=== PATIENT | female | born 1940 | race Caucasian/White ===

== ENCOUNTER → 2024-01-10 17:14 | Outpatient (REF) | payer MEDICARE, SELFPAY ==
[2024-01-10 18:01] LABS: Hematocrit 39.9 % (37.0-47.0); Hemoglobin 12.6 g/dL (12.0-16.0); Mean Corp Hgb Conc. 31.6 g/dL (33.0-37.0); Mean Corpuscular Hgb 26.3 pg (27.0-31.0); Mean Corpuscular Volume 83.1 fL (81.0-99.0); Red Cell Dist. Width 17.1 % (11.5-14.5); White Blood Cell Count 13.6 10^3/uL (4.8-10.8)
[2024-01-10 18:08] LABS: Absolute Neutrophils -Man Diff 9.5 10^3/uL (1.4-6.5); Band Neutrophils 0 % (0-3); Lymphocytes 14 % (20-51); Mean Platelet Volume 8.4 fL (7.4-10.4); Monocytes 16 % (2-9); Platelet Count 85 10^3/uL (130-400); Platelets Checked Yes; Segmented Neutrophils 70 % (42-75)
[2024-01-10 18:09] LABS: Normal RBC Morphology Yes; Total Cells Counted 100
[2024-01-10 18:10] LABS: ALT (SGPT) 16 U/L (0-35); AST (SGOT) 14 U/L (14-36); Albumin 4.2 g/dl (3.5-5.0); Alkaline Phosphatase 122 U/L (38-126); Blood Urea Nitrogen 20 mg/dl (7-17); Calcium 9.2 mg/dl (8.4-10.2); Carbon Dioxide 31 mmol/L (22-30); Chloride 102 mmol/L (98-107); Glucose 187 mg/dl (70-99); Potassium 4.2 mmol/L (3.5-5.1); Sodium 142 mmol/L (135-145); Total Bilirubin 0.5 mg/dl (0.2-1.3); eGFR > 60.00
[2024-01-10 18:42] LABS: TSH 0.86 uIU/ml (0.47-4.68)
[2024-01-11 07:38] LABS: Glycohemoglobin (HgbA1c) 8.3 % (4.0-5.6)
[2024-01-12 22:07] LABS: Fructosamine 388 umol/L (205-285)
== END ==
LOC: REG 17:14
PROVIDERS: ATTENDING PHYSICIAN Internal Medicine Endocrinology, Diabetes & Metabolism; FAMILY PHYSICIAN Family Medicine
DX: Z79.4 Long term (current) use of insulin (principal); E11.65 Type 2 diabetes mellitus with hyperglycemia; E89.0 Postprocedural hypothyroidism; E78.5 Hyperlipidemia, unspecified
CPT/HCPCS: 36415; 80053; 82985; 83036; 84443; 85025

== ENCOUNTER → 2024-02-10 09:47 | Outpatient (REF) | payer MEDICARE, SELFPAY | LOC: RCS 09:47 | PROVIDERS: ATTENDING PHYSICIAN Nuclear Medicine Nuclear Cardiology; FAMILY PHYSICIAN Family Medicine | DX: I10 Essential (primary) hypertension (principal); I45.10 Unspecified right bundle-branch block; I48.20 Chronic atrial fibrillation, unspecified | CPT/HCPCS: 93306 ==

== ENCOUNTER 2024-07-30 14:45 | Inpatient (IN) | payer MEDICARE, SELFPAY ==
[2024-07-30] VITALS (16 sets, daily range): BP systolic 117–172; BP diastolic 52–139; BMI 43.6; BMI 32.3
[2024-07-30] MEDS: ZOFRAN 4 MG IV (11:00)
[2024-07-30] MEDS: NSS 1000 IV (11:05)
[2024-07-30] MEDS: DILAUDID 0.5 MG IV (11:08)
[2024-07-30 11:10] LABS: Venous Blood Gas B.E. 0.6 mmol/L (-4 to +4); Venous Blood Gas O2 Sat % 65.6 %; Venous Blood Gas pCO2 50 mmHg (35-48); Venous Blood Gas pH 7.34 (7.32-7.43); Venous Blood Gas pO2 43 mmHg (30-50)
[2024-07-30 11:22] LABS: ALT (SGPT) 12 U/L (0-35); AST (SGOT) 14 U/L (14-36); Alkaline Phosphatase 117 U/L (38-126); Blood Urea Nitrogen 19 mg/dl (7-17); Calcium 9.3 mg/dl (8.4-10.2); Carbon Dioxide 25 mmol/L (22-30); Chloride 106 mmol/L (98-107); Estimated Creatinine Clearance 38 ml/min; Glucose 248 mg/dl (70-99); Lipase 43 U/L (23-300); Potassium 4.3 mmol/L (3.5-5.1); Sodium 142 mmol/L (135-145); Total Bilirubin 0.7 mg/dl (0.2-1.3); Total Protein 6.9 g/dl (6.3-8.2); eGFR 48.94
[2024-07-30 11:37] LABS: Hematocrit 36.9 % (37.0-47.0); Hemoglobin 11.8 g/dL (12.0-16.0); Mean Corpuscular Hgb 26.5 pg (27.0-31.0); Mean Corpuscular Volume 82.7 fL (81.0-99.0); Mean Platelet Volume 8.6 fL (7.4-10.4); Platelet Count 115 10^3/uL (130-400); Red Blood Cell Count 4.46 10^6/uL (4.20-5.40); Red Cell Dist. Width 19.6 % (11.5-14.5); White Blood Cell Count 52.5 10^3/uL (4.8-10.8)
[2024-07-30 11:50] LABS: Absolute Neutrophils -Man Diff 37.2 10^3/uL (1.4-6.5); Band Neutrophils 6 % (0-3); Lymphocytes 4 % (20-51); Metamyelocytes 4 % (-); Monocytes 18 % (2-9); Myelocytes 3 % (-); Segmented Neutrophils 65 % (42-75)
[2024-07-30 11:51] LABS: Normal RBC Morphology Yes; Platelets Checked Yes; Total Cells Counted 100
[2024-07-30 12:25] LABS: Lactic Acid 1.2 mmol/L (0.7-2.0)
[2024-07-30 13:05] LABS: Urine Albumin 4+ (Neg - Trace); Urine Bilirubin Negative (Negative); Urine Character Cloudy (Clear); Urine Color Yellow; Urine Glucose 4+ (Negative); Urine Ketone 1+ (Negative); Urine Leukocyte 2+ (Negative); Urine Nitrite Positive (Negative); Urine Occult Blood 4+ (Negative); Urine Urobilinogen Negative (Neg - 1+)
[2024-07-30 13:17] LABS: Urine Red Blood Cell >100 /HPF (0-2); Urine Squamous Cell 0-2 /LPF (Few)
[2024-07-30 13:18] LABS: Urine Bacteria Many (Negative); Urine White Cell 40-50 /HPF (0-5); Urine Yeast Few (Negative)
[2024-07-30 13:19] LABS: Urine Uric Acid Crystals Seen
--- NOTE | 2024-07-30 13:31 | ED.GENMED ---
History of Present Illness
General
Chief Complaint: Abdominal Symptoms
Time Seen by Provider: 07/30/24 10:43
History of Present Illness
History of Present Illness:
84-year-old female with history of A-fib and diabetes presents to the emergency department for evaluation of left lower quadrant sarahy pain beginning this morning. She is notably tachypneic and short of breath on arrival and states this has been
going on 'for a little while'. She is a poor historian. Reportedly has had intractable vomiting more than a dozen times today.
Past History
Past History
ED Past Medical History: Arrthythmia (afib), COPD, HTN, IDDM, Renal failure, Psychiatric and Other (Thyroid disease, osteoarthritis, spinal stenosis status post cervical fusion, diabetes, PMR, pneumonia, polyps, stomach ulcers, frequent urination,
arthritis, lumbar spondylosis, glaucoma, appeared vision)
ED Past Surgical History: Orthopedic (Spinal fusion, right total hip replacement) and Other (Colonoscopy)
Patient has exhibited threatening behavior?: No
Social History
Tobacco: Former smoker
Alcohol: None
Drug: None
Personal:
Living: with family
Employment: Retired
Family History
Family History: Other (noncontributory)
Review of Systems
Review of Systems
Allergies reviewed?: Yes
All Other Systems: ROS reviewed and negative except as documented in HPI and ROS
Phy Exam
Physical Exam
Physical Exam:
GEN: Well appearing, NAD, WDWN
HEENT: Oral mucosa dry, no scleral icterus
Cardiac: Regular rate and rhythm, no murmur
Lung: Tachypneic, grossly diminished breath sounds particularly in the bases
Abdomen: Soft, severe left lower quadrant tenderness, no rigidity
MSK: No gross deformity or injuries
Skin: Good color, no pallor or jaundice, no rashes
Neuro: AO x3, moves all extremities freely
Psych: Calm, cooperative
Course
Orders/Labs/Results
Orders:
Orders
07/30/24 10:49
CT Abd/Pel (IV only)-DH only Urgent
Comment:
Reason For Exam: LLQ pain
0.9% Sodium Chloride 1000 ml [Nss] 1,000 ml IV BOLUS
Ondansetron Injectable [Zofran] 4 mg IV NOW STA
07/30/24 10:58
HYDROmorphone [Dilaudid] 0.5 mg IV NOW STA
07/30/24 11:01
Complete Blood Count/With Diff Urgent
Comprehensive Metabolic Panel Urgent
Lipase Urgent
Manual Differential Urgent
Venous Blood Gas Urgent
%Oxygen/Room Air: 90
07/30/24 11:30
Electrocardiogram (*1) Urgent
Reason for Study: Shortness of Breath
EKG- Treatment ONCE
CR Chest Portable - 1 View Urgent
Comment:
Reason For Exam: SOB
Reason Study Needs to be Portable: Other
07/30/24 11:56
Lactic Acid Urgent
Blood Culture Q30M
TRACIE Source: Blood/Venous
Specimen Description:
Blood Culture Q30M
TRACIE Source: Blood/Venous
Specimen Description:
07/30/24 12:53
Azithromycin 500 mg/250 ml [Zithromax Infusion] 500 mg in 250 ml IV NOW
CefTRIAXone [Rocephin] 1,000 mg IV NOW STA
07/30/24 12:54
Urinalysis Reflex To Culture Urgent
Date Specimen was Collected: 07/30/24
Time Specimen was Collected: 12:53
Urine Microscopic Reflex Cult Urgent
Urine Culture Urgent
TRACIE Source: U
Specimen Description:
Date Specimen was Collected: 07/30/24
Time Specimen was Collected: 12:53
Abnormal Lab Results
07/30/24 07/30/24
11:01 12:54
WBC 52.5 H* 10^3/uL
(4.8-10.8)
Hgb 11.8 L g/dL
(12.0-16.0)
Hct 36.9 L %
(37.0-47.0)
MCH 26.5 L pg
(27.0-31.0)
MCHC 32.0 L g/dL
(33.0-37.0)
RDW 19.6 H %
(11.5-14.5)
Plt Count 115 L 10^3/uL
(130-400)
Abs Neuts (Manual) 37.2 H 10^3/uL
(1.4-6.5)
Band Neutrophils 6 H %
(0-3)
Lymphocytes (Manual) 4 L %
(20-51)
Monocytes (Manual) 18 H %
(2-9)
VBG pCO2 50 H mmHg
(35-48)
BUN 19 H mg/dl
(7-17)
Creatinine 1.1 H mg/dL
(0.6-1.0)
Glucose 248 H mg/dl
(70-99)
Urine Ketones 1+ A
(Negative)
Ur Occult Blood Reflex 4+ A
(Negative)
Urine Nitrite (Reflex) Positive A
(Negative)
Leukocyte Esterase Rfl 2+ A
(Negative)
Urine RBC >100 A /HPF
(0-2)
Urine WBC (Reflex) 40-50 A /HPF
(0-5)
Urine Bacteria (Reflex) Many A
(Negative)
Urine Yeast Few A
(Negative)
Urine Glucose 4+ A
(Negative)
Urine Albumin (Reflex) 4+ A
(Neg - Trace)
07/30/24 11:01
07/30/24 11:01
Vital Signs
Initial and Last Documented VS:
Initial Vital Signs
Temp Pulse Resp BP Pulse Ox
97.7 F 88 20 168/62 89
07/30/24 10:46 07/30/24 10:46 07/30/24 10:46 07/30/24 10:46 07/30/24 10:46
Last Documented Vital Signs
Temp Pulse Resp BP Pulse Ox
97.7 F 80 16 139/55 93
07/30/24 10:46 07/30/24 13:15 07/30/24 13:15 07/30/24 13:00 07/30/24 13:15
MDM/Problems Addressed
MDM/Problems Addressed:
Labs reveal marked leukocytosis however normal lactic acid, most likely source is urinary tract infection. Initial chest x-ray concerning for pneumonia however follow-up CT more suspicious for bilateral effusions which explains her positional
hypoxemia. No evidence for obstructing urinary stone. Will be started on broad-spectrum IV antibiotics and admitted to the hospital. She has no right upper quadrant tenderness to explain the CT finding of possible cholecystitis thus I do not see
indication for ultrasound at this point
*Critical Care Note
Total Time (30-74mins, 75-104mins- exclusive of procedures): Not Applicable
ED Attending Note
-
Portions of this chart may have been created with voice recognition software.� Occasional wrong word or��sound alike� substitutions may have occurred due to the inherent limitations of voice recognition software.
Discharge Plan
Departure
Patient Disposition: Admit
Date of Disposition: 07/30/24
Time of Disposition: 13:33
Admit to: Med/Surg
Presentation/result/management discussed w/ accepting MD/DO: Hospitalist
Discharge Problem:
Urinary tract infection
Prescriptions:
No Action
metoprolol succinate 50 MG tablet extended release 24 hr
50 mg PO BID
Rx Instructions:
with 25mg =75mg
sertraline 50 MG tablet
50 mg PO DAILY
metoprolol succinate 25 MG tablet extended release 24 hr
25 mg PO DAILY
Rx Instructions:
with 50mg =75mg
ferrous sulfate [Iron (ferrous sulfate)] 325 mg (65 mg iron) Tablet
325 mg PO DAILY
valsartan 160 mg Tablet
160 mg PO DAILY
furosemide 20 MG tablet
40 mg PO DAILY
atorvastatin 40 mg tablet
80 mg PO HS
cholecalciferol (vitamin D3) 50 mcg (2,000 unit) Tablet
50 mcg PO DAILY
potassium chloride 10 mEq tablet extended release
10 meq PO DAILY
Farxiga 10 mg tablet
10 mg PO DAILY
sodium chloride [Elkin 128] 5 % Drops
1 drp LEFT EYE HS
acetaminophen [Acetaminophen Extra Strength] 500 mg Tablet
1,000 mg PO DAILYPRN PRN (Reason: mild pain)
Systane (PF) 0.4-0.3 % Dropperette
1 drp LEFT EYE TID
Multivitamin Gummies 200 mcg Tablet,Chewable
400 tab PO DAILY
levothyroxine 150 mcg Tablet
150 mcg PO MoTuWeThFrSa@0630 30 Days Qty: 26 0RF
aspirin [Children's Aspirin] 81 mg Tablet,Chewable
81 mg PO DAILY 30 Days Qty: 30 0RF
pantoprazole 40 MG tablet,delayed release (DR/EC)
40 mg PO BID 30 Days Qty: 60 0RF
insulin lispro protamin-lispro [Humalog Mix 75-25 KwikPen] 100 unit/mL (75-25) Insulin Pen
10 unit SC DAILY Qty: 0 0RF
insulin lispro protamin-lispro [Humalog Mix 75-25 KwikPen] 100 unit/mL (75-25) Insulin Pen
4 unit SC QPM Qty: 0 0RF
Referrals:
Pratibha Wasserman MD [Family Provider] -
Interventions
Interventions:
*Risk Screen - Suicide Last Done: 07/30/24 10:46
*General Assessment Last Done: 07/30/24 10:46
*Neglect/Abuse Screening Last Done: 07/30/24 10:46
*ED COVID-19 Vaccine History Last Done: 07/30/24 11:17
TL-Necvca-Kymjrefjrs Assessment Last Done: 07/30/24 11:00
Discharge Date and Time
Print Language: URUGUAYAN
[2024-07-30] MEDS: ZITHROMAX INFUSION 250 IV (13:42)
[2024-07-30] MEDS: ROCEPHIN 1000 MG IV (13:43)
--- NOTE | 2024-07-30 14:27 | HPS.HSE ---
Family Physician
-
Family Physician: Pratibha Wasserman
Chief Complaint
-
soB , tachypnea
History of Present Illness
I could not get any information from the patient is poor historian
Information gathered by chart review and speaking with the ER staff.
HPI
84F Poor historian Former smoker, HX DM, HTN, , chr HFpEF, Hypothyroidism, Spinal Stenosis s/p fusion, Rt THR , HX Afib Xarelot HX GIB complicated with blood loss anemia and hemorrhagic shock ( Mar 2023)
- evaluation of left lower quadrant sarahy pain beginning this morning.
- notably tachypneic and short of breath on arrival and states this has been going on 'for a little while'.
- poor historian.
- Reportedly has had intractable vomiting more than a dozen times today.
Medical History
Past Medical History
Past Medical History: Reports Other
Additional Past Medical History:
Past medical history and archive reviewed:
Recurrent GI bleed status post multiple polyp removal on March 06
Hearing impairment
Basal cell carcinoma of the face
Mood disorder
Congestive heart failure with preserved ejection fraction
Pulmonary hypertension
Glaucoma
Osteoarthritis
Fat infiltration of the liver
Type 2 diabetes mellitus on insulin
Dyslipidemia
Hypertension
Hypothyroidism
Chronic right bundle branch block
Polymyalgia rheumatica
A-fib
Pericarditis.
Surgical history:
Recent EGD and colonoscopy
Polypectomy
Skin cancer removal from the face and back
Mohs surgery
Lumbar spine injection
Social history: Lives at home with family, no smoking alcohol use and she is independent.
Family history: Positive for hypertension, diabetes and coronary artery disease.
Past Surgical History: Reports Other
Social History
Unable to obtain full social history at this time due to: Other
Family History
Family History: Other
Allergies / Home Medications
Allergies reflects when Allergies were last updated in [employer].
Home Medications with original date entered in [employer]
Allergy/Medication List:
Allergies
Allergy/AdvReac Type Severity Reaction Status Date / Time
No Known Allergies Allergy Verified 03/03/23 19:24
Home Medications
levothyroxine 175 mcg tablet 175 mcg PO MOTUWETHFRSA Thyroid 10/23/15
metoprolol succinate 50 mg tablet,extended release 24 hr 50 mg PO BID Blood pressure 10/12/17
sertraline 50 mg tablet 50 mg PO DAILY Depression 10/12/17
metoprolol succinate 25 mg tablet,extended release 24 hr 25 mg PO DAILY Blood pressure 12/13/19
atorvastatin 40 mg tablet 80 mg PO HS High cholesterol 09/01/22
cholecalciferol (vitamin D3) 50 mcg (2,000 unit) tablet 50 mcg PO DAILY Supplement 09/01/22
ferrous sulfate 325 mg (65 mg iron) tablet (Iron (ferrous sulfate)) 325 mg PO DAILY Supplement 09/01/22
furosemide 20 mg tablet 40 mg PO DAILY Fluid retention/Swelling 09/01/22
insulin lispro protamine-lispro 100 unit/mL (75-25) subcutaneous pen (Humalog Mix 75-25 KwikPen) 12 unit SC DAILY Diabetes 09/01/22
insulin lispro protamine-lispro 100 unit/mL (75-25) subcutaneous pen (Humalog Mix 75-25 KwikPen) 25 unit SC DAILY Diabetes 09/01/22
pantoprazole 40 mg tablet,delayed release 40 mg PO DAILY Gastrointestinal issue 09/01/22
valsartan 160 mg tablet 160 mg PO DAILY Blood pressure 09/01/22
dapagliflozin propanediol 10 mg tablet (Farxiga) 10 mg PO DAILY Diabetes 03/04/23
potassium chloride 10 mEq tablet,extended release 10 meq PO DAILY Supplement 03/04/23
rivaroxaban 20 mg tablet (Xarelto) 20 mg PO QPM Blood clot prevention/tx #30 tabs 03/08/23
acetaminophen 500 mg tablet (Acetaminophen Extra Strength) 1,000 mg PO DAILYPRN PRN mild pain 03/19/23
multivitamin with minerals-folic acid 200 mcg chewable tablet (Multivitamin Gummies) 400 tab PO DAILY 03/19/23
peg 400-propylene glycol (PF) 0.4 %-0.3 % eye drops in a dropperette (Systane (PF)) 1 drp LEFT EYE TID 03/19/23
sodium chloride 5 % eye drops (Elkin 128) 1 drp LEFT EYE HS 03/19/23
Review of Systems
-
Constitutional: Reports No Symptoms
EENT: Reports No Symptoms
Respiratory: Reports No Symptoms
Cardiac: Reports No Symptoms
Abdomen/GI: Reports No Symptoms
: Reports No Symptoms
Musculoskeletal: Reports No Symptoms
Skin: Reports No Symptoms
Neurological: Reports No Symptoms
Endocrine: Reports No Symptoms
Hematologic/Lymphatic: Reports No Symptoms
Psych: Reports No Symptoms
Physical Exam
Vital Signs
Vital Signs
Temp Pulse Resp BP Pulse Ox
97.7 F 87 20 139/55 93
07/30/24 10:46 07/30/24 13:45 07/30/24 13:45 07/30/24 13:00 07/30/24 13:45
Physical Exam
General: Other (overweight)
Laboratory Results
-
07/30/24 11:01
07/30/24 11:01
Laboratory Results
Lactic Acid 1.2 mmol/L (0.7-2.0) 07/30/24 11:56
Total Bilirubin 0.7 mg/dl (0.2-1.3) 07/30/24 11:01
AST 14 U/L (14-36) 07/30/24 11:01
ALT 12 U/L (0-35) 07/30/24 11:01
Alkaline Phosphatase 117 U/L (38-126) 07/30/24 11:01
Lipase 43 U/L (23-300) 07/30/24 11:01
Data Reviewed
-
Diagnostic Radiology: Report Reviewed by me
CT Scan: Report Reviewed by me
Medical Tests (Nuc Med, Echo, EKG etc): Report Reviewed by me
Lab Data: Labs Reviewed by me
Old Records: Reviewed
Impression/Plan
-
Data
Selected Entries
07/30/24
10:46 07/30/24
11:30
Temp 97.7 F
Pulse 88
Resp Rate 20
Blood pressure 168/62
SaO2 89 95
Labs
01/10/24 01/10/24 07/30/24
17:29 17:30 11:01
WBC 13.6 H 52.5 H*
Hgb 12.6 11.8 L
Plt Count 85 L 115 L
Band Neutrophils 6 H
VBG pH 7.34
VBG pCO2 50 H
VBG pO2 43
BUN 19 H
Creatinine 0.9 1.1 H
eGFR > 60.00 48.94
Lactic Acid
Urine Clarity
Urine Nitrite (Reflex)
Leukocyte Esterase Rfl
Urine RBC
Urine WBC (Reflex)
Urine Bacteria (Reflex)
07/30/24 07/30/24
11:56 12:54
WBC
Hgb
Plt Count
Band Neutrophils
VBG pH
VBG pCO2
VBG pO2
BUN
Creatinine
eGFR
Lactic Acid 1.2
Urine Clarity Cloudy
Urine Nitrite (Reflex) Positive A
Leukocyte Esterase Rfl 2+ A
Urine RBC >100 A
Urine WBC (Reflex) 40-50 A
Urine Bacteria (Reflex) Many A
CXR
- suggesting mild bilateral lower lobe pneumonia.
- Small left pleural effusion
- Mild cardiomegaly
CT Abd/Pel (IV only)-DH only
- Decreased excretion from the left kidney and minimal left hydronephrosis.
- New. No obstructing radiopaque stone or mass not identified.
-Small left and tiny right pleural effusions. New.
- Minimal bibasilar consolidation probably atelectasis. New.
- New gallbladder distention with enlarged gallstones in the gallbladder neck. Acute cholecystitis cannot be excluded. Abdominal ultrasound recommended.
- Bilateral too small to characterize hypodense renal lesions likely benign cysts. Small left renal cyst. Increased in size and number.
- Solid right adrenal nodule probably benign considering the long-term stability.
- Mild T11 and L3 compression fractures. Stable
02/10/24 TTE
- LVEF 50-55% by Scott's
- Diastolic function indeterminate due to atrial fibrillation.
- Mild mitral regurgitation.
- Moderately dilated left atrium. Indexed LA volume is moderately abnormal (42-48 mL/m2).
- Mild tricuspid regurgitation.
- Estimated pulmonary artery pressure of 48 mmHg assuming right atrial pressure of 3 mmHg.
- Mildly dilated right atrium.
Since echocardiogram December 2022, there is no significant change.
Feb 2023: EGD and colonoscopy
multiple polyps been removed
Last hospitalist admission:Date of Admission: 03/19/23 - Date of Discharge: 03/29/23
DC DXS
Gastrointestinal Bleed likely exacerbated by Xarelto use,
Right Upper Extremity Superficial Thrombophlebitis
Depression
Iatrogenic Hyperthyroidism
History Hypothyroidism
Diabetes
Flu
Acute Hypoxic Respiratory Failure
Acute Kidney Injury
ASSESSMENT & PLAN
Pending Rx reconciliation
B/L LLL PNA/ Aspiration PNA ?with SIRS( RR > 20, WCC 52s ) thus associated sepsis
Asso. acute hypercapnic hypoxic RI on NC O2
- check PCT
- BCx sent
- Zosyn in place of IV CFTX/Azitrhomycin
- Trend T, RR, WCC
- O2 to keep POx > 94%
Chronic HFpEF
- stable
- c/w SCARFER PO Frusemide, Valsartan, Metoprolol XL , Farxiga
DMT2 on Insulin
- c/w SCARFER Insulin regime
- add ISS low
- ADA 2000 anthony
Hypothyroid
c/w SCARFER Synthroid
HX GIB complicated with blood loss anemia and hemorrhagic shock ( Mar 2023)
HX AF
Previously on Rivaroxaban ? stopped due to GIB
- Pending Rx reconciliation
Chr condition
Morbid obesity
Chronic Thrombocytopenia
Chronic hypoalbuminemia and hypoproteinemia
Hiatal Hernia
Colonic Polyps
Diverticulosis
Internal Hemorrhoids
Chronic anemia
Spinal stenosis s/p fusion
R total hip replacement
Thyroid surgery
Former Smoker
Morbid obesity
DVT Px: SQH
Full code
IMU
[2024-07-30 16:41] LABS: Glucose - Point of Care 201 mg/dl (70-99)
[2024-07-30 17:36] LABS: Procalcitonin 0.06 ng/ml (0.0-0.25)
[2024-07-30 18:01] LABS: Glucose - Point of Care 188 mg/dl (70-99)
[2024-07-30] MEDS: NOVOLOG FLEXPEN-LOW RESISTANCE 1 UNITS SC (18:36)
[2024-07-30] MEDS: NOVOLOG MIX 70/30 FLEXPEN SC (19:05)
--- NOTE | 2024-07-30 19:09 | PTCARENOTE ---
Addendum entered by Miriam Maharaj RN 07/30/24 19:17:
Patient d/t void post straight-cath in ED. Also due for IVAB not delivered to unit yet. Jyoti RN updated.
Original Note:
Received patient on admission from ED via stretcher; afib on monitor. Patient stated nausea was much better when she first arrived but then stated she could not eat because her stomach did not feel good. Accu check 188; administered 1unit insulin as
per SS coverage ordered. Patient also ordered 14 units 70/30; however daughter stated patient now takes 10 units 75/25. Med list updated. TT sent to Dr Mckinney of different home dose and that patient does not want to eat; he changed order to 10 units
and instructed to give. Patient and daughter then refused 70/30; daughter stated she was concerned that patient's blood sugar would drop. Report given to jyoti solorzano.
[2024-07-30] MEDS: ZOSYN 50 IV (19:50)
[2024-07-30] MEDS: HEPARIN 5000 UNITS SC (19:50)
[2024-07-30] MEDS: TOPROL XL 50 MG PO (19:53)
[2024-07-30] MEDS: REFRESH EYE DROPS (PF) 1 DROPS BOTH EYES (21:17)
[2024-07-30] MEDS: DILAUDID 0.25 MG IV (21:17)
[2024-07-30] MEDS: LIPITOR 80 MG PO (21:17)
[2024-07-30] MEDS: DESENEX/MITRAZOL/ZEASORB 1 APPLIC TOPICAL (21:18)
[2024-07-30 21:32] LABS: Glucose - Point of Care 201 mg/dl (70-99)
[2024-07-31] VITALS (13 sets, daily range): BP systolic 101–145; BP diastolic 44–77; PULSE 81–83; O2SAT 96–97; BMI 32.4
[2024-07-31] MEDS: ZOSYN 50 IV ×4 (00:14→17:16)
[2024-07-31 04:39] LABS: Blood Urea Nitrogen 22 mg/dl (7-17); Carbon Dioxide 23 mmol/L (22-30); Chloride 108 mmol/L (98-107); Estimated Creatinine Clearance 23 ml/min; Glucose 154 mg/dl (70-99); Potassium 4.5 mmol/L (3.5-5.1); Sodium 143 mmol/L (135-145); eGFR 33.73
[2024-07-31 04:48] LABS: Hematocrit 33.4 % (37.0-47.0); Hemoglobin 10.3 g/dL (12.0-16.0); Mean Corp Hgb Conc. 30.8 g/dL (33.0-37.0); Mean Corpuscular Hgb 25.8 pg (27.0-31.0); Mean Corpuscular Volume 83.5 fL (81.0-99.0); Mean Platelet Volume 8.8 fL (7.4-10.4); Platelet Count 107 10^3/uL (130-400); Red Cell Dist. Width 19.5 % (11.5-14.5); White Blood Cell Count 57.2 10^3/uL (4.8-10.8)
--- NOTE | 2024-07-31 04:59 | W.PN.UPDATE ---
Update Note
Progress Note Update
Received critical value for am labs: WBC 52.5 -> 57.2. Pt continued on Zosyn as ordered, pending bld and urine cx.
[2024-07-31] MEDS: SYNTHROID 150 MCG PO (05:42)
--- NOTE | 2024-07-31 06:01 | PTCARENOTE ---
Patient with moderate bladder pain overnight. Due to void at shift change. Bladder scanned for 111. call out operator provider made aware and ordered 1x dose dilaudid with relief. Patient with no problems urinating overnight.
--- NOTE | 2024-07-31 06:05 | PTCARENOTE ---
Critical wbc 57.2 up from 52.5. square dance caller provider made aware.
[2024-07-31 08:00] LABS: Glucose - Point of Care 158 mg/dl (70-99)
[2024-07-31] MEDS: DIOVAN 160 MG PO (08:16)
[2024-07-31] MEDS: TOPROL XL 25 MG PO (08:16)
[2024-07-31] MEDS: VITAMIN D3 (cholecalciferol) 25 MCG PO (08:16)
[2024-07-31] MEDS: ZOLOFT 50 MG PO (08:16)
[2024-07-31] MEDS: NOVOLOG FLEXPEN-LOW RESISTANCE 1 UNITS SC (08:17)
[2024-07-31] MEDS: FEOSOL 325 MG PO (08:17)
[2024-07-31] MEDS: REFRESH EYE DROPS (PF) 1 DROPS BOTH EYES ×2 (08:17→17:16)
[2024-07-31] MEDS: LASIX 40 MG PO (08:17)
[2024-07-31] MEDS: PROTONIX 40 MG PO (08:17)
[2024-07-31] MEDS: ASPIR LOW (ENTERIC COATED) 81 MG PO (08:17)
[2024-07-31] MEDS: TOPROL XL 50 MG PO ×2 (08:17→19:54)
[2024-07-31] MEDS: HEPARIN 5000 UNITS SC ×2 (08:18→19:55)
[2024-07-31] MEDS: KCL 10 MEQ PO (08:19)
[2024-07-31] MEDS: DESENEX/MITRAZOL/ZEASORB 1 APPLIC TOPICAL ×2 (08:20→19:55)
[2024-07-31] MEDS: NOVOLOG MIX 70/30 FLEXPEN 10 UNITS SC ×2 (09:23→18:20)
--- NOTE | 2024-07-31 10:25 | W.PN.HOSP.TC ---
Today's Communication/Plan
-
IV Zosyn
c/w to hold Lasix, Farxiga
Blood work in AM
Assessment / Plan
Assessment / Plan
Physical Exam
General: Not in acute distress
HEENT: Normocephalic
Cardiology: S1 and S2. Irregular Rate/Rhythm
Pulmonary: no rales, limited
Musculoskeletal: no edema
GI: Soft and Non Tender. Positive bowel sounds.
Neuro: Non Focal. Alert and awake
Psych: calm
A/P
#B/L LLL PNA/ Aspiration PNA ?with SIRS( RR > 20, WCC 52s ) thus associated sepsis
Acute hypercapnic and hypoxic respiratory failure
No cough
No fevers
Feels better today
f/w cultures
f/w pulmonary & ID recommendations
# MISBAH
Hold Lasix
Chronic HFpEF
- stable
- c/w [employer] PO Frusemide, Valsartan, Metoprolol XL , Farxiga
DMT2 on Insulin
HGB A1C 7.6 ( better than last admission)
# Hypothyroid
c/w [employer] Synthroid
HX GIB complicated with blood loss anemia and hemorrhagic shock ( Mar 2023)
HX AF
Previously on Rivaroxaban ? stopped due to GIB
- Pending Rx reconciliation
Chr condition
Morbid obesity
Chronic Thrombocytopenia
Chronic hypoalbuminemia and hypoproteinemia
Hiatal Hernia
Colonic Polyps
Diverticulosis
Internal Hemorrhoids
Chronic anemia
Spinal stenosis s/p fusion
R total hip replacement
Thyroid surgery
Former Smoker
Morbid obesity
Total time spent to see the patient, examine the patient, review data and lab result, discuss treatment plan with patient, daughter, nursing staff around 55 minutes
Anticipated Discharge: > 48 hours
Subjective/Interval History
-
Date of Service: July 31, 2024
No chest pain
No sob
No fevers
Objective Data
-
Labs:
Laboratory Results
07/31/24
03:46
WBC 57.2 H*
Hgb 10.3 L
Hct 33.4 L
Plt Count 107 L
Sodium 143
Potassium 4.5
Chloride 108 H
Carbon Dioxide 23
BUN 22 H
Creatinine 1.5 H
Glucose 154 H
Calcium 9.0
Vital Signs:
Vital Signs
Temp Pulse Resp BP Pulse Ox
98.3 F 78 20 115/61 95
07/31/24 08:02 07/31/24 10:00 07/31/24 10:00 07/31/24 10:00 07/31/24 10:01
I&O
07/30/24 07/31/24 08/01/24
06:59 06:59 06:59
Intake Total 580 / 580
Balance 580 / 580
--- NOTE | 2024-07-31 10:41 | CON.ID ---
Consultation
-
Date/Time Consultation Requested: 07/31/2024 0644
Date/Time Consultation Performed: 07/31/2024 0942
Requesting Provider: Dr. Bray
Performing Provider: Dr. Vu
Reason for Consultation: Leukocytosis; suspected pneumonia; UTI
Chief Complaint / Past History
History of Present Illness
Kera Pappas is an 84-year-old female being evaluated at the request of Dr. Bray in regards to leukocytosis. History is obtained from chart review, along with patient interview.
The patient has a significant past medical history of diabetes mellitus, COPD and A-fib. She lives with her daughter reports she was in her usual state of health until 2 days ago when later in the evening she developed left sided abdominal
discomfort. She reports that it was 10/10 when it happened. Ultimately she went to bed, but woke up later that night and found that she could not fall back to sleep secondary to the discomfort. Yesterday because of the ongoing pain she was
brought to the emergency room for further evaluation. In the ER she complained of vomiting, but reports that nausea and vomiting have now abated. She does complain of a lack of appetite. She denies any cough, but notes some slight shortness of
breath. She denies any fevers or chills, but admits to feeling 'cold'. Although the left lower quadrant pain has improved it is still present, and she also notes some right sided discomfort. She denies any dysuria, but nursing reports that the
urine appears purulent.
Past History
Additional Past Medical History:
A-fib
DM
COPD
HTN
Reported renal insufficiency
Thyroid disease
Osteoarthritis
Spinal stenosis
PMR
Additional Past Surgical History:
Cervical fusion
Right hip replacement
Colonoscopy
Allergy History:
No Known Allergies Allergy (Verified 07/30/24 10:45)
Medications Reviewed: Yes
Current Antibiotics:
Zosyn 2.25 g IV every 6 hours
Ceftriaxone (discontinued)
Azithromycin (discontinued)
Social History
Tobacco: Former Smoker
Alcohol: None
Drug: None
Personal:
Living: With Family
Employment: Retired
Family History
Family History: Not Pertinent
Review of Systems
Vital Signs
Temp Pulse Resp BP Pulse Ox
98.3 F 78 20 115/61 95
07/31/24 08:02 07/31/24 10:00 07/31/24 10:00 07/31/24 10:00 07/31/24 10:01
Physical Exam
Physical Exam
Constitutional: No Acute Distress, Comfortable and Non-toxic
Head: Normocephalic
Eyes: Pupils Equal, Pupils Round, No Conjunctival Hemorrhage and Sclera Anicteric
Oral: No Thrush and No Ulcers
Cardiovascular: S1/S2; Negative S3/S4
Pulmonary: Clear; Negative Wheezes, Rales or Rhonchi
Gastrointestinal: Soft, Tender (mild; LLQ), Non Distended, Normal Bowel Sounds, No Rebound and No Guarding
Genito-Urinary: CVA Tenderness (mild; Left)
Extremities: Edema; Negative Cyanosis or Erythema
Skin: Warm and Dry; Negative Rash or Jaundice
Neurological: Awake and Alert
Psychological: Calm
.
Lab / Diagnostic Study Results
07/31/24 03:46
07/31/24 03:46
Total Counted 100 07/30/24 11:01
Abs Neuts (Manual) 37.2 10^3/uL (1.4-6.5) H 07/30/24 11:01
Segmented Neutrophils 65 % (42-75) 07/30/24 11:01
Band Neutrophils 6 % (0-3) H 07/30/24 11:01
Lymphocytes (Manual) 4 % (20-51) L 07/30/24 11:01
Lactic Acid 1.2 mmol/L (0.7-2.0) 07/30/24 11:56
Procalcitonin 0.06 ng/ml (0.0-0.25) 07/30/24 16:43
Ur Squamous Epith Cells 0-2 /LPF (Few) 07/30/24 12:54
Microbiology Results
Micro:
07/30/24 12:54 Urine Culture - Preliminary
Urine
07/30/24 11:56 Blood Culture - Pending
Blood/Venous
07/30/24 11:56 Blood Culture - Pending
Blood/Venous
Imaging:
07/30/24 CT abdomen/pelvis: Minimal bibasilar consolidation. Liver, spleen and pancreas are unremarkable. Gallbladder is distended with at least 4 moderate-sized stones in the region of the gallbladder neck. No wall thickening or pericholecystic
fluid. Mild bilateral perinephric stranding, left greater than right. Minimal left hydronephrosis noted. No obstructing radiopaque stone or mass identified. Please see full dictation for additional detail. Film personally viewed.
07/30/2024 CXR (portable): No visible pneumothorax. Small left pleural effusion noted. Airspace disease in both lower lung storey noted.
Assessment / Plan
Leukocytosis
- ? Leukemoid reaction
Suspected complicated urinary tract infection
Anemia
MISBAH
A-fib
DM
COPD
HTN
Reported renal insufficiency
Thyroid disease
Osteoarthritis
Spinal stenosis
PMR
Recommendations:
Continue with empiric Zosyn for the present.
Blood cultures and urine culture are currently pending; will await results.
Follow white count and temperature curve.
Further recommendations as additional data is returned.
Monitor abdominal discomfort; if persists, may need repeat CT with p.o. contrast
[2024-07-31 11:03] LABS: Glycohemoglobin (HgbA1c) 7.6 % (4.0-5.6)
[2024-07-31 12:34] LABS: Glucose - Point of Care 146 mg/dl (70-99)
[2024-07-31] MEDS: NOVOLOG FLEXPEN-LOW RESISTANCE SC ×2 (12:42→17:16)
--- NOTE | 2024-07-31 13:19 | CON.PUL ---
Consultation
Consultation Request
Date/Time Consultation Requested: 07/31/2024
Date/Time Consultation Performed: 07/31/2024
Requesting Provider: Dr. Bray
Performing Provider: Dr. Jan Landers
Reason for Consultation: Pneumonia bilateral pneumonia
Medical History
-
History of Present Illness:
84-year-old woman with past medical history of diabetes, hypertension, former smoker, heart failure with preserved ejection fraction, hypothyroidism, spinal stenosis status post fusion, history of atrial fibrillation on Xarelto with history of GI
bleeding and anemia. Poor historian, chart reviewed.
Apparently initially admitted with abdominal pain and intractable vomiting.
Chest x-ray demonstrated bilateral bibasilar infiltrate suggestive of aspiration.
Patient found to be hypoxic, tachypneic.
We were consulted on 07/31/2024 for evaluation of hypoxemia and pneumonia.
Past Medical History
Past Medical History: Other (See assessment and plan)
Social History
Tobacco: Other (Unable to obtain)
Family History
Family History: Unable to Obtain
Allergies / Home Medications
Allergies
Allergy/AdvReac Type Severity Reaction Status Date / Time
No Known Allergies Allergy Verified 07/30/24 10:45
Home Medications
�Medication �Instructions �Recorded �Confirmed �Last Taken �Type
metoprolol succinate 50 mg 50 mg PO BID Blood pressure 10/12/17 07/30/24 07/29/24 History
tablet,extended release 24 hr
sertraline 50 mg tablet 50 mg PO DAILY Depression 10/12/17 07/30/24 07/29/24 History
metoprolol succinate 25 mg 25 mg PO DAILY Blood pressure 12/13/19 07/30/24 07/29/24 History
tablet,extended release 24 hr
atorvastatin 40 mg tablet 80 mg PO HS High cholesterol 09/01/22 07/30/24 07/29/24 History
ferrous sulfate 325 mg (65 mg 325 mg PO DAILY Supplement 09/01/22 07/30/24 07/29/24 History
iron) tablet (Iron (ferrous
sulfate))
furosemide 20 mg tablet 40 mg PO DAILY Fluid 09/01/22 07/30/24 07/29/24 History
retention/Swelling
valsartan 160 mg tablet 160 mg PO DAILY Blood pressure 09/01/22 07/30/24 07/29/24 History
dapagliflozin propanediol 10 mg 10 mg PO DAILY Diabetes 03/04/23 07/30/24 07/29/24 History
tablet (Farxiga)
potassium chloride 10 mEq 10 meq PO DAILY Supplement 03/04/23 07/30/24 07/29/24 History
tablet,extended release
multivitamin with minerals-folic 400 tab PO DAILY Supplement 03/19/23 07/30/24 07/29/24 History
acid 200 mcg chewable tablet
(Multivitamin Gummies)
peg 400-propylene glycol (PF) 0.4 1 drp BOTH EYES TID Eye Condition 03/19/23 07/30/24 07/29/24 History
%-0.3 % eye drops in a dropperette
(Systane (PF))
levothyroxine 150 mcg tablet 150 mcg PO [id number]@0630 30 03/29/23 07/30/24 07/29/24 Rx
days #26 tabs
acetaminophen 650 mg 1,300 mg PO [id number] PRN mild pain 07/30/24 07/30/24 Unknown History
tablet,extended release
aspirin 81 mg tablet,delayed 81 mg PO DAILY Blood Clot 07/30/24 07/30/24 07/29/24 History
release Prevention/Tx
cholecalciferol (vitamin D3) 25 25 mcg PO DAILY Supplement 07/30/24 07/30/24 07/29/24 History
mcg (1,000 unit) chewable tablet
(Vitamin D3)
insulin lispro protamine-lispro 10 unit SC BID Diabetes 07/30/24 07/30/24 07/29/24 History
100 unit/mL (75-25) subcutaneous
pen (Humalog Mix 75-25 KwikPen)
pantoprazole 40 mg tablet,delayed 40 mg PO DAILY Gastrointestinal 07/30/24 07/30/24 07/29/24 History
release issue
Review of Systems
-
Unable to Obtain full review of systems at this time due to: Acuity
Vitals / Labs / Diagnostic Testing
Vital Signs
Temp Pulse Resp BP Pulse Ox
98.6 F 78 20 115/61 95
07/31/24 11:26 07/31/24 10:00 07/31/24 10:00 07/31/24 10:00 07/31/24 10:01
Lab Data
07/31/24 03:46
07/31/24 03:46
Microbiology
07/30/24 11:56 Blood/Venous Blood Culture - Preliminary
No Growth in 24 hours- Final report to follow
07/30/24 11:56 Blood/Venous Blood Culture - Preliminary
No Growth in 24 hours- Final report to follow
07/30/24 12:54 Urine Urine Culture - Preliminary
Diagnostic Testing:
Physical Exam
-
HEENT: Normocephalic
Cardiovascular: S1/S2
Respiratory: Clear and Non-Labored Respirations
GI: Soft and Non Distended
Neurology: Awake and Alert
General: Comfortable
Assessment
-
Mrs Kera Pappas is an 82/W readm 03-19 with recurrent dark stools, and acute dyspnea and cough since 03-16 (reportedly family members at home with flu). noted h/o unexplained GIB (negative UGED/colonoscopy), outpatient rivaroxaban for AFib,
admitted with intractable nausea vomiting and subsequent hypoxemia. Found to have bilateral bibasilar infiltrates. We were consulted for evaluation on 07/31/2024.
Impression:
Acute hypoxemic respiratory Insufficiency likely due to pneumonitis/less likely pneumonia- Currently on 2 L nasal cannula
Chest x-ray: Mild bibasilar infiltrates suggestive of atelectasis minimal pleural effusion bilaterally.
CT abdomen pelvis lung cuts: Subsegmental atelectasis. No definitive infiltrate found. Tiny bilateral pleural effusion.
Suspected complicated UTI
Leukocytosis/leukemoid reaction
Abdominal pain nausea vomiting prior to admission.
Acute kidney injury- Likely volume depletion.
Conditions SERVICES REP:
Adm 1117 to 23:
EGD 03/05 Shraon:-hiatal hernia.� No other lesion
Colonoscopy 03/[address] Herrera: Five 2 to 8 mm polyps in the transverse colon, removed with a cold snare and removed with a cold biopsy forceps.� Resected and retrieved.� Clip was placed. Two 4 to 6 mm polyps in the descending colon, removed
with a cold snare.� Resected and retrieved.� Clip was placed. Erythematous mucosa in the recto-sigmoid colon and in the sigmoid colon, biopsied. Diverticulosis in the sigmoid colon and in the descending colon. Internal hemorrhoids.
GIB: in 2019 and 2017 she had an extensive work-up including EGD, colon and video capsule.� The last video capsule was in 2017 and was incomplete because it got stuck in a duodenal diverticulum.
Chronic anemia
Atrial fibrillation, on rivaroxaban
HTN
T2DM
Hypothyroidism
Spinal stenosis s/p fusion
R total hip replacement
Thyroid surgery
Former Smoker
Morbid obesity
Plan:
-
From the pulmonary perspective do not suspect ongoing infection-perhaps mild degree of pneumonitis post vomiting.
She clinically feels better this morning. Denies cough or phlegm production.
Lung exam relatively clear 07/31/2024.
I do not appreciate significant infiltrates on CT abdomen pelvis lung cuts.
-
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
Infectious disease consulted, currently on Zosyn to cover for UTI.
-
Aspiration precautions
Head of the bed elevation
Incentive spirometry if able
Continue Oxy supplementation currently on 2 L.
Not bronchospastic on exam
-
Will repeat chest x-ray depending on clinical progression or worsening hypoxemia. Cannot rule out that pneumonia develops later on if patient did have some degree of aspiration pneumonitis.
She is covered with Zosyn.
-
Physical therapy when able.
-
DVT prophylaxis with SCDs.
Patient has history of GI bleed in the past. Previously on? Xarelto. If not to restart anticoagulation restart pharmacological DVT prophylaxis.
-
Will follow

Diagnostic tests:
Chest x-ray 07/30/2024: Reviewed showed bibasilar infiltrates atelectasis versus pneumonia.
CXR 03-24-23: underpenetrated but no acute changes c/w 03-19-23
CXR 03-19-23 c/w 01-02-23: baseline of poor quality. Current film with increased reticulonodular marking at both bases
CT abdomen pelvis 07/30/2024: Reviewed
Minimal left hydronephrosis. No stone identified.
Small left and tiny right pleural effusion.
Minimal bibasilar consolidation probably atelectasis.
--- NOTE | 2024-07-31 15:12 | PTCARENOTE ---
Assumed care of patient at beginning of this shift from previous RN with O2 2l n/c in use and POx 95%. Attempted to wean twice to RA but POx dropped to 87-88%; RT provided IS to patient. OOB to chair and commode x 1 assist with MELENDREZ. Lungs diminished
t/o with crackles noted bibasilar. Patient continues with decreased appetite, but able to tolerate with no c/o nausea. Voided small amount of brown urine; PVR 3ml. Dr Bray made aware via TT. Large distended, slightly firm area in upper abdomen
noted; Dr Bray and Dr Vu made aware; patient denies tenderness to that area. See worklist for full assessment and vital signs.
[2024-07-31 17:12] LABS: Glucose - Point of Care 141 mg/dl (70-99)
[2024-07-31] MEDS: LIPITOR 80 MG PO (19:54)
[2024-07-31] MEDS: REFRESH EYE DROPS (PF) BOTH EYES (20:11)
[2024-07-31 23:31] LABS: Glucose - Point of Care 186 mg/dl (70-99)
[2024-08-01] VITALS (12 sets, daily range): BP systolic 110–140; BP diastolic 53–99; BMI 33.0
[2024-08-01] MEDS: ZOSYN 50 IV ×5 (00:04→23:51)
[2024-08-01 05:13] LABS: Glucose - Point of Care 123 mg/dl (70-99)
[2024-08-01] MEDS: SYNTHROID 150 MCG PO (05:31)
[2024-08-01 05:58] LABS: Hematocrit 30.6 % (37.0-47.0); Hemoglobin 9.8 g/dL (12.0-16.0); Mean Corpuscular Hgb 26.1 pg (27.0-31.0); Mean Corpuscular Volume 81.4 fL (81.0-99.0); Mean Platelet Volume 8.6 fL (7.4-10.4); Platelet Count 83 10^3/uL (130-400); Red Blood Cell Count 3.76 10^6/uL (4.20-5.40)
[2024-08-01 06:30] LABS: Blood Urea Nitrogen 32 mg/dl (7-17); Calcium 8.5 mg/dl (8.4-10.2); Carbon Dioxide 21 mmol/L (22-30); Chloride 109 mmol/L (98-107); Estimated Creatinine Clearance 18 ml/min; Glucose 112 mg/dl (70-99); Potassium 4.8 mmol/L (3.5-5.1); Sodium 140 mmol/L (135-145); eGFR 23.88
--- NOTE | 2024-08-01 06:31 | PTCARENOTE ---
No acute events overnight. No urine output- bladder scanned for 45 ml. No complaints of abdominal discomfort.
--- NOTE | 2024-08-01 07:15 | W.PN.PUL3 ---
Today's Communication / Plan
-
Wean oxygen
Increase activity
Continue mechanical and pharmacological DVT prophylaxis
Antibiotics per ID, doubt pulmonary process
Assessment
-
Mrs Kera Pappas is an 82/W readm 03-19 with recurrent dark stools, and acute dyspnea and cough since 03-16 (reportedly family members at home with flu). noted h/o unexplained GIB (negative UGED/colonoscopy), outpatient rivaroxaban for AFib,
admitted with intractable nausea vomiting and subsequent hypoxemia. Found to have bilateral bibasilar infiltrates. We were consulted for evaluation on 07/31/2024.
Impression:
Acute hypoxemic respiratory Insufficiency likely due to pneumonitis/less likely pneumonia- Currently on 2 L nasal cannula
Chest x-ray: Mild bibasilar infiltrates suggestive of atelectasis minimal pleural effusion bilaterally.
CT abdomen pelvis lung cuts: Subsegmental atelectasis. No definitive infiltrate found. Tiny bilateral pleural effusion.
Suspected complicated UTI
Leukocytosis/leukemoid reaction
Abdominal pain nausea vomiting prior to admission.
Acute kidney injury- Likely volume depletion.
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
Adm DH 03-03 to :
EGD 03/05 Sharon:-hiatal hernia.� No other lesion
Colonoscopy 03/[address] Herrera: Five 2 to 8 mm polyps in the transverse colon, removed with a cold snare and removed with a cold biopsy forceps.� Resected and retrieved.� Clip was placed. Two 4 to 6 mm polyps in the descending colon, removed
with a cold snare.� Resected and retrieved.� Clip was placed. Erythematous mucosa in the recto-sigmoid colon and in the sigmoid colon, biopsied. Diverticulosis in the sigmoid colon and in the descending colon. Internal hemorrhoids.
GIB: in 2019 and 2017 she had an extensive work-up including EGD, colon and video capsule.� The last video capsule was in 2017 and was incomplete because it got stuck in a duodenal diverticulum.
Chronic anemia
Atrial fibrillation, on rivaroxaban
HTN
T2DM
Hypothyroidism
Spinal stenosis s/p fusion
R total hip replacement
Thyroid surgery
Former Smoker
Morbid obesity
Plan/recommendations
At this time, patient appears to be improved
Chest exam is clear, observed ambulating to the bathroom without difficulty. Per nursing, saturation adequate with ambulation
Chest x-ray with mild basilar abnormality
Abdominal CT, lung images with mild pleural thickening, mild patchy mosaic pattern per my review
Moving forward
Continue with weaning oxygen, encourage increased activity
Leukocytosis noted, anemia noted
Infectious disease following, remains on Zosyn
Aspiration precautions
Head of the bed elevation
Incentive spirometry if able
Increase activity
Follow hemoglobin
patient with history of GI bleed in the past,
Questionable Xarelto therapy in the past
DVT prophylaxis: Mechanical and pharmacological, currently on subcutaneous heparin every 12 hours, consider increase to every 8 hours

Diagnostic tests:
Chest x-ray 07/30/2024: Reviewed showed bibasilar infiltrates atelectasis versus pneumonia.
CXR 03-24-23: underpenetrated but no acute changes c/w 03-19-23
CXR 03-19-23 c/w 01-02-23: baseline of poor quality. Current film with increased reticulonodular marking at both bases
CT abdomen pelvis 07/30/2024: Reviewed
Minimal left hydronephrosis. No stone identified.
Small left and tiny right pleural effusion.
Minimal bibasilar consolidation probably atelectasis.
Subjective Data
-
Date of Service:
Date of Service: August 01, 2024
Subjective:
Patient is without complaints today. Denies shortness of breath, chest pain, nausea, abdominal pain. Mild dry cough. Ambulated to the bathroom without difficulty. Saturation remains adequate on nasal cannula
Objective Data
Data Reviewed
Vital Signs / I&O / Oxygen:
Vital Signs
Temp Pulse Resp BP Pulse Ox
98.2 F 86 19 132/60 95
08/01/24 07:10 08/01/24 06:00 08/01/24 06:00 08/01/24 06:00 08/01/24 06:00
Intake and Output
07/31/24 08/01/24 08/02/24
06:59 06:59 06:59
Intake Total 580 / 580 390 / 390
Output Total 0 / 0
Balance 580 / 580 390 / 390
SaO2 95
Nasal Cannula flow liters per 2
minute
Physical Exam
General: Comfortable (Large neck)
HEENT: Normocephalic and Anicteric
Cardiovascular: S1-S2, Regular Rhythm, Murmur (n) and Rub (n)
Respiratory: Wheeze (n), Crackles (n), Rhonchi (n) and Non-Labored Respirations
GI: Soft, Non Distended (Obese) and Non Tender
Neurology: Awake, Alert and No Motor Deficits (Observed ambulating without difficulty, used walker)
Skin: Good Color, Cyanosis (n), Jaundice (n) and Rash (n)
Labs/Micro/Reports
Lab Data
08/01/24 04:35
08/01/24 04:35
Microbiology
07/30/24 11:56 Blood/Venous Blood Culture - Preliminary
No Growth in 24 hours- Final report to follow
07/30/24 11:56 Blood/Venous Blood Culture - Preliminary
No Growth in 24 hours- Final report to follow
07/30/24 12:54 Urine Urine Culture - Preliminary
[2024-08-01 08:05] LABS: Glucose - Point of Care 121 mg/dl (70-99)
[2024-08-01] MEDS: NOVOLOG FLEXPEN-LOW RESISTANCE SC (08:55)
[2024-08-01] MEDS: ASPIR LOW (ENTERIC COATED) 81 MG PO (08:56)
[2024-08-01] MEDS: DESENEX/MITRAZOL/ZEASORB 1 APPLIC TOPICAL ×2 (08:57→19:53)
[2024-08-01] MEDS: DIOVAN 160 MG PO (08:57)
[2024-08-01] MEDS: HEPARIN 5000 UNITS SC ×2 (08:58→19:51)
[2024-08-01] MEDS: NOVOLOG MIX 70/30 FLEXPEN 10 UNITS SC ×2 (09:00→18:34)
[2024-08-01] MEDS: REFRESH EYE DROPS (PF) 1 DROPS BOTH EYES ×2 (09:01→19:51)
[2024-08-01] MEDS: PROTONIX 40 MG PO (09:01)
[2024-08-01] MEDS: TOPROL XL 50 MG PO ×2 (09:02→19:51)
[2024-08-01] MEDS: ZOLOFT 50 MG PO (09:02)
[2024-08-01] MEDS: TOPROL XL 25 MG PO (09:03)
--- NOTE | 2024-08-01 09:47 | W.PN.HOSP.TC ---
Today's Communication/Plan
-
Work up for renal injury, possible AIN
start IVF
Bladder scan, straight cath for urine studies if needed
Nephrology consult
ok to c/w IV Abx
Abnormal blood counts, will d/w hematology
Assessment / Plan
Assessment / Plan
Physical Exam
General: Not in acute distress
HEENT: Normocephalic
Cardiology: S1 and S2. Irregular Rate/Rhythm
Pulmonary: no rales, limited
Musculoskeletal: no edema
GI: Soft and Non Tender. Positive bowel sounds.
Neuro: Non Focal. Alert and awake
Psych: calm
A/P
# UTI with left hydronephrosis
Urosepsis POA
WBC is coming down
No fevers
will do IVF
c/w IV Abx
Bladder scan protocol
# MISBAH, possible AIN ?
Possible underlying CKD
Creatinine trending up
Held Lasix since 07/31
Will start IVF with NS at 75 cc/hour.
Seems to have low urine output, will c/w bladder scan
Send for urine sodium and eosinophil
She was clinically dehydrated and also received contrast study upon admission
Ok to hold Losartan
Holding Farxiga
Renally adjust medications
Consult nephrology
#B/L LLL PNA/ Aspiration PNA ?with SIRS( RR > 20, WCC 52s ) thus associated sepsis
Acute hypercapnic and hypoxic respiratory failure
No cough
No fevers
Blood culture NGTD
urine culture is pending
f/w ID recommendations
#Chronic Thrombocytopenia
Also Anemia with leukemoid reaction/ leukocytosis, low lymphocyte/ high monocyte. Blood or BM disease? infection.
Will consult hematology
Chronic HFpEF
- stable
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
DMT2 on Insulin
HGB A1C 7.6 ( better than last admission)
# Hypothyroid
c/w ASSOCIATE VICE PRESIDENT Synthroid
HX GIB complicated with blood loss anemia and hemorrhagic shock ( Mar 2023)
HX permanent AF and RBBB
Previously on systemic AC but had recurrent GI bleeding and decided to c/w aspirin only.
-
Chr condition
Morbid obesity
Chronic Thrombocytopenia
Chronic hypoalbuminemia and hypoproteinemia
Hiatal Hernia
Colonic Polyps
Diverticulosis
Internal Hemorrhoids
Chronic anemia
Spinal stenosis s/p fusion
R total hip replacement
Thyroid surgery
Former Smoker
Morbid obesity
Total time spent to see the patient, examine the patient, review data and lab result, discuss treatment plan with patient, daughter, nursing staff around 55 minutes
Anticipated Discharge: > 48 hours
Subjective/Interval History
-
Date of Service: August 01, 2024
no chest pain
No sob
No abd pain or nausea
Objective Data
-
Labs:
Laboratory Results
08/01/24
04:35
WBC 43.0 H*
Hgb 9.8 L
Hct 30.6 L
Plt Count 83 L D
Sodium 140
Potassium 4.8
Chloride 109 H
Carbon Dioxide 21 L
BUN 32 H
Creatinine 2.0 H
Glucose 112 H
Calcium 8.5
Vital Signs:
Vital Signs
Temp Pulse Resp BP Pulse Ox
98.2 F 89 19 118/53 95
08/01/24 07:10 08/01/24 09:03 08/01/24 06:00 08/01/24 09:03 08/01/24 06:00
I&O
07/31/24 08/01/24 08/02/24
06:59 06:59 06:59
Intake Total 580 / 580 390 / 390
Output Total 0 / 0
Balance 580 / 580 390 / 390
[2024-08-01] MEDS: NSS 1000 IV ×2 (10:01→19:52)
[2024-08-01] MEDS: ZOFRAN 4 MG IV (10:39)
--- NOTE | 2024-08-01 11:06 | W.PN.ID1 ---
Date of Service
Date of Service: August 01, 2024
Today's Communication
Continue antibiotics.
Assessment / Plan
Leukocytosis
- ? Leukemoid reaction
- Improved today.
Suspected complicated urinary tract infection
Suspected left pyelonephritis
Anemia
MISBAH
A-fib
DM
COPD
HTN
Reported renal insufficiency
Thyroid disease
Osteoarthritis
Spinal stenosis
PMR
Recommendations:
Continue with empiric Zosyn for the present.
- Dose adjusted for renal insufficiency (current CrCl = 18)
Blood cultures and urine culture are currently pending; will await results.
Follow white count and temperature curve.
Further recommendations as additional data is returned.
Monitor abdominal discomfort; if persists, may need repeat CT with p.o. contrast
����������������������������������������������������������
Chief Complaint
-: Leukocytosis and UTI
Subjective / Review of Systems
Patient seen and examined. Reports feeling somewhat improved today, although currently admits to some nausea. Denies abdominal discomfort. No dysuria.
Vital Signs / Physical Exam
Vital Signs
Vital Signs
Temp Pulse Resp BP Pulse Ox
97.9 F 89 19 118/53 92
08/01/24 10:59 08/01/24 09:03 08/01/24 06:00 08/01/24 09:03 08/01/24 10:39
Physical Exam
Constitutional: Comfortable and Non-toxic
Eyes: Sclera Anicteric
Cardiovascular: S1/S2; Negative S3/S4
Pulmonary: Non Labored; Negative Wheezes or Rales
Gastrointestinal: Soft, Non Tender, Distended, Normal Bowel Sounds, No Rebound and No Guarding
Genito-Urinary: CVA Tenderness (mild; left)
Extremities: Negative Edema, Cyanosis or Erythema
Neurological: Awake and Alert
Psychological: Calm
Objective Data
Lab Data
Lab Results
08/01/24 04:35
08/01/24 04:35
Estimated Creat Clear 18 ml/min 08/01/24 04:35
Lactic Acid 1.2 mmol/L (0.7-2.0) 07/30/24 11:56
Total Bilirubin 0.7 mg/dl (0.2-1.3) 07/30/24 11:01
AST 14 U/L (14-36) 07/30/24 11:01
ALT 12 U/L (0-35) 07/30/24 11:01
Alkaline Phosphatase 117 U/L (38-126) 07/30/24 11:01
Most recent labs reviewed.
Micro Results:
07/30/24 11:56 Blood Culture - Preliminary
Blood/Venous No Growth in 24 hours- Final report to follow
07/30/24 11:56 Blood Culture - Preliminary
Blood/Venous No Growth in 24 hours- Final report to follow
07/30/24 12:54 Urine Culture - Preliminary
Urine
Imaging:
07/30/24 CT abdomen/pelvis: Minimal bibasilar consolidation. Liver, spleen and pancreas are unremarkable. Gallbladder is distended with at least 4 moderate-sized stones in the region of the gallbladder neck. No wall thickening or pericholecystic
fluid. Mild bilateral perinephric stranding, left greater than right. Minimal left hydronephrosis noted. No obstructing radiopaque stone or mass identified. Please see full dictation for additional detail. Film personally viewed.
07/30/2024 CXR (portable): No visible pneumothorax. Small left pleural effusion noted. Airspace disease in both lower lung storey noted.
--- NOTE | 2024-08-01 11:27 | CON.ONC ---
Consultation
-
Date Consultation Requested: 08/01/24
Date Consultation Performed: 08/01/24
Requesting Provider: Dr. Bray
Performing Provider: Dr. Doran
Reason for Consultation: leukocytosis
Impression
Impression
Leukocytosis, neutrophilia, normocytic anemia, and thrombocytopenia
MISBAH
gram negative UTI/pylonephritis
left hydronephrosis
gallbladder distention with enlarged gallstones in the gallbladder neck
small L pleural effusion
PNA
acute hypoxic respiratory failure
mild cardiomegaly
atrial fibrillation
Plan
Plan
Leukocytosis and thrombocytopenia may be reactive to infection/acute illness. If WBC/neutrophilia do not improve with treatement of underlying infection then would consider an outpatient evaluation.
on abx -Follow cultures
on abx for UTI
check coags, fibrinogen
check SPEP, FLC
check B12, folate, iron studies
ID, nephrology, pulmonary following
Patient History
History of Present Illness
84yo F presented with LLQ pain and decreased urination. initial evaluation was notable for WBC 52.5, ANC 37, Hgb 11.8, platelet count 115,000, BuN 22, creatinine 1.5. Her UA showed pyuria and culture shows gram negative bacilli. CT ab/pelvis w IVC
showed decreased excretion from the left kidney and minimal left hydronephrosis, new gallbladder distention with enlarged gallstones in the gallbladder neck, small hypodense renal lesions likely benign cysts, stable solid right adrenal nodule, and
stable mild T11 and L3 compression fractures. Her Cxr shows b/l lower lobe pneumonia. She has been admitted and started on IV abx.
Clinically, she denies fever, chills, cough, chest pain, palpitations, SOB at rest, n/v/d/c. Her LLQ pain has improved since admission. She feels generally weak and fatigued.
Past-Medical/Surgical History
PMH atrial fibrillation, HTN, DM2, HFpEF, hypothyroid, spinal stenosis, basal cell carcinoma on face, pulmonary HTN, osteoarthritis, HLD, PMR, Mohhs, depression, hyperplastic polyps on colonoscopy 2022
PSH spinal fusion, R THR
Social former smoker, denies ETOH or recreational drugs. Lives with daughter. 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
Family denies malignancy
Patient Medication
�Medication �Instructions �Recorded �Confirmed �Last Taken �Type
metoprolol succinate 50 mg 50 mg PO BID Blood pressure 10/12/17 07/30/24 07/29/24 History
tablet,extended release 24 hr
sertraline 50 mg tablet 50 mg PO DAILY Depression 10/12/17 07/30/24 07/29/24 History
metoprolol succinate 25 mg 25 mg PO DAILY Blood pressure 12/13/19 07/30/24 07/29/24 History
tablet,extended release 24 hr
atorvastatin 40 mg tablet 80 mg PO HS High cholesterol 09/01/22 07/30/24 07/29/24 History
ferrous sulfate 325 mg (65 mg 325 mg PO DAILY Supplement 09/01/22 07/30/24 07/29/24 History
iron) tablet (Iron (ferrous
sulfate))
furosemide 20 mg tablet 40 mg PO DAILY Fluid 09/01/22 07/30/24 07/29/24 History
retention/Swelling
valsartan 160 mg tablet 160 mg PO DAILY Blood pressure 09/01/22 07/30/24 07/29/24 History
dapagliflozin propanediol 10 mg 10 mg PO DAILY Diabetes 03/04/23 07/30/24 07/29/24 History
tablet (Farxiga)
potassium chloride 10 mEq 10 meq PO DAILY Supplement 03/04/23 07/30/24 07/29/24 History
tablet,extended release
multivitamin with minerals-folic 400 tab PO DAILY Supplement 03/19/23 07/30/24 07/29/24 History
acid 200 mcg chewable tablet
(Multivitamin Gummies)
peg 400-propylene glycol (PF) 0.4 1 drp BOTH EYES TID Eye Condition 1207/30/24 07/29/24 History
%-0.3 % eye drops in a dropperette
(Systane (PF))
levothyroxine 150 mcg tablet 150 mcg PO Brooke@0630 30 03/29/23 07/30/24 07/29/24 Rx
days #26 tabs
acetaminophen 650 mg 1,300 mg PO [id number] PRN mild pain 07/30/24 07/30/24 Unknown History
tablet,extended release
aspirin 81 mg tablet,delayed 81 mg PO DAILY Blood Clot 07/30/24 07/30/24 07/29/24 History
release Prevention/Tx
cholecalciferol (vitamin D3) 25 25 mcg PO DAILY Supplement 07/30/24 07/30/24 07/29/24 History
mcg (1,000 unit) chewable tablet
(Vitamin D3)
insulin lispro protamine-lispro 10 unit SC BID Diabetes 07/30/24 07/30/24 07/29/24 History
100 unit/mL (75-25) subcutaneous
pen (Humalog Mix 75-25 KwikPen)
pantoprazole 40 mg tablet,delayed 40 mg PO DAILY Gastrointestinal 07/30/24 07/30/24 07/29/24 History
release issue
Active Medications
Generic Name Dose Route Start Last Admin
Trade Name Freq PRN Reason Stop Dose Admin
Acetaminophen 650 mg 07/30/24 16:03
Acetaminophen 325 Mg Tablet PO 08/27/24 16:02
Q4HPRN PRN
if temp > 101 F
Artificial Tears 1 drops 07/30/24 22:00 08/01/24 09:01
Artificial Tears Pf (Refresh) 10 Drop Droperette BOTH EYES 08/27/24 21:59 1 drops
TID DEVIN Administration
Aspirin 81 mg 07/31/24 08:00 08/01/24 08:56
Aspirin 81 Mg (Enteric Coated) Tablet PO 08/28/24 07:59 81 mg
DAILY DEVIN Administration
Atorvastatin Calcium 80 mg 07/30/24 22:00 07/31/24 19:54
Atorvastatin (Lipitor) 80 Mg Tablet PO 08/27/24 21:59 80 mg
HS DEVIN Administration
Dextrose 12.5 grams 07/30/24 16:03
Dextrose 50% (0.5 Grams/Ml) 50 Ml Syringe IV 08/27/24 16:02
[id number] PRN
hypoglycemia
Protocol
Glucagon 1 mg 07/30/24 16:03
Glucagon 1 Mg Vial IM 08/27/24 16:02
PRN PRN
hypoglycemia
Protocol
Heparin Sodium 5,000 units 07/30/24 20:00 08/01/24 08:58
Heparin 5,000 Units/Ml 1 Ml Vial SC 08/27/24 19:59 5,000 units
Q12 DEVIN Administration
Piperacillin Sod/Tazobactam Sod 2.25 grams in 50 mls @ 100 mls/hr 07/30/24 18:00 08/01/24 11:06
Zosyn IV 50 mls
Q6H DEVIN Administration
Sodium Chloride 1,000 mls @ 75 mls/hr 08/01/24 10:00 08/01/24 10:01
Nss IV 1,000 mls
.[id number] DEVIN Administration
Insulin Aspart 0 units 07/30/24 16:30 08/01/24 08:55
Insulin Aspart Low Resistance 300 Units/3 Ml Pen.Injctr SC 08/27/24 16:29 Not Given
AC DEVIN
Protocol
Insulin Aspart Prota 70%/Aspart 30% 10 units 07/30/24 18:30 08/01/24 09:00
Novolog Mix 70/30 (100 Units/Ml) 3 Ml Flexpen SC 08/27/24 18:29 10 units
BID AT 0800,1700 DEVIN Administration
Levothyroxine Sodium 150 mcg 07/31/24 06:30 08/01/24 05:31
Levothyroxine 150 Mcg Tablet PO 08/28/24 06:29 150 mcg
MoTuWeThFrSa@0630 DEVIN Administration
Metoprolol Succinate 50 mg 07/30/24 20:00 08/01/24 09:02
Metoprolol 50 Mg Extended Release Tablet PO 08/27/24 19:59 50 mg
BID DEVIN Administration
Metoprolol Succinate 25 mg 07/31/24 08:00 08/01/24 09:03
Metoprolol 25 Mg Extended Release Tablet PO 08/28/24 07:59 25 mg
DAILY DEVIN Administration
Miconazole Nitrate 0 applic 07/30/24 21:00 08/01/24 08:57
Miconazole Powder Bottle TOPICAL 08/27/24 20:59 1 applic
BID DEVIN Administration
Ondansetron HCl 4 mg 07/31/24 12:46 08/01/24 10:39
Ondansetron 4 Mg/2 Ml Vial IV 08/28/24 12:45 4 mg
Q6HPRN PRN Administration
NAUSEA/VOMITING
Pantoprazole Sodium 40 mg 07/31/24 08:00 08/01/24 09:01
Pantoprazole 40 Mg Delayed Release Tablet PO 08/28/24 07:59 40 mg
DAILY DEVIN Administration
Sertraline HCl 50 mg 07/31/24 08:00 08/01/24 09:02
Sertraline 50 Mg Tablet PO 08/28/24 07:59 50 mg
DAILY DEVIN Administration
Sodium Chloride 0 flush 07/30/24 17:00
Sodium Chloride 0.9% (Flush) Syringe IV 08/27/24 16:59
PER PROTOCOL DEVIN
Valsartan 160 mg 07/31/24 08:00 08/01/24 08:57
Valsartan 160 Mg Tablet PO 08/28/24 07:59 160 mg
DAILY DEVIN Administration
Review of Systems
-
ROS is notable for HPI, otherwise negative
Physical Exam
-
General: No Apparent Distress
HEENT: Moist Mucous Membranes; Negative Jaundice
Cardiology: Normal Sinus Rhythm
Pulmonary: Clear
GI: Soft; Negative Distended
Extremities: Pulses Present and Edema
Skin: Warm
Psych: Calm
Labs
Lab Results
WBC 43.0 10^3/uL (4.8-10.8) H* 08/01/24 04:35
RBC 3.76 10^6/uL (4.20-5.40) L 08/01/24 04:35
Hgb 9.8 g/dL (12.0-16.0) L 08/01/24 04:35
Hct 30.6 % (37.0-47.0) L 08/01/24 04:35
MCV 81.4 fL (81.0-99.0) 08/01/24 04:35
MCH 26.1 pg (27.0-31.0) L 08/01/24 04:35
MCHC 32.0 g/dL (33.0-37.0) L 08/01/24 04:35
RDW 19.0 % (11.5-14.5) H 08/01/24 04:35
Plt Count 83 10^3/uL (130-400) L D 08/01/24 04:35
MPV 8.6 fL (7.4-10.4) 08/01/24 04:35
Creatinine 2.0 mg/dL (0.6-1.0) H 08/01/24 04:35
Vital Signs
Vital Signs
Temp Pulse Resp BP Pulse Ox
97.9 F 89 19 118/53 92
08/01/24 10:59 08/01/24 09:03 08/01/24 06:00 08/01/24 09:03 08/01/24 10:39
[2024-08-01] MEDS: TYLENOL 650 MG PO (11:32)
--- NOTE | 2024-08-01 11:57 | PTCARENOTE ---
Addendum entered by Gopi Kevin RN 08/01/24 12:57:
Limon catheter placed per orders, 20cc brown UO initial output. Patient tolerated well. IV fluid rate increased per MD orders. Continuing to closely monitor.
Original Note:
Patient AAOx3. VSS. Afib on monitor. Weaned to 1L NC, sats 92%. Had nausea with relief from zofran. Patient not making much urine, see documentation. Following bladder scans. IV fluids started. Discussed with MD at bedside. Will closely monitor.
--- NOTE | 2024-08-01 12:24 | CM ---
Patient with Dx likely pneumonitis/less likely pneumonia, Leukocytosis, Suspected complicated UTI, Suspected left pyelonephritis. O2 2L. Receiving IV Abx. PT recommends home PT vs SNF rehab, OT recommends skilled rehab. Seen by lobster fisherman.
Met with patient and spoke with daughter Alicia by phone;
the patient resides with her daughter and grand-dtr in a 2 story condo with first floor setup and ramp at entrance.
She was independent in ADLs and ambulation using her RW.
The patient is able to check her own blood sugars with her glucometer and give her own insulin.
Patient is able to make some meals while daughter is at work, however she has no appeatite, has not been eating well for the past month and daughter expressed concern she is losing weight.
Patient has been able to go out with family.
While daughter is at work, other family comes by to check on her and son lives close by.
DME - RW, SPC, glucometer. No home O2, CPAP or nebulizer.
Current with [facility] for PT
Prior [facility]
PCP - Pratibha Wasserman
Pharmacy - [facility]
Patient and daughter do not want SNF for rehab. They both would like [facility] for PT to resume at discharge.
Plan watch for any home O2 needs.
Plan home with resumption of [facility] with family support.
--- NOTE | 2024-08-01 12:34 | W.CON.NEPH ---
Consultation
-
Date/Time Consultation Requested: 08/01/2024 at 10 AM
Date/Time Consultation Performed: 08/01/2024 at 12 PM
Requesting Provider: Dr. Bray
Performing Provider: Dr. Rodrigues
Reason for Consultation: Acute kidney injury
Medical History
-
Chief Complaint: Acute kidney injury
History of Present Illness:
84F Poor historian Former smoker, HX DM, HTN, , chr HFpEF, Hypothyroidism, Spinal Stenosis s/p fusion, Rt THR , HX Afib Xarelot HX GIB complicated with blood loss anemia and hemorrhagic shock ( Mar 2023) presents with left lower quadrant pain
decreased urination. She had a CAT scan showed mild right perinephric stranding left mild hydro. Urinalysis indicative of urinary tract infection. Patient states no history of urine infection. No acute or chronic NSAID use. CAT scan was
performed with IV contrast.
Renal consult with acute kidney injury on chronic kidney disease with her creatinine of 2 on consultation with baseline creatinine 1.2-1.3 labile per records with estimated EGFR of 40 at baseline.
Past Medical History
, HX DM, HTN, , chr HFpEF, Hypothyroidism, Spinal Stenosis s/p fusion, Rt THR , HX Afib Xarelot HX GIB complicated with blood loss anemia and hemorrhagic shock ( Mar 2023)
Social History
Tobacco: Former Smoker
Alcohol: None
Family History
Family History: Not Pertinent
Allergies / Home Medications
Allergy/AdvReac Type Severity Reaction Status Date / Time
No Known Allergies Allergy Verified 07/30/24 10:45
�Medication �Instructions �Recorded �Confirmed �Type
metoprolol succinate 50 mg 50 mg PO BID Blood pressure 10/12/17 07/30/24 History
tablet,extended release 24 hr
sertraline 50 mg tablet 50 mg PO DAILY Depression 10/12/17 07/30/24 History
metoprolol succinate 25 mg 25 mg PO DAILY Blood pressure 12/13/19 07/30/24 History
tablet,extended release 24 hr
atorvastatin 40 mg tablet 80 mg PO HS High cholesterol 09/01/22 07/30/24 History
ferrous sulfate 325 mg (65 mg 325 mg PO DAILY Supplement 09/01/22 07/30/24 History
iron) tablet (Iron (ferrous
sulfate))
furosemide 20 mg tablet 40 mg PO DAILY Fluid 09/01/22 07/30/24 History
retention/Swelling
valsartan 160 mg tablet 160 mg PO DAILY Blood pressure 09/01/22 07/30/24 History
dapagliflozin propanediol 10 mg 10 mg PO DAILY Diabetes 03/04/23 07/30/24 History
tablet (Farxiga)
potassium chloride 10 mEq 10 meq PO DAILY Supplement 03/04/23 07/30/24 History
tablet,extended release
multivitamin with minerals-folic 400 tab PO DAILY Supplement 03/19/23 07/30/24 History
acid 200 mcg chewable tablet
(Multivitamin Gummies)
peg 400-propylene glycol (PF) 0.4 1 drp BOTH EYES TID Eye Condition 03/19/23 07/30/24 History
%-0.3 % eye drops in a dropperette
(Systane (PF))
levothyroxine 150 mcg tablet 150 mcg PO MoTuWeThFrSa@0630 30 03/29/23 07/30/24 Rx
days #26 tabs
acetaminophen 650 mg 1,300 mg PO [id number] PRN mild pain 07/30/24 07/30/24 History
tablet,extended release
aspirin 81 mg tablet,delayed 81 mg PO DAILY Blood Clot 07/30/24 07/30/24 History
release Prevention/Tx
cholecalciferol (vitamin D3) 25 25 mcg PO DAILY Supplement 07/30/24 07/30/24 History
mcg (1,000 unit) chewable tablet
(Vitamin D3)
insulin lispro protamine-lispro 10 unit SC BID Diabetes 07/30/24 07/30/24 History
100 unit/mL (75-25) subcutaneous
pen (Humalog Mix 75-25 KwikPen)
pantoprazole 40 mg tablet,delayed 40 mg PO DAILY Gastrointestinal 07/30/24 07/30/24 History
release issue
Review of Systems
-
Mild shortness of breath no chest pain no abdominal pain no urine output
All other systems: Negative unless noted
Physical Exam
Vital Signs
Vital Signs
Temp Pulse Resp BP Pulse Ox
97.9 F 82 29 129/58 95
08/01/24 10:59 08/01/24 10:01 08/01/24 10:01 08/01/24 10:01 08/01/24 11:50
Lab Results
WBC 43.0 10^3/uL (4.8-10.8) H* 08/01/24 04:35
RBC 3.76 10^6/uL (4.20-5.40) L 08/01/24 04:35
Hgb 9.8 g/dL (12.0-16.0) L 08/01/24 04:35
Hct 30.6 % (37.0-47.0) L 08/01/24 04:35
Plt Count 83 10^3/uL (130-400) L D 08/01/24 04:35
Sodium 140 mmol/L (135-145) 08/01/24 04:35
Potassium 4.8 mmol/L (3.5-5.1) 08/01/24 04:35
Chloride 109 mmol/L (98-107) H 08/01/24 04:35
Carbon Dioxide 21 mmol/L (22-30) L 08/01/24 04:35
BUN 32 mg/dl (7-17) H 08/01/24 04:35
Creatinine 2.0 mg/dL (0.6-1.0) H 08/01/24 04:35
eGFR 23.88 08/01/24 04:35
Glucose 112 mg/dl (70-99) H 08/01/24 04:35
Calcium 8.5 mg/dl (8.4-10.2) 08/01/24 04:35
Albumin 4.0 g/dl (3.5-5.0) 07/30/24 11:01
Physical Exam
General no acute distress
HEENT no cephalic atraumatic extraocular muscle intact no scleral icterus no JVD neck supple
lungs clear to auscultation bilateral
heart regular S1-S2 positive
abdomen soft nontender positive bowel sounds
extremities no edema pulses present bilateral
Neurologically nonfocal alert and oriented x 3
Skin no lesions no abrasions no petechiae
Psych normal affect no bizarre behavior
Data Reviewed
-
CT Scan: Image Personally Visualized and interpreted
Labs: Labs Reviewed by me, Discussed with Nurse and Discussed with Patient
Assessment/Plan
-
84F Poor historian Former smoker, HX DM, HTN, , chr HFpEF, Hypothyroidism, Spinal Stenosis s/p fusion, Rt THR , HX Afib Xarelot HX GIB complicated with blood loss anemia and hemorrhagic shock ( Mar 2023) presents with left lower quadrant pain
decreased urination. She had a CAT scan showed mild right perinephric stranding left mild hydro. Urinalysis indicative of urinary tract infection. Patient states no history of urine infection. No acute or chronic NSAID use. CAT scan was
performed with IV contrast.
Renal consult with acute kidney injury on chronic kidney disease with her creatinine of 2 on consultation with baseline creatinine 1.2-1.3 labile per records with estimated EGFR of 40 at baseline.
Impression.
Acute on chronic kidney disease admitting creatinine 1.1. Creatinine of 2 on on consult.
Urinary tract infection/pyelonephritis with mild left hydro and perinephric stranding on the right.
History of atrial fibrillation stable.
History of GI bleed.
January 2024 CHF with preserved EF.
Plan.
Acute on chronic kidney disease multifactorial (UTI, JOSE LUIS).= No evidence of any significant hypotensive episodes
Place Limon catheter for critical I's and O's. And evidence of mild hydro left
Bladder scan 30 cc.
Increase IV fluids to 125 cc/h with close monitoring of her pulmonary status patient does not appear to be in CHF
Antibiotic
Await urine culture
Discussed with primary medical nurse
Total Time Spent with Patient (in minutes): 32
[2024-08-01 12:46] LABS: Iron 71 ug/dl (37-170)
[2024-08-01 12:57] LABS: Percent Saturation 29 % (20-50); Total Iron Binding Capacity 239 ug/dl (265-497)
[2024-08-01] MEDS: NOVOLOG FLEXPEN-LOW RESISTANCE 1 UNITS SC ×2 (13:00→18:33)
[2024-08-01 13:09] LABS: Glucose - Point of Care 190 mg/dl (70-99)
[2024-08-01 13:43] LABS: Urine Sodium 30 mmol/L (30-90)
[2024-08-01 14:09] LABS: Body Fluid for Eosinophils No Eosinophils seen
[2024-08-01] MEDS: REFRESH EYE DROPS (PF) BOTH EYES (17:04)
[2024-08-01 18:22] LABS: Glucose - Point of Care 188 mg/dl (70-99)
[2024-08-01] MEDS: LIPITOR 80 MG PO (19:52)
[2024-08-01 22:37] LABS: Glucose - Point of Care 216 mg/dl (70-99)
--- NOTE | 2024-08-01 23:53 | PTCARENOTE ---
Patient desatting to 97 percent while asleep on 1 liters. 02 turned back up to 2 liters.
[2024-08-02] VITALS (15 sets, daily range): BP systolic 108–153; BP diastolic 47–102; PULSE 75; O2SAT 94; BMI 33.9
[2024-08-02] MEDS: NSS 1000 IV ×2 (03:58→12:30)
[2024-08-02 04:20] LABS: Hematocrit 31.5 % (37.0-47.0); Hemoglobin 9.9 g/dL (12.0-16.0); Mean Corp Hgb Conc. 31.4 g/dL (33.0-37.0); Mean Corpuscular Hgb 26.1 pg (27.0-31.0); Mean Corpuscular Volume 83.1 fL (81.0-99.0); Platelet Count 87 10^3/uL (130-400); Red Blood Cell Count 3.79 10^6/uL (4.20-5.40); Red Cell Dist. Width 19.2 % (11.5-14.5); White Blood Cell Count 55.1 10^3/uL (4.8-10.8)
[2024-08-02 04:39] LABS: INR 1.33
[2024-08-02 04:40] LABS: APTT 34.7 Sec (23.4-35.0); Fibrinogen 366 MG/DL (199-459)
[2024-08-02 04:46] LABS: Blood Urea Nitrogen 38 mg/dl (7-17); Calcium 8.6 mg/dl (8.4-10.2); Carbon Dioxide 22 mmol/L (22-30); Chloride 110 mmol/L (98-107); Estimated Creatinine Clearance 11 ml/min; Glucose 162 mg/dl (70-99); Potassium 4.5 mmol/L (3.5-5.1); Sodium 142 mmol/L (135-145); eGFR 14.11
--- NOTE | 2024-08-02 05:21 | W.PN.UPDATE ---
Update Note
Progress Note Update
RN reports multiple loose stools tonight (about 5). Being on abx will check norovirus and cdiff
[2024-08-02] MEDS: SYNTHROID 150 MCG PO (05:41)
[2024-08-02] MEDS: ZOSYN 50 IV ×3 (05:41→17:03)
[2024-08-02 05:49] LABS: Folate > 20.0 ng/ml (2.76-20); Vitamin B12 > 1000 pg/ml (239-931)
--- NOTE | 2024-08-02 06:41 | PTCARENOTE ---
Patient with over 5 loose BMs overnight and abdominal pain. Cdiff and norovirus stool sample sent and pending. Placed on enhanced precautions pending results.
[2024-08-02 07:54] LABS: Band Neutrophils 1 % (0-3); Lymphocytes 8 % (20-51); Metamyelocytes 4 % (-); Monocytes 19 % (2-9); Normal RBC Morphology Yes; Platelets Checked Yes; Segmented Neutrophils 68 % (42-75); Total Cells Counted 100
[2024-08-02 08:15] LABS: Glucose - Point of Care 156 mg/dl (70-99)
--- NOTE | 2024-08-02 08:20 | W.PN.PUL3 ---
Addendum entered and electronically signed by Cheryl Young MD 08/02/24 13:32:
Reviewed chest x-ray. There is worsening of bibasilar interstitial changes but chest exam remains clear and patient remains without symptoms
we will follow conservatively at this time
We'll continue to follow
Original Note:
Today's Communication / Plan
-
PA lateral chest x-ray today
Continue management per nephrology, studies ordered
Despite rising creatinine and IV fluids, oxygen requirement improved
Continue to wean oxygen as able
Incentive spirometry, out of bed to chair as able
Assessment
-
Mrs Kera Pappas is an 82/W readm 03-19 with recurrent dark stools, and acute dyspnea and cough since 03-16 (reportedly family members at home with flu). noted h/o unexplained GIB (negative UGED/colonoscopy), outpatient rivaroxaban for AFib,
admitted with intractable nausea vomiting and subsequent hypoxemia. Found to have bilateral bibasilar infiltrates. We were consulted for evaluation on 07/31/2024.
Impression:
Acute hypoxemic respiratory Insufficiency likely due to pneumonitis/less likely pneumonia- Currently on 2 L nasal cannula
Chest x-ray: Mild bibasilar infiltrates suggestive of atelectasis minimal pleural effusion bilaterally.
CT abdomen pelvis lung cuts: Subsegmental atelectasis. No definitive infiltrate found. Tiny bilateral pleural effusion.
Suspected complicated UTI
Leukocytosis/leukemoid reaction
Abdominal pain nausea vomiting prior to admission.
Acute kidney injury- Likely volume depletion.
Conditions CREDIT ADMINISTRATOR:
Adm DH 03-03 to 23:
EGD 03/05 Sharon:-hiatal hernia.� No other lesion
Colonoscopy 03/[address] Herrera: Five 2 to 8 mm polyps in the transverse colon, removed with a cold snare and removed with a cold biopsy forceps.� Resected and retrieved.� Clip was placed. Two 4 to 6 mm polyps in the descending colon, removed
with a cold snare.� Resected and retrieved.� Clip was placed. Erythematous mucosa in the recto-sigmoid colon and in the sigmoid colon, biopsied. Diverticulosis in the sigmoid colon and in the descending colon. Internal hemorrhoids.
GIB: in 2019 and 2017 she had an extensive work-up including EGD, colon and video capsule.� The last video capsule was in 2017 and was incomplete because it got stuck in a duodenal diverticulum.
Chronic anemia
Atrial fibrillation, on rivaroxaban
HTN
T2DM
Hypothyroidism
Spinal stenosis s/p fusion
R total hip replacement
Thyroid surgery
Former Smoker
Morbid obesity
Plan/recommendations
At this time, patient appears to be improved
Presently she is 95% on 1 L
Chest exam is clear
Chest x-ray with mild basilar abnormality, per my review
Abdominal CT, lung images with mild pleural thickening, mild patchy mosaic pattern per my review
Unclear accuracy of weights
Creatinine noted, increased to 3.1 from 2.0
Moving forward
Continue with weaning oxygen, encourage increased activity
Leukocytosis noted, anemia noted
Infectious disease following, remains on Zosyn
Oncology also consulted
Difficult to assess volume status
Recent echocardiogram January 2024 shows normal biventricular function, PA pressure 48
Will check chest x-ray today, PA and lateral
Nephrology following. IV fluids given over last 24 hours
Despite this, creatinine increased to 3.1, no change in oxygen requirement
Difficult to assess volume status
Further studies per nephrology
Aspiration precautions
Head of the bed elevation
Incentive spirometry if able
Leukocytosis noted. Remains on Zosyn therapy, suspected complicated UTI, left pyelonephritis
Oncology also evaluated
Increase activity
Follow hemoglobin
patient with history of GI bleed in the past,
Questionable Xarelto therapy in the past
DVT prophylaxis: Mechanical and pharmacological, currently on subcutaneous heparin every 12 hours, consider increase to every 8 hours
Patient is full code. Suggest discussion regarding CODE STATUS. This will be deferred to primary service

Diagnostic tests:
Chest x-ray 07/30/2024: Reviewed showed bibasilar infiltrates atelectasis versus pneumonia.
CXR 03-24-23: underpenetrated but no acute changes c/w 03-19-23
CXR 03-19-23 c/w 01-02-23: baseline of poor quality. Current film with increased reticulonodular marking at both bases
CT abdomen pelvis 07/30/2024: Reviewed
Minimal left hydronephrosis. No stone identified.
Small left and tiny right pleural effusion.
Minimal bibasilar consolidation probably atelectasis.
Subjective Data
-
Date of Service:
Date of Service: August 02, 2024
Subjective:
Patient is feeling well. She denies significant shortness of breath, cough, chest pain, nausea. Records suggest loose stool overnight, patient confirms
Objective Data
Data Reviewed
Vital Signs / I&O / Oxygen:
Vital Signs
Temp Pulse Resp BP Pulse Ox
98.7 F 81 20 116/56 93
08/02/24 05:27 08/02/24 06:00 08/02/24 06:00 08/02/24 06:00 08/02/24 06:00
Intake and Output
08/01/24 08/02/24 08/03/24
06:59 06:59 06:59
Intake Total 390 / 390 2660 / 2660
Output Total 0 / 30 100 / 100
Balance 390 / 360 2560 / 2560
SaO2 93
Nasal Cannula flow liters per 1
minute
Physical Exam
General: Comfortable (Large neck)
HEENT: Normocephalic and Anicteric
Cardiovascular: S1-S2, Regular Rhythm, Murmur (n) and Rub (n)
Respiratory: Wheeze (n), Crackles (n), Rhonchi (n) and Non-Labored Respirations
GI: Soft, Non Distended (Obese) and Non Tender
Neurology: Awake, Alert and No Motor Deficits (Observed ambulating without difficulty, used walker)
Skin: Good Color, Cyanosis (n), Jaundice (n) and Rash (n)
Labs/Micro/Reports
Lab Data
08/02/24 03:49
08/02/24 03:49
Laboratory Results
08/02/24
03:48
PT 17.0 H
INR 1.33
APTT 34.7
Microbiology
07/30/24 12:54 Urine Urine Culture - Preliminary
Gram negative bacilli
07/30/24 11:56 Blood/Venous Blood Culture - Preliminary
No Growth in 48 hours- Final report to follow
07/30/24 11:56 Blood/Venous Blood Culture - Preliminary
No Growth in 48 hours- Final report to follow
[2024-08-02] MEDS: NOVOLOG MIX 70/30 FLEXPEN 20 UNITS SC (09:08)
[2024-08-02] MEDS: NOVOLOG FLEXPEN-LOW RESISTANCE 1 UNITS SC (09:08)
[2024-08-02] MEDS: HEPARIN 5000 UNITS SC ×2 (09:09→21:51)
[2024-08-02] MEDS: REFRESH EYE DROPS (PF) 1 DROPS BOTH EYES ×2 (09:10→21:51)
[2024-08-02] MEDS: ASPIR LOW (ENTERIC COATED) 81 MG PO (09:10)
[2024-08-02] MEDS: TOPROL XL 25 MG PO (09:10)
[2024-08-02] MEDS: PROTONIX 40 MG PO (09:11)
[2024-08-02] MEDS: TOPROL XL 50 MG PO ×2 (09:11→21:47)
[2024-08-02] MEDS: DESENEX/MITRAZOL/ZEASORB 1 APPLIC TOPICAL ×2 (09:19→21:52)
[2024-08-02] MEDS: ZOLOFT 50 MG PO (09:19)
--- NOTE | 2024-08-02 11:16 | W.PN.ONC2 ---
Today's Communication / Plan
-
No specific management to suggest.
Continue current management of cytopenias.
We will follow counts peripherally and see pt again prior to D/C (or at your request in the meantime.)
Impression
Impression
Leukocytosis, neutrophilia, normocytic anemia, and thrombocytopenia
MISBAH
gram negative UTI/pylonephritis
left hydronephrosis
gallbladder distention with enlarged gallstones in the gallbladder neck
small L pleural effusion
PNA
acute hypoxic respiratory failure
mild cardiomegaly
atrial fibrillation
Plan
Plan
Leukocytosis and thrombocytopenia may be reactive to infection/acute illness. If WBC/neutrophilia do not improve with treatement of underlying infection then would consider an outpatient evaluation.
In outpt setting, she had mild leukocytosis with elevations in neutrophil and monocyte count. Anemia and thrombocytopenia appear to be chronic intermittent. She may well have CMML but her hemoglobin has been mostly >10 and platelets above 70
historically. I do not feel that a CMML diagnosis would change inpatient management. If Hgb consistently <10 as outpt, then marrow could be considered to eval for NIKKO.
Unimpressive proportion of immature cells, doubt acute leukemia, await flow.
No deficiencies of B12, folate, or iron.
No evidence of DIC.
Await SPEP, FLC's.
We will follow counts peripherally over the holiday weekend and see her again prior to hospital d/c. Please call us if questions arise before then.
Subjective/Objective
Chief Complaint
Pneumonia
Subjective
Pt somewhat confused and poor historian.
Sitting in chair.
Vital Signs:
Vital Signs
Temp Pulse Resp BP Pulse Ox
98.6 F 82 20 131/60 93
08/02/24 07:34 08/02/24 09:10 08/02/24 06:00 08/02/24 09:10 08/02/24 06:00
Lab Results:
Laboratory Data
WBC 55.1 10^3/uL (4.8-10.8) H* 08/02/24 03:49
Hgb 9.9 g/dL (12.0-16.0) L 08/02/24 03:49
Plt Count 87 10^3/uL (130-400) L 08/02/24 03:49
PT 17.0 Sec (11.4-14.6) H 08/02/24 03:48
INR 1.33 08/02/24 03:48
APTT 34.7 Sec (23.4-35.0) 08/02/24 03:48
eGFR 14.11 08/02/24 03:49
Physical Exam
Awake and interactive
Appears chronically ill and midly acutely ill
[2024-08-02] MEDS: NOVOLOG FLEXPEN-LOW RESISTANCE SC ×2 (12:24→18:11)
[2024-08-02 12:32] LABS: Glucose - Point of Care 149 mg/dl (70-99)
--- NOTE | 2024-08-02 12:32 | W.PN.HOSP.TC ---
Today's Communication/Plan
-
c/w antibiotic, probably changing to oral antibiotic
c/w Limon
Mild IVF
BMP in AM
Assessment / Plan
Assessment / Plan
Physical Exam
General: Not in acute distress
HEENT: Normocephalic
Cardiology: S1 and S2. Irregular Rate/Rhythm
Pulmonary: no rales, limited
Musculoskeletal: no edema
GI: Soft and Non Tender. Positive bowel sounds.
Neuro: Non Focal. Alert and awake
Psych: calm
A/P
# Leukocytosis, neutrophilia, monocytosis, normocytic anemia, and thrombocytopenia
No deficiencies of B12, folate, or iron.
No evidence of hemolysis or coagulopathy
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 Patient will need to follow as oP.
# Enterobacter gergoviae and Klebsiella pneumonia UTI with left pylonephritis/ hydronephrosis
Mild Urosepsis POA
WBC is not reflective to infection
No fevers
Mild IVF
c/w Limon, d/w central processing technician
c/w IV Abx
Bladder scan did not show retention
# MISBAH, possible AIN ?
CKD IIIb
Creatinine trending up, likely combination of UTI/ Dehydration/ Contrast study
Held Lasix & Diovan
IVF
Limon Catheter
Urine sodium around 30and negative urine eosinophil
Holding Farxiga due to UTI
Renally adjust medications
Appreciate nephrology input
#Mild acute pneumonitis
Acute hypercapnic and hypoxic respiratory failure
No cough
No fevers
Blood culture NGTD
Appreciate pulmonary & ID recommendations
#Chronic Thrombocytopenia
Also Anemia with leukemoid reaction/ leukocytosis, low lymphocyte/ high monocyte. Blood or BM disease? infection.
Will consult hematology
Chronic HFpEF
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
DMT2 on Insulin
HGB A1C 7.6 ( better than last admission)
# Hypothyroid
c/w COMMERCIAL ANNOUNCER Synthroid
HX GIB complicated with blood loss anemia and hemorrhagic shock ( Mar 2023)
HX permanent AF and RBBB
Previously on systemic AC but had recurrent GI bleeding and decided to c/w aspirin only.
-
Chr condition
Morbid obesity
Chronic Thrombocytopenia
Chronic hypoalbuminemia and hypoproteinemia
Hiatal Hernia
Colonic Polyps
Diverticulosis
Internal Hemorrhoids
Chronic anemia
Spinal stenosis s/p fusion
R total hip replacement
Thyroid surgery
Former Smoker
Morbid obesity
Total time spent to see the patient, examine the patient, review data and lab result, discuss treatment plan with patient, daughter, nursing staff around 55 minutes
Anticipated Discharge: > 48 hours
Subjective/Interval History
-
Date of Service: August 02, 2024
No chest pain
No sob
No abdominal pain
Objective Data
-
Labs:
Laboratory Results
08/02/24 08/02/24
03:48 03:49
WBC 55.1 H*
Hgb 9.9 L
Hct 31.5 L
Plt Count 87 L
PT 17.0 H
INR 1.33
APTT 34.7
Sodium 142
Potassium 4.5
Chloride 110 H
Carbon Dioxide 22
BUN 38 H
Creatinine 3.1 H
Glucose 162 H
Calcium 8.6
Vital Signs:
Vital Signs
Temp Pulse Resp BP Pulse Ox
98.6 F 79 22 153/68 95
08/02/24 07:34 08/02/24 11:36 08/02/24 11:36 08/02/24 11:36 08/02/24 11:18
I&O
04/08/02/24 08/03/24
06:59 06:59 06:59
Intake Total 390 / 390 2660 / 2660
Output Total 0 / 30 100 / 100
Balance 390 / 360 2560 / 2560
--- NOTE | 2024-08-02 13:19 | W.PN.ID1 ---
Date of Service
Date of Service: August 02, 2024
Today's Communication
Continue Zosyn.
Assessment / Plan
Leukocytosis
- ? Leukemoid reaction
Suspected complicated urinary tract infection
Suspected left pyelonephritis
Anemia
MISBAH
A-fib
DM
COPD
HTN
Reported renal insufficiency
Thyroid disease
Osteoarthritis
Spinal stenosis
PMR
Recommendations:
Continue Zosyn for the present.
- Dose adjusted for renal insufficiency (current CrCl = 18)
Blood cultures without growth. Urine culture with Enterobacter and Klebsiella.
Follow white count and temperature curve, although current leukocytosis seems out of proportion to clinical presentation.
����������������������������������������������������������
Chief Complaint
-: Leukocytosis and UTI
Subjective / Review of Systems
Review of Systems: No Fever and No Chills
Vital Signs / Physical Exam
Vital Signs
Vital Signs
Temp Pulse Resp BP Pulse Ox
98.2 F 79 22 153/68 95
08/02/24 11:35 08/02/24 11:36 08/02/24 11:36 08/02/24 11:36 08/02/24 11:18
Physical Exam
Constitutional: Comfortable and Non-toxic
Eyes: Sclera Anicteric
Cardiovascular: S1/S2; Negative S3/S4
Pulmonary: Non Labored; Negative Wheezes or Rales
Gastrointestinal: Soft, Non Tender, Distended, Normal Bowel Sounds, No Rebound and No Guarding
Extremities: Negative Edema, Cyanosis or Erythema
Neurological: Awake and Alert
Psychological: Calm
Objective Data
Lab Data
Lab Results
08/02/24 03:49
08/02/24 03:49
PT 17.0 Sec (11.4-14.6) H 08/02/24 03:48
INR 1.33 08/02/24 03:48
APTT 34.7 Sec (23.4-35.0) 08/02/24 03:48
Estimated Creat Clear 11 ml/min 08/02/24 03:49
Lactic Acid 1.2 mmol/L (0.7-2.0) 07/30/24 11:56
Total Bilirubin 0.7 mg/dl (0.2-1.3) 07/30/24 11:01
AST 14 U/L (14-36) 07/30/24 11:01
ALT 12 U/L (0-35) 07/30/24 11:01
Alkaline Phosphatase 117 U/L (38-126) 07/30/24 11:01
Most recent labs reviewed.
Micro Results:
07/30/24 11:56 Blood Culture - Preliminary
Blood/Venous No Growth in 72 hours- Final report to follow
07/30/24 11:56 Blood Culture - Preliminary
Blood/Venous No Growth in 72 hours- Final report to follow
08/02/24 05:25 C. difficile GDH Antigen & Toxins - Final
Feces/Stool Negative for toxigenic C.difficile
- Final
Negative for Norovirus GI and GII.
07/30/24 12:54 Urine Culture - Final
Urine Enterobacter gergoviae
Klebsiella pneumoniae
Imaging:
07/30/24 CT abdomen/pelvis: Minimal bibasilar consolidation. Liver, spleen and pancreas are unremarkable. Gallbladder is distended with at least 4 moderate-sized stones in the region of the gallbladder neck. No wall thickening or pericholecystic
fluid. Mild bilateral perinephric stranding, left greater than right. Minimal left hydronephrosis noted. No obstructing radiopaque stone or mass identified. Please see full dictation for additional detail. Film personally viewed.
07/30/2024 CXR (portable): No visible pneumothorax. Small left pleural effusion noted. Airspace disease in both lower lung storey noted.
--- NOTE | 2024-08-02 14:19 | PN.CDI ---
Addendum entered and electronically signed by Juaquin Bray MD 08/02/24 14:30:
After study respiratory failure has been ruled out
Original Note:
CDI
- -
CDI:
Physician Documentation Request
Admit Date: 07/30/24 14:45
Dear Doctor Asa
Patient admitted for management of sepsis.
Progress note includes a diagnosis of Acute hypercapnic and hypoxic respiratory failure
Per documentation, pt has not exceeded 2 L of NC O2.
Recognized standard criteria for respiratory failure includes:
(Source: [employer] [facility] Feb 2013)
ABGs (1 or more)
�PO2 <60mmHg or RA SpO2 <91%
�PcO2 >45 and pH <7.35
�pO2 decrease or pcO2 increase by 10 mmHg from baseline if known Symptoms:
�Tachypnea, SOB, dyspnea
�Pallor or cyanosis
�Anxiety or restlessness
�Use of accessory muscles
�Retractions (grunting in newborns)
�Unable to speak in complete sentences
Supplemental O2 requirement of 40% (5LPM) or more Intubation is not required
Based on the above information and the recognized standard for respiratory failure could you please verify this diagnoses is still accurate and reflective of the patient�s condition to ensure quality of the medical record.
Please clarify in the Progress Notes:
�Respiratory failure is/was present and is a clinical diagnosis based on (please include this additional support in the medical record)
�After study respiratory failure has been ruled out
�Other
Use of terms such as suspected, likely, concern for, or probable (associated with a specific diagnosis that is being evaluated, monitored, or treated as if it exists) are acceptable and can be coded in the inpatient setting, when documented at the
time of discharge.
Thank you,
Orin Rodriguez RN, BSN
CDI Specialist
tiger text
Please use your independent medical judgment in providing your response.
--- NOTE | 2024-08-02 16:21 | W.PN.NEPH.PH ---
Today's Communication / Plan
-
see plan
Assessment/Plan
-
84F Poor historian Former smoker, HX DM, HTN, , chr HFpEF, Hypothyroidism, Spinal Stenosis s/p fusion, Rt THR , HX Afib Xarelot HX GIB complicated with blood loss anemia and hemorrhagic shock ( Mar 2023) presents with left lower quadrant pain
decreased urination. She had a CAT scan showed mild right perinephric stranding left mild hydro. Urinalysis indicative of urinary tract infection. Patient states no history of urine infection. No acute or chronic NSAID use. CAT scan was
performed with IV contrast.
Renal consult with acute kidney injury on chronic kidney disease with her creatinine of 2 on consultation with baseline creatinine 1.2-1.3 labile per records with estimated EGFR of 40 at baseline.
Impression.
Acute on chronic kidney disease admitting creatinine 1.1. Creatinine of 2 on on consult.nephro OSH
Urinary tract infection/pyelonephritis with mild left hydro and perinephric stranding on the right.
History of atrial fibrillation stable.
History of GI bleed.
January 2024 CHF with preserved EF.
DM
Plan.
MISBAH- UA -UTI sample, contrast exposure on admit 07/30
CT noted left mild hydro, her pain course suggest she may have passed stone [employer] OFFICER
almost anuric with springer now , cr up at 3.1, may need repeat imaging to follow hydro
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
vol status seem stable, cont IVF
keep springer for now
leucocytosis and anemia with low plt=d/w heme possible CMML -needs further testing to confirm
paraprotein w/u pending
Antibiotic per ID
dose meds renally , avoid nephrotoxins, hold Farxiga with UTI
no emergent need of HD, high risk if renal function cont to worsen
Discussed with primary
d/w pt and family in detail
-
-
Date of Service: August 02, 2024
CC / HPI / ROS
-
Chief Complaint:
MISBAH with CKD
History of Present Illness:
crup at 3., UOP only 70cc
BP stable, no fever
WBC high over 50k
plt and hb low but stable
Review of Systems:
diarrhea
no cp or sob
no abd pain
Labs
-
Labs:
WBC 55.1 10^3/uL (4.8-10.8) H* 08/02/24 03:49
RBC 3.79 10^6/uL (4.20-5.40) L 08/02/24 03:49
Hgb 9.9 g/dL (12.0-16.0) L 08/02/24 03:49
Hct 31.5 % (37.0-47.0) L 08/02/24 03:49
Plt Count 87 10^3/uL (130-400) L 08/02/24 03:49
Sodium 142 mmol/L (135-145) 08/02/24 03:49
Potassium 4.5 mmol/L (3.5-5.1) 08/02/24 03:49
Chloride 110 mmol/L (98-107) H 08/02/24 03:49
Carbon Dioxide 22 mmol/L (22-30) 08/02/24 03:49
BUN 38 mg/dl (7-17) H 08/02/24 03:49
Creatinine 3.1 mg/dL (0.6-1.0) H 08/02/24 03:49
eGFR 14.11 08/02/24 03:49
Glucose 162 mg/dl (70-99) H 08/02/24 03:49
Calcium 8.6 mg/dl (8.4-10.2) 08/02/24 03:49
Albumin 4.0 g/dl (3.5-5.0) 07/30/24 11:01
Physical Exam
-
Vital Signs:
Vital Signs
Temp Pulse Resp BP Pulse Ox
98.2 F 85 20 131/102 83
08/02/24 11:35 08/02/24 16:00 08/02/24 16:00 08/02/24 16:00 08/02/24 16:00
Cardiovascular:: Regular rate and rhythm
Respiratory:: Bilateral: CTA
Lung Excursion:: Normal
Abdomen:: Nontender and Soft
Extremity Edema:: None: Bilateral:
Springer Catheter: Yes
[2024-08-02] MEDS: REFRESH EYE DROPS (PF) BOTH EYES (17:03)
[2024-08-02 17:23] LABS: Glucose - Point of Care 85 mg/dl (70-99)
[2024-08-02] MEDS: NOVOLOG MIX 70/30 FLEXPEN SC (19:14)
[2024-08-02] MEDS: NOVOLOG MIX 70/30 FLEXPEN 13 UNITS SC (19:33)
[2024-08-02 19:44] LABS: Glucose - Point of Care 105 mg/dl (70-99)
[2024-08-02] MEDS: LIPITOR 80 MG PO (21:51)
[2024-08-02 22:34] LABS: Glucose - Point of Care 86 mg/dl (70-99)
[2024-08-03] VITALS (14 sets, daily range): BP systolic 103–147; BP diastolic 38–107; BMI 34.0
[2024-08-03] MEDS: NSS 1000 IV (00:07)
[2024-08-03] MEDS: ZOSYN 50 IV ×5 (00:07→23:56)
--- NOTE | 2024-08-03 01:10 | PTCARENOTE ---
Pt received from previous RN. Pt aaox3. afib on monitor. HR 75. springer draining dark urine. springer care provided. pt had loose bm on bsc with assistance of 2 and walker. satting 95% on 2L. assessment as documented. call light in reach.
[2024-08-03] MEDS: SYNTHROID 150 MCG PO (05:32)
[2024-08-03 05:49] LABS: Blood Urea Nitrogen 37 mg/dl (7-17); Calcium 8.7 mg/dl (8.4-10.2); Carbon Dioxide 20 mmol/L (22-30); Chloride 113 mmol/L (98-107); Estimated Creatinine Clearance 8 ml/min; Glucose 62 mg/dl (70-99); Potassium 4.3 mmol/L (3.5-5.1); Sodium 142 mmol/L (135-145); eGFR 9.53
--- NOTE | 2024-08-03 06:37 | PTCARENOTE ---
Critical Am Cr 4.3. INTELLIGENCE SENIOR SERGEANT [employer] messaged via [employer] text and message sent to supervisor production managing nephrology.
[2024-08-03 06:56] LABS: Glucose - Point of Care 70 mg/dl (70-99)
[2024-08-03 07:15] LABS: Glucose - Point of Care 71 mg/dl (70-99)
--- NOTE | 2024-08-03 07:18 | PTCARENOTE ---
am glucose 62 with am labs. pt given 4oz of orange juice per hypoglycemic protocol. recheck 70. pt given 4 more 0z juice. recheck 71. hypoglycemic protocol being followed for rechecks.
[2024-08-03 08:08] LABS: Glucose - Point of Care 102 mg/dl (70-99)
[2024-08-03] MEDS: NOVOLOG FLEXPEN-LOW RESISTANCE SC ×3 (08:16→17:15)
[2024-08-03] MEDS: NSS IV (08:16)
--- NOTE | 2024-08-03 08:18 | W.PN.ID1 ---
Date of Service
Date of Service: August 03, 2024
Today's Communication
Continue antibiotics.
Assessment / Plan
Leukocytosis
- ?Leukemoid reaction ?other etiology
Suspected complicated urinary tract infection
Suspected left pyelonephritis
Anemia
MISBAH
- worsening
A-fib
DM
COPD
HTN
Reported renal insufficiency
Thyroid disease
Osteoarthritis
Spinal stenosis
PMR
Recommendations:
Continue Zosyn for the present.
- Dose adjusted for renal insufficiency (current CrCl = 8)
Blood cultures without growth. Urine culture with Enterobacter and Klebsiella. Both isolate susceptible to Zosyn.
Continue to follow white count and temperature curve, although current leukocytosis seems out of proportion to clinical presentation.
����������������������������������������������������������
Chief Complaint
-: Leukocytosis and UTI
Subjective / Review of Systems
Patient seen and examined. Reports feeling generally weak. Denies fevers or chills. Denies back pain or flank pain.
Vital Signs / Physical Exam
Vital Signs
Vital Signs
Temp Pulse Resp BP Pulse Ox
97.4 F 81 19 121/57 96
08/03/24 02:33 08/03/24 06:00 08/03/24 06:00 08/03/24 06:00 08/03/24 06:00
Physical Exam
Constitutional: No Acute Distress, Comfortable and Non-toxic
Eyes: Sclera Anicteric
Cardiovascular: S1/S2; Negative S3/S4
Pulmonary: Non Labored
Gastrointestinal: Soft, Non Tender, Non Distended and Normal Bowel Sounds
Genito-Urinary: Limon; Negative CVA Tenderness
Extremities: Edema; Negative Cyanosis or Erythema
Neurological: Awake and Alert
Psychological: Calm
Objective Data
Lab Data
Lab Results
08/02/24 03:49
04/19/25 04:49
PT 17.0 Sec (11.4-14.6) H 08/02/24 03:48
INR 1.33 08/02/24 03:48
APTT 34.7 Sec (23.4-35.0) 08/02/24 03:48
Estimated Creat Clear 8 ml/min 08/03/24 04:49
Lactic Acid 1.2 mmol/L (0.7-2.0) 07/30/24 11:56
Total Bilirubin 0.7 mg/dl (0.2-1.3) 07/30/24 11:01
AST 14 U/L (14-36) 07/30/24 11:01
ALT 12 U/L (0-35) 07/30/24 11:01
Alkaline Phosphatase 117 U/L (38-126) 07/30/24 11:01
Most recent labs reviewed.
Micro Results:
07/30/24 11:56 Blood Culture - Preliminary
Blood/Venous No Growth in 72 hours- Final report to follow
07/30/24 11:56 Blood Culture - Preliminary
Blood/Venous No Growth in 72 hours- Final report to follow
08/02/24 05:25 C. difficile GDH Antigen & Toxins - Final
Feces/Stool Negative for toxigenic C.difficile
- Final
Negative for Norovirus GI and GII.
07/30/24 12:54 Urine Culture - Final
Urine Enterobacter gergoviae
Klebsiella pneumoniae
Imaging:
07/30/24 CT abdomen/pelvis: Minimal bibasilar consolidation. Liver, spleen and pancreas are unremarkable. Gallbladder is distended with at least 4 moderate-sized stones in the region of the gallbladder neck. No wall thickening or pericholecystic
fluid. Mild bilateral perinephric stranding, left greater than right. Minimal left hydronephrosis noted. No obstructing radiopaque stone or mass identified. Please see full dictation for additional detail. Film personally viewed.
07/30/2024 CXR (portable): No visible pneumothorax. Small left pleural effusion noted. Airspace disease in both lower lung storey noted.
[2024-08-03] MEDS: ASPIR LOW (ENTERIC COATED) 81 MG PO (08:19)
[2024-08-03] MEDS: TOPROL XL 50 MG PO ×2 (08:20→19:47)
[2024-08-03] MEDS: TOPROL XL 25 MG PO (08:20)
[2024-08-03] MEDS: ZOLOFT 50 MG PO (08:20)
[2024-08-03] MEDS: REFRESH EYE DROPS (PF) 1 DROPS BOTH EYES ×2 (08:21→22:15)
[2024-08-03] MEDS: DESENEX/MITRAZOL/ZEASORB 1 APPLIC TOPICAL ×2 (08:21→19:51)
[2024-08-03] MEDS: HEPARIN 5000 UNITS SC ×2 (08:21→19:50)
[2024-08-03] MEDS: PROTONIX 40 MG PO (08:21)
[2024-08-03] MEDS: NOVOLOG MIX 70/30 FLEXPEN SC (08:22)
--- NOTE | 2024-08-03 10:19 | W.PN.HOSP.TC ---
Today's Communication/Plan
-
ok with Lasix
BMP in AM
Assessment / Plan
Assessment / Plan
Physical Exam
General: Not in acute distress
HEENT: Normocephalic
Cardiology: S1 and S2. Irregular Rate/Rhythm
Pulmonary: no rales, limited
Musculoskeletal: no edema
GI: Soft and Non Tender. Positive bowel sounds.
Neuro: Non Focal. Alert and awake
Psych: calm
A/P
# Leukocytosis, neutrophilia, monocytosis, normocytic anemia, and thrombocytopenia
No deficiencies of B12, folate, or iron.
No evidence of hemolysis or coagulopathy
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 Patient will need to follow as oP.
# Enterobacter gergoviae and Klebsiella pneumonia UTI with left pylonephritis/ hydronephrosis
Mild Urosepsis POA
WBC is not reflective to infection
No fevers
s/p IVF
c/w Limon, d/w successfactors consultant
c/w IV Abx
Renal US no hydronephrosis.
Bladder scan did not show retention
# MISBAH, possible contrast induced nephropathy
Suspect underlying proteinuria/ CKD IIIb
Creatinine trending up, likely combination of UTI/ Dehydration/ Contrast study
Held Lasix & Diovan and given IVF
Weight is going up, fluid retention, agree with Lasix challenge
Limon Catheter
Urine sodium around 30and negative urine eosinophil
Holding Farxiga due to UTI
Renally adjust medications
Appreciate nephrology input
#Mild acute pneumonitis
Acute hypercapnic and hypoxic respiratory failure
No cough
No fevers
Blood culture NGTD
Appreciate pulmonary & ID recommendations
#Chronic Thrombocytopenia
Also Anemia with leukemoid reaction/ leukocytosis, low lymphocyte/ high monocyte. Blood or BM disease? infection.
Will consult hematology
Chronic HFpEF
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
DMT2 on Insulin
HGB A1C 7.6 ( better than last admission)
# Hypothyroid
c/w PERIPHERAL EDP EQUIPMENT OPERATOR Synthroid
HX GIB complicated with blood loss anemia and hemorrhagic shock ( Mar 2023)
HX permanent AF and RBBB
Previously on systemic AC but had recurrent GI bleeding and decided to c/w aspirin only.
-
Chr condition
Morbid obesity
Chronic Thrombocytopenia
Chronic hypoalbuminemia and hypoproteinemia
Hiatal Hernia
Colonic Polyps
Diverticulosis
Internal Hemorrhoids
Chronic anemia
Spinal stenosis s/p fusion
R total hip replacement
Thyroid surgery
Former Smoker
Morbid obesity
Total time spent to see the patient, examine the patient, review data and lab result, discuss treatment plan with patient, daughter, nursing staff around 69 minutes
Anticipated Discharge: > 48 hours
Subjective/Interval History
-
Date of Service: August 03, 2024
Objective Data
-
Labs:
Laboratory Results
08/03/24
04:49
Sodium 142
Potassium 4.3
Chloride 113 H
Carbon Dioxide 20 L
BUN 37 H
Creatinine 4.3 H*
Glucose 62 L
Calcium 8.7
Vital Signs:
Vital Signs
Temp Pulse Resp BP Pulse Ox
98.4 F 83 17 147/61 95
08/03/24 08:24 08/03/24 08:20 08/03/24 08:19 08/03/24 08:20 08/03/24 08:27
I&O
08/02/24 08/03/24 08/04/24
06:59 06:59 06:59
Intake Total 2660 / 2660 1200 / 1200 680 / 680
Output Total 100 / 100 125 / 125 0 / 0
Balance 2560 / 2560 1075 / 1075 680 / 680
--- NOTE | 2024-08-03 10:29 | W.PN.NEPH.PH ---
Today's Communication / Plan
-
lasix, d/c IVF
Assessment/Plan
-
84F Poor historian Former smoker, HX DM, HTN, , chr HFpEF, Hypothyroidism, Spinal Stenosis s/p fusion, Rt THR , HX Afib Xarelot HX GIB complicated with blood loss anemia and hemorrhagic shock ( Mar 2023) presents with left lower quadrant pain
decreased urination. She had a CAT scan showed mild right perinephric stranding left mild hydro. Urinalysis indicative of urinary tract infection. Patient states no history of urine infection. No acute or chronic NSAID use. CAT scan was
performed with IV contrast.
Renal consult with acute kidney injury on chronic kidney disease with her creatinine of 2 on consultation with baseline creatinine 1.2-1.3 labile per records with estimated EGFR of 40 at baseline.
Impression.
Acute on chronic kidney disease admitting creatinine 1.1. Creatinine of 2 on on consult.nephro OSH
Urinary tract infection/pyelonephritis with mild left hydro and perinephric stranding on the right.
History of atrial fibrillation stable.
History of GI bleed.
January 2024 CHF with preserved EF.
DM
Plan.
MISBAH- UA -UTI sample, contrast exposure on admit 07/30
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
almost anuric with springer now , cr up at 4.3, repeat imaging renal US shows no hydro today
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
d/c IVF , CXR noted -will trial lasix since wt is up
keep springer for now
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
paraprotein w/u pending
Antibiotic per ID
dose meds renally , avoid nephrotoxins, hold Farxiga with UTI
no emergent need of HD, high risk if renal function cont to worsen in next 24-48hrs
Discussed with pt
high risk encounter
-
-
Date of Service: August 03, 2024
CC / HPI / ROS
-
Chief Complaint:
MISBAH with CKD
History of Present Illness:
crup at 4.3, UOP only 125cc
BP stable, no fever
WBC high over 50k
plt and hb low but stable , no cbc today
Review of Systems:
no cp or sob
no abd pain
Labs
-
Labs:
WBC 55.1 10^3/uL (4.8-10.8) H* 08/02/24 03:49
RBC 3.79 10^6/uL (4.20-5.40) L 08/02/24 03:49
Hgb 9.9 g/dL (12.0-16.0) L 08/02/24 03:49
Hct 31.5 % (37.0-47.0) L 08/02/24 03:49
Plt Count 87 10^3/uL (130-400) L 08/02/24 03:49
Sodium 142 mmol/L (135-145) 08/03/24 04:49
Potassium 4.3 mmol/L (3.5-5.1) 08/03/24 04:49
Chloride 113 mmol/L (98-107) H 08/03/24 04:49
Carbon Dioxide 20 mmol/L (22-30) L 08/03/24 04:49
BUN 37 mg/dl (7-17) H 08/03/24 04:49
Creatinine 4.3 mg/dL (0.6-1.0) H* 08/03/24 04:49
eGFR 9.53 08/03/24 04:49
Glucose 62 mg/dl (70-99) L 08/03/24 04:49
Calcium 8.7 mg/dl (8.4-10.2) 08/03/24 04:49
Albumin 4.0 g/dl (3.5-5.0) 07/30/24 11:01
Physical Exam
-
Vital Signs:
Vital Signs
Temp Pulse Resp BP Pulse Ox
98.4 F 83 17 147/61 95
08/03/24 08:24 08/03/24 08:20 08/03/24 08:19 08/03/24 08:20 08/03/24 08:27
Cardiovascular:: Regular rate and rhythm
Respiratory:: Bilateral: CTA (decreased)
Lung Excursion:: Normal
Abdomen:: Nontender and Soft
Extremity Edema:: None: Bilateral:
Springer Catheter: Yes
[2024-08-03] MEDS: LASIX 40 MG IV (12:11)
[2024-08-03 12:15] LABS: Glucose - Point of Care 85 mg/dl (70-99)
--- NOTE | 2024-08-03 14:21 | VATNOTE ---
Small amount of brusing to PIV site, non tender, no palpable cord, warmth, or swelling. Patient and family adamantly decline new PIV placement. Agrees to notify nurse if symptoms worsen.
--- NOTE | 2024-08-03 14:37 | PTCARENOTE ---
Patient is oob to chair for meals this shift, toileting via commode and springer. 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
She feels lethargic, poor po intake,po urine output, requires walker and stand by assist to get oob to chair/commode. POC glucose remains on lower side- insulin has been d/c'd. IV lasix given x1 per nephro. RN provided plan of care, medication
education, and lab work to patient and patient daughter several times. Pt daughter is visibly upset at state of her mother, very fixated on her mothers poor po intake. RN offered assurance that we have been giving her mom lots of po fluids (water,
juice, jose guadalupe srinivas) all shift, ordering her favorite meals(hamburger), staff providing lots of encouragement to eat. Pt is not interested in eating food. She is oriented, pleasant, now back in bed resting. RN assured pt and pt daughter that we are
monitoring her mother very closely as she is on heart monitor, lab work, frequent glucose checks, ect.
Pt is not producing sputum for sample. See MAR/flowsheets for further care details.
--- NOTE | 2024-08-03 16:10 | W.PN.PUL3 ---
Today's Communication / Plan
-
Continue to trend serum creatinine
Maintain MAP >65�70 to help perfuse kidneys
Despite rising creatinine, oxygen requirements stable
Continue to wean oxygen as able
Incentive spirometry, out of bed to chair as able
Antibiotics for UTI
Gallstones with gallbladder distention seen on CT A/P however she has no abdominal pain
Continue trending WBC as well as platelets + Hb
Pulmonary service will continue to follow along
Assessment
-
Mrs Kera Pappas is an 82/W readm 03-19 with recurrent dark stools, and acute dyspnea and cough since 03-16 (reportedly family members at home with flu). noted h/o unexplained GIB (negative UGED/colonoscopy), outpatient rivaroxaban for AFib,
admitted with intractable nausea vomiting and subsequent hypoxemia. Found to have bilateral bibasilar infiltrates. We were consulted for evaluation on 07/31/2024.
Impression:
Acute hypoxemic respiratory Insufficiency likely due to pneumonitis/less likely pneumonia- Currently on 2 L nasal cannula
Chest x-ray: Mild bibasilar infiltrates suggestive of atelectasis minimal pleural effusion bilaterally.
CT abdomen pelvis lung cuts: Subsegmental atelectasis. No definitive infiltrate found. Tiny bilateral pleural effusion.
Complicated UTI with culture positive for Enterobacter gergoviae+ Klebsiella pneumoniae
Leukocytosis/leukemoid reaction
Abdominal pain nausea vomiting prior to admission.
Acute kidney injury
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
Adm DH 03-03 to :
EGD 03/05 Sharon:-hiatal hernia.� No other lesion
Colonoscopy 03/[address] Herrera: Five 2 to 8 mm polyps in the transverse colon, removed with a cold snare and removed with a cold biopsy forceps.� Resected and retrieved.� Clip was placed. Two 4 to 6 mm polyps in the descending colon, removed
with a cold snare.� Resected and retrieved.� Clip was placed. Erythematous mucosa in the recto-sigmoid colon and in the sigmoid colon, biopsied. Diverticulosis in the sigmoid colon and in the descending colon. Internal hemorrhoids.
GIB: in 2019 and 2017 she had an extensive work-up including EGD, colon and video capsule.� The last video capsule was in 2018 and was incomplete because it got stuck in a duodenal diverticulum.
Chronic anemia
Atrial fibrillation, on rivaroxaban
HTN
T2DM
Hypothyroidism
Spinal stenosis s/p fusion
R total hip replacement
Thyroid surgery
Former Smoker
Morbid obesity
Plan/recommendations
At this time, patient appears to be improved
Presently she is 97% on 2L
Chest x-ray with mild basilar abnormality, per my review
Abdominal CT, lung images with mild pleural thickening, mild patchy mosaic pattern per my review
Unclear accuracy of weights
Creatinine is worsening, now at 4.3
Moving forward
Continue with weaning oxygen, encourage increased activity
Leukocytosis noted, anemia and thrombocytopenia noted
Infectious disease following, remains on Zosyn for UTI
Oncology also consulted
Difficult to assess volume status
Recent echocardiogram January 2024 shows normal biventricular function, PA pressure 48
CXR from 08/02 shows bilateral interstitial opacification likely due to fluid in the setting of acute kidney injury; pneumonia less likely
Nephrology following. IV fluids given
Despite this, creatinine worsening; O2 requirements the same
Difficult to assess volume status
If creatinine continues to worsen then she may be heading towards dialysis, recommend goals of care discussion first though
Aspiration precautions
Head of the bed elevation
Incentive spirometry if able
Leukocytosis noted -may be leukemoid reaction in setting of sepsis. Remains on Zosyn therapy, suspected complicated UTI, left pyelonephritis
Oncology also evaluated
Increase activity
Follow hemoglobin
patient with history of GI bleed in the past,
Questionable Xarelto therapy in the past
DVT prophylaxis: Mechanical and pharmacological, currently on subcutaneous heparin every 12 hours, consider increase to every 8 hours
Patient is full code. Suggest discussion regarding CODE STATUS. This will be deferred to primary service
Pulmonary service will continue to follow along

Diagnostic tests:
Chest x-ray 07/30/2024: Reviewed showed bibasilar infiltrates atelectasis versus pneumonia.
CXR 03-24-23: underpenetrated but no acute changes c/w 03-19-23
CXR 03-19-23 c/w 01-02-23: baseline of poor quality. Current film with increased reticulonodular marking at both bases
CT abdomen pelvis 07/30/2024: Reviewed
Minimal left hydronephrosis. No stone identified.
Small left and tiny right pleural effusion.
Minimal bibasilar consolidation probably atelectasis.
Total time spent today was 37 minutes for this encounter. Time includes reviewing laboratory test/imaging results, reviewing pertinent medical records, obtaining and reviewing medical history, performing an appropriate exam, ordering medications,
tests and procedures. Time also includes documentation of this encounter, coordinating patient care and communicating with other healthcare professionals. Total time does not include separately billed tests performed on this date of service.
Subjective Data
-
Date of Service:
Date of Service: August 03, 2024
Chief Complaint: Pulmonary Follow Up
Subjective:
Patient seen earlier today � late note entry. Patient is tired, with mild cough. Denies abdominal pain. Heart rate 77, BP 135/83 and saturating 97% on 2 L/min. No chest pain, CARLOS, nausea, fevers or chills.
Review of Systems
General: Other (Negative unless mentioned above)
Objective Data
Data Reviewed
Vital Signs / I&O / Oxygen:
Vital Signs
Temp Pulse Resp BP Pulse Ox
98.4 F 83 17 147/61 95
08/03/24 08:24 08/03/24 08:20 08/03/24 08:19 08/03/24 08:20 08/03/24 08:27
Intake and Output
08/02/24 08/03/24 08/04/24
06:59 06:59 06:59
Intake Total 2660 / 2660 1200 / 1200 680 / 680
Output Total 100 / 100 125 / 125 0 / 0
Balance 2560 / 2560 1075 / 1075 680 / 680
SaO2 95
Nasal Cannula flow liters per 2
minute
Physical Exam
General: Respiratory Distress (n), Comfortable (Large neck), Chills (n) and Sweats (n)
HEENT: Normocephalic and Anicteric
Cardiovascular: S1-S2, Regular Rhythm, Murmur (n), Rub (n) and Peripheral Edema (+1 lower extremity pitting edema bilaterally)
Respiratory: Wheeze (n), Crackles (Bilateral), Rhonchi (n) and Non-Labored Respirations
GI: Soft, Non Distended (Obese) and Non Tender
Neurology: Tremors (n) and Other (Drowsy although easily arousable and answering questions appropriately)
Skin: Warm, Dry, Cyanosis (n), Jaundice (n) and Rash (n)
Labs/Micro/Reports
Lab Data
08/02/24 03:49
08/03/24 04:49
Microbiology
07/30/24 11:56 Blood/Venous Blood Culture - Preliminary
No Growth in 72 hours- Final report to follow
07/30/24 11:56 Blood/Venous Blood Culture - Preliminary
No Growth in 72 hours- Final report to follow
08/02/24 05:25 Feces/Stool C. difficile GDH Antigen & Toxins - Final
Negative for toxigenic C.difficile
08/02/24 05:25 Feces/Stool - Final
Negative for Norovirus GI and GII.
07/30/24 12:54 Urine Urine Culture - Final
Enterobacter gergoviae
Klebsiella pneumoniae
[2024-08-03] MEDS: REFRESH EYE DROPS (PF) BOTH EYES (17:08)
[2024-08-03 17:21] LABS: Glucose - Point of Care 126 mg/dl (70-99)
[2024-08-03 21:20] LABS: Glucose - Point of Care 177 mg/dl (70-99)
[2024-08-03] MEDS: LIPITOR 80 MG PO (22:15)
--- NOTE | 2024-08-03 22:31 | PTCARENOTE ---
Care assumed of Pt from previous RN. daughter at bedside. Pt aaox3. Pt declines hs oral care when promoted to brush teeth and began to get emotional when asked a second time. Assessment as documented. call light in reach.
[2024-08-03] MEDS: ZOFRAN 4 MG IV (22:54)
--- NOTE | 2024-08-03 23:00 | PTCARENOTE ---
monitor alarming bradycardia. RN entered Pt room to Pt lethargic in appearance. Vomiting, pale in appearance, Pts names yelled and pt patted on shoulder by this RN and was able to be aroused. rapid response called. RR team to bedside. blood glucose,
130. HR 86, BP 127/106(112), rr 20, satting 93% 2L. ekg done. labs sent.
[2024-08-03 23:06] LABS: Glucose - Point of Care 130 mg/dl (70-99)
--- NOTE | 2024-08-03 23:10 | W.PN.UPDATE ---
Update Note
Progress Note Update
rapid response called.
RN reports HR went down to 36, patient looked pale, lethargic, and was unresponsive at that time, arousable to name, lots of secretions, nurses suctioned clear fluid, stated nausea, Zofran IV given. Patient seen and evaluated. tachypneic at 22, HR
88 now, oxygen 94% 2l, 110/54, BS 122 reports shortness of breath, denies chest pain, abdomen pain, LBM loose stool 08/04, states feel 'yucky'. Lungs with rales at bases, HR irregular, abdomen soft, + hernia, non tender, +BS 4 quadrant.
labs ordered, repleted sodium Bicarb.
EKG noted, Trop negative.
likely vasovagal episode due to nausea.
--- NOTE | 2024-08-03 23:21 | RR ---
A Rapid Response was called on this patient, please see Rapid Response form.
[2024-08-03 23:51] LABS: Hemoglobin 9.1 g/dL (12.0-16.0); Mean Corp Hgb Conc. 31.4 g/dL (33.0-37.0); Mean Corpuscular Hgb 26.1 pg (27.0-31.0); Mean Corpuscular Volume 83.1 fL (81.0-99.0); Mean Platelet Volume 9.2 fL (7.4-10.4); Platelet Count 99 10^3/uL (130-400); Red Blood Cell Count 3.49 10^6/uL (4.20-5.40); Red Cell Dist. Width 19.2 % (11.5-14.5)
[2024-08-04] VITALS (13 sets, daily range): BP systolic 85–143; BP diastolic 43–82; BMI 33.5
[2024-08-04 00:13] LABS: Blood Urea Nitrogen 40 mg/dl (7-17); Calcium 8.6 mg/dl (8.4-10.2); Carbon Dioxide 16 mmol/L (22-30); Chloride 111 mmol/L (98-107); Estimated Creatinine Clearance 7 ml/min; Glucose 127 mg/dl (70-99); Potassium 5.4 mmol/L (3.5-5.1); Sodium 139 mmol/L (135-145); eGFR 8.15
[2024-08-04 00:22] LABS: Troponin I < 0.012 ng/ml
[2024-08-04] MEDS: SODIUM BICARBONATE 50 MEQ IV (00:55)
[2024-08-04 05:17] LABS: Hematocrit 28.4 % (37.0-47.0); Hemoglobin 8.9 g/dL (12.0-16.0); Mean Corp Hgb Conc. 31.3 g/dL (33.0-37.0); Mean Corpuscular Hgb 26.2 pg (27.0-31.0); Mean Corpuscular Volume 83.5 fL (81.0-99.0); Mean Platelet Volume 9.2 fL (7.4-10.4); Platelet Count 96 10^3/uL (130-400); Red Cell Dist. Width 19.2 % (11.5-14.5); White Blood Cell Count 66.3 10^3/uL (4.8-10.8)
[2024-08-04 05:35] LABS: Blood Urea Nitrogen 42 mg/dl (7-17); Calcium 8.7 mg/dl (8.4-10.2); Carbon Dioxide 21 mmol/L (22-30); Chloride 110 mmol/L (98-107); Estimated Creatinine Clearance 7 ml/min; Glucose 117 mg/dl (70-99); Potassium 4.5 mmol/L (3.5-5.1); Sodium 142 mmol/L (135-145); eGFR 7.42
[2024-08-04] MEDS: ZOSYN 50 IV ×3 (06:05→17:02)
[2024-08-04] MEDS: DESENEX/MITRAZOL/ZEASORB 1 APPLIC TOPICAL ×2 (08:02→20:17)
[2024-08-04] MEDS: PROTONIX 40 MG PO (08:03)
[2024-08-04] MEDS: TOPROL XL PO ×2 (08:03→08:05)
[2024-08-04] MEDS: HEPARIN 5000 UNITS SC ×2 (08:04→20:16)
[2024-08-04] MEDS: REFRESH EYE DROPS (PF) 1 DROPS BOTH EYES ×3 (08:04→21:42)
[2024-08-04] MEDS: ASPIR LOW (ENTERIC COATED) 81 MG PO (08:04)
[2024-08-04 08:09] LABS: Glucose - Point of Care 127 mg/dl (70-99)
--- NOTE | 2024-08-04 08:29 | W.PN.ID1 ---
Date of Service
Date of Service: August 04, 2024
Today's Communication
Continue Zosyn for today.
Assessment / Plan
Leukocytosis
- ?Leukemoid reaction ?other etiology
Suspected complicated urinary tract infection
Suspected left pyelonephritis
Anemia
MISBAH
- worsening
A-fib
DM
COPD
HTN
Reported renal insufficiency
Thyroid disease
Osteoarthritis
Spinal stenosis
PMR
Recommendations:
Continue Zosyn (d#6).
- Dose adjusted for renal insufficiency (current CrCl = 8)
Blood cultures without growth. Urine culture with Enterobacter and Klebsiella. Both isolate susceptible to Zosyn.
Continue to follow white count and temperature curve.
Given non-improvement in white count despite appropriate antibiotics, suspect noninfectious etiology of current leukocytosis
����������������������������������������������������������
Chief Complaint
-: Leukocytosis and UTI
Subjective / Review of Systems
Review of Systems: No Fever
Vital Signs / Physical Exam
Vital Signs
Vital Signs
Temp Pulse Resp BP Pulse Ox
98.5 F 70 20 92/68 87
08/04/24 02:11 08/04/24 08:05 08/04/24 06:00 08/04/24 08:05 08/04/24 06:00
Physical Exam
Constitutional: Chronically Ill and Non-toxic
Pulmonary: Non Labored
Gastrointestinal: Soft, Non Tender, Non Distended and Normal Bowel Sounds
Genito-Urinary: Limon; Negative CVA Tenderness
Extremities: Edema; Negative Cyanosis or Erythema
Neurological: Awake and Alert
Psychological: Calm
Objective Data
Lab Data
Lab Results
08/04/24 04:45
08/04/24 04:45
PT 17.0 Sec (11.4-14.6) H 08/02/24 03:48
INR 1.33 08/02/24 03:48
APTT 34.7 Sec (23.4-35.0) 08/02/24 03:48
Estimated Creat Clear 7 ml/min 08/04/24 04:45
Lactic Acid 1.2 mmol/L (0.7-2.0) 07/30/24 11:56
Total Bilirubin 0.7 mg/dl (0.2-1.3) 07/30/24 11:01
AST 14 U/L (14-36) 07/30/24 11:01
ALT 12 U/L (0-35) 07/30/24 11:01
Alkaline Phosphatase 117 U/L (38-126) 07/30/24 11:01
Most recent labs reviewed.
Micro Results:
07/30/24 11:56 Blood Culture - Preliminary
Blood/Venous No Growth in 4 days- Final report to follow
07/30/24 11:56 Blood Culture - Preliminary
Blood/Venous No Growth in 4 days- Final report to follow
08/02/24 05:25 C. difficile GDH Antigen & Toxins - Final
Feces/Stool Negative for toxigenic C.difficile
- Final
Negative for Norovirus GI and GII.
07/30/24 12:54 Urine Culture - Final
Urine Enterobacter gergoviae
Klebsiella pneumoniae
Imaging:
07/30/24 CT abdomen/pelvis: Minimal bibasilar consolidation. Liver, spleen and pancreas are unremarkable. Gallbladder is distended with at least 4 moderate-sized stones in the region of the gallbladder neck. No wall thickening or pericholecystic
fluid. Mild bilateral perinephric stranding, left greater than right. Minimal left hydronephrosis noted. No obstructing radiopaque stone or mass identified. Please see full dictation for additional detail. Film personally viewed.
07/30/2024 CXR (portable): No visible pneumothorax. Small left pleural effusion noted. Airspace disease in both lower lung storey noted.
[2024-08-04 08:33] LABS: Nucleated Red Blood Cells % 0 %
[2024-08-04 08:38] LABS: Band Neutrophils 8 % (0-3)
[2024-08-04 08:39] LABS: Absolute Neutrophils -Man Diff 41.7 10^3/uL (1.4-6.5); Lymphocytes 8 % (20-51); Metamyelocytes 5 % (-); Monocytes 17 % (2-9); Myelocytes 7 % (-); Segmented Neutrophils 55 % (42-75)
[2024-08-04 08:41] LABS: Anisocytosis 1+; Hypochromasia 1+; Normal RBC Morphology No; Platelets Checked Yes; Total Cells Counted 100
[2024-08-04] MEDS: NOVOLOG FLEXPEN-LOW RESISTANCE SC (08:53)
--- NOTE | 2024-08-04 09:53 | W.PN.HOSP.TC ---
Addendum entered and electronically signed by Juaquin Bray MD 08/04/24 14:47:
Addendum
Had family meeting with son and his based on daughter's request. Answered all her questions. Will continue with current management.
Discussed with bread dumper, no need for n.p.o. for dialysis catheter placement.
End
Original Note:
Today's Communication/Plan
-
Worsening renal function
Aspiration precaution for lethargy
Discussed with nephrology, hemodialysis on Monday
Midodrine
Holding BB for today
Change Acu- check to Q 6 since oral intake is not reliable, not eating her meals
Assessment / Plan
Assessment / Plan
Physical Exam
General: Not in acute respiratory distress, chronically ill looking,
HEENT: Normocephalic
Cardiology: S1 and S2.
Pulmonary: limited with basal rales.
Musculoskeletal: no joint tenderness
GI: Soft and Non Tender. Positive bowel sounds.
Neuro: She is awake, answering questions, weak over all with lethargy, she followed commands, speech is normal.
Psych: calm, lethargic
A/P
# MISBAH, possible contrast induced nephropathy
Suspect underlying proteinuria/ CKD IIIb
Creatinine trending up, likely combination of UTI/ Dehydration/ Contrast study
Held Lasix & Diovan, s/p IVF
Weight is going up, fluid retention, given Lasix with no urine output
Limon Catheter maintained, can remove
Urine sodium around 30and negative urine eosinophil
Holding Farxiga due to UTI
Renally adjusted medications
Per bread dumper: no indication for emergent HD today, plan for HD on Saturday 08/05.
Appreciate nephrology input
# Leukocytosis, neutrophilia, monocytosis, normocytic anemia, and thrombocytopenia
No deficiencies of B12, folate, or iron.
No evidence of hemolysis or coagulopathy
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 Patient will need to follow as oP.
# Enterobacter gergoviae and Klebsiella pneumonia UTI with left pyelonephritis/ hydronephrosis
Mild Urosepsis POA
WBC is not reflective of the infection
No fevers
s/p IVF
c/w Limon, d/w bread dumper
c/w IV Abx
Follow up Renal US no hydronephrosis.
Bladder scan did not show retention
# hypotension
Will do low dose midodrine
Combination of Low oral intake and medications, holding BB then reduce total dose.
# Loss of appetite due to renal failure
PRN Zofran
Aspiration precautions
# Vasovagal episode over night with nausea
Sable HR ton telemetry
Negative troponin
# Hyperkalemia, resolved
# TME due to renal failure.
Mentation is better today, answering questions, still fatigue and ill looking
She followed commands appropriately. Speech is normal.
Stopped sertraline
#Mild acute pneumonitis
Hypoxia only, likely now dealing with fluid retention c/w renal failure, c/w acute non cardiogenic pulmonary edema
Acute hypercapnic and hypoxic respiratory failure
No cough
No fevers
Blood culture NGTD
Appreciate pulmonary & ID recommendations
# Chronic HFpEF
- c/w oral Metoprolol XL
DMT2 on Insulin
HGB A1C 7.6 ( better than last admission) will change Accu-Chek to every 6 hours however oral intake is not reliable due to decreased appetite
# Hypothyroid
c/w INTERVENTIONAL PHYSICIAN Synthroid
HX GIB complicated with blood loss anemia and hemorrhagic shock ( Mar 2023)
HX permanent AF and RBBB
Previously on systemic AC but had recurrent GI bleeding and decided to c/w aspirin only.
-
Chr condition
Morbid obesity
Chronic Thrombocytopenia
Chronic hypoalbuminemia and hypoproteinemia
Hiatal Hernia
Colonic Polyps
Diverticulosis
Internal Hemorrhoids
Chronic anemia
Spinal stenosis s/p fusion
R total hip replacement
Thyroid surgery
Former Smoker
Morbid obesity
Total time spent to see the patient, examine the patient, review data and lab result, discuss treatment plan with patient, daughter, nursing staff around 69 minutes
Anticipated Discharge: > 48 hours
Subjective/Interval History
-
Date of Service: August 04, 2024
Feels tired
No chest pain
No abdominal pain
Objective Data
-
Labs:
Laboratory Results
08/03/24 08/04/24
23:35 04:45
WBC 71.0 H* 66.3 H*
Hgb 9.1 L 8.9 L
Hct 29.0 L 28.4 L
Plt Count 99 L 96 L
Sodium 139 142
Potassium 5.4 H D 4.5
Chloride 111 H 110 H
Carbon Dioxide 16 L 21 L
BUN 40 H 42 H
Creatinine 4.9 H* 5.3 H*
Glucose 127 H 117 H
Calcium 8.6 8.7
Vital Signs:
Vital Signs
Temp Pulse Resp BP Pulse Ox
98.5 F 70 20 92/68 87
08/04/24 02:11 08/04/24 08:05 08/04/24 06:00 08/04/24 08:05 08/04/24 06:00
I&O
08/03/24 08/04/24 08/05/24
06:59 06:59 06:59
Intake Total 1200 / 1200 1020 / 1020
Output Total 125 / 125 60 / 60
Balance 1075 / 1075 960 / 960
[2024-08-04 11:53] LABS: Glucose - Point of Care 209 mg/dl (70-99)
[2024-08-04] MEDS: NOVOLOG FLEXPEN-LOW RESISTANCE 2 UNITS SC ×2 (12:00→17:42)
--- NOTE | 2024-08-04 12:01 | W.PN.NEPH.PH ---
Today's Communication / Plan
-
see plan
HD tomorrow if cr still worsening
Assessment/Plan
-
84F Poor historian Former smoker, HX DM, HTN, , chr HFpEF, Hypothyroidism, Spinal Stenosis s/p fusion, Rt THR , HX Afib Xarelot HX GIB complicated with blood loss anemia and hemorrhagic shock ( Mar 2023) presents with left lower quadrant pain
decreased urination. She had a CAT scan showed mild right perinephric stranding left mild hydro. Urinalysis indicative of urinary tract infection. Patient states no history of urine infection. No acute or chronic NSAID use. CAT scan was
performed with IV contrast.
Renal consult with acute kidney injury on chronic kidney disease with her creatinine of 2 on consultation with baseline creatinine 1.2-1.3 labile per records with estimated EGFR of 40 at baseline.
Impression.
Acute on chronic kidney disease admitting creatinine 1.1. Creatinine of 2 on on consult.nephro OSH
Urinary tract infection/pyelonephritis with mild left hydro and perinephric stranding on the right.
History of atrial fibrillation stable.
History of GI bleed.
January 2024 CHF with preserved EF.
DM
Plan.
MISBAH- UA -UTI sample, contrast exposure on admit 07/30
CT noted left mild hydro, her pain course suggest she may have passed stone [employer]ALITY [employer]OL TE[employer]
anuric with springer now , cr up at 5.3, repeat imaging renal US shows no hydro 08/03
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
check serologies to complete w/u
no response to diuretics, wt is down
keep springer for now
poor po intake and nausea not sure it is from MISBAH/uremia
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
paraprotein w/u pending
Antibiotic per ID
BP are low today-no clear etiology, will start midodrine, holding parameters for BB
dose meds renally , avoid nephrotoxins, hold Farxiga with UTI
plan start HD tomorrow, reviewed with pt in detail
dw/ daughter on phone in detail and agrees with plan
Discussed with nursing
high risk encounter
-
-
Date of Service: August 04, 2024
CC / HPI / ROS
-
Chief Complaint:
MISBAH with CKD
History of Present Illness:
crup at 5.3, UOP only 60cc
BP stable, no fever
WBC high over 66k
plt and hb low but stable
has vomited and HR was low over night felt to be vagal
Review of Systems:
no cp , feels very tired and poor appetite
no abd pain
on O2 2lit
BM x1 today
Labs
-
Labs:
WBC 66.3 10^3/uL (4.8-10.8) H* 08/04/24 04:45
RBC 3.40 10^6/uL (4.20-5.40) L 08/04/24 04:45
Hgb 8.9 g/dL (12.0-16.0) L 08/04/24 04:45
Hct 28.4 % (37.0-47.0) L 08/04/24 04:45
Plt Count 96 10^3/uL (130-400) L 08/04/24 04:45
Sodium 142 mmol/L (135-145) 08/04/24 04:45
Potassium 4.5 mmol/L (3.5-5.1) 08/04/24 04:45
Chloride 110 mmol/L (98-107) H 08/04/24 04:45
Carbon Dioxide 21 mmol/L (22-30) L 08/04/24 04:45
BUN 42 mg/dl (7-17) H 08/04/24 04:45
Creatinine 5.3 mg/dL (0.6-1.0) H* 08/04/24 04:45
eGFR 7.42 08/04/24 04:45
Glucose 117 mg/dl (70-99) H 08/04/24 04:45
Calcium 8.7 mg/dl (8.4-10.2) 08/04/24 04:45
Albumin 4.0 g/dl (3.5-5.0) 07/30/24 11:01
Physical Exam
-
Vital Signs:
Vital Signs
Temp Pulse Resp BP Pulse Ox
98.5 F 83 19 85/64 96
08/04/24 07:35 08/04/24 10:00 08/04/24 10:00 08/04/24 10:00 08/04/24 10:00
Cardiovascular:: Irregular rate and rhythm
Lung Excursion:: Normal (decreased BS)
Abdomen:: Nontender and Soft
Extremity Edema:: +2: Bilateral:
Springer Catheter: Yes
[2024-08-04] MEDS: ProAmatine 5 MG PO ×2 (13:18→17:02)
--- NOTE | 2024-08-04 15:56 | PTCARENOTE ---
Ptinsisted on using BSC had a BM that looked to have blood + hemacult very difficult getting back in bed as pt could not move, will TT Dr Bray
--- NOTE | 2024-08-04 15:57 | W.PN.PUL3 ---
Today's Communication / Plan
-
Continue to trend serum creatinine - if Cr continues to worsen then plan for HD tomorrow
Follow up SPEP
Maintain MAP >65�70 to help perfuse kidneys
Despite rising creatinine, oxygen requirements stable
Continue to wean oxygen as able
Incentive spirometry, out of bed to chair as able
Antibiotics for UTI
Gallstones with gallbladder distention seen on CT A/P however she has no abdominal pain
Continue trending WBC as well as platelets + Hb
Pulmonary service will continue to follow along
Assessment
-
Mrs Kera Pappas is an 82/W readm 03-19 with recurrent dark stools, and acute dyspnea and cough since 03-16 (reportedly family members at home with flu). noted h/o unexplained GIB (negative UGED/colonoscopy), outpatient rivaroxaban for AFib,
admitted with intractable nausea vomiting and subsequent hypoxemia. Found to have bilateral bibasilar infiltrates. We were consulted for evaluation on 07/31/2024.
Impression:
Acute hypoxemic respiratory Insufficiency likely due to pneumonitis/less likely pneumonia- Currently on 2 L nasal cannula
Chest x-ray: Mild bibasilar infiltrates suggestive of atelectasis minimal pleural effusion bilaterally.
CT abdomen pelvis lung cuts: Subsegmental atelectasis. No definitive infiltrate found. Tiny bilateral pleural effusion.
Complicated UTI with culture positive for Enterobacter gergoviae+ Klebsiella pneumoniae
Leukocytosis/leukemoid reaction although differential includes MM vs leukemia vs MDS
Abdominal pain nausea vomiting prior to admission.
Acute kidney injury
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
Adm DH 03-03 to :
EGD 03/05 Sharon:-hiatal hernia.� No other lesion
Colonoscopy 03/[address] Herrera: Five 2 to 8 mm polyps in the transverse colon, removed with a cold snare and removed with a cold biopsy forceps.� Resected and retrieved.� Clip was placed. Two 4 to 6 mm polyps in the descending colon, removed
with a cold snare.� Resected and retrieved.� Clip was placed. Erythematous mucosa in the recto-sigmoid colon and in the sigmoid colon, biopsied. Diverticulosis in the sigmoid colon and in the descending colon. Internal hemorrhoids.
GIB: in 2019 and 2017 she had an extensive work-up including EGD, colon and video capsule.� The last video capsule was in 2017 and was incomplete because it got stuck in a duodenal diverticulum.
Chronic anemia
Atrial fibrillation, on rivaroxaban
HTN
T2DM
Hypothyroidism
Spinal stenosis s/p fusion
R total hip replacement
Thyroid surgery
Former Smoker
Morbid obesity
Plan/recommendations
At this time, patient appears to be stable from respiratory standpoint
Presently she is 96% on 2L
Chest x-ray with mild basilar abnormality, per my review
Abdominal CT, lung images with mild pleural thickening, mild patchy mosaic pattern per my review
Unclear accuracy of weights
Creatinine is worsening, now at 5.3
Moving forward
Continue with weaning oxygen, encourage increased activity
Leukocytosis noted, anemia and thrombocytopenia noted
Follow up SPEP
Infectious disease following, remains on Zosyn for UTI
Oncology consulted
Difficult to assess volume status
Recent echocardiogram January 2024 shows normal biventricular function, PA pressure 48
CXR from 08/02 shows bilateral interstitial opacification likely due to fluid in the setting of acute kidney injury; pneumonia less likely
Nephrology following. IV fluids given
Despite this, creatinine worsening; O2 requirements the same
Difficult to assess volume status
If creatinine continues to worsen then she may be heading towards dialysis; given her age and possible MM vs leukemia/MDS, low chances that she will improve, but family wants to try everything before pursuing comfort/hospice
Aspiration precautions
Head of the bed elevation
Incentive spirometry if able
Leukocytosis noted -may be leukemoid reaction in setting of sepsis. Remains on Zosyn therapy, suspected complicated UTI, left pyelonephritis
Oncology also evaluated
Increase activity
Follow hemoglobin
patient with history of GI bleed in the past,
Questionable Xarelto therapy in the past
DVT prophylaxis: Mechanical and pharmacological, currently on subcutaneous heparin every 12 hours, consider increase to every 8 hours
Patient is full code. Suggest discussion regarding CODE STATUS. This will be deferred to primary service
Pulmonary service will continue to follow along

Diagnostic tests:
Chest x-ray 07/30/2024: Reviewed showed bibasilar infiltrates atelectasis versus pneumonia.
CXR 03-24-23: underpenetrated but no acute changes c/w 03-19-23
CXR 03-19-23 c/w 01-02-23: baseline of poor quality. Current film with increased reticulonodular marking at both bases
CT abdomen pelvis 07/30/2024: Reviewed
Minimal left hydronephrosis. No stone identified.
Small left and tiny right pleural effusion.
Minimal bibasilar consolidation probably atelectasis.
Total time spent today was 39 minutes for this encounter. Time includes reviewing laboratory test/imaging results, reviewing pertinent medical records, obtaining and reviewing medical history, performing an appropriate exam, ordering medications,
tests and procedures. Time also includes documentation of this encounter, coordinating patient care and communicating with other healthcare professionals. Total time does not include separately billed tests performed on this date of service.
Subjective Data
-
Date of Service:
Date of Service: August 04, 2024
Chief Complaint: Pulmonary Follow Up
Subjective:
Patient was seen earlier this morning (late note entry). She vomited overnight and found to have a low heart rate. Troponin was checked which was negative at <0.012. This morning she appears well, saying that she just wants to get better. She is
tearful at times. Patient's son and [id number] both at bedside. All questions were answered. Currently saturating 96% on 2 L/min, with heart rate 86 and BP 134/58. Patient denies SOB, CARLOS, abdominal pain, nausea, fevers or chills.
Review of Systems
General: Other (Negative unless mentioned above)
Objective Data
Data Reviewed
Vital Signs / I&O / Oxygen:
Vital Signs
Temp Pulse Resp BP Pulse Ox
98.5 F 83 19 85/64 94
08/04/24 07:35 08/04/24 10:00 08/04/24 10:00 08/04/24 10:00 08/04/24 10:00
Intake and Output
08/03/24 08/04/24 08/05/24
06:59 06:59 06:59
Intake Total 1200 / 1200 1020 / 1020
Output Total 125 / 125 60 / 60
Balance 1075 / 1075 960 / 960
SaO2 94
Nasal Cannula flow liters per 2
minute
Physical Exam
General: Respiratory Distress (n), Comfortable (Large neck), Chills (n) and Sweats (n)
HEENT: Normocephalic and Anicteric
Cardiovascular: S1-S2, Regular Rhythm, Murmur (n), Rub (n) and Peripheral Edema (trace LE edema bilaterally)
Respiratory: Wheeze (n), Crackles (Bilateral), Rhonchi (n), Non-Labored Respirations and Other (Diminished breath sounds bilaterally)
GI: Soft, Non Distended (Obese) and Non Tender
Neurology: Awake, Alert and Tremors (n)
Skin: Warm, Dry, Cyanosis (n), Jaundice (n) and Rash (n)
Labs/Micro/Reports
Lab Data
08/04/24 04:45
08/04/24 04:45
Microbiology
07/30/24 11:56 Blood/Venous Blood Culture - Preliminary
No Growth in 4 days- Final report to follow
07/30/24 11:56 Blood/Venous Blood Culture - Preliminary
No Growth in 4 days- Final report to follow
08/02/24 05:25 Feces/Stool C. difficile GDH Antigen & Toxins - Final
Negative for toxigenic C.difficile
08/02/24 05:25 Feces/Stool - Final
Negative for Norovirus GI and GII.
07/30/24 12:54 Urine Urine Culture - Final
Enterobacter gergoviae
Klebsiella pneumoniae
--- NOTE | 2024-08-04 16:02 | PTCARENOTE ---
Dr Bray notified of stool results
[2024-08-04 17:31] LABS: Glucose - Point of Care 221 mg/dl (70-99)
[2024-08-04 21:29] LABS: Glucose - Point of Care 123 mg/dl (70-99)
[2024-08-04] MEDS: LIPITOR PO (21:43)
[2024-08-05] VITALS (30 sets, daily range): BP systolic 98–150; BP diastolic 40–111; BMI 34.9
[2024-08-05] MEDS: ZOSYN 50 IV ×4 (01:07→21:46)
[2024-08-05] MEDS: SYNTHROID 150 MCG PO (05:24)
[2024-08-05 05:30] LABS: Blood Urea Nitrogen 48 mg/dl (7-17); Calcium 8.9 mg/dl (8.4-10.2); Carbon Dioxide 20 mmol/L (22-30); Chloride 109 mmol/L (98-107); Estimated Creatinine Clearance 6 ml/min; Glucose 95 mg/dl (70-99); Potassium 4.5 mmol/L (3.5-5.1); Sodium 141 mmol/L (135-145)
[2024-08-05 05:34] LABS: Complement C3 84 mg/dl (88-165)
--- NOTE | 2024-08-05 06:17 | PTCARENOTE ---
Pt able appearing to be able to get some sleep during the night, respirations even unlabored spo2 97% on 3L. Pt having moment of tearfulness this morning when worrying about 'what comes next' she wants 'to get better'. Emotional support given. Pt
NPO since midnight incase needed for procedure today. Mouth swabs done.
[2024-08-05 07:23] LABS: Hematocrit 27.1 % (37.0-47.0); Hemoglobin 8.6 g/dL (12.0-16.0); Mean Corp Hgb Conc. 31.7 g/dL (33.0-37.0); Mean Corpuscular Hgb 26.2 pg (27.0-31.0); Mean Corpuscular Volume 82.6 fL (81.0-99.0); Mean Platelet Volume 9.3 fL (7.4-10.4); Platelet Count 103 10^3/uL (130-400); Red Blood Cell Count 3.28 10^6/uL (4.20-5.40); Red Cell Dist. Width 19.3 % (11.5-14.5); White Blood Cell Count 78.9 10^3/uL (4.8-10.8)
[2024-08-05] MEDS: NOVOLOG FLEXPEN-LOW RESISTANCE SC ×3 (07:50→18:10)
[2024-08-05 07:51] LABS: Glucose - Point of Care 128 mg/dl (70-99)
[2024-08-05] MEDS: HEPARIN 5000 UNITS SC ×2 (08:22→20:39)
[2024-08-05] MEDS: ProAmatine PO ×2 (08:23→18:12)
[2024-08-05] MEDS: PROTONIX 40 MG PO (08:23)
[2024-08-05] MEDS: TOPROL XL 25 MG PO (08:23)
[2024-08-05] MEDS: REFRESH EYE DROPS (PF) 1 DROPS BOTH EYES ×2 (08:24→21:46)
[2024-08-05] MEDS: DESENEX/MITRAZOL/ZEASORB 1 APPLIC TOPICAL ×2 (08:25→20:41)
[2024-08-05] MEDS: ASPIR LOW (ENTERIC COATED) 81 MG PO (08:32)
--- NOTE | 2024-08-05 09:05 | W.PN.PUL3 ---
Today's Communication / Plan
-
MISBAH worsening, IR consult for HD cath placement and trial today, discussed case with Renal
Midodrine PRN on board for hypotension
Volume removal as tolerated
Abx on for UTI
Wean O2 as tolerated
Encouraged otherwise OOB/PT/OT
Assessment
-
Mrs Kera Pappas is an 82/W readm 03-19 with recurrent dark stools, and acute dyspnea and cough since 03-16 (reportedly family members at home with flu). Noted h/o unexplained GIB (negative UGED/colonoscopy), outpatient rivaroxaban for AFib,
admitted with intractable nausea vomiting and subsequent hypoxemia. Found to have bilateral bibasilar infiltrates. We were consulted for evaluation on 07/31/2024.
Impression:
Acute hypoxemic respiratory Insufficiency likely due to pneumonitis/less likely pneumonia- Currently on 2 L nasal cannula
Chest x-ray: Mild bibasilar infiltrates suggestive of atelectasis minimal pleural effusion bilaterally.
CT abdomen pelvis lung cuts: Subsegmental atelectasis. No definitive infiltrate found. Tiny bilateral pleural effusion.
Complicated UTI with culture positive for Enterobacter gergoviae+ Klebsiella pneumoniae
Leukocytosis/leukemoid reaction although differential includes MM vs leukemia vs MDS
Abdominal pain nausea vomiting prior to admission.
Acute kidney injury
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
Adm DH 03-03 to :
EGD 03/05 Sharon:-hiatal hernia.� No other lesion
Colonoscopy 03/[address] Herrera: Five 2 to 8 mm polyps in transverse colon removed via cold snare/biopsy forceps; clip placed. Two 4 to 6 mm polyps in descending colon removed with clip placed; erythematous mucosa in the recto-sigmoid colon and
in the sigmoid colon, biopsied. Diverticulosis in the sigmoid colon and in the descending colon. Internal hemorrhoids.
GIB: in 2019 and 2017 she had an extensive work-up including EGD, colon and video capsule.� The last video capsule was in 2017 and was incomplete because it got stuck in a duodenal diverticulum.
Chronic anemia
Atrial fibrillation, on rivaroxaban
HTN
T2DM
Hypothyroidism
Spinal stenosis s/p fusion
R total hip replacement
Thyroid surgery
Former Smoker
Morbid obesity
Plan/recommendations
At this time, patient appears to be stable from respiratory standpoint
Presently she is 97% on 3L
Chest x-ray with mild basilar abnormality, per my review--repeat showing worsening congestion/edema 08/[address], lung images with mild pleural thickening, mild patchy mosaic pattern per my review
Unclear accuracy of weights
Creatinine is worsening, now at 5.3-->6.5
Moving forward
Continue with weaning oxygen, encourage increased activity
Leukocytosis noted, anemia and thrombocytopenia noted
Follow up SPEP
Infectious disease following, remains on Zosyn for UTI
Oncology consulted
Difficult to assess volume status
Recent echocardiogram January 2024 shows normal biventricular function, PA pressure 48
CXR from 08/02 shows bilateral interstitial opacification likely due to fluid in the setting of acute kidney injury; pneumonia less likely
Nephrology following. IV fluids given
Despite this, creatinine worsening; O2 requirements the same
Difficult to assess volume status
If creatinine continues to worsen then she may be heading towards dialysis; given her age and possible MM vs leukemia/MDS, low chances that she will improve
HD considered 08/05--IR consult for HD cath insertion
Family wants to try everything before pursuing comfort/hospice
Aspiration precautions
Head of the bed elevation
Incentive spirometry if able
Leukocytosis noted--may be leukemoid reaction in setting of sepsis.
Remains on Zosyn therapy, suspected complicated UTI, left pyelonephritis
Oncology also evaluated
Increase activity, PT/OT
Follow hemoglobin
Patient with history of GI bleed in the past
Questionable Xarelto therapy in the past
DVT prophylaxis: Mechanical and pharmacological, currently on subcutaneous heparin every 12 hours, consider increase to every 8 hours
Patient is full code. Suggest discussion regarding CODE STATUS. This will be deferred to primary service
Pulmonary service will continue to follow along
Diagnostic Data
CXR 08/02/24- Cardiomegaly with mild interstitial opacification, patchy bibasilar airspace opacities and small bilateral pleural effusions. Constellation of findings is favored to represent mild pneumonitis or edema with bibasilar atelectasis.
Pneumonia is possible although considered less likely.
Chest x-ray 07/30/2024: Reviewed showed bibasilar infiltrates atelectasis versus pneumonia.
CXR 03-24-23: underpenetrated but no acute changes c/w 03-19-23
CXR 03-19-23 c/w 01-02-23: baseline of poor quality. Current film with increased reticulonodular marking at both bases
CT abdomen pelvis 07/30/2024: Reviewed. Minimal left hydronephrosis. No stone identified. Small left and tiny right pleural effusion. Minimal bibasilar consolidation probably atelectasis.
-----
Total time spent today was 51 minutes for this encounter. Time includes reviewing laboratory test/imaging results, reviewing pertinent medical records, obtaining and reviewing medical history, performing an appropriate exam, ordering medications,
tests and procedures. Time also includes documentation of this encounter, coordinating patient care and communicating with other healthcare professionals. Total time does not include separately billed tests performed on this date of service.
Subjective Data
-
Date of Service:
Date of Service: August 05, 2024
Chief Complaint: Pulmonary Follow Up
Subjective:
Currently on HD, tolerating
Lethargic but answering questions
Denies pain/SOB
Objective Data
Data Reviewed
Vital Signs / I&O / Oxygen:
Vital Signs
Temp Pulse Resp BP Pulse Ox
98.2 F 102 19 141/111 97
08/05/24 08:05 08/05/24 08:23 08/05/24 06:07 08/05/24 08:23 08/05/24 06:10
Intake and Output
08/04/24 08/05/24 08/06/24
06:59 06:59 06:59
Intake Total 1020 / 1020 240 / 240
Output Total 60 / 60 50 / 50
Balance 960 / 960 190 / 190
SaO2 97
Nasal Cannula flow liters per 3
minute
Physical Exam
General: Respiratory Distress (n), Comfortable (Large neck), Chills (n) and Sweats (n)
HEENT: Normocephalic and Anicteric
Cardiovascular: S1-S2, Regular Rhythm, Murmur (n), Rub (n) and Peripheral Edema (trace LE edema )
Respiratory: Wheeze (n), Crackles (Bilateral), Rhonchi (n), Non-Labored Respirations and Other (Diminished breath sounds bilaterally)
GI: Soft, Non Distended (Obese) and Non Tender
Neurology: Awake, Alert, No Motor Deficits and Tremors (n)
Skin: Warm, Dry, Cyanosis (n), Jaundice (n) and Rash (n)
Labs/Micro/Reports
Lab Data
08/05/24 06:42
08/05/24 04:37
Microbiology
07/30/24 11:56 Blood/Venous Blood Culture - Final
No Growth - Final Report
07/30/24 11:56 Blood/Venous Blood Culture - Final
No Growth - Final Report
08/02/24 05:25 Feces/Stool C. difficile GDH Antigen & Toxins - Final
Negative for toxigenic C.difficile
08/02/24 05:25 Feces/Stool - Final
Negative for Norovirus GI and GII.
07/30/24 12:54 Urine Urine Culture - Final
Enterobacter gergoviae
Klebsiella pneumoniae
--- NOTE | 2024-08-05 09:36 | W.PN.ID1 ---
Date of Service
Date of Service: August 05, 2024
Today's Communication
Complete course of Zosyn today. Thereafter, follow off of antibiotics.
Assessment / Plan
Leukocytosis
- Ongoing. Suspect noninfectious etiology.
Suspected complicated urinary tract infection
Suspected left pyelonephritis
Anemia
MISBAH
- worsening
A-fib
DM
COPD
HTN
Reported renal insufficiency
Thyroid disease
Osteoarthritis
Spinal stenosis
PMR
Recommendations:
Blood cultures without growth. Urine culture with Enterobacter and Klebsiella. Both isolate susceptible to Zosyn.
Continue Zosyn (d#7) for today then discontinue further antibiotics.
Patient to begin hemodialysis today. Will adjust Zosyn dose.
Continue to follow white count and temperature curve.
Given non-improvement in white count despite appropriate antibiotics, suspect noninfectious etiology of current leukocytosis
����������������������������������������������������������
Chief Complaint
-: Leukocytosis and UTI
Subjective / Review of Systems
Patient seen and examined. Overall feels generally weak. Denies pain. No fevers or chills.
Vital Signs / Physical Exam
Vital Signs
Vital Signs
Temp Pulse Resp BP Pulse Ox
98.2 F 102 19 141/111 97
08/05/24 08:05 08/05/24 08:23 08/05/24 06:07 08/05/24 08:23 08/05/24 06:10
Physical Exam
Constitutional: No Acute Distress, Comfortable, Chronically Ill and Non-toxic
Pulmonary: Non Labored
Gastrointestinal: Soft, Non Tender, Non Distended and Normal Bowel Sounds
Genito-Urinary: Limon; Negative CVA Tenderness
Extremities: Edema; Negative Cyanosis or Erythema
Neurological: Awake and Alert
Psychological: Calm
Objective Data
Lab Data
Lab Results
08/05/24 06:42
08/05/24 04:37
PT 17.0 Sec (11.4-14.6) H 08/02/24 03:48
INR 1.33 08/02/24 03:48
APTT 34.7 Sec (23.4-35.0) 08/02/24 03:48
Estimated Creat Clear 6 ml/min 08/05/24 04:37
Lactic Acid 1.2 mmol/L (0.7-2.0) 07/30/24 11:56
Total Bilirubin 0.7 mg/dl (0.2-1.3) 07/30/24 11:01
AST 14 U/L (14-36) 07/30/24 11:01
ALT 12 U/L (0-35) 07/30/24 11:01
Alkaline Phosphatase 117 U/L (38-126) 07/30/24 11:01
Most recent labs reviewed.
Micro Results:
07/30/24 11:56 Blood Culture - Final
Blood/Venous No Growth - Final Report
07/30/24 11:56 Blood Culture - Final
Blood/Venous No Growth - Final Report
08/02/24 05:25 C. difficile GDH Antigen & Toxins - Final
Feces/Stool Negative for toxigenic C.difficile
- Final
Negative for Norovirus GI and GII.
07/30/24 12:54 Urine Culture - Final
Urine Enterobacter gergoviae
Klebsiella pneumoniae
Imaging:
07/30/24 CT abdomen/pelvis: Minimal bibasilar consolidation. Liver, spleen and pancreas are unremarkable. Gallbladder is distended with at least 4 moderate-sized stones in the region of the gallbladder neck. No wall thickening or pericholecystic
fluid. Mild bilateral perinephric stranding, left greater than right. Minimal left hydronephrosis noted. No obstructing radiopaque stone or mass identified. Please see full dictation for additional detail. Film personally viewed.
07/30/2024 CXR (portable): No visible pneumothorax. Small left pleural effusion noted. Airspace disease in both lower lung storey noted.
--- NOTE | 2024-08-05 10:54 | PTCARENOTE ---
Pt to IR on stretcher with O2. Daughter at bedside. Pt remains AAAOx3, very drowsy states she is very tired
--- NOTE | 2024-08-05 11:48 | PTCARENOTE ---
Pt return from IR moaning and crying that everything hurts.Daughter at bedside
[2024-08-05 11:58] LABS: Glucose - Point of Care 107 mg/dl (70-99)
[2024-08-05 11:58] LABS: Phosphorus 7.3 mg/dl (2.5-4.5)
[2024-08-05] MEDS: TYLENOL 650 MG PO (12:04)
[2024-08-05] MEDS: ProAmatine 5 MG PO (12:06)
[2024-08-05 12:58] LABS: Albumin 2.74 g/dL (3.75-5.01); Alpha 1 Globulin 0.42 g/dL (0.19-0.46); Alpha 2 Globulin 0.82 g/dL (0.48-1.05); Free Kappa Light Chains,Quant 74.25 mg/L (3.30-19.40); Free Lambda Light Chains,Quant 141.53 mg/L (5.71-26.30); IgA 679 mg/dL (68-408); IgG 733 mg/dL (768-1632); IgM 76 mg/dL (35-263); Immunofixation Electrophoresis IFE Done; Kappa/Lambda Fr Light Ratio 0.52 (0.26-1.65); Monoclonal Protein 0.67 g/dL (<=0.00); Total Protein-Electrophoresis 5.8 g/dL (6.3-8.2)
[2024-08-05 13:09] LABS: Uric Acid 15.5 mg/dl (2.5-6.2)
[2024-08-05] MEDS: MANNITOL 25% 12.5 GRAMS IV ×2 (14:50→15:34)
[2024-08-05] MEDS: FLEXBUMIN 25% FOR HEMODIALYSIS 12.5 GRAMS IV ×2 (14:55→15:34)
--- NOTE | 2024-08-05 15:43 | W.PN.HOSP.TC ---
Today's Communication/Plan
-
continue abx
for HD today
Assessment / Plan
Assessment / Plan
# MISBAH, possible contrast induced nephropathy
Suspect underlying proteinuria/ CKD IIIb
Held Lasix & Diovan, s/p IVF
For volume overload patient later was given Lasix trial without any benefit
Limon Catheter maintained
Urine eosinophil neg. pending SPEP results. complement level normal
Renally adjusted medications
Nephrology planning to initiate patient on hemodialysis
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
No deficiencies of B12, folate, or iron.
No evidence of hemolysis or coagulopathy
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 Patient will need to follow as oP.
# Enterobacter gergoviae and Klebsiella pneumonia UTI with left pyelonephritis/ hydronephrosis
Leukemoid reaction
No clear infection source bedside urinary tract infection
Blood cultures remain negative.
Patient maintained on IV Zosyn for now
ID following and help appreciated
# hypotension
Essential hypertension
Blood pressure is improved at this point
Currently on Toprol-XL/valsartan on hold
# Loss of appetite due to renal failure
PRN Zofran
Aspiration precautions
# Vasovagal episode over night with nausea
Sable HR ton telemetry
Negative troponin
# Hyperkalemia, resolved
# TME - improved
Mentation is better today, answering questions, still fatigue and ill looking
She followed commands appropriately. Speech is normal.
Stopped sertraline
#Mild acute pneumonitis
Hypoxia only, likely now dealing with fluid retention c/w renal failure, c/w acute non cardiogenic pulmonary edema
Acute hypercapnic and hypoxic respiratory failure
No cough
No fevers
Blood culture NGTD
Appreciate pulmonary & ID recommendations
Chronic HFpEF - c/w oral Metoprolol XL
T2DM - on HGB A1C 7.6
Hypothyroid
X GIB complicated with blood loss anemia and hemorrhagic shock ( Mar 2023)
HX permanent AF and RBBB
Morbid obesity
Chronic Thrombocytopenia
Chronic hypoalbuminemia and hypoproteinemia
Hiatal Hernia
Colonic Polyps
Diverticulosis
Internal Hemorrhoids
Chronic anemia
Spinal stenosis s/p fusion
R total hip replacement
Thyroid surgery
Former Smoker
Total time spent : 55 mins
Anticipated Discharge: > 48 hours
Subjective/Interval History
-
Date of Service: August 05, 2024
Patient remains lethargic
Somewhat confused although able to discuss things coherently
Vitally stable
Remains afebrile over
Objective Data
-
Labs:
Laboratory Results
08/05/24 08/05/24
04:37 06:42
WBC 78.9 H*
Hgb 8.6 L
Hct 27.1 L
Plt Count 103 L
Sodium 141
Potassium 4.5
Chloride 109 H
Carbon Dioxide 20 L
BUN 48 H
Creatinine 6.5 H*
Glucose 95
Calcium 8.9
Vital Signs:
Vital Signs
Temp Pulse Resp BP Pulse Ox
98.2 F 92 18 129/42 95
08/05/24 10:13 08/05/24 14:15 08/05/24 14:15 08/05/24 14:15 08/05/24 14:15
I&O
08/04/24 08/05/24 08/06/24
06:59 06:59 06:59
Intake Total 1020 / 1020 240 / 240
Output Total 60 / 60 50 / 50
Balance 960 / 960 190 / 190
Review of Systems
-
Unable to obtain full review of systems at this time due to: Acuity
Respiratory: Reports No Symptoms
Cardiac: Reports No Symptoms
Abdomen/GI: Denies Abdominal Pain
Physical Exam
-
HEENT: Negative Oxygen
Respiratory: Clear to Auscultation
Cardiac: Regular Rhythm and S1/S2; Negative Murmur or Rub
GI: Soft, Nontender and Nondistended
Musculoskeletal: No Edema
Neuro: Awake, Alert, Oriented, No Motor Deficits and Nonfocal/Grossly Intact
Psych: Calm
--- NOTE | 2024-08-05 16:06 | W.PN.NEPH.HD ---
Assessment
-
pt seen during HD
vitals stable
UF 1lit today
HD again tomorrow
CVC functions fine
can d/c springer as she remains anuric
Progress Note - Hemodialysis
-
Date of Service: August 05, 2024
Duration: 2 hours
Potassium Bath: 3
Calcium Bath: 2.5
Opti-Dialyzer: 160
Ultrafiltration: Other
Blood Flow: 200
Dialysate Flow: 600
Heparin: no
EPO: no
--- NOTE | 2024-08-05 17:15 | W.PN.UPDATE ---
Update Note
Progress Note Update
met daughter at bedside with concenr of pt MS
pt is able to speak clearly c/o neck pain-possibly at HD cathter site
need dressing change to fix NC tubing
d/w daughter in detail
d/w nursing
[2024-08-05 18:09] LABS: Glucose - Point of Care 120 mg/dl (70-99)
--- NOTE | 2024-08-05 18:12 | PTCARENOTE ---
Pt tolerated HD 1 KIlo off, pt onfused post HD family upset DR Le spoke with family Dr Schulz updated. Pt having a hard time drinking fromcup speech consult requested fron DR Schulz.
[2024-08-05] MEDS: REFRESH EYE DROPS (PF) BOTH EYES (18:21)
--- NOTE | 2024-08-05 19:09 | W.PN.ONC2 ---
Today's Communication / Plan
-
Uric acid and phos elevation, with renal failure, highly concerning for tumor lysis.
Discussed with pt's daughter Alicia by phone this evening.
Rasburicase.
Needs hydrea but concerned about worsening the uric acid acutely. Given rasburicase tonight and start Hydrea tomorrow.
Impression
Impression
Leukocytosis, neutrophilia, normocytic anemia, and thrombocytopenia
MISBAH
gram negative UTI/pylonephritis
left hydronephrosis
gallbladder distention with enlarged gallstones in the gallbladder neck
small L pleural effusion
PNA
acute hypoxic respiratory failure
mild cardiomegaly
atrial fibrillation
Plan
Plan
Leukocytosis, anemia and thrombocytopenia may be reactive to infection/acute illness but are beginning to look more like underlying marrow disorder with appearance of immature forms.
In outpt setting, she had mild leukocytosis with elevations in neutrophil and monocyte count. Anemia and thrombocytopenia appear to be chronic intermittent. 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
No deficiencies of B12, folate, or iron.
No evidence of DIC.
FLow cytometry now.
Pt now starting dialysis for progressive renal insufficiency. Uric acid, phosphate levels were sent this morning to exclude tumor lysis. Unfortunately, she has uric acid of 15.5 and phos of 7.3, suggestive of tumor lysis.
Start rasburicase.
Start Hydrea as some of her symptoms may be due to leukostasis.
Subjective/Objective
Chief Complaint
Heme/Onc follow up of progressive leukocytosis with anemia and thrombocytopenia
Subjective
Poor historian
Vital Signs:
Vital Signs
Temp Pulse Resp BP Pulse Ox
98.6 F 86 21 129/57 95
08/05/24 15:30 08/05/24 18:00 08/05/24 18:00 08/05/24 18:12 08/05/24 18:00
Lab Results:
Laboratory Data
WBC 78.9 10^3/uL (4.8-10.8) H* 08/05/24 06:42
Hgb 8.6 g/dL (12.0-16.0) L 08/05/24 06:42
Plt Count 103 10^3/uL (130-400) L 08/05/24 06:42
PT 17.0 Sec (11.4-14.6) H 08/02/24 03:48
INR 1.33 08/02/24 03:48
APTT 34.7 Sec (23.4-35.0) 08/02/24 03:48
eGFR 5.80 08/05/24 04:37
Orders
Orders
Orders From Last 24 Hours
08/05/24 06:02
Add On- LAB Routine
08/05/24 17:30
Leukemia/Lymphoma Phenotyping [S] Routine
[2024-08-05] MEDS: ELITEK 50 MG IV (20:39)
[2024-08-05] MEDS: LIPITOR PO (21:46)
[2024-08-05 21:49] LABS: Hepatitis B Surface Antigen Negative (Negative)
[2024-08-05 22:06] LABS: Hepatitis B Surface Antibody Negative; Hepatitis C Antibody Negative (Negative)
[2024-08-05 22:39] LABS: Glucose - Point of Care 103 mg/dl (70-99)
[2024-08-06] VITALS (34 sets, daily range): BP systolic 86–176; BP diastolic 49–113; BMI 34.8
--- NOTE | 2024-08-06 03:30 | PTCARENOTE ---
Addendum entered by Leora Chen RN 08/06/24 05:53:
Pt still in discomfort from right HD cath placement. Ofirmev given, positive results per Pt. Pt allowing mouth care to be done, dentures out cleaned, mouth cleaned and mouth moisturizer on small sore areas. MULTIPLE sticks to get Pt labs
unsuccessful, veins blowing and bruising almost instantly Pt upset and 'cant believe this is happening' to her. IV team made aware Midline or PICC maybe needed.
Original Note:
Pt having complaints of discomfort in the right neck were HD cath was placed. Ice pack applied with positive results. HD cath dressing in place dry and intact. Call pro within reach, Bed in lowest position. Assessment care and vitals as charted.
[2024-08-06] MEDS: OFIRMEV 100 IV ×2 (03:52→22:44)
[2024-08-06] MEDS: SYNTHROID 150 MCG PO (06:23)
--- NOTE | 2024-08-06 08:59 | W.PN.ID1 ---
Date of Service
Date of Service: August 06, 2024
Today's Communication
Observe off antibiotics
Assessment / Plan
Leukocytosis
- Ongoing. Suspect noninfectious etiology.
Suspected complicated urinary tract infection
Anemia
MISBAH
- worsening; now on HD.
A-fib
DM
COPD
HTN
Reported renal insufficiency
Thyroid disease
Osteoarthritis
Spinal stenosis
PMR
Recommendations:
Patient's s/p 7 days of Zosyn.
Observe off antibiotics.
Monitor white count temperature curve.
����������������������������������������������������������
Chief Complaint
-: Leukocytosis and UTI
Subjective / Review of Systems
Review of Systems: No Fever
Vital Signs / Physical Exam
Vital Signs
Vital Signs
Temp Pulse Resp BP Pulse Ox
98.4 F 95 19 157/63 94
08/06/24 05:08 08/06/24 06:22 08/06/24 06:22 08/06/24 06:22 08/06/24 06:00
Physical Exam
Constitutional: Chronically Ill and Non-toxic
Pulmonary: Non Labored
Gastrointestinal: Soft, Non Tender, Non Distended and Normal Bowel Sounds
Genito-Urinary: Limon; Negative CVA Tenderness
Extremities: Edema; Negative Cyanosis or Erythema
Neurological: Awake
Psychological: Calm
Objective Data
Lab Data
Lab Results
08/05/24 04:37
PT 17.0 Sec (11.4-14.6) H 08/02/24 03:48
INR 1.33 08/02/24 03:48
APTT 34.7 Sec (23.4-35.0) 08/02/24 03:48
Estimated Creat Clear 6 ml/min 08/05/24 04:37
Lactic Acid 1.2 mmol/L (0.7-2.0) 07/30/24 11:56
Total Bilirubin 0.7 mg/dl (0.2-1.3) 07/30/24 11:01
AST 14 U/L (14-36) 07/30/24 11:01
ALT 12 U/L (0-35) 07/30/24 11:01
Alkaline Phosphatase 117 U/L (38-126) 07/30/24 11:01
Most recent labs reviewed.
Micro Results:
07/30/24 11:56 Blood Culture - Final
Blood/Venous No Growth - Final Report
07/30/24 11:56 Blood Culture - Final
Blood/Venous No Growth - Final Report
08/02/24 05:25 C. difficile GDH Antigen & Toxins - Final
Feces/Stool Negative for toxigenic C.difficile
- Final
Negative for Norovirus GI and GII.
07/30/24 12:54 Urine Culture - Final
Urine Enterobacter gergoviae
Klebsiella pneumoniae
Imaging:
07/30/24 CT abdomen/pelvis: Minimal bibasilar consolidation. Liver, spleen and pancreas are unremarkable. Gallbladder is distended with at least 4 moderate-sized stones in the region of the gallbladder neck. No wall thickening or pericholecystic
fluid. Mild bilateral perinephric stranding, left greater than right. Minimal left hydronephrosis noted. No obstructing radiopaque stone or mass identified. Please see full dictation for additional detail. Film personally viewed.
07/30/2024 CXR (portable): No visible pneumothorax. Small left pleural effusion noted. Airspace disease in both lower lung storey noted.
--- NOTE | 2024-08-06 09:07 | W.PN.PUL3 ---
Today's Communication / Plan
-
Tolerated first session of HD 08/05, removal of 1L volume
Down only 0.3kg
I discussed overall issues with family at bedside
Wean O2 as tolerated
PT/OT
Assessment
-
Mrs Kera Pappas is an 82/W readm 03-19 with recurrent dark stools, and acute dyspnea and cough since 03-16 (reportedly family members at home with flu). Noted h/o unexplained GIB (negative UGED/colonoscopy), outpatient rivaroxaban for AFib,
admitted with intractable nausea vomiting and subsequent hypoxemia. Found to have bilateral bibasilar infiltrates. We were consulted for evaluation on 07/31/2024.
Impression:
Acute hypoxemic respiratory Insufficiency likely due to pneumonitis/less likely pneumonia- Currently on 2 L nasal cannula
Chest x-ray: Mild bibasilar infiltrates suggestive of atelectasis minimal pleural effusion bilaterally.
CT abdomen pelvis lung cuts: Subsegmental atelectasis. No definitive infiltrate found. Tiny bilateral pleural effusion.
Complicated UTI with culture positive for Enterobacter gergoviae+ Klebsiella pneumoniae
Leukocytosis/leukemoid reaction although differential includes MM vs leukemia vs MDS
Abdominal pain nausea vomiting prior to admission.
Acute kidney injury
Conditions MASTER AT ARMS:
Adm DH 03-03 to :
EGD 03/05 Sharon:-hiatal hernia.� No other lesion
Colonoscopy 03/[address] Herrera: Five 2 to 8 mm polyps in transverse colon removed via cold snare/biopsy forceps; clip placed. Two 4 to 6 mm polyps in descending colon removed with clip placed; erythematous mucosa in the recto-sigmoid colon and
in the sigmoid colon, biopsied. Diverticulosis in the sigmoid colon and in the descending colon. Internal hemorrhoids.
GIB: in 2019 and 2017 she had an extensive work-up including EGD, colon and video capsule.� The last video capsule was in 2018 and was incomplete because it got stuck in a duodenal diverticulum.
Chronic anemia
Atrial fibrillation, on rivaroxaban
HTN
T2DM
Hypothyroidism
Spinal stenosis s/p fusion
R total hip replacement
Thyroid surgery
Former Smoker
Morbid obesity
Plan/recommendations
At this time, patient appears to be stable from respiratory standpoint
Presently she is 97% on 3L
Chest x-ray with mild basilar abnormality, per my review--repeat showing worsening congestion/edema 08/[address], lung images with mild pleural thickening, mild patchy mosaic pattern per my review
Unclear accuracy of weights
Creatinine is improving, now at 6.5-->5.5
Moving forward
Continue with weaning oxygen, encourage increased activity
Leukocytosis noted, anemia and thrombocytopenia noted
Follow up SPEP
Infectious disease following, remains on Zosyn for UTI
Oncology consulted
Difficult to assess volume status, weight down only 0.3kg thus far
Recent echocardiogram January 2024 shows normal biventricular function, PA pressure 48
CXR from 08/02 shows bilateral interstitial opacification likely due to fluid in the setting of acute kidney injury; pneumonia less likely
Nephrology following. IV fluids given--despite this, creatinine worsening
Difficult to assess volume status
If creatinine continues to worsen then she may be heading towards dialysis; given her age and possible MM vs leukemia/MDS, low chances that she will improve
HD considered 08/05--IR consult for HD cath insertion
Family wants to try everything before pursuing comfort/hospice
HD trial 08/05 tolerated, will plan again today 08/06
Aspiration precautions
Head of the bed elevation
Incentive spirometry if able
Leukocytosis noted--may be leukemoid reaction in setting of sepsis.
Remains on Zosyn therapy, suspected complicated UTI, left pyelonephritis
Oncology also evaluated
Increase activity, PT/OT
Follow hemoglobin
Patient with history of GI bleed in the past
Questionable Xarelto therapy in the past
DVT prophylaxis: Mechanical and pharmacological, currently on subcutaneous heparin every 12 hours, consider increase to every 8 hours
Patient is full code. Suggest discussion regarding CODE STATUS. This will be deferred to primary service
Pulmonary service will continue to follow along
Diagnostic Data
CXR 08/02/24- Cardiomegaly with mild interstitial opacification, patchy bibasilar airspace opacities and small bilateral pleural effusions. Constellation of findings is favored to represent mild pneumonitis or edema with bibasilar atelectasis.
Pneumonia is possible although considered less likely.
Chest x-ray 07/30/2024: Reviewed showed bibasilar infiltrates atelectasis versus pneumonia.
CXR 03-24-23: underpenetrated but no acute changes c/w 03-19-23
CXR 03-19-23 c/w 01-02-23: baseline of poor quality. Current film with increased reticulonodular marking at both bases
CT abdomen pelvis 07/30/2024: Reviewed. Minimal left hydronephrosis. No stone identified. Small left and tiny right pleural effusion. Minimal bibasilar consolidation probably atelectasis.
-----
Total time spent today was 51 minutes for this encounter. Time includes reviewing laboratory test/imaging results, reviewing pertinent medical records, obtaining and reviewing medical history, performing an appropriate exam, ordering medications,
tests and procedures. Time also includes documentation of this encounter, coordinating patient care and communicating with other healthcare professionals. Total time does not include separately billed tests performed on this date of service.
Subjective Data
-
Date of Service:
Date of Service: August 06, 2024
Chief Complaint: Pulmonary Follow Up
Subjective:
Tolerated HD, no new issues
Family at bedside
Still remains lethargic
Objective Data
Data Reviewed
Vital Signs / I&O / Oxygen:
Vital Signs
Temp Pulse Resp BP Pulse Ox
98.4 F 95 19 157/63 94
08/06/24 05:08 08/06/24 06:22 08/06/24 06:22 08/06/24 06:22 08/06/24 06:00
Intake and Output
08/05/24 08/06/24 08/07/24
06:59 06:59 06:59
Intake Total 240 / 240 360 / 360
Output Total 50 / 50 50 / 50
Balance 190 / 190 310 / 310
SaO2 94
Nasal Cannula flow liters per 3
minute
Physical Exam
General: Respiratory Distress (n), Comfortable (Large neck), Chills (n) and Sweats (n)
HEENT: Normocephalic and Anicteric
Cardiovascular: S1-S2, Regular Rhythm, Murmur (n), Rub (n) and Peripheral Edema (trace LE edema )
Respiratory: Wheeze (n), Crackles (Bilateral), Rhonchi (n), Non-Labored Respirations and Other (Diminished breath sounds bilaterally)
GI: Soft, Non Distended (Obese) and Non Tender
Neurology: Awake, Alert, No Motor Deficits and Tremors (n)
Skin: Warm, Dry, Cyanosis (n), Jaundice (n) and Rash (n)
Labs/Micro/Reports
Lab Data
08/05/24 04:37
Microbiology
07/30/24 11:56 Blood/Venous Blood Culture - Final
No Growth - Final Report
07/30/24 11:56 Blood/Venous Blood Culture - Final
No Growth - Final Report
--- NOTE | 2024-08-06 09:35 | PTOTSP ---
Speech Language Pathology
Pt seen for clinical bedside swallow evaluation. Pt with increased WOB at rest. Reported being extremely tired. Upon inspection of oral cavity, food noted to be pocketed bilaterally in posterior buccal cavities. Suctioned by LINK TRAINER MAINTENANCE WORKER. Pt reported
her daughter brought Julian for breakfast, so suspect this was residual from breakfast.
P.O. trials of puree, regular solids, and thin liquids provided. Prolonged mastication of regular solids noted (approximately 2 minutes for single bite). Required cued liquid wash to attempt to clear oral cavity, but was unable to fully clear,
requiring LINK TRAINER MAINTENANCE WORKER to suction buccal cavities to clear. Audible swallow noted at times, but no overt signs of aspiration. Also seen for med pass with meds 1 at a time with liquid with no overt difficulty.
Recommend:
(1) Downgrade to IDDSI Level 5 (minced/moist) and thin liquids
(2) Aspiration precautions: sit upright, slow rate, feed only when alert, suction oral cavity post P.O. intake (check for pocketing)
(3) Meds as tolerated
(4) LINK TRAINER MAINTENANCE WORKER to continue to follow
[2024-08-06] MEDS: TOPROL XL 25 MG PO (09:42)
[2024-08-06] MEDS: ASPIR LOW (ENTERIC COATED) 81 MG PO (09:42)
[2024-08-06] MEDS: REFRESH EYE DROPS (PF) 1 DROPS BOTH EYES ×3 (09:42→21:01)
[2024-08-06] MEDS: PROTONIX 40 MG PO (09:43)
[2024-08-06] MEDS: HEPARIN 5000 UNITS SC ×2 (09:43→20:55)
[2024-08-06] MEDS: DESENEX/MITRAZOL/ZEASORB 1 APPLIC TOPICAL ×2 (09:43→20:54)
[2024-08-06] MEDS: ProAmatine PO ×2 (09:43→12:33)
[2024-08-06 09:45] LABS: Hemoglobin 7.8 g/dL (12.0-16.0); Mean Corp Hgb Conc. 31.2 g/dL (33.0-37.0); Mean Corpuscular Hgb 25.7 pg (27.0-31.0); Mean Corpuscular Volume 82.5 fL (81.0-99.0); Mean Platelet Volume 8.5 fL (7.4-10.4); Platelet Count 81 10^3/uL (130-400); Red Blood Cell Count 3.03 10^6/uL (4.20-5.40); Red Cell Dist. Width 19.4 % (11.5-14.5)
[2024-08-06 09:56] LABS: Phosphorus 6.7 mg/dl (2.5-4.5); Uric Acid 2.9 mg/dl (2.5-6.2)
[2024-08-06 10:01] LABS: Glucose - Point of Care 115 mg/dl (70-99)
--- NOTE | 2024-08-06 10:03 | W.PN.ONC2 ---
Today's Communication / Plan
-
.
Impression
Impression
Leukocytosis, neutrophilia, normocytic anemia, and thrombocytopenia -No deficiencies of B12, folate, or iron -No evidence of DIC
MISBAH, started HD 08/05
hyperuremia s/p rasburicase 08/05
gram negative UTI/pylonephritis
left hydronephrosis
gallbladder distention with enlarged gallstones in the gallbladder neck
small L pleural effusion
PNA
acute hypoxic respiratory failure
mild cardiomegaly
atrial fibrillation
Plan
Plan
Leukocytosis, anemia and thrombocytopenia may be reactive to infection/acute illness but are beginning to look more like underlying marrow disorder with appearance of immature forms -concern for acute leukemia process
In outpt setting, she had mild leukocytosis with elevations in neutrophil and monocyte count. Anemia and thrombocytopenia appear to be chronic intermittent.
check uric acid level daily. Will hold off on further rasburicase for now with uric acid level 2.9
start Hydrea 1g after HD today
f/u peripheral FLow cytometry
HD per nephrology
Discussed with pt daughter and grandson at bedside, questions answered
Subjective/Objective
Subjective
no new complaints
Vital Signs:
Vital Signs
Temp Pulse Resp BP Pulse Ox
98.4 F 103 26 156/64 99
08/06/24 05:08 08/06/24 09:00 08/06/24 09:00 08/06/24 09:43 08/06/24 09:00
Lab Results:
Laboratory Data
WBC 78.9 10^3/uL (4.8-10.8) H* 08/05/24 06:42
Hgb 7.8 g/dL (12.0-16.0) L 08/06/24 09:30
Plt Count 81 10^3/uL (130-400) L D 08/06/24 09:30
PT 17.0 Sec (11.4-14.6) H 08/02/24 03:48
INR 1.33 08/02/24 03:48
APTT 34.7 Sec (23.4-35.0) 08/02/24 03:48
eGFR 5.80 08/05/24 04:37
Physical Exam
HEENT: Moist Mucous Membranes; No Jaundice
Pulmonary: Other (unlabored)
GI: Soft
Extremities: Pulses Present
[2024-08-06] MEDS: NOVOLOG FLEXPEN-LOW RESISTANCE SC ×3 (10:11→17:24)
[2024-08-06 11:06] LABS: White Blood Cell Count 66.3 10^3/uL (4.8-10.8)
[2024-08-06 11:07] LABS: Absolute Neutrophils -Man Diff 45.7 10^3/uL (1.4-6.5); Band Neutrophils 3 % (0-3); Lymphocytes 9 % (20-51); Metamyelocytes 3 % (-); Monocytes 15 % (2-9); Myelocytes 4 % (-); Segmented Neutrophils 66 % (42-75)
[2024-08-06 11:08] LABS: Normal RBC Morphology Yes; Platelets Checked Yes; Total Cells Counted 100
--- NOTE | 2024-08-06 11:36 | W.PN.HOSP.TC ---
Today's Communication/Plan
-
diet order adjusted
monitor labs
abx per ID
HD per nephro
Assessment / Plan
Assessment / Plan
# MISBAH, possible contrast induced nephropathy
Suspect underlying proteinuria/ CKD IIIb
Held Lasix & Diovan, s/p IVF
For volume overload patient later was given Lasix trial without any benefit
Limon Catheter maintained
Urine eosinophil neg. pending SPEP results. complement level normal
Renally adjusted medications
Patient got round of hemodialysis yesterday, repeat round today
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
No deficiencies of B12, folate, or iron.
No evidence of hemolysis or coagulopathy
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 Patient will need to follow as oP.
# Enterobacter gergoviae and Klebsiella pneumonia UTI with left pyelonephritis/ hydronephrosis
Leukemoid reaction
No clear infection source bedside urinary tract infection
Blood cultures remain negative. C. difficile negative.
Patient maintained on IV Zosyn for now
ID following and help appreciated
# hypotension
Essential hypertension
Blood pressure is improved at this point
Currently on Toprol-XL/valsartan on hold
# Loss of appetite due to renal failure
PRN Zofran
Aspiration precautions
# Vasovagal episode over night with nausea
Sable HR ton telemetry
Negative troponin
# Hyperkalemia, resolved
# TME - improved
Mentation is better today, answering questions, still fatigue and ill looking
She followed commands appropriately. Speech is normal.
Stopped sertraline
Patient evaluated by speech therapy, started on IDDSI 5 diet.
#Mild acute pneumonitis
Acute hypoxic respiratory insufficiency
Combination of pneumonitis/pulmonary congestion due to underlying renal failure possibly
ID/pulmonology help appreciated
Wean off oxygen as possible
Already covered with antibiotics for urinary infection
Chronic HFpEF - c/w oral Metoprolol XL
T2DM - on HGB A1C 7.6
Hypothyroid
X GIB complicated with blood loss anemia and hemorrhagic shock ( Mar 2023)
HX permanent AF and RBBB
Morbid obesity
Chronic Thrombocytopenia
Chronic hypoalbuminemia and hypoproteinemia
Hiatal Hernia
Colonic Polyps
Diverticulosis
Internal Hemorrhoids
Chronic anemia
Spinal stenosis s/p fusion
R total hip replacement
Thyroid surgery
Former Smoker
Full code
Care plan discussed with patient daughter at bedside
Total time spent 55-minute
Anticipated Discharge: > 48 hours
Subjective/Interval History
-
Date of Service: August 06, 2024
Patient remains somewhat confused, able to voice symptoms
Denies of having any ongoing shortness of breath/abdominal pain/nausea/vomiting
Family at bedside
No major acute events reported overnight by RN
Objective Data
-
Labs:
Laboratory Results
08/06/24 08/06/24
09:30 10:51
WBC 66.3 H*
Hgb 7.8 L
Hct 25.0 L
Plt Count 81 L D
Sodium Pending
Potassium Pending
Chloride Pending
Carbon Dioxide Pending
BUN Pending
Creatinine Pending
Glucose Pending
Calcium Pending
Vital Signs:
Vital Signs
Temp Pulse Resp BP Pulse Ox
98.4 F 103 26 156/64 99
08/06/24 05:08 08/06/24 09:00 08/06/24 09:00 08/06/24 09:43 08/06/24 09:00
I&O
08/05/24 08/06/24 08/07/24
06:59 06:59 06:59
Intake Total 240 / 240 360 / 360
Output Total 50 / 50 50 / 50
Balance 190 / 190 310 / 310
Review of Systems
-
Unable to obtain full review of systems at this time due to: Other (Limited ROS negative as above)
Physical Exam
-
HEENT: Negative Oxygen
Respiratory: Clear to Auscultation
Cardiac: Regular Rhythm and S1/S2; Negative Murmur or Rub
GI: Soft, Nontender and Nondistended
Musculoskeletal: Edema, Right Lower Extrem and Edema, Left Lower Extrem
Neuro: Awake, Alert, Oriented, No Motor Deficits and Nonfocal/Grossly Intact
Psych: Calm
--- NOTE | 2024-08-06 12:47 | CM ---
Patient with Dx MISBAH, suspected marrow disorder/CMML, UTI with left pyelonephritis, improving TME, pneumonitis. Nontunneled right IJ HD catheter placed 08/05 - new HD. O2 3L. WBC 66.3. Seen by finisher accordion for inadequate oral intake. [facility] -
Dysphagia diet. PT 08/02 recommends home PT vs SNF rehab, OT 08/02 recommends skilled rehab.
Message with Dr Benjamin; unable to decide at this time if patient will need ongoing HD.
Met with patient, grandson Dane and spoke with daughter Alicia by phone;
patient awake/alert however seemed exhausted.
Daughter seemed tearful/expressed upset about her mother's condition and need for dialysis, daughter stating concern for leukemia.
Daughter had questions/concerns about her mother not eating well, and shared that she is a speech therapist in a school. She asked if speech therapist or finisher accordion could call her ---> message sent to Beth MCALLISTER who will contact her.
Discussed that Alicia had previously indicated that she wanted her mother to return home at d/c rather than go to SNF - daughter says she would want her mother to come home if she becomes stronger.
CM continuing to follow.
Plan watch for outpatient HD needs.
Plan TBD.
[2024-08-06 12:49] LABS: Glucose - Point of Care 101 mg/dl (70-99)
--- NOTE | 2024-08-06 13:33 | W.PN.NEPH.HD ---
Assessment
-
Patient seen on dialysis
Systolic blood pressure 158 current UF
Dialysis via temporary cath
Next dialysis will be planned for 08/08/2024
Progress Note - Hemodialysis
-
Date of Service: August 06, 2024
Duration: 45 minutes and 2 hours
Potassium Bath: 2
Calcium Bath: 2.5
Opti-Dialyzer: 160
Ultrafiltration: Other (2 kg)
Blood Flow: 300
Dialysate Flow: 600
Heparin: None
EPO: 4000
[2024-08-06] MEDS: MANNITOL 25% 12.5 GRAMS IV ×2 (13:37→13:40)
[2024-08-06] MEDS: RETACRIT 4000 UNITS IV (13:38)
[2024-08-06 14:06] LABS: Blood Urea Nitrogen 39 mg/dl (7-17); Calcium 8.6 mg/dl (8.4-10.2); Carbon Dioxide 24 mmol/L (22-30); Chloride 105 mmol/L (98-107); Estimated Creatinine Clearance 7 ml/min; Glucose 95 mg/dl (70-99); Potassium 3.9 mmol/L (3.5-5.1); Sodium 140 mmol/L (135-145); eGFR 7.09
--- NOTE | 2024-08-06 14:18 | PTCARENOTE ---
Pt's assessment as documented. Aox3, very drowsy. Midline placed by IVT. Labs sent. Afib on tele monitor. Sating mid to high 90's on 3L. Pt receiving HD at this time, tolerating well. Family updated on plan of care. Call pro within reach. Safe
environment maintained.
[2024-08-06 16:56] LABS: ANA, IgG Reflex to HEp-2 None Detected (None Detected)
[2024-08-06] MEDS: ProAmatine 5 MG PO (18:11)
[2024-08-06 19:34] LABS: Glucose - Point of Care 142 mg/dl (70-99)
[2024-08-06] MEDS: HYDREA 1000 MG PO (21:00)
[2024-08-06] MEDS: LIPITOR 80 MG PO (21:00)
[2024-08-06 22:13] LABS: Glucose - Point of Care 95 mg/dl (70-99)
[2024-08-07] VITALS (26 sets, daily range): BP systolic 100–169; BP diastolic 37–117; PULSE 89–94; O2SAT 93; BMI 34.3
[2024-08-07 00:34] LABS: Myeloperoxidase Antibody 0 AU/mL (0-19); Serine Protease-3, IgG 0 AU/mL (0-19)
[2024-08-07] MEDS: ZOSTRIX-HP 0.075% CREAM 1 APPLIC TOPICAL ×4 (01:28→20:50)
--- NOTE | 2024-08-07 03:29 | PTCARENOTE ---
Pt able to make needs known. pt ringing call pro appropriately. Pt called to say she was having right leg pain, repositioning and massage attempted with out relief. INTERACTIVE MEDIA SPECIALIST made aware Ofirmev ordered. Pt still having pain, capsaicin ordered, patient
having positive results pain now at a 2. Mouth care done dentures cleaned. Some blood seen in dentures, small area on palate abrasion. Call pro within reach, Assessment care and vitals as charted.
[2024-08-07] MEDS: SYNTHROID 150 MCG PO (05:58)
[2024-08-07 06:52] LABS: Blood Urea Nitrogen 26 mg/dl (7-17); Calcium 8.4 mg/dl (8.4-10.2); Carbon Dioxide 27 mmol/L (22-30); Chloride 103 mmol/L (98-107); Estimated Creatinine Clearance 10 ml/min; Glucose 100 mg/dl (70-99); Phosphorus 4.9 mg/dl (2.5-4.5); Potassium 3.6 mmol/L (3.5-5.1); Sodium 139 mmol/L (135-145); eGFR 11.05
[2024-08-07 06:54] LABS: Hematocrit 24.1 % (37.0-47.0); Hemoglobin 7.5 g/dL (12.0-16.0); Mean Corp Hgb Conc. 31.1 g/dL (33.0-37.0); Mean Corpuscular Hgb 25.7 pg (27.0-31.0); Mean Corpuscular Volume 82.5 fL (81.0-99.0); Platelet Count 87 10^3/uL (130-400); Red Blood Cell Count 2.92 10^6/uL (4.20-5.40); White Blood Cell Count 52.8 10^3/uL (4.8-10.8)
--- NOTE | 2024-08-07 08:52 | W.PN.ONC2 ---
Today's Communication / Plan
-
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 Poor PS. Await flow cytometry. Aggressive Tx would be a challenge for her based on PS and comorbidities.
Cr, Phos, UA all improved s/p rasburicase and initiation HD
Impression
Impression
Leukocytosis, neutrophilia, normocytic anemia, and thrombocytopenia -No deficiencies of B12, folate, or iron -No evidence of DIC
MISBAH, started HD 08/05
hyperuremia s/p rasburicase 08/05
gram negative UTI/pylonephritis
left hydronephrosis
gallbladder distention with enlarged gallstones in the gallbladder neck
small L pleural effusion
PNA
acute hypoxic respiratory failure
mild cardiomegaly
atrial fibrillation
Plan
Plan
Leukocytosis, anemia and thrombocytopenia may be reactive to infection/acute illness but are beginning to look more like underlying marrow disorder with appearance of immature forms -concern for acute leukemia process
In outpt setting, she had mild leukocytosis with elevations in neutrophil and monocyte count. Anemia and thrombocytopenia appear to be chronic intermittent.
check uric acid level daily. Will hold off on further rasburicase for now with uric acid level 2.9
started Hydrea 1g QD
f/u peripheral Flow cytometry
HD per nephrology
Discussed with pt daughter and grandson at bedside, questions answered
Subjective/Objective
Chief Complaint
ACS Heme Onc
Subjective
Weak. No other c/o.
Vital Signs:
Vital Signs
Temp Pulse Resp BP Pulse Ox
98.2 F 97 19 149/62 97
08/07/24 03:02 08/07/24 06:00 08/07/24 06:00 08/07/24 06:00 08/07/24 06:00
Lab Results:
Laboratory Data
WBC 52.8 10^3/uL (4.8-10.8) H* 08/07/24 05:55
Hgb 7.5 g/dL (12.0-16.0) L 08/07/24 05:55
Plt Count 87 10^3/uL (130-400) L 08/07/24 05:55
PT 17.0 Sec (11.4-14.6) H 08/02/24 03:48
INR 1.33 08/02/24 03:48
APTT 34.7 Sec (23.4-35.0) 08/02/24 03:48
eGFR 11.05 08/07/24 05:55
Physical Exam
Frail, bedridden
Cardiology: S1 and S2
Pulmonary: Clear
Extremities: No C/C/E
--- NOTE | 2024-08-07 09:01 | W.PN.PUL3 ---
Today's Communication / Plan
-
O2 remains low, on supplemental 3L at rest, 5L with exertion--not on home O2, will need eventual eval
OOB, PT following, improved appearance today
Weight and creat improving post HD, renal following, to determine next sessions for volume removal/remains oliguric
Repeat CXR in AM
Reviewed plan of care with family at bedside
Assessment
-
Mrs Kera Pappas is an 82/W readm 03-19 with recurrent dark stools, and acute dyspnea and cough since 03-16 (reportedly family members at home with flu). Noted h/o unexplained GIB (negative UGED/colonoscopy), outpatient rivaroxaban for AFib,
admitted with intractable nausea vomiting and subsequent hypoxemia. Found to have bilateral bibasilar infiltrates. We were consulted for evaluation on 07/31/2024.
Impression:
Acute hypoxemic respiratory Insufficiency likely due to pneumonitis/less likely pneumonia- Currently on 2 L nasal cannula
Chest x-ray: Mild bibasilar infiltrates suggestive of atelectasis minimal pleural effusion bilaterally.
CT abdomen pelvis lung cuts: Subsegmental atelectasis. No definitive infiltrate found. Tiny bilateral pleural effusion.
Complicated UTI with culture positive for Enterobacter gergoviae+ Klebsiella pneumoniae
Leukocytosis/leukemoid reaction although differential includes MM vs leukemia vs MDS
Abdominal pain nausea vomiting prior to admission.
Acute kidney injury
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
Adm DH 03-03 to :
EGD 03/05 Sharon:-hiatal hernia.� No other lesion
Colonoscopy 03/[address] Herrera: Five 2 to 8 mm polyps in transverse colon removed via cold snare/biopsy forceps; clip placed. Two 4 to 6 mm polyps in descending colon removed with clip placed; erythematous mucosa in the recto-sigmoid colon and
in the sigmoid colon, biopsied. Diverticulosis in the sigmoid colon and in the descending colon. Internal hemorrhoids.
GIB: in 2019 and 2017 she had an extensive work-up including EGD, colon and video capsule.� The last video capsule was in 2018 and was incomplete because it got stuck in a duodenal diverticulum.
Chronic anemia
Atrial fibrillation, on rivaroxaban
HTN
T2DM
Hypothyroidism
Spinal stenosis s/p fusion
R total hip replacement
Thyroid surgery
Former Smoker
Morbid obesity
Plan/recommendations
At this time, patient appears to be stable from respiratory standpoint
Presently she is 97% on 3L--increased to 5L due to activity, OOB--wean back down as tolerated
Chest x-ray with mild basilar abnormality, per my review--repeat showing worsening congestion/edema 08/[address], lung images with mild pleural thickening, mild patchy mosaic pattern per my review
Continue with weaning oxygen, encourage increased activity
Leukocytosis noted, anemia and thrombocytopenia noted
Follow up SPEP
Infectious disease following, remains on Zosyn for UTI
Oncology consulted
Difficult to assess volume status due to BMI/deconditioning
Recent echocardiogram January 2024 shows normal biventricular function, PA pressure 48
CXR from 08/02 shows bilateral interstitial opacification likely due to fluid in the setting of acute kidney injury; pneumonia less likely
Will repeat CXR in AM 08/07 to reassess CHF
Nephrology following. IV fluids given--despite this, creatinine worsening
Difficult to assess volume status
08/05--IR consult for HD cath insertion
Family wants to try everything before pursuing comfort/hospice
HD trial 08/05 and 08/06 tolerated, weight down 78.3 -> 78 -> 76.9 kg today
Creatinine is improving, 6.5-->5.5 --> 3.8
Aspiration precautions
Head of the bed elevation
Incentive spirometry if able
Leukocytosis noted--may be leukemoid reaction in setting of sepsis.
Remains on Zosyn therapy, suspected complicated UTI, left pyelonephritis
Oncology also evaluated
Increase activity, PT/OT
Follow hemoglobin
Patient with history of GI bleed in the past
Questionable Xarelto therapy in the past
DVT prophylaxis: Mechanical and pharmacological, currently on subcutaneous heparin every 12 hours, consider increase to every 8 hours
Patient is full code. Suggest discussion regarding CODE STATUS. This will be deferred to primary service
Pulmonary service will continue to follow along
Diagnostic Data
CXR 08/02/24- Cardiomegaly with mild interstitial opacification, patchy bibasilar airspace opacities and small bilateral pleural effusions. Constellation of findings is favored to represent mild pneumonitis or edema with bibasilar atelectasis.
Pneumonia is possible although considered less likely.
Chest x-ray 07/30/2024: Reviewed showed bibasilar infiltrates atelectasis versus pneumonia.
CXR 03-24-23: underpenetrated but no acute changes c/w 03-19-23
CXR 03-19-23 c/w 01-02-23: baseline of poor quality. Current film with increased reticulonodular marking at both bases
CT abdomen pelvis 07/30/2024: Reviewed. Minimal left hydronephrosis. No stone identified. Small left and tiny right pleural effusion. Minimal bibasilar consolidation probably atelectasis.
-----
Total time spent today was 51 minutes for this encounter. Time includes reviewing laboratory test/imaging results, reviewing pertinent medical records, obtaining and reviewing medical history, performing an appropriate exam, ordering medications,
tests and procedures. Time also includes documentation of this encounter, coordinating patient care and communicating with other healthcare professionals. Total time does not include separately billed tests performed on this date of service.
Subjective Data
-
Date of Service:
Date of Service: August 07, 2024
Chief Complaint: Pulmonary Follow Up
Subjective:
Remains on supplemental O2, increased to 5L due to recent activity
Now OOB to chair
Weight down, she appears improved
No new complaints
Family at bedside
Objective Data
Data Reviewed
Vital Signs / I&O / Oxygen:
Vital Signs
Temp Pulse Resp BP Pulse Ox
98.2 F 97 19 149/62 97
08/07/24 03:02 08/07/24 06:00 08/07/24 06:00 08/07/24 06:00 08/07/24 06:00
Intake and Output
08/06/24 08/07/24 08/08/24
06:59 06:59 06:59
Intake Total 360 / 360 180 / 180
Output Total 50 / 50
Balance 310 / 310 180 / 180
SaO2 97
Nasal Cannula flow liters per 5
minute
Physical Exam
General: Respiratory Distress (n), Comfortable (Large neck), Chills (n) and Sweats (n)
HEENT: Normocephalic and Anicteric
Cardiovascular: S1-S2, Regular Rhythm, Murmur (n), Rub (n) and Peripheral Edema (trace LE edema )
Respiratory: Wheeze (n), Crackles (Bilateral), Rhonchi (n), Non-Labored Respirations and Other (Diminished breath sounds bilaterally)
GI: Soft, Non Distended (Obese) and Non Tender
Neurology: Awake, Alert, No Motor Deficits and Tremors (n)
Skin: Warm, Dry, Cyanosis (n), Jaundice (n) and Rash (n)
Labs/Micro/Reports
Lab Data
08/07/24 05:55
08/07/24 05:55
Microbiology
07/30/24 11:56 Blood/Venous Blood Culture - Final
No Growth - Final Report
07/30/24 11:56 Blood/Venous Blood Culture - Final
No Growth - Final Report
[2024-08-07 09:09] LABS: Glucose - Point of Care 107 mg/dl (70-99)
[2024-08-07] MEDS: PROTONIX 40 MG PO (09:35)
[2024-08-07] MEDS: ASPIR LOW (ENTERIC COATED) 81 MG PO (09:39)
[2024-08-07] MEDS: REFRESH EYE DROPS (PF) 1 DROPS BOTH EYES ×3 (09:40→20:51)
[2024-08-07] MEDS: ProAmatine PO ×2 (09:40→17:35)
[2024-08-07] MEDS: HEPARIN 5000 UNITS SC ×2 (09:40→20:49)
[2024-08-07] MEDS: NOVOLOG FLEXPEN-LOW RESISTANCE SC ×2 (09:41→17:38)
[2024-08-07] MEDS: TOPROL XL 25 MG PO (09:41)
--- NOTE | 2024-08-07 10:26 | W.PN.ID1 ---
Date of Service
Date of Service: August 07, 2024
Today's Communication
Continue to observe off abx.
Assessment / Plan
Leukocytosis
- Ongoing. Suspect noninfectious etiology.
- HemeOnc following; ?AML
Suspected complicated urinary tract infection
- s/p course of zosyn
Anemia
MISBAH
- worsening; now on HD.
A-fib
DM
COPD
HTN
Reported renal insufficiency
Thyroid disease
Osteoarthritis
Spinal stenosis
PMR
Recommendations:
Observe off antibiotics.
Monitor white count & temperature curve.
����������������������������������������������������������
Chief Complaint
-: Leukocytosis and UTI
Subjective / Review of Systems
Review of Systems: No Fever and No Chills
Vital Signs / Physical Exam
Vital Signs
Vital Signs
Temp Pulse Resp BP Pulse Ox
99.1 F 94 19 155/67 97
08/07/24 07:40 08/07/24 09:41 08/07/24 06:00 08/07/24 09:41 08/07/24 06:00
Physical Exam
Constitutional: Chronically Ill and Non-toxic
Pulmonary: Non Labored
Gastrointestinal: Soft, Non Tender, Non Distended and Normal Bowel Sounds
Genito-Urinary: Limon; Negative CVA Tenderness
Extremities: Edema; Negative Cyanosis or Erythema
Neurological: Awake
Psychological: Calm
Objective Data
Lab Data
Lab Results
08/07/24 05:55
08/07/24 05:55
PT 17.0 Sec (11.4-14.6) H 08/02/24 03:48
INR 1.33 08/02/24 03:48
APTT 34.7 Sec (23.4-35.0) 08/02/24 03:48
Estimated Creat Clear 10 ml/min 08/07/24 05:55
Lactic Acid 1.2 mmol/L (0.7-2.0) 07/30/24 11:56
Total Bilirubin 0.7 mg/dl (0.2-1.3) 07/30/24 11:01
AST 14 U/L (14-36) 07/30/24 11:01
ALT 12 U/L (0-35) 07/30/24 11:01
Alkaline Phosphatase 117 U/L (38-126) 07/30/24 11:01
Most recent labs reviewed.
Micro Results:
07/30/24 11:56 Blood Culture - Final
Blood/Venous No Growth - Final Report
07/30/24 11:56 Blood Culture - Final
Blood/Venous No Growth - Final Report
08/02/24 05:25 C. difficile GDH Antigen & Toxins - Final
Feces/Stool Negative for toxigenic C.difficile
- Final
Negative for Norovirus GI and GII.
07/30/24 12:54 Urine Culture - Final
Urine Enterobacter gergoviae
Klebsiella pneumoniae
Imaging:
07/30/24 CT abdomen/pelvis: Minimal bibasilar consolidation. Liver, spleen and pancreas are unremarkable. Gallbladder is distended with at least 4 moderate-sized stones in the region of the gallbladder neck. No wall thickening or pericholecystic
fluid. Mild bilateral perinephric stranding, left greater than right. Minimal left hydronephrosis noted. No obstructing radiopaque stone or mass identified. Please see full dictation for additional detail. Film personally viewed.
07/30/2024 CXR (portable): No visible pneumothorax. Small left pleural effusion noted. Airspace disease in both lower lung storey noted.
--- NOTE | 2024-08-07 11:00 | W.PN.NEPH.PH ---
Today's Communication / Plan
-
Discontinue midodrine
Dialysis tomorrow
Assessment/Plan
-
84F Poor historian Former smoker, HX DM, HTN, , chr HFpEF, Hypothyroidism, Spinal Stenosis s/p fusion, Rt THR , HX Afib Xarelot HX GIB complicated with blood loss anemia and hemorrhagic shock ( Mar 2023) presents with left lower quadrant pain
decreased urination. She had a CAT scan showed mild right perinephric stranding left mild hydro. Urinalysis indicative of urinary tract infection. Patient states no history of urine infection. No acute or chronic NSAID use. CAT scan was
performed with IV contrast.
Renal consult with acute kidney injury on chronic kidney disease with her creatinine of 2 on consultation with baseline creatinine 1.2-1.3 labile per records with estimated EGFR of 40 at baseline.
Impression.
Acute on chronic kidney disease admitting creatinine 1.1. Creatinine of 2 on on consult.nephro OSH
Urinary tract infection/pyelonephritis with mild left hydro and perinephric stranding on the right.
History of atrial fibrillation stable.
History of GI bleed.
January 2024 CHF with preserved EF.
DM
Plan.
MISBAH- UA -UTI sample, contrast exposure on admit 07/30
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
repeat imaging renal US shows no hydro 08/03
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
check serologies to complete= negative
no response to diuretics, wt is down
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
paraprotein normal kappa lambda ratio
dose meds renally , avoid nephrotoxins, hold Farxiga with UTI
Second dialysis treatment done 08/06
Holding dialysis today next treatment will be tomorrow 08/08
Will discontinue midodrine as her blood pressures much improved now elevated
Discussed with family at bedside. Explained to the patient remains essentially anuric Limon catheter is out.
Will continue to monitor for signs of recovery
Total Time Spent with Patient (in minutes): 31
-
-
Date of Service: August 07, 2024
CC / HPI / ROS
-
Chief Complaint:
MISBAH with CKD
History of Present Illness:
Acute kidney injury no signs of recovery status post acute dialysis initiation 08/05
BP stable, no fever
WBC high over 66k
plt and hb low but stable
Review of Systems:
no cp , feels very tired and poor appetite
no abd pain
Limon out
Labs
-
Labs:
WBC 52.8 10^3/uL (4.8-10.8) H* 08/07/24 05:55
RBC 2.92 10^6/uL (4.20-5.40) L 08/07/24 05:55
Hgb 7.5 g/dL (12.0-16.0) L 08/07/24 05:55
Hct 24.1 % (37.0-47.0) L 08/07/24 05:55
Plt Count 87 10^3/uL (130-400) L 08/07/24 05:55
Sodium 139 mmol/L (135-145) 08/07/24 05:55
Potassium 3.6 mmol/L (3.5-5.1) 08/07/24 05:55
Chloride 103 mmol/L (98-107) 08/07/24 05:55
Carbon Dioxide 27 mmol/L (22-30) 08/07/24 05:55
BUN 26 mg/dl (7-17) H 08/07/24 05:55
Creatinine 3.8 mg/dL (0.6-1.0) H 08/07/24 05:55
eGFR 11.05 08/07/24 05:55
Glucose 100 mg/dl (70-99) H 08/07/24 05:55
Calcium 8.4 mg/dl (8.4-10.2) 08/07/24 05:55
Phosphorus 4.9 mg/dl (2.5-4.5) H 08/07/24 05:55
Albumin 4.0 g/dl (3.5-5.0) 07/30/24 11:01
Physical Exam
-
Vital Signs:
Vital Signs
Temp Pulse Resp BP Pulse Ox
99.1 F 94 19 155/67 97
08/07/24 07:40 08/07/24 09:41 08/07/24 06:00 08/07/24 09:41 08/07/24 06:00
Cardiovascular:: Irregular rate and rhythm
Lung Excursion:: Normal (decreased BS)
Abdomen:: Nontender and Soft
Extremity Edema:: +2: Bilateral:
Limon Catheter: No
[2024-08-07 12:33] LABS: Glucose - Point of Care 154 mg/dl (70-99)
[2024-08-07] MEDS: DESENEX/MITRAZOL/ZEASORB 1 APPLIC TOPICAL ×2 (13:32→20:49)
[2024-08-07] MEDS: NOVOLOG FLEXPEN-LOW RESISTANCE 1 UNITS SC (13:33)
[2024-08-07] MEDS: ProAmatine 5 MG PO (13:33)
--- NOTE | 2024-08-07 16:24 | CM ---
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 Nontunneled right IJ HD catheter placed 08/05 - new HD. O2 4L. WBC 52.8. Midline IV. Dysphagia diet. PT/OT recommend skilled rehab.
As per prior CM notes patient's daughter waiting to see if patient improves before deciding about SNF for rehab.
Plan follow patient's mobility.
Plan watch for outpatient HD needs.
Plan TBD.
--- NOTE | 2024-08-07 16:28 | W.PN.HOSP.TC ---
Today's Communication/Plan
-
see note
Assessment / Plan
Assessment / Plan
# MISBAH, possible contrast induced nephropathy
Suspect underlying proteinuria/ CKD IIIb
For volume overload patient later was given Lasix trial without any benefit
Limon Catheter maintained
Urine eosinophil neg. pending SPEP results. complement level normal
Renally adjusted medications
Patient got 2 rounds of hemodialysis, mon/mon, next is tomorrow
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
Pancytopenia
No deficiencies of B12, folate, or iron.
No evidence of hemolysis or coagulopathy
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 Patient will need to follow as oP.
Patient started on Hydrea by onc, plt/hbg/wbc have decreased.
Hbg 7.5, discussed with nephro and may require 1 unit blood transfusion with dialysis tomorrow
# Enterobacter gergoviae and Klebsiella pneumonia UTI with left pyelonephritis/ hydronephrosis
Leukemoid reaction
No clear infection source bedside urinary tract infection
Blood cultures remain negative. C. difficile negative.
Patient maintained on IV Zosyn for now
ID following and help appreciated
# hypotension
Essential hypertension
Blood pressure is improved at this point
Currently on Toprol-XL/valsartan on hold
# Loss of appetite due to renal failure
PRN Zofran
Aspiration precautions
# Vasovagal episode - once, no recurrence
# Hyperkalemia, resolved
# Vision changes
Complaining of left vision blurriness. 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
CT head neg for any acute issues. Family concerned that patient will be able to get MRI brain with claustrophobia
will need outpt opthal f/u
# TME - improved
Mentation is better today, answering questions, still fatigue and ill looking
She followed commands appropriately. Speech is normal.
Stopped sertraline
Patient evaluated by speech therapy, started on IDDSI 5 diet.
#Mild acute pneumonitis
Acute hypoxic respiratory insufficiency
Combination of pneumonitis/pulmonary congestion due to underlying renal failure possibly
ID/pulmonology help appreciated
Wean off oxygen as possible
Already covered with antibiotics for urinary infection
Chronic HFpEF - c/w oral Metoprolol XL
T2DM - on HGB A1C 7.6
Hypothyroid
X GIB complicated with blood loss anemia and hemorrhagic shock ( Mar 2023)
HX permanent AF and RBBB
Morbid obesity
Chronic Thrombocytopenia
Chronic hypoalbuminemia and hypoproteinemia
Hiatal Hernia
Colonic Polyps
Diverticulosis
Internal Hemorrhoids
Chronic anemia
Spinal stenosis s/p fusion
R total hip replacement
Thyroid surgery
Former Smoker
Full code
Care plan discussed with patient family at bedside
Total time spent 53-minute
Anticipated Discharge: > 48 hours
Subjective/Interval History
-
Date of Service: August 07, 2024
Patient resting comfortably in bed
More coherent today
Afebrile overnight
Objective Data
-
Labs:
Laboratory Results
08/07/24
05:55
WBC 52.8 H*
Hgb 7.5 L
Hct 24.1 L
Plt Count 87 L
Sodium 139
Potassium 3.6
Chloride 103
Carbon Dioxide 27
BUN 26 H
Creatinine 3.8 H
Glucose 100 H
Calcium 8.4
Vital Signs:
Vital Signs
Temp Pulse Resp BP Pulse Ox
99.1 F 92 19 135/54 97
08/07/24 07:40 08/07/24 13:33 08/07/24 06:00 08/07/24 13:33 08/07/24 06:00
I&O
08/06/24 08/07/24 08/08/24
06:59 06:59 06:59
Intake Total 360 / 360 180 / 180
Output Total 50 / 50
Balance 310 / 310 180 / 180
Review of Systems
-
Respiratory: Reports No Symptoms
Cardiac: Reports No Symptoms
Abdomen/GI: Reports No Symptoms
Physical Exam
-
HEENT: Negative Oxygen
Respiratory: Clear to Auscultation
Cardiac: Regular Rhythm and S1/S2; Negative Murmur or Rub
GI: Soft, Nontender and Nondistended
Musculoskeletal: Edema, Right Lower Extrem and Edema, Left Lower Extrem
Neuro: Awake, Alert, Oriented, No Motor Deficits and Nonfocal/Grossly Intact
Psych: Calm
[2024-08-07 17:51] LABS: Glucose - Point of Care 136 mg/dl (70-99)
[2024-08-07 18:00] LABS: Glucose - Point of Care 141 mg/dl (70-99)
--- NOTE | 2024-08-07 18:32 | PTCARENOTE ---
Pt reported significant change in vision. 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 Pt stated this started 2 days
prior - Hospitalist notified. Dr. Schulz came and s/w Pt and family - CT ordered. Will continue to monitor and assess.
[2024-08-07] MEDS: LIPITOR 80 MG PO (20:51)
[2024-08-07] MEDS: HYDREA 1000 MG PO (20:51)
[2024-08-07 22:49] LABS: Glucose - Point of Care 166 mg/dl (70-99)
[2024-08-08] VITALS (29 sets, daily range): BP systolic 92–180; BP diastolic 35–135; BMI 34.3
--- NOTE | 2024-08-08 01:30 | PTCARENOTE ---
Assumed care of pt from jade RN. Pt aaox3. Pt OOB x2 with RW to BS. Pt had a small brown liquid bowel movement. Hygiene completed. DEVIN medications administered (see MAR). Vitals and assessment as documented. Pt resting in bed with call pro in
reach.
[2024-08-08] MEDS: SYNTHROID 150 MCG PO (06:09)
[2024-08-08 06:43] LABS: Blood Urea Nitrogen 38 mg/dl (7-17); Calcium 8.6 mg/dl (8.4-10.2); Carbon Dioxide 27 mmol/L (22-30); Chloride 104 mmol/L (98-107); Estimated Creatinine Clearance 10 ml/min; Glucose 116 mg/dl (70-99); Phosphorus 4.7 mg/dl (2.5-4.5); Potassium 3.4 mmol/L (3.5-5.1); Sodium 139 mmol/L (135-145); Uric Acid 2.4 mg/dl (2.5-6.2)
[2024-08-08 07:50] LABS: Glucose - Point of Care 119 mg/dl (70-99)
[2024-08-08 07:55] LABS: Hemoglobin 7.9 g/dL (12.0-16.0); Mean Corp Hgb Conc. 31.6 g/dL (33.0-37.0); Mean Corpuscular Volume 82.2 fL (81.0-99.0); Mean Platelet Volume 8.8 fL (7.4-10.4); Platelet Count 103 10^3/uL (130-400); Red Blood Cell Count 3.04 10^6/uL (4.20-5.40); White Blood Cell Count 49.9 10^3/uL (4.8-10.8)
[2024-08-08] MEDS: NOVOLOG FLEXPEN-LOW RESISTANCE SC ×2 (08:38→17:34)
[2024-08-08] MEDS: REFRESH EYE DROPS (PF) 1 DROPS BOTH EYES ×3 (08:38→21:00)
[2024-08-08] MEDS: HEPARIN 5000 UNITS SC (08:39)
[2024-08-08] MEDS: TOPROL XL PO ×2 (08:39→09:04)
[2024-08-08] MEDS: PROTONIX 40 MG PO (08:39)
[2024-08-08] MEDS: ProAmatine 5 MG PO ×2 (08:39→17:34)
[2024-08-08] MEDS: ASPIR LOW (ENTERIC COATED) 81 MG PO (08:40)
[2024-08-08] MEDS: ZOSTRIX-HP 0.075% CREAM 1 APPLIC TOPICAL ×4 (08:40→21:00)
[2024-08-08] MEDS: DESENEX/MITRAZOL/ZEASORB 1 APPLIC TOPICAL ×2 (08:40→20:57)
--- NOTE | 2024-08-08 08:52 | W.PN.ONC2 ---
Today's Communication / Plan
-
WBC improving on hydrea. HgB and PLT adequate. Await flow cytometry.
Impression
Impression
Leukocytosis, neutrophilia, normocytic anemia, and thrombocytopenia -No deficiencies of B12, folate, or iron -No evidence of DIC
MISBAH, started HD 08/05
hyperuremia s/p rasburicase 08/05
gram negative UTI/pylonephritis
left hydronephrosis
gallbladder distention with enlarged gallstones in the gallbladder neck
small L pleural effusion
PNA
acute hypoxic respiratory failure
mild cardiomegaly
atrial fibrillation
Plan
Plan
Leukocytosis, anemia and thrombocytopenia may be reactive to infection/acute illness but are beginning to look more like underlying marrow disorder with appearance of immature forms -concern for acute leukemia process
In outpt setting, she had mild leukocytosis with elevations in neutrophil and monocyte count. Anemia and thrombocytopenia appear to be chronic intermittent.
check uric acid level daily. Will hold off on further rasburicase for now with uric acid level 2.9
started Hydrea 1g QD
f/u peripheral Flow cytometry
HD per nephrology
Subjective/Objective
Chief Complaint
ACS Heme Onc
Subjective
For HD later. Currently on bed pitt.
Vital Signs:
Vital Signs
Temp Pulse Resp BP Pulse Ox
97.9 F 102 27 159/85 100
08/08/24 07:51 08/08/24 06:03 08/08/24 06:03 08/08/24 06:03 08/08/24 06:03
Lab Results:
Laboratory Data
WBC 49.9 10^3/uL (4.8-10.8) H* 08/08/24 06:05
Hgb 7.9 g/dL (12.0-16.0) L 08/08/24 06:05
Plt Count 103 10^3/uL (130-400) L 08/08/24 06:05
PT 17.0 Sec (11.4-14.6) H 08/02/24 03:48
INR 1.33 08/02/24 03:48
APTT 34.7 Sec (23.4-35.0) 08/02/24 03:48
eGFR 11.80 08/08/24 06:05
--- NOTE | 2024-08-08 09:02 | W.PN.PUL3 ---
Today's Communication / Plan
-
Doing well, remains on 3L NC satting 96-99%, can wean to off as able
HD planning with more volume removal per team
CXR reviewed, slightly improved on my review
Encouraged further OOB, PT
Can likely transfer to tele, out of IMU
Nothing further to add from our perspective, we will sign off at this time, pls call with questions
Assessment
-
Mrs Kera Pappas is an 82/W readm 03-19 with recurrent dark stools, and acute dyspnea and cough since 03-16 (reportedly family members at home with flu). Noted h/o unexplained GIB (negative UGED/colonoscopy), outpatient rivaroxaban for AFib,
admitted with intractable nausea vomiting and subsequent hypoxemia. Found to have bilateral bibasilar infiltrates. We were consulted for evaluation on 07/31/2024.
Impression:
Acute hypoxemic respiratory Insufficiency likely due to pneumonitis/less likely pneumonia- Currently on 2 L nasal cannula
Chest x-ray: Mild bibasilar infiltrates suggestive of atelectasis minimal pleural effusion bilaterally.
CT abdomen pelvis lung cuts: Subsegmental atelectasis. No definitive infiltrate found. Tiny bilateral pleural effusion.
Complicated UTI with culture positive for Enterobacter gergoviae+ Klebsiella pneumoniae
Leukocytosis/leukemoid reaction although differential includes MM vs leukemia vs MDS
Abdominal pain nausea vomiting prior to admission.
Acute kidney injury
Conditions [employer] MAN:
Adm DH 03-03 to :
EGD 03/05 Sharon:-hiatal hernia.� No other lesion
Colonoscopy 03/[address] Herrera: Five 2 to 8 mm polyps in transverse colon removed via cold snare/biopsy forceps; clip placed. Two 4 to 6 mm polyps in descending colon removed with clip placed; erythematous mucosa in the recto-sigmoid colon and
in the sigmoid colon, biopsied. Diverticulosis in the sigmoid colon and in the descending colon. Internal hemorrhoids.
GIB: in 2019 and 2017 she had an extensive work-up including EGD, colon and video capsule.� The last video capsule was in 2018 and was incomplete because it got stuck in a duodenal diverticulum.
Chronic anemia
Atrial fibrillation, on rivaroxaban
HTN
T2DM
Hypothyroidism
Spinal stenosis s/p fusion
R total hip replacement
Thyroid surgery
Former Smoker
Morbid obesity
Plan/recommendations
At this time, patient appears to be stable from respiratory standpoint
Presently she is 97% on 3L--wean down as tolerated
Chest x-ray with mild basilar abnormality, per my review--repeat showing worsening congestion/edema 08/[address], lung images with mild pleural thickening, mild patchy mosaic pattern per my review
Continue with weaning oxygen, encourage increased activity
Leukocytosis noted, anemia and thrombocytopenia noted
Follow up SPEP
Infectious disease following, remains on Zosyn for UTI
Oncology consulted
Difficult to assess volume status due to BMI/deconditioning
Recent echocardiogram January 2024 shows normal biventricular function, PA pressure 48
CXR from 08/02 shows bilateral interstitial opacification likely due to fluid in the setting of acute kidney injury; pneumonia less likely
Will repeat CXR in AM 08/07 to reassess CHF --improving on my review
Nephrology following. IV fluids given--despite this, creatinine worsening
Difficult to assess volume status
08/05--IR consult for HD cath insertion
Family wants to try everything before pursuing comfort/hospice
HD trial 08/05 and 08/06 tolerated, weight down 78.3 -> 78 -> 76.9 kg today
Creatinine is improving, 6.5-->5.5 --> 3.8
Aspiration precautions
Head of the bed elevation
Incentive spirometry if able
Leukocytosis noted--may be leukemoid reaction in setting of sepsis.
Remains on Zosyn therapy, suspected complicated UTI, left pyelonephritis
Oncology also evaluated
Increase activity, PT/OT
Follow hemoglobin
Patient with history of GI bleed in the past
Questionable Xarelto therapy in the past
DVT prophylaxis: Mechanical and pharmacological, currently on subcutaneous heparin every 12 hours, consider increase to every 8 hours
Patient is full code. Suggest discussion regarding CODE STATUS. This will be deferred to primary service
Pulmonary service will continue to follow along
Diagnostic Data
CXR 08/02/24- Cardiomegaly with mild interstitial opacification, patchy bibasilar airspace opacities and small bilateral pleural effusions. Constellation of findings is favored to represent mild pneumonitis or edema with bibasilar atelectasis.
Pneumonia is possible although considered less likely.
Chest x-ray 07/30/2024: Reviewed showed bibasilar infiltrates atelectasis versus pneumonia.
CXR 03-24-23: underpenetrated but no acute changes c/w 03-19-23
CXR 03-19-23 c/w 01-02-23: baseline of poor quality. Current film with increased reticulonodular marking at both bases
CT abdomen pelvis 07/30/2024: Reviewed. Minimal left hydronephrosis. No stone identified. Small left and tiny right pleural effusion. Minimal bibasilar consolidation probably atelectasis.
-----
Total time spent today was 41 minutes for this encounter. Time includes reviewing laboratory test/imaging results, reviewing pertinent medical records, obtaining and reviewing medical history, performing an appropriate exam, ordering medications,
tests and procedures. Time also includes documentation of this encounter, coordinating patient care and communicating with other healthcare professionals. Total time does not include separately billed tests performed on this date of service.
Subjective Data
-
Date of Service:
Date of Service: August 08, 2024
Chief Complaint: Pulmonary Follow Up
Subjective:
No new complaints today, HD planning
Remains on 3L, satting 96-99%
Objective Data
Data Reviewed
Vital Signs / I&O / Oxygen:
Vital Signs
Temp Pulse Resp BP Pulse Ox
97.9 F 102 27 159/85 100
08/08/24 07:51 08/08/24 06:03 08/08/24 06:03 08/08/24 06:03 08/08/24 06:03
Intake and Output
08/07/24 08/08/24 08/09/24
06:59 06:59 06:59
Intake Total 180 / 180 480 / 480
Balance 180 / 180 480 / 480
SaO2 100
Nasal Cannula flow liters per 3
minute
Physical Exam
General: Respiratory Distress (n), Comfortable (Large neck), Chills (n) and Sweats (n)
HEENT: Normocephalic and Anicteric
Cardiovascular: S1-S2, Regular Rhythm, Murmur (n), Rub (n) and Peripheral Edema (trace LE edema )
Respiratory: Clear, Wheeze (n), Rhonchi (n), Non-Labored Respirations and Other (Diminished breath sounds bilaterally)
GI: Soft, Non Distended (Obese) and Non Tender
Neurology: Awake, Alert, No Motor Deficits and Tremors (n)
Skin: Warm, Dry, Cyanosis (n), Jaundice (n) and Rash (n)
Labs/Micro/Reports
Lab Data
08/08/24 06:05
08/08/24 06:05
--- NOTE | 2024-08-08 09:10 | PTOTSP ---
Speech Language Pathology
Pt seen for dysphagia tx. Improved mentation noted this date. Seen with breakfast tray of IDDSI Level 5 (minced/moist) solids and thin liquids (via cup and straw). Also seen with trials of regular solids. Adequate mastication, bolus formation,
and A-P transit with no significant oral residue noted. No overt signs of aspiration.
Recommend:
(1) Upgrade to regular solids/thin liquids
(2) General aspiration precautions
(3) Meds as tolerated
(4) FIELD CHECKER to follow, likely briefly
[2024-08-08 11:51] LABS: Number Of Markers 33 markers; Source Blood
--- NOTE | 2024-08-08 11:53 | W.PN.NEPH.PH ---
Today's Communication / Plan
-
Dialysis today
Assessment/Plan
-
84F Poor historian Former smoker, HX DM, HTN, , chr HFpEF, Hypothyroidism, Spinal Stenosis s/p fusion, Rt THR , HX Afib Xarelot HX GIB complicated with blood loss anemia and hemorrhagic shock ( Mar 2023) presents with left lower quadrant pain
decreased urination. She had a CAT scan showed mild right perinephric stranding left mild hydro. Urinalysis indicative of urinary tract infection. Patient states no history of urine infection. No acute or chronic NSAID use. CAT scan was
performed with IV contrast.
Renal consult with acute kidney injury on chronic kidney disease with her creatinine of 2 on consultation with baseline creatinine 1.2-1.3 labile per records with estimated EGFR of 40 at baseline.
Impression.
Acute on chronic kidney disease admitting creatinine 1.1. Creatinine of 2 on on consult.nephro OSH
Urinary tract infection/pyelonephritis with mild left hydro and perinephric stranding on the right.
History of atrial fibrillation stable.
History of GI bleed.
January 2024 CHF with preserved EF.
DM
Plan.
MISBAH- UA -UTI sample, contrast exposure on admit 07/30
CT noted left mild hydro, her pain course suggest she may have passed stone [employer]
repeat imaging renal US shows no hydro 08/03
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
check serologies to complete= negative
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
paraprotein normal kappa lambda ratio
Second dialysis treatment done 08/06
Third dialysis treatment today 08/08
The patient states that she had urine output over the last 12 hours
Creatinine stable and a decreased mildly without dialysis yesterday show showing signs of recovery
Discussed with family at bedside.
Will continue to monitor for signs of recovery and potentially hold dialysis through the weekend if possible
Discussed plan with dialysis nurse
-
-
Date of Service: August 08, 2024
CC / HPI / ROS
-
Chief Complaint:
MISBAH with CKD
History of Present Illness:
Acute kidney injury =status post acute dialysis initiation 08/05
BP stable, no fever
WBC high over 66k
plt and hb low but stable
Review of Systems:
no cp ,
no abd pain
Limon out
Starting to make urine though not recorded
Labs
-
Labs:
WBC 49.9 10^3/uL (4.8-10.8) H* 08/08/24 06:05
RBC 3.04 10^6/uL (4.20-5.40) L 08/08/24 06:05
Hgb 7.9 g/dL (12.0-16.0) L 08/08/24 06:05
Hct 25.0 % (37.0-47.0) L 08/08/24 06:05
Plt Count 103 10^3/uL (130-400) L 08/08/24 06:05
Sodium 139 mmol/L (135-145) 08/08/24 06:05
Potassium 3.4 mmol/L (3.5-5.1) L 08/08/24 06:05
Chloride 104 mmol/L (98-107) 08/08/24 06:05
Carbon Dioxide 27 mmol/L (22-30) 08/08/24 06:05
BUN 38 mg/dl (7-17) H 08/08/24 06:05
Creatinine 3.6 mg/dL (0.6-1.0) H 08/08/24 06:05
eGFR 11.80 08/08/24 06:05
Glucose 116 mg/dl (70-99) H 08/08/24 06:05
Calcium 8.6 mg/dl (8.4-10.2) 08/08/24 06:05
Phosphorus 4.7 mg/dl (2.5-4.5) H 08/08/24 06:05
Albumin 4.0 g/dl (3.5-5.0) 07/30/24 11:01
Physical Exam
-
Vital Signs:
Vital Signs
Temp Pulse Resp BP Pulse Ox
97.9 F 94 21 141/95 96
08/08/24 07:51 08/08/24 10:00 08/08/24 10:00 08/08/24 10:00 08/08/24 10:49
Cardiovascular:: Irregular rate and rhythm
Respiratory:: Bilateral: Coarse
Lung Excursion:: Normal (decreased BS)
Abdomen:: Nontender and Soft
Extremity Edema:: +1: Bilateral:
Limon Catheter: No
[2024-08-08 12:14] LABS: Glucose - Point of Care 170 mg/dl (70-99)
[2024-08-08] MEDS: NOVOLOG FLEXPEN-LOW RESISTANCE 1 UNITS SC (12:52)
[2024-08-08] MEDS: ProAmatine PO (12:54)
[2024-08-08] MEDS: MANNITOL 25% 12.5 GRAMS IV (12:55)
[2024-08-08] MEDS: RETACRIT 10000 UNITS IV (12:59)
--- NOTE | 2024-08-08 13:21 | W.PN.ID1 ---
Date of Service
Date of Service: August 08, 2024
Today's Communication
Sign off
Assessment / Plan
Leukocytosis
- Ongoing. 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
- HemeOnc following
Suspected complicated urinary tract infection
- s/p course of zosyn
Anemia
MISBAH
- worsening; now on HD.
A-fib
DM
COPD
HTN
Reported renal insufficiency
Thyroid disease
Osteoarthritis
Spinal stenosis
PMR
Recommendations:
Continue off antibiotics.
Little more to offer from an Infectious Diseases standpoint.
Will see again at your request.
����������������������������������������������������������
Chief Complaint
-: Leukocytosis and UTI
Subjective / Review of Systems
Review of Systems: No Fever
Vital Signs / Physical Exam
Vital Signs
Vital Signs
Temp Pulse Resp BP Pulse Ox
97.9 F 94 21 141/95 96
08/08/24 07:51 08/08/24 10:00 08/08/24 10:00 08/08/24 10:00 08/08/24 10:49
Physical Exam
Constitutional: Chronically Ill and Non-toxic
Pulmonary: Non Labored
Gastrointestinal: Soft, Non Tender, Non Distended and Normal Bowel Sounds
Genito-Urinary: Limon; Negative CVA Tenderness
Extremities: Edema; Negative Cyanosis or Erythema
Skin: Negative Rash
Psychological: Calm
Lines: HD Cath
Objective Data
Lab Data
Lab Results
08/08/24 06:05
08/08/24 06:05
PT 17.0 Sec (11.4-14.6) H 08/02/24 03:48
INR 1.33 08/02/24 03:48
APTT 34.7 Sec (23.4-35.0) 08/02/24 03:48
Estimated Creat Clear 10 ml/min 08/08/24 06:05
Lactic Acid 1.2 mmol/L (0.7-2.0) 07/30/24 11:56
Total Bilirubin 0.7 mg/dl (0.2-1.3) 07/30/24 11:01
AST 14 U/L (14-36) 07/30/24 11:01
ALT 12 U/L (0-35) 07/30/24 11:01
Alkaline Phosphatase 117 U/L (38-126) 07/30/24 11:01
Most recent labs reviewed.
Micro Results:
07/30/24 11:56 Blood Culture - Final
Blood/Venous No Growth - Final Report
07/30/24 11:56 Blood Culture - Final
Blood/Venous No Growth - Final Report
08/02/24 05:25 C. difficile GDH Antigen & Toxins - Final
Feces/Stool Negative for toxigenic C.difficile
- Final
Negative for Norovirus GI and GII.
07/30/24 12:54 Urine Culture - Final
Urine Enterobacter gergoviae
Klebsiella pneumoniae
Imaging:
07/30/24 CT abdomen/pelvis: Minimal bibasilar consolidation. Liver, spleen and pancreas are unremarkable. Gallbladder is distended with at least 4 moderate-sized stones in the region of the gallbladder neck. No wall thickening or pericholecystic
fluid. Mild bilateral perinephric stranding, left greater than right. Minimal left hydronephrosis noted. No obstructing radiopaque stone or mass identified. Please see full dictation for additional detail. Film personally viewed.
07/30/2024 CXR (portable): No visible pneumothorax. Small left pleural effusion noted. Airspace disease in both lower lung storey noted.
--- NOTE | 2024-08-08 14:36 | PTCARENOTE ---
see nursing assessment. pt currently on hemodialysis. this am pt noted to have hard lump on lower abdomen and entire lower abdomen purple eccymotic from heparin shots. hospitalist made aware. pt has been voiding moderate amounts of urine today.
[2024-08-08] MEDS: ZOFRAN 4 MG IV (14:44)
[2024-08-08] MEDS: TYLENOL 650 MG PO ×2 (14:45→20:58)
--- NOTE | 2024-08-08 14:56 | W.PN.HOSP.TC ---
Today's Communication/Plan
-
Monitor kidney function
Assessment / Plan
Assessment / Plan
# MISBAH, possible contrast induced nephropathy
Suspect underlying proteinuria/ CKD IIIb
For volume overload patient later was given Lasix trial without any benefit
Limon Catheter maintained
Urine eosinophil neg. pending SPEP results. complement level normal
Renally adjusted medications
Patient got 2 rounds of hemodialysis, mon/mon, next is today
Sign of kidney recovery
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
Pancytopenia
No deficiencies of B12, folate, or iron.
No evidence of hemolysis or coagulopathy
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 Patient will need to follow as oP.
Patient started on Hydrea by onc, plt/hbg/wbc have decreased.
Hbg 7.5, discussed with nephro and may require 1 unit blood transfusion with dialysis tomorrow
# Enterobacter gergoviae and Klebsiella pneumonia UTI with left pyelonephritis/ hydronephrosis
Leukemoid reaction
No clear infection source bedside urinary tract infection
Blood cultures remain negative. C. difficile negative.
Patient maintained on IV Zosyn for now
ID following and help appreciated
08/08
Currently off antibiotic
Infectious disease signed off
# hypotension
Essential hypertension
Blood pressure is improved at this point
Currently on Toprol-XL/valsartan on hold
# Loss of appetite due to renal failure
PRN Zofran
Aspiration precautions
# Vasovagal episode - once, no recurrence
# Hyperkalemia, resolved
# Vision changes
Complaining of left vision blurriness. 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
CT head neg for any acute issues. Family concerned that patient will be able to get MRI brain with claustrophobia
will need outpt opthal f/u
# TME - improved
Mentation is better today, answering questions, still fatigue and ill looking
She followed commands appropriately. Speech is normal.
Stopped sertraline
Patient evaluated by speech therapy, started on IDDSI 5 diet.
#Mild acute pneumonitis
Acute hypoxic respiratory insufficiency
Combination of pneumonitis/pulmonary congestion due to underlying renal failure possibly
ID/pulmonology help appreciated
Wean off oxygen as possible
Already covered with antibiotics for urinary infection
Chronic HFpEF - c/w oral Metoprolol XL
T2DM - on HGB A1C 7.6
Hypothyroid
X GIB complicated with blood loss anemia and hemorrhagic shock ( Mar 2023)
HX permanent AF and RBBB
Morbid obesity
Chronic Thrombocytopenia
Chronic hypoalbuminemia and hypoproteinemia
Hiatal Hernia
Colonic Polyps
Diverticulosis
Internal Hemorrhoids
Chronic anemia
Spinal stenosis s/p fusion
R total hip replacement
Thyroid surgery
Former Smoker
CODE STATUS: Full code
DVT prophylaxis: Heparin (will hold for ecchymosis)
Diet: Regular diet
I Tried to call the patient's daughter but no answer
Total time spent on today's encounter was 65 minutes which included time spent in counseling the patient/family regarding diagnosis and treatment plan as listed above, goals of care, and symptom management. Case was discussed with nursing staff,
specialists, and care coordinators/case management. All labs and imaging personally reviewed by me. Remainder the time spent in detailed review of previous records, lab data, imaging, and other medical provider documentation.
Anticipated Discharge: > 48 hours
Subjective/Interval History
-
Date of Service: August 08, 2024
Patient seen and examined at bedside, denies any chest pain or shortness of breath, creatinine stable, discussed with nephrology.
Objective Data
-
Labs:
Laboratory Results
08/08/24
06:05
WBC 49.9 H*
Hgb 7.9 L
Hct 25.0 L
Plt Count 103 L
Sodium 139
Potassium 3.4 L
Chloride 104
Carbon Dioxide 27
BUN 38 H
Creatinine 3.6 H
Glucose 116 H
Calcium 8.6
Vital Signs:
Vital Signs
Temp Pulse Resp BP Pulse Ox
97.9 F 94 21 141/95 96
08/08/24 07:51 08/08/24 10:00 08/08/24 10:00 08/08/24 10:00 08/08/24 10:49
I&O
08/07/24 08/08/24 08/09/24
06:59 06:59 06:59
Intake Total 180 / 180 480 / 480
Balance 180 / 180 480 / 480
Physical Exam
-
General: Well Developed, Well Nourished, No Apparent Distress and Comfortable
HEENT: Normocephalic, Atraumatic, Moist Mucous Membranes, No Ptosis, PERRLA and Nose Appears Normal
Respiratory: Rales, Rhonchi and Non Labored Respirations
Cardiac: Regular Rhythm and S1/S2
Breast: Deferred by me
GI: Nondistended, Normal Bowel Sounds and Other (Ecchymosis)
Genito-urinary: No Costovertebral Tender
Musculoskeletal: No Clubbing, No Cyanosis and No Edema
Skin: Warm
Neuro: Awake, Alert and Oriented
Psych: Calm
Data Reviewed
-
Diagnostic Radiology: Image personally visualized and interpreted and Report Reviewed by me
CT Scan: Image personally visualized and interpreted and Report Reviewed by me
Ultrasound: Image personally visualized and interpreted and Report Reviewed by me
MRI: Image personally visualized and interpreted and Report Reviewed by me
Medical Tests (Nuc Med, Echo etc): Image personally visualized and interpreted and Report Reviewed by me
Labs: Labs Reviewed by me
Old Records: Reviewed
--- NOTE | 2024-08-08 16:08 | CON.NEURO ---
Consultation
Order
Date of Consultation: 08/08/24
Requesting Provider: Jaret Alfred MD
Reason for Consult: Blurred vision
Neurology Consultation Note.
HPI: This is an 84-year-old right-handed woman who presented to [facility] on July 30, 2024 with
Hospital course was complicated by gram-negative UTI/pyelonephritis, acute hypoxic respiratory failure/pneumonitis, MISBAH as well as reactive leukocytosis
Neurology consultation was requested for relation and management of change in vision.
Ms. Pappas describes her current visual problem as 'everything is blurry.' She is unable to 'make out details' on the TV in her room, which she could do a month ago.
The patient's daughter reports a significant change in Ms. Sullivan's cognitive status since admission. There has been a notable decline in Ms. Sullivan's ability to eat independently. She was initially on a regular diet but was switched to a pureed diet
and required assistance with feeding. The patient's speech became slurred before dialysis, but improved.
Review of vital signs was notable for transient hypotension down to 85/64 on August 04, 2024,
EKG: A-Fib, QTc Int : 435 msEKG:
PDMP: No recently prescribed medication
Labs: WBCs�49.9, hemoglobin�7.9, platelets�103, Glucose�116, normal sodium, creatinine�3.6, supratherapeutic vit B12
CT head wo contrast-No acute intracranial abnormality noted, left refractive lens exchange
PMH: A-Fib, HTN, DLP, history of lumbar spinal stenosis, ambulatory dysfunction
PSH: Bilateral cataract surgery, Rt THR, lumbar laminectomy/fusion
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 Non-smoker, no history excess alcohol use
FH: Not contributory to current presenting
All:NKDA
ROS: Constitutional: Negative. Negative for chills, fever and unexpected weight change.
HENT: Impaired hearing
Eyes: Positive for visual disturbance
Respiratory: Negative for cough, choking and shortness of breath.
Cardiovascular: Negative for chest pain, palpitations and leg swelling.
Gastrointestinal: Negative for abdominal pain and vomiting.
Endocrine: Negative. Negative for cold intolerance.
Genitourinary: Negative for dysuria, flank pain and urgency.
Musculoskeletal: Negative for back pain, gait problem, neck pain and neck stiffness.
Skin: Negative for rash.
Allergic/Immunologic: Negative. Negative for immunocompromised state.
Neurological: Positive for confusion, imbalance
General: Well developed. In no acute distress.
Cardio: irregular rate and rhythm
Neuro:
Mental Status: Alert, oriented to person, place, month, year. Date was incorrect. Impaired attention and comprehension. Follows simple requests.
Cranial Nerves: Right exodeviation in primary gaze. No light perception on the right. Pupils are equally round, surgical. EOMs full. Visual agnosia? No ptosis. No nystagmus. Face symmetric. Impaired hearing AU. The palate elevated well.
SCMs and traps 5/5. Tongue midline. No dysarthria.
Motor: No pronator drift, drifts both legs to bed plane symmetrically.
Reflexes: Bilateral grasp
Sensory: Stated that sensation vibration was preserved in the ankles
Coordination: No tremors myoclonic movement
Gait: deferred
Assessment and Plan:
I. Multifactorial encephalopathy (vascular, metabolic, infectious, neurodegenerative)
II. Balint syndrome?
III. A-Fib
-Aspiration precautions.
-Avoid cerebral hypoperfusion, HE[employer] E[employer]IPMENT [employer]PER[employer]/PAVER suppressants and anticholinergic medications.
- Please obtain brain MRI without park
-Continue aspirin 81 mg once a day.
- Please check vitamin B12, TFTs
I personally reviewed all radiology and labs along with past medical records pertinent to current medical problems. Total time spent in patient care is 60 minutes.
Thank you for allowing us to participate in the care of this patient. We will continue to follow. Please do not hesitate to contact us with any questions or concerns.
Subjective/Objective
Subjective Data
Date of Service: August 08, 2024
Objective Data
Vital Signs
Temp Pulse Resp BP Pulse Ox
36.7 C 94 21 141/95 96
08/08/24 15:00 08/08/24 10:00 08/08/24 10:00 08/08/24 10:00 08/08/24 10:49
Lab Results
08/08/24 06:05
08/08/24 06:05
PT 17.0 Sec (11.4-14.6) H 08/02/24 03:48
INR 1.33 08/02/24 03:48
APTT 34.7 Sec (23.4-35.0) 08/02/24 03:48
Sodium 139 mmol/L (135-145) 08/08/24 06:05
Potassium 3.4 mmol/L (3.5-5.1) L 08/08/24 06:05
BUN 38 mg/dl (7-17) H 08/08/24 06:05
Glucose 116 mg/dl (70-99) H 08/08/24 06:05
Calcium 8.6 mg/dl (8.4-10.2) 08/08/24 06:05
Phosphorus 4.7 mg/dl (2.5-4.5) H 08/08/24 06:05
Vitamin B12 > 1000 pg/ml (239-931) H 08/02/24 03:49
Patient Allergies
No Known Allergies Allergy (Verified 07/30/24 10:45)
Medications
-
Active Medications
Generic Name Dose Route Start Last Admin
Trade Name Freq PRN Reason Stop Dose Admin
Acetaminophen 650 mg 07/30/24 16:03 08/08/24 14:45
Acetaminophen 325 Mg Tablet PO 08/27/24 16:02 650 mg
Q4HPRN PRN Administration
if temp > 101 F
Artificial Tears 1 drops 07/30/24 22:00 08/08/24 08:38
Artificial Tears Pf (Refresh) 10 Drop Droperette BOTH EYES 08/27/24 21:59 1 drops
TID DEVIN Administration
Aspirin 81 mg 07/31/24 08:00 08/08/24 08:40
Aspirin 81 Mg (Enteric Coated) Tablet PO 08/28/24 07:59 81 mg
DAILY DEVIN Administration
Atorvastatin Calcium 80 mg 07/30/24 22:00 08/07/24 20:51
Atorvastatin (Lipitor) 80 Mg Tablet PO 08/27/24 21:59 80 mg
HS DEVIN Administration
Capsaicin 0 applic 08/07/24 08:00 08/08/24 13:00
Capsaicin 0.075% (Cream) 60 Gram Tube TOPICAL 09/04/24 07:59 1 applic
QID DEVIN Administration
Dextrose 12.5 grams 07/30/24 16:03
Dextrose 50% (0.5 Grams/Ml) 50 Ml Syringe IV 08/27/24 16:02
[id number] PRN
hypoglycemia
Protocol
Glucagon 1 mg 07/30/24 16:03
Glucagon 1 Mg Vial IM 08/27/24 16:02
PRN PRN
hypoglycemia
Protocol
Heparin Sodium 5,000 units 07/30/24 20:00 08/08/24 08:39
Heparin 5,000 Units/Ml 1 Ml Vial SC 08/27/24 19:59 5,000 units
Q12 DEVIN Administration
Hydroxyurea 1,000 mg 08/06/24 22:00 08/07/24 20:51
Hydroxyurea 500 Mg Capsule PO 09/03/24 21:59 1,000 mg
HS DEVIN Administration
Insulin Aspart 0 units 07/30/24 16:30 08/08/24 12:52
Insulin Aspart Low Resistance 300 Units/3 Ml Pen.Injctr SC 08/27/24 16:29 1 units
AC DEVIN Administration
Protocol
Levothyroxine Sodium 150 mcg 07/31/24 06:30 08/08/24 06:09
Levothyroxine 150 Mcg Tablet PO 08/28/24 06:29 150 mcg
MoTuWeThFrSa@0630 DEVIN Administration
Mannitol 12.5 grams 08/08/24 09:14 08/08/24 12:55
Mannitol 25% (12.5 Grams/50 Ml) Vial IV 08/08/24 23:59 12.5 grams
HD-Q1HPRN PRN Administration
SBP < 90 mmHg
Metoprolol Succinate 25 mg 08/05/24 08:00 08/08/24 09:04
Metoprolol 25 Mg Extended Release Tablet PO 09/02/24 07:59 Not Given
DAILY DEVIN
Miconazole Nitrate 0 applic 07/30/24 21:00 08/08/24 08:40
Miconazole Powder Bottle TOPICAL 08/27/24 20:59 1 applic
BID DEVIN Administration
Midodrine 5 mg 08/04/24 13:00 08/08/24 12:54
Midodrine 5 Mg Tablet PO 09/01/24 12:59 Not Given
TID@0800,1300,1800 DEVIN
Ondansetron HCl 4 mg 07/31/24 12:46 08/08/24 14:44
Ondansetron 4 Mg/2 Ml Vial IV 08/28/24 12:45 4 mg
Q6HPRN PRN Administration
NAUSEA/VOMITING
Pantoprazole Sodium 40 mg 07/31/24 08:00 08/08/24 08:39
Pantoprazole 40 Mg Delayed Release Tablet PO 08/28/24 07:59 40 mg
DAILY DEVIN Administration
Sodium Chloride 0 flush 07/30/24 17:00
Sodium Chloride 0.9% (Flush) Syringe IV 08/27/24 16:59
PER PROTOCOL DEVIN
Valsartan 160 mg 07/31/24 08:00 08/01/24 08:57
Valsartan 160 Mg Tablet PO 08/28/24 07:59 160 mg
DAILY DEVIN Administration
Home Medications
�Medication �Instructions �Recorded
metoprolol succinate 50 mg 50 mg PO BID Blood pressure 10/12/17
tablet,extended release 24 hr
sertraline 50 mg tablet 50 mg PO DAILY Depression 10/12/17
metoprolol succinate 25 mg 25 mg PO DAILY Blood pressure 12/13/19
tablet,extended release 24 hr
atorvastatin 40 mg tablet 80 mg PO HS High cholesterol 09/01/22
ferrous sulfate 325 mg (65 mg 325 mg PO DAILY Supplement 09/01/22
iron) tablet (Iron (ferrous
sulfate))
furosemide 20 mg tablet 40 mg PO DAILY Fluid 09/01/22
retention/Swelling
valsartan 160 mg tablet 160 mg PO DAILY Blood pressure 09/01/22
dapagliflozin propanediol 10 mg 10 mg PO DAILY Diabetes 03/04/23
tablet (Farxiga)
potassium chloride 10 mEq 10 meq PO DAILY Supplement 03/04/23
tablet,extended release
multivitamin with minerals-folic 400 tab PO DAILY Supplement 03/19/23
acid 200 mcg chewable tablet
(Multivitamin Gummies)
peg 400-propylene glycol (PF) 0.4 1 drp BOTH EYES TID Eye Condition 03/19/23
%-0.3 % eye drops in a dropperette
(Systane (PF))
levothyroxine 150 mcg tablet 150 mcg PO MoTuWeThFrSa@0630 30 03/29/23
days #26 tabs
acetaminophen 650 mg 1,300 mg PO [id number] PRN mild pain 07/30/24
tablet,extended release
aspirin 81 mg tablet,delayed 81 mg PO DAILY Blood Clot 07/30/24
release Prevention/Tx
cholecalciferol (vitamin D3) 25 25 mcg PO DAILY Supplement 07/30/24
mcg (1,000 unit) chewable tablet
(Vitamin D3)
insulin lispro protamine-lispro 10 unit SC BID Diabetes 07/30/24
100 unit/mL (75-25) subcutaneous
pen (Humalog Mix 75-25 KwikPen)
pantoprazole 40 mg tablet,delayed 40 mg PO DAILY Gastrointestinal 07/30/24
release issue
Vital Signs and Labs
-
Vital Signs and Labs:
Vital Signs
Temp Pulse Resp BP Pulse Ox
36.7 C 94 21 141/95 96
08/08/24 15:00 08/08/24 10:00 08/08/24 10:00 08/08/24 10:00 08/08/24 10:49
Lab Results
08/08/24 06:05
08/08/24 06:05
PT 17.0 Sec (11.4-14.6) H 08/02/24 03:48
INR 1.33 08/02/24 03:48
APTT 34.7 Sec (23.4-35.0) 08/02/24 03:48
Sodium 139 mmol/L (135-145) 08/08/24 06:05
Potassium 3.4 mmol/L (3.5-5.1) L 08/08/24 06:05
BUN 38 mg/dl (7-17) H 08/08/24 06:05
Glucose 116 mg/dl (70-99) H 08/08/24 06:05
Calcium 8.6 mg/dl (8.4-10.2) 08/08/24 06:05
Phosphorus 4.7 mg/dl (2.5-4.5) H 08/08/24 06:05
Vitamin B12 > 1000 pg/ml (239-931) H 08/02/24 03:49
Medications
-
Medications:
Generic Name Dose Route Start Last Admin
Trade Name Freq PRN Reason Stop Dose Admin
Acetaminophen 650 mg 07/30/24 16:03 08/08/24 14:45
Acetaminophen 325 Mg Tablet PO 08/27/24 16:02 650 mg
Q4HPRN PRN Administration
if temp > 101 F
Artificial Tears 1 drops 07/30/24 22:00 08/08/24 08:38
Artificial Tears Pf (Refresh) 10 Drop Droperette BOTH EYES 08/27/24 21:59 1 drops
TID DEVIN Administration
Aspirin 81 mg 07/31/24 08:00 08/08/24 08:40
Aspirin 81 Mg (Enteric Coated) Tablet PO 08/28/24 07:59 81 mg
DAILY DEVIN Administration
Atorvastatin Calcium 80 mg 07/30/24 22:00 08/07/24 20:51
Atorvastatin (Lipitor) 80 Mg Tablet PO 08/27/24 21:59 80 mg
HS DEVIN Administration
Capsaicin 0 applic 08/07/24 08:00 08/08/24 13:00
Capsaicin 0.075% (Cream) 60 Gram Tube TOPICAL 09/04/24 07:59 1 applic
QID DEVIN Administration
Dextrose 12.5 grams 07/30/24 16:03
Dextrose 50% (0.5 Grams/Ml) 50 Ml Syringe IV 08/27/24 16:02
[id number] PRN
hypoglycemia
Protocol
Glucagon 1 mg 07/30/24 16:03
Glucagon 1 Mg Vial IM 08/27/24 16:02
PRN PRN
hypoglycemia
Protocol
Heparin Sodium 5,000 units 07/30/24 20:00 08/08/24 08:39
Heparin 5,000 Units/Ml 1 Ml Vial SC 08/27/24 19:59 5,000 units
Q12 DEVIN Administration
Hydroxyurea 1,000 mg 08/06/24 22:00 08/07/24 20:51
Hydroxyurea 500 Mg Capsule PO 09/03/24 21:59 1,000 mg
HS DEVIN Administration
Insulin Aspart 0 units 07/30/24 16:30 08/08/24 12:52
Insulin Aspart Low Resistance 300 Units/3 Ml Pen.Injctr SC 08/27/24 16:29 1 units
AC DEVIN Administration
Protocol
Levothyroxine Sodium 150 mcg 07/31/24 06:30 08/08/24 06:09
Levothyroxine 150 Mcg Tablet PO 08/28/24 06:29 150 mcg
MoTuWeThFrSa@0630 DEVIN Administration
Mannitol 12.5 grams 08/08/24 09:14 08/08/24 12:55
Mannitol 25% (12.5 Grams/50 Ml) Vial IV 08/08/24 23:59 12.5 grams
HD-Q1HPRN PRN Administration
SBP < 90 mmHg
Metoprolol Succinate 25 mg 08/05/24 08:00 08/08/24 09:04
Metoprolol 25 Mg Extended Release Tablet PO 09/02/24 07:59 Not Given
DAILY DEVIN
Miconazole Nitrate 0 applic 07/30/24 21:00 08/08/24 08:40
Miconazole Powder Bottle TOPICAL 08/27/24 20:59 1 applic
BID DEVIN Administration
Midodrine 5 mg 08/04/24 13:00 08/08/24 12:54
Midodrine 5 Mg Tablet PO 09/01/24 12:59 Not Given
TID@0800,1300,1800 DEVIN
Ondansetron HCl 4 mg 07/31/24 12:46 08/08/24 14:44
Ondansetron 4 Mg/2 Ml Vial IV 08/28/24 12:45 4 mg
Q6HPRN PRN Administration
NAUSEA/VOMITING
Pantoprazole Sodium 40 mg 07/31/24 08:00 08/08/24 08:39
Pantoprazole 40 Mg Delayed Release Tablet PO 08/28/24 07:59 40 mg
DAILY DEVIN Administration
Sodium Chloride 0 flush 07/30/24 17:00
Sodium Chloride 0.9% (Flush) Syringe IV 08/27/24 16:59
PER PROTOCOL DEVIN
Valsartan 160 mg 07/31/24 08:00 08/01/24 08:57
Valsartan 160 Mg Tablet PO 08/28/24 07:59 160 mg
DAILY DEVIN Administration
Home Medications
-
Home Medications
metoprolol succinate 50 mg tablet,extended release 24 hr 50 mg PO BID Blood pressure 10/12/17
sertraline 50 mg tablet 50 mg PO DAILY Depression 10/12/17
metoprolol succinate 25 mg tablet,extended release 24 hr 25 mg PO DAILY Blood pressure 12/13/19
atorvastatin 40 mg tablet 80 mg PO HS High cholesterol 09/01/22
ferrous sulfate 325 mg (65 mg iron) tablet (Iron (ferrous sulfate)) 325 mg PO DAILY Supplement 09/01/22
furosemide 20 mg tablet 40 mg PO DAILY Fluid retention/Swelling 09/01/22
valsartan 160 mg tablet 160 mg PO DAILY Blood pressure 09/01/22
dapagliflozin propanediol 10 mg tablet (Farxiga) 10 mg PO DAILY Diabetes 03/04/23
potassium chloride 10 mEq tablet,extended release 10 meq PO DAILY Supplement 03/04/23
multivitamin with minerals-folic acid 200 mcg chewable tablet (Multivitamin Gummies) 400 tab PO DAILY Supplement 03/19/23
peg 400-propylene glycol (PF) 0.4 %-0.3 % eye drops in a dropperette (Systane (PF)) 1 drp BOTH EYES TID Eye Condition 03/19/23
levothyroxine 150 mcg tablet 150 mcg PO MoTuWeThFrSa@0630 30 days #26 tabs 03/29/23
acetaminophen 650 mg tablet,extended release 1,300 mg PO [id number] PRN mild pain 07/30/24
aspirin 81 mg tablet,delayed release 81 mg PO DAILY Blood Clot Prevention/Tx 07/30/24
cholecalciferol (vitamin D3) 25 mcg (1,000 unit) chewable tablet (Vitamin D3) 25 mcg PO DAILY Supplement 07/30/24
insulin lispro protamine-lispro 100 unit/mL (75-25) subcutaneous pen (Humalog Mix 75-25 KwikPen) 10 unit SC BID Diabetes 07/30/24
pantoprazole 40 mg tablet,delayed release 40 mg PO DAILY Gastrointestinal issue 07/30/24
--- NOTE | 2024-08-08 16:19 | CM ---
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 Nontunneled right IJ HD catheter
placed 08/05 - new HD. O2 3L. WBC 49.9. Midline IV. Seen by ST [facility] - diet upgraded. PT/OT recommend skilled rehab.
Nephrology notes 08/08; Creatinine stable/decreased mildly without HD yesterday showing signs of recovery, will continue to monitor for signs of recovery and potentially hold dialysis through the weekend if possible.
Attempted to meet with patient this morning - receiving dialysis and daughter not at bedside.
Spoke with daughter Alicia this afternoon;
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 Daughter stated she was told if that happened again it is a medical emergency and she needs an
inside polisher---> message to Dr Alfred. Nurse Lissett made aware.
Provided update to daughter re; latest PT/OT notes. Daughter waiting to see patient's overall progress for d/c planning.
Plan watch for outpatient HD needs.
Plan TBD.
[2024-08-08 17:41] LABS: Glucose - Point of Care 132 mg/dl (70-99)
[2024-08-08] MEDS: MELATONIN 5 MG PO (20:58)
[2024-08-08] MEDS: HYDREA 1000 MG PO (20:59)
[2024-08-08] MEDS: LIPITOR 80 MG PO (21:00)
--- NOTE | 2024-08-08 23:00 | PTCARENOTE ---
Assumed care of pt from jade RN. Pt aaox3, anxious and tearful. Pt c/o pain throughout her whole body that she was unable to rate or describe and requested for something to help her sleep. [facility] Hooks notified. Rx received for PO Tylenol and
Melatonin, both administered (see MAR). Vitals and assessment as documented. Pt resting in bed with call pro in reach.
[2024-08-08 23:13] LABS: Glucose - Point of Care 166 mg/dl (70-99)
[2024-08-09] VITALS (15 sets, daily range): BP systolic 73–157; BP diastolic 43–125; PULSE 102–111; O2SAT 97; BMI 33.7
[2024-08-09 05:32] LABS: Hematocrit 24.2 % (37.0-47.0); Hemoglobin 7.6 g/dL (12.0-16.0); Mean Corp Hgb Conc. 31.4 g/dL (33.0-37.0); Mean Corpuscular Hgb 25.9 pg (27.0-31.0); Mean Corpuscular Volume 82.6 fL (81.0-99.0); Mean Platelet Volume 9.2 fL (7.4-10.4); Platelet Count 116 10^3/uL (130-400); Red Blood Cell Count 2.93 10^6/uL (4.20-5.40); White Blood Cell Count 50.4 10^3/uL (4.8-10.8)
[2024-08-09 05:34] LABS: Blood Urea Nitrogen 21 mg/dl (7-17); Calcium 8.4 mg/dl (8.4-10.2); Carbon Dioxide 25 mmol/L (22-30); Chloride 106 mmol/L (98-107); Estimated Creatinine Clearance 20 ml/min; Glucose 130 mg/dl (70-99); Phosphorus 3.6 mg/dl (2.5-4.5); Potassium 3.9 mmol/L (3.5-5.1); Sodium 140 mmol/L (135-145); Uric Acid 3.3 mg/dl (2.5-6.2)
[2024-08-09] MEDS: SYNTHROID 150 MCG PO (06:36)
[2024-08-09 06:54] LABS: Erythrocyte Sed Rate 11 mm/hour (0-20)
[2024-08-09 08:18] LABS: Glucose - Point of Care 138 mg/dl (70-99)
[2024-08-09] MEDS: ASPIR LOW (ENTERIC COATED) 81 MG PO (08:28)
[2024-08-09] MEDS: NOVOLOG FLEXPEN-LOW RESISTANCE SC (08:28)
[2024-08-09] MEDS: TOPROL XL 25 MG PO (08:28)
[2024-08-09] MEDS: PROTONIX 40 MG PO (08:28)
[2024-08-09] MEDS: DESENEX/MITRAZOL/ZEASORB 1 APPLIC TOPICAL ×2 (08:29→20:59)
[2024-08-09] MEDS: REFRESH EYE DROPS (PF) 1 DROPS BOTH EYES ×3 (08:29→20:59)
[2024-08-09] MEDS: ProAmatine PO ×3 (08:29→18:13)
[2024-08-09] MEDS: ZOSTRIX-HP 0.075% CREAM 1 APPLIC TOPICAL (08:30)
--- NOTE | 2024-08-09 10:18 | W.PN.NEPH.PH ---
Today's Communication / Plan
-
Follow-up BMP in a.m. before deciding on dialysis requirement
Need accurate urine output, check postvoid bladder scan
Assessment/Plan
-
84F Poor historian Former smoker, HX DM, HTN, , chr HFpEF, Hypothyroidism, Spinal Stenosis s/p fusion, Rt THR , HX Afib Xarelot HX GIB complicated with blood loss anemia and hemorrhagic shock ( Mar 2023) presents with left lower quadrant pain
decreased urination. She had a CAT scan showed mild right perinephric stranding left mild hydro. Urinalysis indicative of urinary tract infection. Patient states no history of urine infection. No acute or chronic NSAID use. CAT scan was
performed with IV contrast.
Renal consult with acute kidney injury on chronic kidney disease with her creatinine of 2 on consultation with baseline creatinine 1.2-1.3 labile per records with estimated EGFR of 40 at baseline.
Impression.
Acute on chronic kidney disease admitting creatinine 1.1. Creatinine of 2 on on consult.nephro OSH
Urinary tract infection/pyelonephritis with mild left hydro and perinephric stranding on the right.
History of atrial fibrillation stable.
History of GI bleed.
January 2024 CHF with preserved EF.
DM
Plan.
MISBAH- UA -UTI sample, contrast exposure on admit 07/30
CT noted left mild hydro, her pain course suggest she may have passed stone STONE HAND
repeat imaging renal US shows no hydro 08/03
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
check serologies to complete= negative
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
paraprotein normal kappa lambda ratio
Second dialysis treatment done 08/06
Third dialysis treatment today 08/08
The patient states that she had urine output over the last 12 hours
Creatinine stable and a decreased mildly following dialysis yesterday show showing signs of recovery
Discussed with family at bedside.
Will continue to monitor for signs of recovery and potentially hold dialysis through the weekend if possible
Discussed plan with dialysis nurse
-
-
Date of Service: August 09, 2024
CC / HPI / ROS
-
Chief Complaint:
MISBAH with CKD
History of Present Illness:
Acute kidney injury =status post acute dialysis initiation 08/05
BP stable, no fever
WBC high over 50k
plt and hb low but stable
Review of Systems:
no cp ,
no abd pain
Limon out and uop not recorfed
Starting to make urine though not recorded
Labs
-
Labs:
WBC 50.4 10^3/uL (4.8-10.8) H* 08/09/24 04:59
RBC 2.93 10^6/uL (4.20-5.40) L 08/09/24 04:59
Hgb 7.6 g/dL (12.0-16.0) L 08/09/24 04:59
Hct 24.2 % (37.0-47.0) L 08/09/24 04:59
Plt Count 116 10^3/uL (130-400) L 08/09/24 04:59
Sodium 140 mmol/L (135-145) 08/09/24 04:59
Potassium 3.9 mmol/L (3.5-5.1) 08/09/24 04:59
Chloride 106 mmol/L (98-107) 08/09/24 04:59
Carbon Dioxide 25 mmol/L (22-30) 08/09/24 04:59
BUN 21 mg/dl (7-17) H 08/09/24 04:59
Creatinine 1.8 mg/dL (0.6-1.0) H 08/09/24 04:59
eGFR 27.10 08/09/24 04:59
Glucose 130 mg/dl (70-99) H 08/09/24 04:59
Calcium 8.4 mg/dl (8.4-10.2) 08/09/24 04:59
Phosphorus 3.6 mg/dl (2.5-4.5) 08/09/24 04:59
Albumin 4.0 g/dl (3.5-5.0) 07/30/24 11:01
Physical Exam
-
Vital Signs:
Vital Signs
Temp Pulse Resp BP Pulse Ox
97.9 F 85 18 122/66 98
08/09/24 07:05 08/09/24 06:00 08/09/24 06:00 08/09/24 06:00 08/09/24 06:00
Cardiovascular:: Irregular rate and rhythm
Respiratory:: Bilateral: Coarse
Lung Excursion:: Normal (decreased BS)
Abdomen:: Nontender and Soft
Extremity Edema:: +1: Bilateral:
Limon Catheter: No
[2024-08-09 12:52] LABS: Glucose - Point of Care 207 mg/dl (70-99)
[2024-08-09] MEDS: NOVOLOG FLEXPEN-LOW RESISTANCE 2 UNITS SC ×2 (13:15→18:04)
[2024-08-09] MEDS: ProAmatine 5 MG PO (13:15)
[2024-08-09] MEDS: ZOSTRIX-HP 0.075% CREAM TOPICAL ×3 (16:03→21:03)
--- NOTE | 2024-08-09 16:04 | W.PN.HOSP.TC ---
Today's Communication/Plan
-
Monitor Creatinine
Assessment / Plan
Assessment / Plan
Impression:
84-year-old woman with past medical history of diabetes, hypertension, former smoker, heart failure with preserved ejection fraction, hypothyroidism, spinal stenosis status post fusion, history of atrial fibrillation on Xarelto with history of GI
bleeding and anemia. initially admitted with abdominal pain and intractable vomiting.
Assessment/plan:
# MISBAH, possible contrast induced nephropathy
Suspect underlying proteinuria/ CKD IIIb
For volume overload patient later was given Lasix trial without any benefit
Limon Catheter maintained
Urine eosinophil neg. pending SPEP results. complement level normal
Renally adjusted medications
Patient got 2 rounds of hemodialysis, mon/mon, next is today
Sign of kidney recovery
08/09
improved creat
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
Pancytopenia
No deficiencies of B12, folate, or iron.
No evidence of hemolysis or coagulopathy
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 Patient will need to follow as oP.
Patient started on Hydrea by onc, plt/hbg/wbc have decreased.
Hbg 7.5, discussed with nephro and may require 1 unit blood transfusion with dialysis tomorrow.
Vision changes
Complaining of left vision blurriness. 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
CT head neg for any acute issues. Family concerned
08/09
Lab patient was seen by neurology and ophthalmology.
Neurology recommending MRI brain but patient is claustrophobic and refused.
Ophthalmology recommending ESR whihc came back at 11
CRP came back at 32.10
Enterobacter gergoviae and Klebsiella pneumonia UTI with left pyelonephritis/ hydronephrosis
Leukemoid reaction
No clear infection source bedside urinary tract infection
Blood cultures remain negative. C. difficile negative.
Patient maintained on IV Zosyn for now
ID following and help appreciated
08/08
Currently off antibiotic
Infectious disease signed off
hypotension
Essential hypertension
Blood pressure is improved at this point
Currently on Toprol-XL/valsartan on hold
Loss of appetite due to renal failure
PRN Zofran
Aspiration precautions
# Vasovagal episode - once, no recurrence
# Hyperkalemia, resolved
TME - improved
Mentation is better today, answering questions, still fatigue and ill looking
She followed commands appropriately. Speech is normal.
Stopped sertraline
Patient evaluated by speech therapy, started on IDDSI 5 diet.
#Mild acute pneumonitis
Acute hypoxic respiratory insufficiency
Combination of pneumonitis/pulmonary congestion due to underlying renal failure possibly
ID/pulmonology help appreciated
Wean off oxygen as possible
Already covered with antibiotics for urinary infection
History of diabetes mellitus
Insulin sliding scale
Regular diet
Hemoglobin A1c 7.6
CODE STATUS: Full code
DVT prophylaxis: Heparin (will hold for ecchymosis)
Diet: Regular diet
Family communication: Discussed in the phone with the patient's daughter.
Total time spent on today's encounter was 65 minutes which included time spent in counseling the patient/family regarding diagnosis and treatment plan as listed above, goals of care, and symptom management. Case was discussed with nursing staff,
specialists, and care coordinators/case management. All labs and imaging personally reviewed by me. Remainder the time spent in detailed review of previous records, lab data, imaging, and other medical provider documentation.
Anticipated Discharge: > 48 hours
Subjective/Interval History
-
Date of Service: August 09, 2024
Patient seen and examined at bedside, patient was sitting in a chair.
Complaining of left eye blurry vision.
Otherwise denies any chest pain or shortness of breath, no abdominal pain, no nausea, no vomiting, no diarrhea or constipation.
Objective Data
-
Labs:
Laboratory Results
08/09/24
04:59
WBC 50.4 H*
Hgb 7.6 L
Hct 24.2 L
Plt Count 116 L
Sodium 140
Potassium 3.9
Chloride 106
Carbon Dioxide 25
BUN 21 H
Creatinine 1.8 H
Glucose 130 H
Calcium 8.4
Vital Signs:
Vital Signs
Temp Pulse Resp BP Pulse Ox
98.1 F 93 23 138/125 97
08/09/24 11:05 08/09/24 14:43 08/09/24 14:43 08/09/24 14:43 08/09/24 15:51
I&O
08/08/24 08/09/24 08/10/24
06:59 06:59 06:59
Intake Total 480 / 480 720 / 720 720 / 720
Output Total 200 / 200
Balance 480 / 480 720 / 720 520 / 520
Physical Exam
-
General: Well Developed, Well Nourished, No Apparent Distress and Comfortable
HEENT: Normocephalic, Atraumatic, Moist Mucous Membranes, No Ptosis and Nose Appears Normal
Respiratory: Rales, Rhonchi and Non Labored Respirations
Cardiac: Regular Rhythm and S1/S2
Breast: Deferred by me
GI: Nondistended, Normal Bowel Sounds and Other (Ecchymosis)
Genito-urinary: No Costovertebral Tender
Musculoskeletal: No Clubbing, No Cyanosis and No Edema
Skin: Warm
Neuro: Awake, Alert and Oriented
Psych: Calm
Data Reviewed
-
Diagnostic Radiology: Image personally visualized and interpreted and Report Reviewed by me
CT Scan: Image personally visualized and interpreted and Report Reviewed by me
Ultrasound: Image personally visualized and interpreted and Report Reviewed by me
MRI: Image personally visualized and interpreted and Report Reviewed by me
Medical Tests (Nuc Med, Echo etc): Image personally visualized and interpreted and Report Reviewed by me
Labs: Labs Reviewed by me
Old Records: Reviewed
--- NOTE | 2024-08-09 17:04 | W.PN.ONC2 ---
Documented by User: LUIGI Yee 08/09/24 17:07
Today's Communication / Plan
-
.
Impression
Impression
Peripheral flow with concern for acute leukemia
Leukocytosis, neutrophilia, normocytic anemia, and thrombocytopenia -No deficiencies of B12, folate, or iron -No evidence of DIC
MISBAH, started HD 08/05
hyperuremia s/p rasburicase 08/05
gram negative UTI/pylonephritis
left hydronephrosis
gallbladder distention with enlarged gallstones in the gallbladder neck
small L pleural effusion
PNA
acute hypoxic respiratory failure
mild cardiomegaly
atrial fibrillation
Plan
Plan
Dr. Arrington reviewed with patient while daughter on phone that peripheral flow is concerning for acute leukemia process. Dr. Arrington outlined palliative and comfort focused options for management. Pt is not interested in pursuing further evaluation
with a bone marrow biopsy at this time. However, family plans to meet this weekend with pt for goals of care conversation for advanced care planning and next steps since she is now requiring dialysis as well.
continue Hydrea 1g QD
HD per nephrology
Subjective/Objective
Subjective
Vital Signs:
Vital Signs
Temp Pulse Resp BP Pulse Ox
98.1 F 93 23 138/125 97
08/09/24 11:05 08/09/24 14:43 08/09/24 14:43 08/09/24 14:43 08/09/24 15:51
Lab Results:
Laboratory Data
WBC 50.4 10^3/uL (4.8-10.8) H* 08/09/24 04:59
Hgb 7.6 g/dL (12.0-16.0) L 08/09/24 04:59
Plt Count 116 10^3/uL (130-400) L 08/09/24 04:59
PT 17.0 Sec (11.4-14.6) H 08/02/24 03:48
INR 1.33 08/02/24 03:48
APTT 34.7 Sec (23.4-35.0) 08/02/24 03:48
eGFR 27.10 08/09/24 04:59

Documented by User: Clarke Arrington MD 08/09/24 17:40
Plan
Plan
Dr. Arrington reviewed with patient while daughter on phone that peripheral flow is concerning for acute leukemia process. Dr. Arrington outlined palliative and comfort focused options for management. Pt is not interested in pursuing further evaluation
with a bone marrow biopsy at this time. However, family plans to meet this weekend with pt for goals of care conversation for advanced care planning and next steps since she is now requiring dialysis as well.
continue Hydrea 1g QD
HD per nephrology
Oncology/Hematology Addendum:
Patient seen anbd evaluated and agree w/ RELIABILITY SPECIALIST note and plan as outlined
-peripheral blood flow cytometry w/ 3.4% myeloblasts and atypical monocyte population
-discussed potential role for bone marrow biopsy w/ patient and daughter - patient expressd some reluctance
-patient and family will discuss overall plan of care
-will await pt/family decision regarding bone marrow bx/ further w/u
-will continue to follow CBC
Will continue to follow with you.
[2024-08-09 17:56] LABS: Glucose - Point of Care 203 mg/dl (70-99)
[2024-08-09] MEDS: LIPITOR 80 MG PO (20:59)
[2024-08-09] MEDS: HYDREA 1000 MG PO (20:59)
[2024-08-09 21:59] LABS: Glucose - Point of Care 196 mg/dl (70-99)
[2024-08-09] MEDS: MELATONIN 5 MG PO (23:18)
[2024-08-10] VITALS (12 sets, daily range): BP systolic 105–143; BP diastolic 55–80; BMI 33.2
[2024-08-10 04:17] LABS: Hematocrit 25.4 % (37.0-47.0); Hemoglobin 7.9 g/dL (12.0-16.0); Mean Corp Hgb Conc. 31.1 g/dL (33.0-37.0); Mean Corpuscular Hgb 25.7 pg (27.0-31.0); Mean Corpuscular Volume 82.7 fL (81.0-99.0); Mean Platelet Volume 8.7 fL (7.4-10.4); Platelet Count 112 10^3/uL (130-400); Red Blood Cell Count 3.07 10^6/uL (4.20-5.40); Red Cell Dist. Width 18.7 % (11.5-14.5); White Blood Cell Count 51.4 10^3/uL (4.8-10.8)
[2024-08-10 04:27] LABS: Blood Urea Nitrogen 25 mg/dl (7-17); Calcium 8.7 mg/dl (8.4-10.2); Carbon Dioxide 26 mmol/L (22-30); Chloride 105 mmol/L (98-107); Estimated Creatinine Clearance 17 ml/min; Glucose 141 mg/dl (70-99); Magnesium 1.7 mg/dl (1.6-2.3); Phosphorus 3.8 mg/dl (2.5-4.5); Potassium 3.7 mmol/L (3.5-5.1); Sodium 142 mmol/L (135-145); eGFR 22.52
[2024-08-10] MEDS: SYNTHROID 150 MCG PO (05:47)
[2024-08-10 08:08] LABS: Uric Acid 5.7 mg/dl (2.5-6.2)
[2024-08-10 08:14] LABS: Glucose - Point of Care 118 mg/dl (70-99)
[2024-08-10] MEDS: ProAmatine 5 MG PO ×3 (08:27→17:21)
[2024-08-10] MEDS: ASPIR LOW (ENTERIC COATED) 81 MG PO (08:27)
[2024-08-10] MEDS: PROTONIX 40 MG PO (08:27)
[2024-08-10] MEDS: NOVOLOG FLEXPEN-LOW RESISTANCE SC (08:27)
[2024-08-10] MEDS: REFRESH EYE DROPS (PF) 1 DROPS BOTH EYES ×3 (08:28→20:38)
[2024-08-10] MEDS: TOPROL XL 25 MG PO (08:28)
--- NOTE | 2024-08-10 09:34 | W.PN.NEPH.PH ---
Today's Communication / Plan
-
Check postvoid bladder scan
Hold off dialysis today
Follow-up BMP in a.m.
Assessment/Plan
-
84F Poor historian Former smoker, HX DM, HTN, , chr HFpEF, Hypothyroidism, Spinal Stenosis s/p fusion, Rt THR , HX Afib Xarelot HX GIB complicated with blood loss anemia and hemorrhagic shock ( Mar 2023) presents with left lower quadrant pain
decreased urination. She had a CAT scan showed mild right perinephric stranding left mild hydro. Urinalysis indicative of urinary tract infection. Patient states no history of urine infection. No acute or chronic NSAID use. CAT scan was
performed with IV contrast.
Renal consult with acute kidney injury on chronic kidney disease with her creatinine of 2 on consultation with baseline creatinine 1.2-1.3 labile per records with estimated EGFR of 40 at baseline.
Impression.
Acute on chronic kidney disease admitting creatinine 1.1. Creatinine of 2 on on consult.nephro OSH
Urinary tract infection/pyelonephritis with mild left hydro and perinephric stranding on the right.
History of atrial fibrillation stable.
History of GI bleed.
January 2024 CHF with preserved EF.
DM
Plan.
MISBAH- UA -UTI sample, contrast exposure on admit 07/30
CT noted left mild hydro, her pain course suggest she may have passed stone TUBE HEATER
repeat imaging renal US shows no hydro 08/03
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
check serologies to complete= negative
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
paraprotein normal kappa lambda ratio
Second dialysis treatment done 08/06
Third dialysis treatment today 08/08
The patient states that she had urine output over the last 12 hours
Creatinine with modest bump to 2.1 following no dialysis since
Will once again check postvoid bladder scans and have low threshold for Limon catheter placement as I need to establish a reliable urinary conduit
Dialysis will be held today and I will reconsider on a daily basis
There there is no acute indication for dialysis today based on volume status or electrolyte status
Discussed with patient and nursing at bedside.
Will continue to monitor for signs of recovery and potentially hold dialysis through the weekend if possible
-
-
Date of Service: August 10, 2024
CC / HPI / ROS
-
Chief Complaint:
MISBAH with CKD
History of Present Illness:
Acute kidney injury =status post acute dialysis initiation 08/05
BP stable, no fever
WBC high over 50k
plt and hb low but stable
Review of Systems:
no cp , no shortness of breath at rest
Right IJ temporary dialysis catheter in
no abd pain
Limon out
Weight stable
Labs
-
Labs:
WBC 51.4 10^3/uL (4.8-10.8) H* 08/10/24 03:49
RBC 3.07 10^6/uL (4.20-5.40) L 08/10/24 03:49
Hgb 7.9 g/dL (12.0-16.0) L 08/10/24 03:49
Hct 25.4 % (37.0-47.0) L 08/10/24 03:49
Plt Count 112 10^3/uL (130-400) L 08/10/24 03:49
Sodium 142 mmol/L (135-145) 08/10/24 03:49
Potassium 3.7 mmol/L (3.5-5.1) 08/10/24 03:49
Chloride 105 mmol/L (98-107) 08/10/24 03:49
Carbon Dioxide 26 mmol/L (22-30) 08/10/24 03:49
BUN 25 mg/dl (7-17) H 08/10/24 03:49
Creatinine 2.1 mg/dL (0.6-1.0) H 08/10/24 03:49
eGFR 22.52 08/10/24 03:49
Glucose 141 mg/dl (70-99) H 08/10/24 03:49
Calcium 8.7 mg/dl (8.4-10.2) 08/10/24 03:49
Phosphorus 3.8 mg/dl (2.5-4.5) 08/10/24 03:49
Albumin 4.0 g/dl (3.5-5.0) 07/30/24 11:01
Physical Exam
-
Vital Signs:
Vital Signs
Temp Pulse Resp BP Pulse Ox
98.2 F 76 16 134/63 97
08/10/24 07:00 08/10/24 08:00 08/10/24 08:00 08/10/24 08:00 08/10/24 08:00
Cardiovascular:: Irregular rate and rhythm
Respiratory:: Bilateral: Coarse
Lung Excursion:: Normal (decreased BS)
Abdomen:: Nontender and Soft
Extremity Edema:: +1: Bilateral:
Limon Catheter: No
[2024-08-10] MEDS: DESENEX/MITRAZOL/ZEASORB 1 APPLIC TOPICAL ×2 (12:36→20:37)
[2024-08-10] MEDS: ZOSTRIX-HP 0.075% CREAM TOPICAL ×4 (12:36→20:51)
[2024-08-10] MEDS: NOVOLOG FLEXPEN-LOW RESISTANCE 2 UNITS SC (12:47)
[2024-08-10 13:06] LABS: Glucose - Point of Care 217 mg/dl (70-99)
--- NOTE | 2024-08-10 14:05 | W.PN.HOSP.TC ---
Today's Communication/Plan
-
PT/OT consult
Assessment / Plan
Assessment / Plan
Impression:
84-year-old woman with past medical history of diabetes, hypertension, former smoker, heart failure with preserved ejection fraction, hypothyroidism, spinal stenosis status post fusion, history of atrial fibrillation on Xarelto with history of GI
bleeding and anemia. initially admitted with abdominal pain and intractable vomiting.
Worsening kidney function required dialysis.
Kidney function recovers and improved currently off dialysis
Left-sided blurry vision, seen by both neurology and ophthalmology
Assessment/plan:
# MISBAH, possible contrast induced nephropathy
Suspect underlying proteinuria/ CKD IIIb
For volume overload patient later was given Lasix trial without any benefit
Limon Catheter maintained
Urine eosinophil neg. pending SPEP results. complement level normal
Renally adjusted medications
Patient got 2 rounds of hemodialysis, mon/mon, next is today
Sign of kidney recovery
08/09
improved creatinine
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
Pancytopenia
No deficiencies of B12, folate, or iron.
No evidence of hemolysis or coagulopathy
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 Patient will need to follow as oP.
Patient started on Hydrea by onc, plt/hbg/wbc have decreased.
Follow-up with hematology commendation.
Vision changes
Complaining of left vision blurriness. 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
CT head neg for any acute issues. Family concerned
08/09
Lab patient was seen by neurology and ophthalmology.
Neurology recommending MRI brain but patient is claustrophobic and refused.
Ophthalmology recommending ESR whihc came back at 11
CRP came back at 32.10
Enterobacter gergoviae and Klebsiella pneumonia UTI with left pyelonephritis/ hydronephrosis
Leukemoid reaction
No clear infection source bedside urinary tract infection
Blood cultures remain negative. C. difficile negative.
Patient maintained on IV Zosyn for now
ID following and help appreciated
08/08
Currently off antibiotic
Infectious disease signed off
hypotension
Essential hypertension
Blood pressure is improved at this point
Currently on Toprol-XL/valsartan on hold
Loss of appetite due to renal failure
PRN Zofran
Aspiration precautions
# Vasovagal episode - once, no recurrence
# Hyperkalemia, resolved
TME - improved
Mentation is better today, answering questions, still fatigue and ill looking
She followed commands appropriately. Speech is normal.
Stopped sertraline
Patient evaluated by speech therapy, started on IDDSI 5 diet.
#Mild acute pneumonitis
Acute hypoxic respiratory insufficiency
Combination of pneumonitis/pulmonary congestion due to underlying renal failure possibly
ID/pulmonology help appreciated
Wean off oxygen as possible
Already covered with antibiotics for urinary infection
History of diabetes mellitus
Insulin sliding scale
Regular diet
Hemoglobin A1c 7.6
CODE STATUS: Full code
DVT prophylaxis: Heparin (will hold for ecchymosis)
Diet: Regular diet
Family communication: Discussed in the phone with the patient's daughter.
Total time spent on today's encounter was 65 minutes which included time spent in counseling the patient/family regarding diagnosis and treatment plan as listed above, goals of care, and symptom management. Case was discussed with nursing staff,
specialists, and care coordinators/case management. All labs and imaging personally reviewed by me. Remainder the time spent in detailed review of previous records, lab data, imaging, and other medical provider documentation.
Anticipated Discharge: > 48 hours
Subjective/Interval History
-
Date of Service: August 10, 2024
Patient seen and examined at bedside.
Patient was sitting in a chair, left-sided blurry vision improved.
No chest pain or difficulty breathing, creatinine stable.
Objective Data
-
Labs:
Laboratory Results
08/10/24
03:49
WBC 51.4 H*
Hgb 7.9 L
Hct 25.4 L
Plt Count 112 L
Sodium 142
Potassium 3.7
Chloride 105
Carbon Dioxide 26
BUN 25 H
Creatinine 2.1 H
Glucose 141 H
Calcium 8.7
Vital Signs:
Vital Signs
Temp Pulse Resp BP Pulse Ox
98.2 F 84 20 128/80 96
08/10/24 11:38 08/10/24 12:00 08/10/24 12:00 08/10/24 12:00 08/10/24 12:39
I&O
08/09/24 08/10/24 08/11/24
06:59 06:59 06:59
Intake Total 720 / 720 720 / 720
Output Total 275 / 275
Balance 720 / 720 445 / 445
Physical Exam
-
General: Well Developed, Well Nourished, No Apparent Distress and Comfortable
HEENT: Normocephalic, Atraumatic, Moist Mucous Membranes, No Ptosis, Nose Appears Normal and Other (Right eye blindness)
Respiratory: Rales, Rhonchi and Non Labored Respirations
Cardiac: Regular Rhythm and S1/S2
Breast: Deferred by me
GI: Nondistended, Normal Bowel Sounds and Other (Ecchymosis)
Genito-urinary: No Costovertebral Tender
Musculoskeletal: No Clubbing, No Cyanosis and No Edema
Skin: Warm
Neuro: Awake, Alert and Oriented
Psych: Calm
Data Reviewed
-
Diagnostic Radiology: Image personally visualized and interpreted and Report Reviewed by me
CT Scan: Image personally visualized and interpreted and Report Reviewed by me
Ultrasound: Image personally visualized and interpreted and Report Reviewed by me
MRI: Image personally visualized and interpreted and Report Reviewed by me
Medical Tests (Nuc Med, Echo etc): Image personally visualized and interpreted and Report Reviewed by me
Labs: Labs Reviewed by me
Old Records: Reviewed
--- NOTE | 2024-08-10 16:00 | PTCARENOTE ---
Patient out of bed to chair for 2 two hours. Assist x1 and rolling walker. Patient remains on 1L 02 spo2 mid 90's. Patient SOB on exertion. Lungs coarse and diminished bilaterally. Family in room at bedside. Using call pro appropriately.
Afib on monitor. VS stable.
[2024-08-10] MEDS: NOVOLOG FLEXPEN-LOW RESISTANCE 1 UNITS SC (17:22)
[2024-08-10 17:31] LABS: Glucose - Point of Care 170 mg/dl (70-99)
[2024-08-10] MEDS: MELATONIN 5 MG PO (20:38)
[2024-08-10] MEDS: HYDREA 1000 MG PO (20:38)
[2024-08-10] MEDS: LIPITOR 80 MG PO (20:38)
[2024-08-10 22:23] LABS: Glucose - Point of Care 182 mg/dl (70-99)
[2024-08-11] VITALS (14 sets, daily range): BP systolic 111–155; BP diastolic 45–109; BMI 34.1
[2024-08-11 05:20] LABS: Hematocrit 23.9 % (37.0-47.0); Hemoglobin 7.5 g/dL (12.0-16.0); Mean Corp Hgb Conc. 31.4 g/dL (33.0-37.0); Mean Corpuscular Hgb 26.4 pg (27.0-31.0); Mean Corpuscular Volume 84.2 fL (81.0-99.0); Mean Platelet Volume 8.8 fL (7.4-10.4); Platelet Count 118 10^3/uL (130-400); Red Blood Cell Count 2.84 10^6/uL (4.20-5.40); Red Cell Dist. Width 18.8 % (11.5-14.5); White Blood Cell Count 42.8 10^3/uL (4.8-10.8)
[2024-08-11 05:31] LABS: Blood Urea Nitrogen 27 mg/dl (7-17); Calcium 8.7 mg/dl (8.4-10.2); Carbon Dioxide 29 mmol/L (22-30); Chloride 104 mmol/L (98-107); Estimated Creatinine Clearance 17 ml/min; Glucose 146 mg/dl (70-99); Magnesium 1.6 mg/dl (1.6-2.3); Phosphorus 4.3 mg/dl (2.5-4.5); Potassium 3.9 mmol/L (3.5-5.1); Sodium 143 mmol/L (135-145); Uric Acid 8.1 mg/dl (2.5-6.2); eGFR 22.52
--- NOTE | 2024-08-11 05:48 | PTCARENOTE ---
Pt aaox3, forgetful at times, bed alarm in place. Remains on 1LNC, SaO2 93%. HS accucheck 182. Q2T. R midline flushes well but no blood return. CHG bath done, VSS, call pro within reach, care ongoing.
[2024-08-11 07:55] LABS: Glucose - Point of Care 151 mg/dl (70-99)
[2024-08-11] MEDS: NOVOLOG FLEXPEN-LOW RESISTANCE 1 UNITS SC (08:37)
[2024-08-11] MEDS: PROTONIX 40 MG PO (08:38)
[2024-08-11] MEDS: TOPROL XL 25 MG PO (08:38)
[2024-08-11] MEDS: ProAmatine PO ×3 (08:39→17:02)
[2024-08-11] MEDS: ZOSTRIX-HP 0.075% CREAM TOPICAL ×4 (08:39→19:33)
--- NOTE | 2024-08-11 08:39 | W.PN.NEPH.PH ---
Today's Communication / Plan
-
Follow-up BMP
Maintain intermittent bladder scans to assess for urinary retention
No dialysis today
We will evaluate tomorrow to see if she requires dialysis
Thus far her creatinine has remained stable at 2.1 since yesterday morning
Assessment/Plan
-
84F Poor historian Former smoker, HX DM, HTN, , chr HFpEF, Hypothyroidism, Spinal Stenosis s/p fusion, Rt THR , HX Afib Xarelot HX GIB complicated with blood loss anemia and hemorrhagic shock ( Mar 2023) presents with left lower quadrant pain
decreased urination. She had a CAT scan showed mild right perinephric stranding left mild hydro. Urinalysis indicative of urinary tract infection. Patient states no history of urine infection. No acute or chronic NSAID use. CAT scan was
performed with IV contrast.
Renal consult with acute kidney injury on chronic kidney disease with her creatinine of 2 on consultation with baseline creatinine 1.2-1.3 labile per records with estimated EGFR of 40 at baseline.
Impression.
Acute on chronic kidney disease admitting creatinine 1.1. Creatinine of 2 on on consult.nephro OSH
Urinary tract infection/pyelonephritis with mild left hydro and perinephric stranding on the right.
History of atrial fibrillation stable.
History of GI bleed.
January 2024 CHF with preserved EF.
DM
Plan.
MISBAH- UA -UTI sample, contrast exposure on admit 07/30
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
repeat imaging renal US shows no hydro 08/03
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
check serologies to complete= negative
Creatinine unchanged at 2.1 without recent dialysis since 08/08
Daily evaluation for possible dialysis
Continue to monitor urine output carefully given incontinence with bladder scans
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
paraprotein normal kappa lambda ratio
Second dialysis treatment done 08/06
Third dialysis treatment 08/08
Will once again check postvoid bladder scans and have low threshold for Limon catheter placement as I need to establish a reliable urinary conduit
Dialysis will be held today and I will reconsider on a daily basis
There there is no acute indication for dialysis today based on volume status or electrolyte status
-
-
Date of Service: August 11, 2024
CC / HPI / ROS
-
Chief Complaint:
MISBAH with CKD
History of Present Illness:
Acute kidney injury =status post acute dialysis initiation 08/05
BP stable, no fever
Leukocytosis persist
Anemia persist
Review of Systems:
no cp , no shortness of breath at rest
Right IJ temporary dialysis catheter in
no abd pain
Limon out
Weight up
Labs
-
Labs:
WBC 42.8 10^3/uL (4.8-10.8) H* 08/11/24 04:16
RBC 2.84 10^6/uL (4.20-5.40) L 08/11/24 04:16
Hgb 7.5 g/dL (12.0-16.0) L 08/11/24 04:16
Hct 23.9 % (37.0-47.0) L 08/11/24 04:16
Plt Count 118 10^3/uL (130-400) L 08/11/24 04:16
Sodium 143 mmol/L (135-145) 08/11/24 04:16
Potassium 3.9 mmol/L (3.5-5.1) 08/11/24 04:16
Chloride 104 mmol/L (98-107) 08/11/24 04:16
Carbon Dioxide 29 mmol/L (22-30) 08/11/24 04:16
BUN 27 mg/dl (7-17) H 08/11/24 04:16
Creatinine 2.1 mg/dL (0.6-1.0) H 08/11/24 04:16
eGFR 22.52 08/11/24 04:16
Glucose 146 mg/dl (70-99) H 08/11/24 04:16
Calcium 8.7 mg/dl (8.4-10.2) 08/11/24 04:16
Phosphorus 4.3 mg/dl (2.5-4.5) 08/11/24 04:16
Albumin 4.0 g/dl (3.5-5.0) 07/30/24 11:01
Physical Exam
-
Vital Signs:
Vital Signs
Temp Pulse Resp BP Pulse Ox
97.6 F 79 21 128/55 95
08/11/24 06:23 08/11/24 06:06 08/11/24 06:06 08/11/24 06:06 08/11/24 06:06
Cardiovascular:: Irregular rate and rhythm
Respiratory:: Bilateral: Coarse
Lung Excursion:: Normal (decreased BS)
Abdomen:: Nontender and Soft
Extremity Edema:: +1: Bilateral:
Limon Catheter: No
[2024-08-11] MEDS: DESENEX/MITRAZOL/ZEASORB 1 APPLIC TOPICAL ×2 (08:40→19:33)
[2024-08-11] MEDS: ASPIR LOW (ENTERIC COATED) 81 MG PO (08:40)
[2024-08-11] MEDS: REFRESH EYE DROPS (PF) 1 DROPS BOTH EYES ×3 (10:34→19:32)
[2024-08-11 12:47] LABS: Glucose - Point of Care 217 mg/dl (70-99)
[2024-08-11] MEDS: NOVOLOG FLEXPEN-LOW RESISTANCE 2 UNITS SC ×2 (12:47→17:40)
--- NOTE | 2024-08-11 13:16 | W.PN.HOSP.TC ---
Today's Communication/Plan
-
Monitor kidney function
Assessment / Plan
Assessment / Plan
Impression:
84-year-old woman with past medical history of diabetes, hypertension, former smoker, heart failure with preserved ejection fraction, hypothyroidism, spinal stenosis status post fusion, history of atrial fibrillation on Xarelto with history of GI
bleeding and anemia. initially admitted with abdominal pain and intractable vomiting.
Worsening kidney function required dialysis.
Kidney function recovers and improved currently off dialysis
Left-sided blurry vision, seen by both neurology and ophthalmology
Assessment/plan:
# MISBAH, possible contrast induced nephropathy
Suspect underlying proteinuria/ CKD IIIb
For volume overload patient later was given Lasix trial without any benefit
Limon Catheter maintained
Urine eosinophil neg. pending SPEP results. complement level normal
Renally adjusted medications
Patient got 2 rounds of hemodialysis, mon/mon, next is today
Sign of kidney recovery
08/09
improved creatinine
08/11
Sign of kidney recovery
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
Pancytopenia
No deficiencies of B12, folate, or iron.
No evidence of hemolysis or coagulopathy
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 Patient will need to follow as oP.
Patient started on Hydrea by onc, plt/hbg/wbc have decreased.
Follow-up with hematology commendation.
Vision changes
Complaining of left vision blurriness. 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
CT head neg for any acute issues. Family concerned
08/09
Lab patient was seen by neurology and ophthalmology.
Neurology recommending MRI brain but patient is claustrophobic and refused.
Ophthalmology recommending ESR whihc came back at 11
CRP came back at 32.10
Enterobacter gergoviae and Klebsiella pneumonia UTI with left pyelonephritis/ hydronephrosis
Leukemoid reaction
No clear infection source bedside urinary tract infection
Blood cultures remain negative. C. difficile negative.
Patient maintained on IV Zosyn for now
ID following and help appreciated
08/08
Currently off antibiotic
Infectious disease signed off
hypotension
Essential hypertension
Blood pressure is improved at this point
Currently on Toprol-XL/valsartan on hold
Loss of appetite due to renal failure
PRN Zofran
Aspiration precautions
# Vasovagal episode - once, no recurrence
# Hyperkalemia, resolved
TME - improved
Mentation is better today, answering questions, still fatigue and ill looking
She followed commands appropriately. Speech is normal.
Stopped sertraline
Patient evaluated by speech therapy, started on IDDSI 5 diet.
#Mild acute pneumonitis
Acute hypoxic respiratory insufficiency
Combination of pneumonitis/pulmonary congestion due to underlying renal failure possibly
ID/pulmonology help appreciated
Wean off oxygen as possible
Already covered with antibiotics for urinary infection
History of diabetes mellitus
Insulin sliding scale
Regular diet
Hemoglobin A1c 7.6
CODE STATUS: Full code
DVT prophylaxis: Heparin (will hold for ecchymosis)
Diet: Regular diet
Family communication: Discussed in the phone with the patient's daughter.
Total time spent on today's encounter was 65 minutes which included time spent in counseling the patient/family regarding diagnosis and treatment plan as listed above, goals of care, and symptom management. Case was discussed with nursing staff,
specialists, and care coordinators/case management. All labs and imaging personally reviewed by me. Remainder the time spent in detailed review of previous records, lab data, imaging, and other medical provider documentation.
Anticipated Discharge: 24 - 48 hours
Subjective/Interval History
-
Date of Service: August 11, 2024
Patient seen and examined at bedside, still with left blurry vision but otherwise denies any chest pain or shortness of breath, no abdominal pain, no nausea, no vomiting, no diarrhea or constipation.
Objective Data
-
Labs:
Laboratory Results
08/11/24
04:16
WBC 42.8 H*
Hgb 7.5 L
Hct 23.9 L
Plt Count 118 L
Sodium 143
Potassium 3.9
Chloride 104
Carbon Dioxide 29
BUN 27 H
Creatinine 2.1 H
Glucose 146 H
Calcium 8.7
Vital Signs:
Vital Signs
Temp Pulse Resp BP Pulse Ox
98.7 F 86 24 141/67 96
08/11/24 11:13 08/11/24 12:00 08/11/24 12:00 08/11/24 12:04 08/11/24 12:00
I&O
08/10/24 08/11/24 08/12/24
06:59 06:59 06:59
Intake Total 720 / 720 525 / 525
Output Total 275 / 275 347 / 347 275 / 275
Balance 445 / 445 178 / 178 -275 / -275
Physical Exam
-
General: Well Developed, Well Nourished, No Apparent Distress and Comfortable
HEENT: Normocephalic, Atraumatic, Moist Mucous Membranes, No Ptosis, Nose Appears Normal and Other (Right eye blindness)
Respiratory: Rales, Rhonchi and Non Labored Respirations
Cardiac: Regular Rhythm and S1/S2
Breast: Deferred by me
GI: Nondistended, Normal Bowel Sounds and Other (Ecchymosis)
Genito-urinary: No Costovertebral Tender
Musculoskeletal: No Clubbing, No Cyanosis and No Edema
Skin: Warm
Neuro: Awake, Alert and Oriented
Psych: Calm
Data Reviewed
-
Diagnostic Radiology: Image personally visualized and interpreted and Report Reviewed by me
CT Scan: Image personally visualized and interpreted and Report Reviewed by me
Ultrasound: Image personally visualized and interpreted and Report Reviewed by me
MRI: Image personally visualized and interpreted and Report Reviewed by me
Medical Tests (Nuc Med, Echo etc): Image personally visualized and interpreted and Report Reviewed by me
Labs: Labs Reviewed by me
Old Records: Reviewed
--- NOTE | 2024-08-11 14:46 | PTCARENOTE ---
pt with bruising around midline insertion site R arm, no swelling noted, applied heat for comfort, pt resting
[2024-08-11 17:34] LABS: Glucose - Point of Care 220 mg/dl (70-99)
--- NOTE | 2024-08-11 17:53 | PTCARENOTE ---
Patient had periods of anxiety today. Discussed with hospitalist, Zoloft restarted. Patient out of bed to chair, compliant with plan of care. Family at bedside. Patients sleep issues discussed with hospitalist and Melatonin ordered.
[2024-08-11] MEDS: HYDREA 1000 MG PO (19:32)
[2024-08-11] MEDS: MELATONIN 5 MG PO ×2 (19:32)
[2024-08-11] MEDS: LIPITOR 80 MG PO (19:33)
[2024-08-11 22:30] LABS: Glucose - Point of Care 247 mg/dl (70-99)
[2024-08-12] VITALS (16 sets, daily range): BP systolic 101–155; BP diastolic 59–112; PULSE 98–106; O2SAT 94–96; BMI 34.3
--- NOTE | 2024-08-12 05:20 | PTCARENOTE ---
Received pt from jade RN. Pt aaox3, able to make needs known. Pt with heme neg stool overnight x3. Occasionally incont of stool when sleeping. CHG wipes done. Midline still with no blood return. VSS. Care ongoing.
[2024-08-12 05:26] LABS: Blood Urea Nitrogen 23 mg/dl (7-17); Calcium 8.6 mg/dl (8.4-10.2); Carbon Dioxide 29 mmol/L (22-30); Chloride 104 mmol/L (98-107); Estimated Creatinine Clearance 23 ml/min; Glucose 155 mg/dl (70-99); Magnesium 1.5 mg/dl (1.6-2.3); Phosphorus 3.8 mg/dl (2.5-4.5); Sodium 142 mmol/L (135-145); Uric Acid 8.9 mg/dl (2.5-6.2); eGFR 31.21
[2024-08-12 05:27] LABS: Hematocrit 23.2 % (37.0-47.0); Hemoglobin 7.2 g/dL (12.0-16.0); Mean Corpuscular Hgb 25.8 pg (27.0-31.0); Mean Corpuscular Volume 83.2 fL (81.0-99.0); Mean Platelet Volume 9.2 fL (7.4-10.4); Platelet Count 129 10^3/uL (130-400); Red Blood Cell Count 2.79 10^6/uL (4.20-5.40); Red Cell Dist. Width 18.7 % (11.5-14.5)
[2024-08-12] MEDS: SYNTHROID 150 MCG PO (06:28)
[2024-08-12 08:33] LABS: Glucose - Point of Care 156 mg/dl (70-99)
--- NOTE | 2024-08-12 09:36 | W.PN.NEPH.PH ---
Today's Communication / Plan
-
allopurinol
Assessment/Plan
-
84F Poor historian Former smoker, HX DM, HTN, , chr HFpEF, Hypothyroidism, Spinal Stenosis s/p fusion, Rt THR , HX Afib Xarelot HX GIB complicated with blood loss anemia and hemorrhagic shock ( Mar 2023) presents with left lower quadrant pain
decreased urination. She had a CAT scan showed mild right perinephric stranding left mild hydro. Urinalysis indicative of urinary tract infection. Patient states no history of urine infection. No acute or chronic NSAID use. CAT scan was
performed with IV contrast.
Renal consult with acute kidney injury on chronic kidney disease with her creatinine of 2 on consultation with baseline creatinine 1.2-1.3 labile per records with estimated EGFR of 40 at baseline.
Impression.
Acute on chronic kidney disease admitting creatinine 1.1. Creatinine of 2 on on consult.nephro OSH
Urinary tract infection/pyelonephritis with mild left hydro and perinephric stranding on the right.
History of atrial fibrillation stable.
History of GI bleed.
January 2024 CHF with preserved EF.
DM
Plan.
follow BMP
dc CVC
allopurinol 300mg daily
no dialysis needs
d/w pt at length regarding leukocytosis and benefit of BMBx. She is still considering it
-
-
Date of Service: August 12, 2024
CC / HPI / ROS
-
Chief Complaint:
MISBAH with CKD
History of Present Illness:
Acute kidney injury =status post acute dialysis initiation 08/05, last HD 08/06
BP stable, no fever
Leukocytosis persists 47k
Anemia persists
Cr down to 1.6
Review of Systems:
no cp, no shortness of breath at rest
Right IJ temporary dialysis catheter in
Labs
-
Labs:
WBC 47.0 10^3/uL (4.8-10.8) H* 08/12/24 03:49
RBC 2.79 10^6/uL (4.20-5.40) L 08/12/24 03:49
Hgb 7.2 g/dL (12.0-16.0) L 08/12/24 03:49
Hct 23.2 % (37.0-47.0) L 08/12/24 03:49
Plt Count 129 10^3/uL (130-400) L 08/12/24 03:49
Sodium 142 mmol/L (135-145) 08/12/24 03:49
Potassium 4.0 mmol/L (3.5-5.1) 08/12/24 03:49
Chloride 104 mmol/L (98-107) 08/12/24 03:49
Carbon Dioxide 29 mmol/L (22-30) 08/12/24 03:49
BUN 23 mg/dl (7-17) H 08/12/24 03:49
Creatinine 1.6 mg/dL (0.6-1.0) H 08/12/24 03:49
eGFR 31.21 08/12/24 03:49
Glucose 155 mg/dl (70-99) H 08/12/24 03:49
Calcium 8.6 mg/dl (8.4-10.2) 08/12/24 03:49
Phosphorus 3.8 mg/dl (2.5-4.5) 08/12/24 03:49
Albumin 4.0 g/dl (3.5-5.0) 07/30/24 11:01
Physical Exam
-
Vital Signs:
Vital Signs
Temp Pulse Resp BP Pulse Ox
99.2 F 92 27 101/84 93
08/12/24 07:34 08/12/24 04:02 08/12/24 04:02 08/12/24 04:02 08/12/24 04:02
Cardiovascular:: Regular rate and rhythm
Respiratory:: Bilateral: Coarse
Lung Excursion:: Normal
Abdomen:: Nontender and Soft
Bowel Sounds:: Normal
Extremity Edema:: None: Bilateral:
[2024-08-12] MEDS: DESENEX/MITRAZOL/ZEASORB 1 APPLIC TOPICAL ×2 (09:55→19:47)
[2024-08-12] MEDS: ASPIR LOW (ENTERIC COATED) 81 MG PO (09:56)
[2024-08-12] MEDS: ProAmatine PO ×3 (09:56→18:29)
[2024-08-12] MEDS: PROTONIX 40 MG PO (09:56)
[2024-08-12] MEDS: TOPROL XL 25 MG PO (09:56)
[2024-08-12] MEDS: REFRESH EYE DROPS (PF) 1 DROPS BOTH EYES ×2 (09:58→19:47)
[2024-08-12] MEDS: ZOLOFT 50 MG PO (09:59)
[2024-08-12] MEDS: ZOSTRIX-HP 0.075% CREAM 1 APPLIC TOPICAL (09:59)
[2024-08-12] MEDS: NOVOLOG FLEXPEN-LOW RESISTANCE 1 UNITS SC ×3 (10:00→16:34)
[2024-08-12] MEDS: ZYLOPRIM 100 MG PO (10:02)
--- NOTE | 2024-08-12 10:15 | W.PN.HOSP.TC ---
Today's Communication/Plan
-
Downgrade to telemetry
Assessment / Plan
Assessment / Plan
Impression:
84-year-old woman with past medical history of diabetes, hypertension, former smoker, heart failure with preserved ejection fraction, hypothyroidism, spinal stenosis status post fusion, history of atrial fibrillation on Xarelto with history of GI
bleeding and anemia. initially admitted with abdominal pain and intractable vomiting.
Worsening kidney function required dialysis.
Kidney function recovers and improved currently off dialysis
Left-sided blurry vision, seen by both neurology and ophthalmology
Kidney function continue to improve.
Left-sided blurry vision improved.
Remove temporary HD catheter.
Assessment/plan:
# MISBAH, possible contrast induced nephropathy
Suspect underlying proteinuria/ CKD IIIb
For volume overload patient later was given Lasix trial without any benefit
Limon Catheter maintained
Urine eosinophil neg. pending SPEP results. complement level normal
Renally adjusted medications
Patient got 2 rounds of hemodialysis, mon/mon, next is today
Sign of kidney recovery
08/09
improved creatinine
08/11
Sign of kidney recovery
08/12
Remove temporary HD cath
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
Pancytopenia
No deficiencies of B12, folate, or iron.
No evidence of hemolysis or coagulopathy
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 Patient will need to follow as oP.
Patient started on Hydrea by onc, plt/hbg/wbc have decreased.
Follow-up with hematology commendation.
Vision changes
Complaining of left vision blurriness. 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
CT head neg for any acute issues. Family concerned
08/09
Lab patient was seen by neurology and ophthalmology.
Neurology recommending MRI brain but patient is claustrophobic and refused.
Ophthalmology recommending ESR whihc came back at 11
CRP came back at 32.10
08/12
Vision improved
Enterobacter gergoviae and Klebsiella pneumonia UTI with left pyelonephritis/ hydronephrosis
Leukemoid reaction
No clear infection source bedside urinary tract infection
Blood cultures remain negative. C. difficile negative.
Patient maintained on IV Zosyn for now
ID following and help appreciated
08/08
Currently off antibiotic
Infectious disease signed off
hypotension
Essential hypertension
Blood pressure is improved at this point
Currently on Toprol-XL/valsartan on hold
Loss of appetite due to renal failure
PRN Zofran
Aspiration precautions
# Vasovagal episode - once, no recurrence
# Hyperkalemia, resolved
TME - improved
Mentation is better today, answering questions, still fatigue and ill looking
She followed commands appropriately. Speech is normal.
Stopped sertraline
Patient evaluated by speech therapy, started on IDDSI 5 diet.
#Mild acute pneumonitis
Acute hypoxic respiratory insufficiency
Combination of pneumonitis/pulmonary congestion due to underlying renal failure possibly
ID/pulmonology help appreciated
Wean off oxygen as possible
Already covered with antibiotics for urinary infection
History of diabetes mellitus
Insulin sliding scale
Regular diet
Hemoglobin A1c 7.6
CODE STATUS: Full code
DVT prophylaxis: Heparin (will hold for ecchymosis)
Diet: Regular diet
Family communication: Discussed in the phone with the patient's daughter.
Downgrade to telemetry floor
Total time spent on today's encounter was 65 minutes which included time spent in counseling the patient/family regarding diagnosis and treatment plan as listed above, goals of care, and symptom management. Case was discussed with nursing staff,
specialists, and care coordinators/case management. All labs and imaging personally reviewed by me. Remainder the time spent in detailed review of previous records, lab data, imaging, and other medical provider documentation.
Anticipated Discharge: Within 24 hours
Subjective/Interval History
-
Date of Service: August 12, 2024
Patient seen and examined at bedside, kidney function continue to improve, left vision blurriness improved
Patient denies any chest pain or shortness of breath, was coughing during conversation, but otherwise no abdominal pain, no nausea, no vomiting, no diarrhea or constipation.
Objective Data
-
Labs:
Laboratory Results
08/12/24
03:49
WBC 47.0 H*
Hgb 7.2 L
Hct 23.2 L
Plt Count 129 L
Sodium 142
Potassium 4.0
Chloride 104
Carbon Dioxide 29
BUN 23 H
Creatinine 1.6 H
Glucose 155 H
Calcium 8.6
Vital Signs:
Vital Signs
Temp Pulse Resp BP Pulse Ox
99.2 F 122 27 125/113 93
08/12/24 07:34 08/12/24 09:56 08/12/24 04:02 08/12/24 09:56 08/12/24 04:02
I&O
08/11/24 08/12/24 08/13/24
06:59 06:59 06:59
Intake Total 525 / 525 300 / 300
Output Total 347 / 347 275 / 275
Balance 178 / 178
Physical Exam
-
General: Well Developed, Well Nourished, No Apparent Distress and Comfortable
HEENT: Normocephalic, Atraumatic, Moist Mucous Membranes, No Ptosis, Nose Appears Normal and Other (Right eye blindness)
Respiratory: Rales, Rhonchi and Non Labored Respirations
Cardiac: Regular Rhythm and S1/S2
Breast: Deferred by me
GI: Nondistended, Normal Bowel Sounds and Other (Ecchymosis)
Genito-urinary: No Costovertebral Tender
Musculoskeletal: No Clubbing, No Cyanosis and No Edema
Skin: Warm
Neuro: Awake, Alert and Oriented
Psych: Calm
Data Reviewed
-
Diagnostic Radiology: Image personally visualized and interpreted and Report Reviewed by me
CT Scan: Image personally visualized and interpreted and Report Reviewed by me
Ultrasound: Image personally visualized and interpreted and Report Reviewed by me
MRI: Image personally visualized and interpreted and Report Reviewed by me
Medical Tests (Nuc Med, Echo etc): Image personally visualized and interpreted and Report Reviewed by me
Labs: Labs Reviewed by me
Old Records: Reviewed
--- NOTE | 2024-08-12 11:47 | W.PN.ONC2 ---
Addendum entered and electronically signed by Mona Ibrahim MD 08/12/24 17:47:
Held family meeting this afternoon.
Discussed option of best supportive care based on available information, vs. bone marrow biopsy to better define process, prognosis and treatment options.
After long long discussion, pt amenable to bone marrow biopsy as long as she can be kept comfortable for it.
Approval obtained from Dr. Vincent.
Discussed that pt does not need to remain inpt for result if otherwise stable for d/c to rehab.
Uric acid improved following rasburicase this afternoon.
Original Note:
Today's Communication / Plan
-
Best supportive care with goal of allowing pt to leave hospital and maintain clinical stability over the next two months until grandson's wedding
Rasburicase now as uric acid rising again, try to keep pt off dialysis
Allopurinol Rx noted
Increase Hydrea to 1000 mg BID
Family meeting this afternoon.
Impression
Impression
Peripheral flow with concern for acute leukemia
Leukocytosis, neutrophilia, normocytic anemia, and thrombocytopenia -No deficiencies of B12, folate, or iron -No evidence of DIC
MISBAH, started HD 08/05
hyperuremia s/p rasburicase 08/05
gram negative UTI/pylonephritis
left hydronephrosis
gallbladder distention with enlarged gallstones in the gallbladder neck
small L pleural effusion
PNA
acute hypoxic respiratory failure
mild cardiomegaly
atrial fibrillation
Plan
Plan
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
Her goal is to be comfortable at home but also to attend grandson's wedding in September.
Recommend:
- as outpt, weekly CBC c diff, uric acid, phos, BMP
- adjust Hydrea - increase to BID today
- monitor uric acid, may need to give additional doses of rasburicase as outpt to keep her from going back into renal failure - give additional dose of rasburicase today
- started allopurinol today but renally dosed at 100 mg, suspect it will not be enough
- transfuse PRN Hgb <7
She could potentially tolerate low-dose Vidaza as outpt but does not seem receptive to the intensity of care that would be involved.
Will discuss further at family meeting planned for 4 pm today.
Subjective/Objective
Chief Complaint
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
Subjective
Discussed possible options with pt in anticipation of family meeting this afternoon. 'I just want to do what I have to do to go home and get better' but 'I do not want anything else done to me, no more procedures.' 'I have my grandson's wedding to
get ready for.'
Vital Signs:
Vital Signs
Temp Pulse Resp BP Pulse Ox
99.1 F 103 24 132/96 97
08/12/24 11:36 08/12/24 10:39 08/12/24 10:39 08/12/24 10:39 08/12/24 11:05
Lab Results:
Laboratory Data
WBC 47.0 10^3/uL (4.8-10.8) H* 08/12/24 03:49
Hgb 7.2 g/dL (12.0-16.0) L 08/12/24 03:49
Plt Count 129 10^3/uL (130-400) L 08/12/24 03:49
PT 17.0 Sec (11.4-14.6) H 08/02/24 03:48
INR 1.33 08/02/24 03:48
APTT 34.7 Sec (23.4-35.0) 08/02/24 03:48
eGFR 31.21 08/12/24 03:49
Physical Exam
HEENT: Moist Mucous Membranes; No Jaundice
Cardiology: Normal Sinus Rhythm, S1 and S2
Pulmonary: Clear; No Wheezes
GI: Soft and Normal Bowel Sounds
Extremities: Pulses Present and No C/C/E
Neuro: Non Focal
Orders
Orders
Orders From Last 24 Hours
08/12/24 03:49
Phos [Phosphorus] IN AM
Uric Acid IN AM
--- NOTE | 2024-08-12 12:00 | PTCARENOTE ---
Assumed care of patient this morning. She was out in the chair for approx 2 hours. Used BSC a few times, OOBx1 with RW. Pt's daughter called for update and reported there is a family meeting today to discuss further treatment options with oncology.
Confirmed family meeting with . Pt denies any pain. She is MELENDRZE with getting up. SPO2 does drop into 80s, increased O2 from 1L to 2L. Pt recovers quickly with rest. Assessment, care and VS as charted.
[2024-08-12] MEDS: ZOSTRIX-HP 0.075% CREAM TOPICAL ×3 (12:33→19:48)
[2024-08-12] MEDS: ELITEK 50 MG IV (12:53)
[2024-08-12] MEDS: HYDREA 1000 MG PO ×2 (12:53→19:47)
[2024-08-12 12:57] LABS: Glucose - Point of Care 174 mg/dl (70-99)
--- NOTE | 2024-08-12 13:00 | CM ---
Patient with Dx MISBAH, likely acute myeloid leukemia, UTI with pyelonephritis, improving TME, pneumonitis. O2 2L. Receiving IV rasburicase. No further need HD - Nontunneled right IJ HD catheter removed today. Seen by PT/OT today; requires assist
of 2, recommend skilled rehab.
Met with patient, son Derek and spoke with daughter Alicia by phone;
son & Dtr shared that they have a meeting scheduled with the oncologist today at 4pm.
They are both aware that HD has been discontinued.
Daughter somewhat tearful on the phone.
Discussed discharge options of short term SNF for rehab vs home with HH and [employer] while Dtr works; family will decide by tomorrow after meeting with oncology today.
Alicia requested referral to [facility] SNF.
Discussed considerations for STR prior to returning home to hopefully decrease the caregiver burden if she is more mobile & requires less assistance, vs returning directly home to keep her comfortable with HH, caregiver & family support.
Discussed considerations for hiring a caregiver.
Provided SNF list & Caregiver list.
Gerber Reed is here visiting from [facility] and will be here for about a week.
Gerber Solano lives in [facility].
Both contacts given to Adms -added to chart.
Referral to [facility] SNF.
Plan follow up with [facility] for acceptance.
Plan follow up with patient/family tomorrow re; SNF for rehab vs home with HH, caregiver & family support.
[2024-08-12] MEDS: MAGNESIUM SULFATE 102 GRAMS IV (14:57)
[2024-08-12] MEDS: REFRESH EYE DROPS (PF) BOTH EYES (16:26)
[2024-08-12] MEDS: ZOFRAN 4 MG IV (16:26)
[2024-08-12 16:43] LABS: Glucose - Point of Care 165 mg/dl (70-99)
[2024-08-12 18:16] LABS: Uric Acid - Rasburicase 4.2 mg/dl (2.5-6.2)
[2024-08-12] MEDS: LIPITOR 80 MG PO (19:47)
[2024-08-12] MEDS: MELATONIN 5 MG PO (19:47)
[2024-08-12 21:21] LABS: Glucose - Point of Care 243 mg/dl (70-99)
--- NOTE | 2024-08-12 23:21 | PTCARENOTE ---
assumed care of patient. pt is AAOx3- [place], able to make needs known. pt sitting in chair at shift change, placed back to bed x1 assist. pt using BSC x1 assist with RW without issues. no complaints of pain. SOB on exertion and orthopneic. family at
bedside, many questions about bone marrow biposy in the AM. on 2-3L NC 92-95%. care ongoing.
[2024-08-13] VITALS (23 sets, daily range): BP systolic 99–144; BP diastolic 15–94; BMI 34.4
[2024-08-13] MEDS: SYNTHROID 150 MCG PO (05:19)
[2024-08-13 06:14] LABS: Blood Urea Nitrogen 25 mg/dl (7-17); Calcium 8.7 mg/dl (8.4-10.2); Carbon Dioxide 30 mmol/L (22-30); Chloride 105 mmol/L (98-107); Estimated Creatinine Clearance 26 ml/min; Glucose 133 mg/dl (70-99); Potassium 4.2 mmol/L (3.5-5.1); Sodium 141 mmol/L (135-145); eGFR 36.64
[2024-08-13 07:06] LABS: Hematocrit 21.3 % (37.0-47.0); Hemoglobin 6.8 g/dL (12.0-16.0); Mean Corp Hgb Conc. 31.9 g/dL (33.0-37.0); Mean Corpuscular Hgb 26.7 pg (27.0-31.0); Mean Corpuscular Volume 83.5 fL (81.0-99.0); Mean Platelet Volume 9.3 fL (7.4-10.4); Platelet Count 108 10^3/uL (130-400); Red Blood Cell Count 2.55 10^6/uL (4.20-5.40); Red Cell Dist. Width 18.7 % (11.5-14.5); White Blood Cell Count 34.2 10^3/uL (4.8-10.8)
--- NOTE | 2024-08-13 08:09 | W.PN.ONC2 ---
Today's Communication / Plan
-
.
Impression
Impression
Peripheral flow with concern for acute leukemia
Leukocytosis, neutrophilia, normocytic anemia, and thrombocytopenia -No deficiencies of B12, folate, or iron -No evidence of DIC
MISBAH, started HD 08/05, no longer requiring
hyperuremia s/p rasburicase 08/05 and 08/12
gram negative UTI/pylonephritis
left hydronephrosis
gallbladder distention with enlarged gallstones in the gallbladder neck
small L pleural effusion
PNA
acute hypoxic respiratory failure
mild cardiomegaly
atrial fibrillation
Plan
Plan
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
Her goal is to be comfortable at home but also to attend grandson's wedding in September.
Recommend:
- as outpt, weekly CBC c diff, uric acid, phos, BMP
- adjust Hydrea - increased to BID 08/12
- monitor uric acid, may need to give additional doses of rasburicase as outpt to keep her from going back into renal failure
- continue allopurinol, renally dosed at 100 mg daily
- transfuse PRN Hgb <7 -ordered 1U prbc today
- Bone marrow biopsy approved and ordered
She could potentially tolerate low-dose Vidaza as outpt but does not seem receptive to the intensity of care that would be involved
Son Derek at bedside provided updates and questions answered
Subjective/Objective
Subjective
no new complaints
Vital Signs:
Vital Signs
Temp Pulse Resp BP Pulse Ox
98.6 F 75 18 124/62 98
08/13/24 03:50 08/13/24 06:00 08/13/24 06:00 08/13/24 06:00 08/13/24 06:00
Lab Results:
Laboratory Data
WBC 34.2 10^3/uL (4.8-10.8) H 08/13/24 05:23
Hgb 6.8 g/dL (12.0-16.0) L* 08/13/24 05:23
Plt Count 108 10^3/uL (130-400) L 08/13/24 05:23
PT 17.0 Sec (11.4-14.6) H 08/02/24 03:48
INR 1.33 08/02/24 03:48
APTT 34.7 Sec (23.4-35.0) 08/02/24 03:48
eGFR 36.64 08/13/24 05:23
Physical Exam
HEENT: No Jaundice
Cardiology: Normal Sinus Rhythm
Pulmonary: Clear
GI: Soft
Extremities: Pulses Present and Edema (b/l LE +1)
[2024-08-13 08:13] LABS: Glucose - Point of Care 138 mg/dl (70-99)
[2024-08-13] MEDS: NOVOLOG FLEXPEN-LOW RESISTANCE SC (09:09)
[2024-08-13 09:10] LABS: Absolute Neutrophils -Man Diff 23.5 10^3/uL (1.4-6.5); Anisocytosis 1+; Band Neutrophils 3 % (0-3); Hypochromasia 1+; Lymphocytes 3 % (20-51); Monocytes 28 % (2-9); Normal RBC Morphology No; Platelets Checked Yes; Polychromasia 1+; Segmented Neutrophils 66 % (42-75); Stomatocytes FEW; Target Cells FEW; Total Cells Counted 100
[2024-08-13] MEDS: REFRESH EYE DROPS (PF) 1 DROPS BOTH EYES ×2 (09:44→20:21)
[2024-08-13] MEDS: ZOLOFT 50 MG PO (09:45)
[2024-08-13] MEDS: PROTONIX 40 MG PO (09:45)
[2024-08-13] MEDS: ZYLOPRIM 100 MG PO (09:45)
[2024-08-13] MEDS: TOPROL XL 25 MG PO (09:45)
[2024-08-13] MEDS: ProAmatine PO ×3 (09:45→18:17)
[2024-08-13] MEDS: ASPIR LOW (ENTERIC COATED) 81 MG PO (09:45)
[2024-08-13] MEDS: HYDREA 1000 MG PO ×2 (09:45→20:20)
[2024-08-13] MEDS: ZOSTRIX-HP 0.075% CREAM TOPICAL ×4 (09:46→19:26)
[2024-08-13] MEDS: DESENEX/MITRAZOL/ZEASORB TOPICAL (09:46)
--- NOTE | 2024-08-13 11:01 | W.PN.HOSP.TC ---
Today's Communication/Plan
-
Blood transfusion, bone marrow Bx
Assessment / Plan
Assessment / Plan
Impression:
84-year-old woman with past medical history of diabetes, hypertension, former smoker, heart failure with preserved ejection fraction, hypothyroidism, spinal stenosis status post fusion, history of atrial fibrillation on Xarelto with history of GI
bleeding and anemia. initially admitted with abdominal pain and intractable vomiting.
Worsening kidney function required dialysis.
Kidney function recovers and improved currently off dialysis
Left-sided blurry vision, seen by both neurology and ophthalmology
Kidney function continue to improve.
Left-sided blurry vision improved.
Remove temporary HD catheter.
Hemoglobin dropped, received 1 unit of blood transfusion.
Bone marrow biopsy advised by hematology
Assessment/plan:
# MISBAH, possible contrast induced nephropathy
Suspect underlying proteinuria/ CKD IIIb
For volume overload patient later was given Lasix trial without any benefit
Limon Catheter maintained
Urine eosinophil neg. pending SPEP results. complement level normal
Renally adjusted medications
Patient got 2 rounds of hemodialysis, mon/mon, next is today
Sign of kidney recovery
08/09
improved creatinine
08/11
Sign of kidney recovery
08/12
Remove temporary HD cath
08/13
Creatinine continues to improve
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
Pancytopenia
No deficiencies of B12, folate, or iron.
No evidence of hemolysis or coagulopathy
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 Patient will need to follow as oP.
Patient started on Hydrea by onc, plt/hbg/wbc have decreased.
Follow-up with hematology commendation.
08/13
Bone marrow biopsy
Acute anemia (possible secondary to suspected AML)
Hemoglobin dropped to 6.8.
Proceed with blood transfusion
Vision changes
Complaining of left vision blurriness. 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
CT head neg for any acute issues. Family concerned
08/09
Lab patient was seen by neurology and ophthalmology.
Neurology recommending MRI brain but patient is claustrophobic and refused.
Ophthalmology recommending ESR whihc came back at 11
CRP came back at 32.10
08/12
Vision improved
Enterobacter gergoviae and Klebsiella pneumonia UTI with left pyelonephritis/ hydronephrosis
Leukemoid reaction
No clear infection source bedside urinary tract infection
Blood cultures remain negative. C. difficile negative.
Patient maintained on IV Zosyn for now
ID following and help appreciated
08/08
Currently off antibiotic
Infectious disease signed off
hypotension
Essential hypertension
Blood pressure is improved at this point
Currently on Toprol-XL/valsartan on hold
Loss of appetite due to renal failure
PRN Zofran
Aspiration precautions
# Vasovagal episode - once, no recurrence
# Hyperkalemia, resolved
TME - improved
Mentation is better today, answering questions, still fatigue and ill looking
She followed commands appropriately. Speech is normal.
Stopped sertraline
Patient evaluated by speech therapy, started on IDDSI 5 diet.
#Mild acute pneumonitis
Acute hypoxic respiratory insufficiency
Combination of pneumonitis/pulmonary congestion due to underlying renal failure possibly
ID/pulmonology help appreciated
Wean off oxygen as possible
Already covered with antibiotics for urinary infection
History of diabetes mellitus
Insulin sliding scale
Regular diet
Hemoglobin A1c 7.6
CODE STATUS: Full code
DVT prophylaxis: Heparin (will hold for ecchymosis)
Diet: Regular diet
Family communication: Discussed in the phone with the patient's daughter.
Downgrade to telemetry floor
Total time spent on today's encounter was 65 minutes which included time spent in counseling the patient/family regarding diagnosis and treatment plan as listed above, goals of care, and symptom management. Case was discussed with nursing staff,
specialists, and care coordinators/case management. All labs and imaging personally reviewed by me. Remainder the time spent in detailed review of previous records, lab data, imaging, and other medical provider documentation.
Anticipated Discharge: 24 - 48 hours
Subjective/Interval History
-
Date of Service: August 13, 2024
Patient seen and examined at bedside, son at bedside.
Dropped hemoglobin to 6.8 will proceed with blood transfusion.
Discussed with son.
For bone marrow biopsy today.
Objective Data
-
Labs:
Laboratory Results
08/13/24
05:23
WBC 34.2 H
Hgb 6.8 L*
Hct 21.3 L
Plt Count 108 L
Sodium 141
Potassium 4.2
Chloride 105
Carbon Dioxide 30
BUN 25 H
Creatinine 1.4 H
Glucose 133 H
Calcium 8.7
Vital Signs:
Vital Signs
Temp Pulse Resp BP Pulse Ox
98.2 F 86 22 132/91 98
08/13/24 07:34 08/13/24 10:00 08/13/24 08:00 08/13/24 10:00 08/13/24 10:00
I&O
08/12/24 08/13/24 08/14/24
06:59 06:59 06:59
Intake Total 300 / 300 872 / 872
Output Total 275 / 275
Balance 872 / 872
Physical Exam
-
General: Well Developed, Well Nourished, No Apparent Distress and Comfortable
HEENT: Normocephalic, Atraumatic, Moist Mucous Membranes, No Ptosis, Nose Appears Normal and Other (Right eye blindness)
Respiratory: Rales, Rhonchi and Non Labored Respirations
Cardiac: Regular Rhythm and S1/S2
Breast: Deferred by me
GI: Nondistended, Normal Bowel Sounds and Other (Ecchymosis)
Genito-urinary: No Costovertebral Tender
Musculoskeletal: No Clubbing, No Cyanosis and No Edema
Skin: Warm
Neuro: Awake, Alert and Oriented
Psych: Calm
Data Reviewed
-
Diagnostic Radiology: Image personally visualized and interpreted and Report Reviewed by me
CT Scan: Image personally visualized and interpreted and Report Reviewed by me
Ultrasound: Image personally visualized and interpreted and Report Reviewed by me
MRI: Image personally visualized and interpreted and Report Reviewed by me
Medical Tests (Nuc Med, Echo etc): Image personally visualized and interpreted and Report Reviewed by me
Labs: Labs Reviewed by me
Old Records: Reviewed
--- NOTE | 2024-08-13 11:59 | W.PN.NEPH.PH ---
Today's Communication / Plan
-
follow BMP
Assessment/Plan
-
84F Poor historian Former smoker, HX DM, HTN, , chr HFpEF, Hypothyroidism, Spinal Stenosis s/p fusion, Rt THR , HX Afib Xarelot HX GIB complicated with blood loss anemia and hemorrhagic shock ( Mar 2023) presents with left lower quadrant pain
decreased urination. She had a CAT scan showed mild right perinephric stranding left mild hydro. Urinalysis indicative of urinary tract infection. Patient states no history of urine infection. No acute or chronic NSAID use. CAT scan was
performed with IV contrast.
Renal consult with acute kidney injury on chronic kidney disease with her creatinine of 2 on consultation with baseline creatinine 1.2-1.3 labile per records with estimated EGFR of 40 at baseline.
Impression.
Acute on chronic kidney disease admitting creatinine 1.1. Creatinine of 2 on on consult.nephro OSH
Urinary tract infection/pyelonephritis with mild left hydro and perinephric stranding on the right.
History of atrial fibrillation stable.
History of GI bleed.
January 2024 CHF with preserved EF.
DM
Plan.
follow BMP
allopurinol 100mg daily
check uric acid level
BMBx pending
-
-
Date of Service: August 13, 2024
CC / HPI / ROS
-
Chief Complaint:
MISBAH with CKD
History of Present Illness:
Acute kidney injury =status post acute dialysis initiation 08/05, last HD 08/06
BP stable, no fever
Leukocytosis down to 34.2
Anemia persists
Cr down to 1.4
Review of Systems:
no cp, no shortness of breath at rest
Right IJ temporary dialysis catheter in
Labs
-
Labs:
WBC 34.2 10^3/uL (4.8-10.8) H 08/13/24 05:23
RBC 2.55 10^6/uL (4.20-5.40) L 08/13/24 05:23
Hgb 6.8 g/dL (12.0-16.0) L* 08/13/24 05:23
Hct 21.3 % (37.0-47.0) L 08/13/24 05:23
Plt Count 108 10^3/uL (130-400) L 08/13/24 05:23
Sodium 141 mmol/L (135-145) 08/13/24 05:23
Potassium 4.2 mmol/L (3.5-5.1) 08/13/24 05:23
Chloride 105 mmol/L (98-107) 08/13/24 05:23
Carbon Dioxide 30 mmol/L (22-30) 08/13/24 05:23
BUN 25 mg/dl (7-17) H 08/13/24 05:23
Creatinine 1.4 mg/dL (0.6-1.0) H 08/13/24 05:23
eGFR 36.64 08/13/24 05:23
Glucose 133 mg/dl (70-99) H 08/13/24 05:23
Calcium 8.7 mg/dl (8.4-10.2) 08/13/24 05:23
Phosphorus 3.8 mg/dl (2.5-4.5) 08/12/24 03:49
Albumin 4.0 g/dl (3.5-5.0) 07/30/24 11:01
Physical Exam
-
Vital Signs:
Vital Signs
Temp Pulse Resp BP Pulse Ox
98.3 F 78 20 112/53 100
08/13/24 11:34 08/13/24 11:34 08/13/24 11:34 08/13/24 11:34 08/13/24 11:34
Cardiovascular:: Regular rate and rhythm
Respiratory:: Bilateral: CTA
Lung Excursion:: Normal
Abdomen:: Nontender and Soft
Bowel Sounds:: Normal
Extremity Edema:: None: Bilateral:
[2024-08-13 12:23] LABS: Glucose - Point of Care 246 mg/dl (70-99)
[2024-08-13 13:55] LABS: Uric Acid < 0.5 mg/dl (2.5-6.2)
[2024-08-13] MEDS: NOVOLOG FLEXPEN-LOW RESISTANCE 2 UNITS SC ×2 (14:32→18:40)
--- NOTE | 2024-08-13 14:50 | PTCARENOTE ---
Called IR to see when bone marrow biopsy would be. They advised will be tomorrow morning 0830 AM, patient is allowed to have a light breakfast per IR. Patient and son, Ronal valerie.
[2024-08-13] MEDS: REFRESH EYE DROPS (PF) BOTH EYES (15:23)
[2024-08-13 18:46] LABS: Glucose - Point of Care 205 mg/dl (70-99)
[2024-08-13] MEDS: DESENEX/MITRAZOL/ZEASORB 1 APPLIC TOPICAL (20:20)
[2024-08-13] MEDS: LIPITOR 80 MG PO (20:21)
[2024-08-13] MEDS: MELATONIN 5 MG PO (20:21)
--- NOTE | 2024-08-13 20:41 | PTCARENOTE ---
assumed care of patient. pt is tele level of care. assigned room 428- attempted to call report, floor RN will call back. pt is AAOx3, VIEJAS, able to make needs known. a-fib on the monitor. on 2L 98%. some SOB on exertion, orthopneic at times. able to
use BSC x1 assist with RW. pt with no complaints of pain, just tired and wants to go to bed. able to take pills whole with applesauce without issues. for bone marrow biopsy in the AM. family aware of patient moving. care ongoing.
--- NOTE | 2024-08-13 22:00 | TRANSFER ---
Pt transferred from IMU to via pullover into bed. Pt is AAOx3 but forgetful and anxious. VSS, bed in lowest position, bed alarm in place. Call pro within reach.
[2024-08-13 22:31] LABS: Glucose - Point of Care 153 mg/dl (70-99)
[2024-08-14] VITALS (14 sets, daily range): BP systolic 87–177; BP diastolic 49–79; PULSE 57–89; O2SAT 97; BMI 34.6
[2024-08-14] MEDS: SYNTHROID 150 MCG PO (05:56)
[2024-08-14 07:54] LABS: Hematocrit 26.5 % (37.0-47.0); Hemoglobin 8.5 g/dL (12.0-16.0); Mean Corp Hgb Conc. 32.1 g/dL (33.0-37.0); Mean Corpuscular Hgb 27.6 pg (27.0-31.0); Mean Platelet Volume 8.8 fL (7.4-10.4); Platelet Count 92 10^3/uL (130-400); Red Blood Cell Count 3.08 10^6/uL (4.20-5.40); Red Cell Dist. Width 18.4 % (11.5-14.5); White Blood Cell Count 27.6 10^3/uL (4.8-10.8)
[2024-08-14 08:05] LABS: Blood Urea Nitrogen 26 mg/dl (7-17); Calcium 8.7 mg/dl (8.4-10.2); Carbon Dioxide 32 mmol/L (22-30); Chloride 104 mmol/L (98-107); Estimated Creatinine Clearance 23 ml/min; Glucose 127 mg/dl (70-99); Potassium 4.6 mmol/L (3.5-5.1); Sodium 142 mmol/L (135-145); eGFR 31.21
[2024-08-14] MEDS: NSS (PRESERVATIVE FREE) 0.25 ML IV (08:20)
[2024-08-14] MEDS: ATIVAN 0.5 MG IV (08:20)
--- NOTE | 2024-08-14 08:48 | W.PN.ONC2 ---
Today's Communication / Plan
-
Getting BMBx now. Suspect AML. Cont Hydrea. HgB improved s/p 1 u PRBC.
Impression
Impression
Peripheral flow with concern for acute leukemia
Leukocytosis, neutrophilia, normocytic anemia, and thrombocytopenia -No deficiencies of B12, folate, or iron -No evidence of DIC
MISBAH, started HD 08/05, no longer requiring
hyperuremia s/p rasburicase 08/05 and 08/12
gram negative UTI/pylonephritis
left hydronephrosis
gallbladder distention with enlarged gallstones in the gallbladder neck
small L pleural effusion
PNA
acute hypoxic respiratory failure
mild cardiomegaly
atrial fibrillation
Plan
Plan
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 Currently getting off floor
Her goal is to be comfortable at home but also to attend grandson's wedding in September.
Recommend:
- as outpt, weekly CBC c diff, uric acid, phos, BMP
- cont Hydrea - increased to 1000 BID 08/12
- monitor uric acid, may need to give additional doses of rasburicase as outpt to keep her from going back into renal failure
- continue allopurinol, renally dosed at 100 mg daily
- transfuse PRN Hgb <7 -ordered 1U prbc today
- Bone marrow biopsy approved and ordered
She could potentially tolerate low-dose Vidaza as outpt but does not seem receptive to the intensity of care that would be involved
Son at bedside provided updates and questions answered
Subjective/Objective
Chief Complaint
ACS F/U
Subjective
Pastient off diallo getting BMBx. Son at bedside. HgB improved from 6.8 to 8.5
Vital Signs:
Vital Signs
Temp Pulse Resp BP Pulse Ox
98.1 F 87 20 177/71 95
08/14/24 07:50 08/14/24 07:50 08/14/24 07:50 08/14/24 07:50 08/14/24 07:50
Lab Results:
Laboratory Data
WBC 27.6 10^3/uL (4.8-10.8) H 08/14/24 07:26
Hgb 8.5 g/dL (12.0-16.0) L D 08/14/24 07:26
Plt Count 92 10^3/uL (130-400) L 08/14/24 07:26
PT 17.0 Sec (11.4-14.6) H 08/02/24 03:48
INR 1.33 08/02/24 03:48
APTT 34.7 Sec (23.4-35.0) 08/02/24 03:48
eGFR 31.21 08/14/24 07:26
Physical Exam
Off floor
[2024-08-14] MEDS: HYDREA 1000 MG PO (09:58)
[2024-08-14] MEDS: TOPROL XL 25 MG PO (09:59)
[2024-08-14] MEDS: PROTONIX 40 MG PO (09:59)
[2024-08-14] MEDS: ProAmatine PO (09:59)
[2024-08-14] MEDS: ZYLOPRIM 100 MG PO (09:59)
[2024-08-14] MEDS: ASPIR LOW (ENTERIC COATED) 81 MG PO (09:59)
[2024-08-14] MEDS: REFRESH EYE DROPS (PF) 1 DROPS BOTH EYES (10:00)
[2024-08-14] MEDS: ZOLOFT 50 MG PO (10:00)
[2024-08-14] MEDS: ZOSTRIX-HP 0.075% CREAM TOPICAL ×3 (10:01→16:59)
[2024-08-14] MEDS: DESENEX/MITRAZOL/ZEASORB 1 APPLIC TOPICAL (10:03)
[2024-08-14 10:15] LABS: Glucose - Point of Care 175 mg/dl (70-99)
[2024-08-14] MEDS: NOVOLOG FLEXPEN-LOW RESISTANCE 1 UNITS SC (10:57)
--- NOTE | 2024-08-14 11:20 | W.PN.HOSP.TC ---
Today's Communication/Plan
-
Discharge to rehab once bed available
Assessment / Plan
Assessment / Plan
Impression:
84-year-old woman with past medical history of diabetes, hypertension, former smoker, heart failure with preserved ejection fraction, hypothyroidism, spinal stenosis status post fusion, history of atrial fibrillation on Xarelto with history of GI
bleeding and anemia. initially admitted with abdominal pain and intractable vomiting.
Worsening kidney function required dialysis.
Kidney function recovers and improved currently off dialysis
Left-sided blurry vision, seen by both neurology and ophthalmology
Kidney function continue to improve.
Left-sided blurry vision improved.
Remove temporary HD catheter.
Hemoglobin dropped, received 1 unit of blood transfusion.
Bone marrow biopsy advised by hematology
Status post bone marrow biopsy on 08/14
Cleared for discharge by nephrology/hematology oncology
Assessment/plan:
# MISBAH, possible contrast induced nephropathy
Suspect underlying proteinuria/ CKD IIIb
For volume overload patient later was given Lasix trial without any benefit
Limon Catheter maintained
Urine eosinophil neg. pending SPEP results. complement level normal
Renally adjusted medications
Patient got 2 rounds of hemodialysis, mon/mon, next is today
Sign of kidney recovery
08/09
improved creatinine
08/11
Sign of kidney recovery
08/12
Remove temporary HD cath
08/13
Creatinine continues to improve
08/14
Nephrology cleared to resume lasix
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
Pancytopenia
No deficiencies of B12, folate, or iron.
No evidence of hemolysis or coagulopathy
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 Patient will need to follow as oP.
Patient started on Hydrea by onc, plt/hbg/wbc have decreased.
Follow-up with hematology commendation.
08/13
Bone marrow biopsy
08/14
Will be discharged to rehab
Acute anemia (possible secondary to suspected AML)
Hemoglobin dropped to 6.8.
Proceed with blood transfusion
08/14
Hemoglobin stable
Vision changes
Complaining of left vision blurriness. 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
CT head neg for any acute issues. Family concerned
08/09
Lab patient was seen by neurology and ophthalmology.
Neurology recommending MRI brain but patient is claustrophobic and refused.
Ophthalmology recommending ESR whihc came back at 11
CRP came back at 32.10
08/12
Vision improved
Enterobacter gergoviae and Klebsiella pneumonia UTI with left pyelonephritis/ hydronephrosis
Leukemoid reaction
No clear infection source bedside urinary tract infection
Blood cultures remain negative. C. difficile negative.
Patient maintained on IV Zosyn for now
ID following and help appreciated
08/08
Currently off antibiotic
Infectious disease signed off
hypotension
Essential hypertension
Blood pressure is improved at this point
Currently on Toprol-XL/valsartan on hold
08/14
Blood pressure improved, discontinue midodrine.
Resume Lasix
Loss of appetite due to renal failure
PRN Zofran
Aspiration precautions
# Vasovagal episode - once, no recurrence
# Hyperkalemia, resolved
TME - improved
Mentation is better today, answering questions, still fatigue and ill looking
She followed commands appropriately. Speech is normal.
Stopped sertraline
Patient evaluated by speech therapy, started on IDDSI 5 diet.
#Mild acute pneumonitis
Acute hypoxic respiratory insufficiency
Combination of pneumonitis/pulmonary congestion due to underlying renal failure possibly
ID/pulmonology help appreciated
Wean off oxygen as possible
Already covered with antibiotics for urinary infection
History of diabetes mellitus
Insulin sliding scale
Regular diet
Hemoglobin A1c 7.6
CODE STATUS: Full code
DVT prophylaxis: Heparin (will hold for ecchymosis)
Diet: Regular diet
Family communication: Discussed in person with son at bedside, discussed in the phone with the patient's daughter.
Total time spent on today's encounter was 65 minutes which included time spent in counseling the patient/family regarding diagnosis and treatment plan as listed above, goals of care, and symptom management. Case was discussed with nursing staff,
specialists, and care coordinators/case management. All labs and imaging personally reviewed by me. Remainder the time spent in detailed review of previous records, lab data, imaging, and other medical provider documentation.
Anticipated Discharge: Today
Subjective/Interval History
-
Date of Service: August 14, 2024
Patient seen and examined at bedside, son at bedside, patient denies any chest pain or shortness of breath, no abdominal pain, no nausea, no vomiting, no diarrhea or constipation.
Discussed with daughter in the phone.
Objective Data
-
Labs:
Laboratory Results
08/14/24
07:26
WBC 27.6 H
Hgb 8.5 L D
Hct 26.5 L
Plt Count 92 L
Sodium 142
Potassium 4.6
Chloride 104
Carbon Dioxide 32 H
BUN 26 H
Creatinine 1.6 H
Glucose 127 H
Calcium 8.7
Vital Signs:
Vital Signs
Temp Pulse Resp BP Pulse Ox
97.6 F 97 24 146/79 94
08/14/24 09:57 08/14/24 09:57 08/14/24 09:57 08/14/24 09:57 08/14/24 09:57
I&O
08/13/24 08/14/24 08/15/24
06:59 06:59 06:59
Intake Total 872 / 872 850 / 850 50 / 50
Balance 872 / 872 850 / 850 50 / 50
Physical Exam
-
General: Well Developed, Well Nourished, No Apparent Distress and Comfortable
HEENT: Normocephalic, Atraumatic, Moist Mucous Membranes, No Ptosis, Nose Appears Normal and Other (Right eye blindness)
Respiratory: Rales, Rhonchi and Non Labored Respirations
Cardiac: Regular Rhythm and S1/S2
Breast: Deferred by me
GI: Nondistended, Normal Bowel Sounds and Other (Ecchymosis)
Genito-urinary: No Costovertebral Tender
Musculoskeletal: No Clubbing, No Cyanosis and No Edema
Skin: Warm
Neuro: Awake, Alert and Oriented
Psych: Calm
Data Reviewed
-
Diagnostic Radiology: Image personally visualized and interpreted and Report Reviewed by me
CT Scan: Image personally visualized and interpreted and Report Reviewed by me
Ultrasound: Image personally visualized and interpreted and Report Reviewed by me
MRI: Image personally visualized and interpreted and Report Reviewed by me
Medical Tests (Nuc Med, Echo etc): Image personally visualized and interpreted and Report Reviewed by me
Labs: Labs Reviewed by me
Old Records: Reviewed
--- NOTE | 2024-08-14 11:47 | CM ---
Chart reviewed and plan is for skilled placement, referral was sent to [facility] and patient has been accepted at [facility], no Auth required.
Otis Finley
Report [phone]
[2024-08-14 12:11] LABS: Glucose - Point of Care 223 mg/dl (70-99)
[2024-08-14] MEDS: NOVOLOG FLEXPEN-LOW RESISTANCE 2 UNITS SC ×2 (12:42→16:59)
--- NOTE | 2024-08-14 12:48 | W.PN.NEPH.PH ---
Today's Communication / Plan
-
Stable for discharge from nephrology standpoint
Okay to discharge on home Lasix
I would withhold ARB at this time
Potassium supplementation will have to be placed based on follow-up lab work later this week
Assessment/Plan
-
84F Poor historian Former smoker, HX DM, HTN, , chr HFpEF, Hypothyroidism, Spinal Stenosis s/p fusion, Rt THR , HX Afib Xarelot HX GIB complicated with blood loss anemia and hemorrhagic shock ( Mar 2023) presents with left lower quadrant pain
decreased urination. She had a CAT scan showed mild right perinephric stranding left mild hydro. Urinalysis indicative of urinary tract infection. Patient states no history of urine infection. No acute or chronic NSAID use. CAT scan was
performed with IV contrast.
Renal consult with acute kidney injury on chronic kidney disease with her creatinine of 2 on consultation with baseline creatinine 1.2-1.3 labile per records with estimated EGFR of 40 at baseline.
Impression.
Acute on chronic kidney disease admitting creatinine 1.1. Creatinine of 2 on on consult.nephro OSH
Urinary tract infection/pyelonephritis with mild left hydro and perinephric stranding on the right.
History of atrial fibrillation stable.
History of GI bleed.
January 2024 CHF with preserved EF.
DM
Plan.
stable for discharge
follow BMP
allopurinol 100mg daily
checked uric acid level
BMBx pending
Creatinine stable at 1.6
We can restart Lasix for discharge
Holding ARB
-
-
Date of Service: August 14, 2024
CC / HPI / ROS
-
Chief Complaint:
MISBAH with CKD
History of Present Illness:
Acute kidney injury =status post acute dialysis initiation 08/05, last HD 08/06
BP stable, no fever
Leukocytosis down to 27
Anemia persists
Cr down to 1.6
Review of Systems:
no cp, no shortness of breath at rest
Labs
-
Labs:
WBC 27.6 10^3/uL (4.8-10.8) H 08/14/24 07:26
RBC 3.08 10^6/uL (4.20-5.40) L 08/14/24 07:26
Hgb 8.5 g/dL (12.0-16.0) L D 08/14/24 07:26
Hct 26.5 % (37.0-47.0) L 08/14/24 07:26
Plt Count 92 10^3/uL (130-400) L 08/14/24 07:26
Sodium 142 mmol/L (135-145) 08/14/24 07:26
Potassium 4.6 mmol/L (3.5-5.1) 08/14/24 07:26
Chloride 104 mmol/L (98-107) 08/14/24 07:26
Carbon Dioxide 32 mmol/L (22-30) H 08/14/24 07:26
BUN 26 mg/dl (7-17) H 08/14/24 07:26
Creatinine 1.6 mg/dL (0.6-1.0) H 08/14/24 07:26
eGFR 31.21 08/14/24 07:26
Glucose 127 mg/dl (70-99) H 08/14/24 07:26
Calcium 8.7 mg/dl (8.4-10.2) 08/14/24 07:26
Phosphorus 3.8 mg/dl (2.5-4.5) 08/12/24 03:49
Albumin 4.0 g/dl (3.5-5.0) 07/30/24 11:01
Physical Exam
-
Vital Signs:
Vital Signs
Temp Pulse Resp BP Pulse Ox
98.6 F 94 24 139/58 95
08/14/24 11:00 08/14/24 11:00 08/14/24 11:00 08/14/24 11:00 08/14/24 11:00
Cardiovascular:: Regular rate and rhythm
Respiratory:: Bilateral: CTA
Lung Excursion:: Normal
Abdomen:: Nontender and Soft
Bowel Sounds:: Normal
Extremity Edema:: None: Bilateral:
--- NOTE | 2024-08-14 14:08 | W.DCSUMMARY ---
Discharge Summary
Discharge Data
Date of Admission: 07/30/24
Date of Discharge: 08/14/24
-
Pending Results: Yes
Additional Pending Results:
Bone marrow Bx pathology result
Hospital Course
Hospital course
84-year-old woman with past medical history of diabetes, hypertension, former smoker, heart failure with preserved ejection fraction, hypothyroidism, spinal stenosis status post fusion, history of atrial fibrillation on Xarelto with history of GI
bleeding and anemia. initially admitted with abdominal pain and intractable vomiting.
Worsening kidney function required dialysis.
Kidney function recovers and improved currently off dialysis
Left-sided blurry vision, seen by both neurology and ophthalmology
Kidney function continue to improve.
Left-sided blurry vision improved.
Remove temporary HD catheter.
Hemoglobin dropped, received 1 unit of blood transfusion.
Bone marrow biopsy advised by hematology
Status post bone marrow biopsy on 08/14
Cleared for discharge by nephrology/hematology oncology.
During hospitalization patient was treated from the following
MISBAH, possible contrast induced nephropathy
Suspect underlying proteinuria/ CKD IIIb
For volume overload patient later was given Lasix trial without any benefit
Limon Catheter maintained
Urine eosinophil neg. pending SPEP results. complement level normal
Renally adjusted medications
Patient got 2 rounds of hemodialysis, mon/mon, next is today
Sign of kidney recovery
08/09
improved creatinine
08/11
Sign of kidney recovery
08/12
Remove temporary HD cath
08/13
Creatinine continues to improve
08/14
Nephrology cleared to resume lasix
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
Pancytopenia
No deficiencies of B12, folate, or iron.
No evidence of hemolysis or coagulopathy
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 Patient will need to follow as oP.
Patient started on Hydrea by onc, plt/hbg/wbc have decreased.
Follow-up with hematology commendation.
08/13
Bone marrow biopsy
08/14
Will be discharged to rehab
Acute anemia (possible secondary to suspected AML)
Hemoglobin dropped to 6.8.
Proceed with blood transfusion
08/14
Hemoglobin stable
Vision changes
Complaining of left vision blurriness. 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
CT head neg for any acute issues. Family concerned
08/09
Lab patient was seen by neurology and ophthalmology.
Neurology recommending MRI brain but patient is claustrophobic and refused.
Ophthalmology recommending ESR whihc came back at 11
CRP came back at 32.10
08/12
Vision improved
Enterobacter gergoviae and Klebsiella pneumonia UTI with left pyelonephritis/ hydronephrosis
Leukemoid reaction
No clear infection source bedside urinary tract infection
Blood cultures remain negative. C. difficile negative.
Patient maintained on IV Zosyn for now
ID following and help appreciated
08/08
Currently off antibiotic
Infectious disease signed off
hypotension
Essential hypertension
Blood pressure is improved at this point
Currently on Toprol-XL/valsartan on hold
08/14
Blood pressure improved, discontinue midodrine.
Resume Lasix
Loss of appetite due to renal failure
PRN Zofran
Aspiration precautions
# Vasovagal episode - once, no recurrence
# Hyperkalemia, resolved
TME - improved
Mentation is better today, answering questions, still fatigue and ill looking
She followed commands appropriately. Speech is normal.
Stopped sertraline
Patient evaluated by speech therapy, started on IDDSI 5 diet.
#Mild acute pneumonitis
Acute hypoxic respiratory insufficiency
Combination of pneumonitis/pulmonary congestion due to underlying renal failure possibly
ID/pulmonology help appreciated
Wean off oxygen as possible
Already covered with antibiotics for urinary infection
History of diabetes mellitus
Insulin sliding scale
Regular diet
Hemoglobin A1c 7.6
CODE STATUS: Full code
DVT prophylaxis: Heparin (will hold for ecchymosis)
Diet: Regular diet
Family communication: Discussed in person with son at bedside, discussed in the phone with the patient's daughter.
Total time spent on today's encounter was 40 minutes which included time spent in counseling the patient/family regarding diagnosis and treatment plan as listed above, goals of care, and symptom management. Case was discussed with nursing staff,
specialists, and care coordinators/case management. All labs and imaging personally reviewed by me. Remainder the time spent in detailed review of previous records, lab data, imaging, and other medical provider documentation.
Anticipated Discharge: Today
Discharge Plan
-
Patient Disposition: Intermediate/SNF
Discharge Diagnosis/Procedures: Acute renal failure
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
left eye visual changes
UTI
Hypotension-now hypertensive
Diet: As tolerated
Activity: With assistance and As tolerated
Other Services: PT and OT
Specialty Instructions: Weigh Daily- Call MD for wt gain/loss 3 lbs overnight/5 lbs in 1 week
Referrals:
Pratibha Wasserman MD [Family Provider] - in one week
Mona Ibrahim MD [Active] - in one to two weeks
Jesús Collazo MD [Active] - in four to six weeks
Jan Del Rio MD [Active] - in four to six weeks
Pavithra Chavez MD [Active] - in two to three weeks
Additional Discharge Medication Instructions: Will need to repeat BMP and CBC weekly after discharge X 2
Prescriptions:
New
miconazole nitrate [Miconazorb AF] 2 % Powder
1 applic topical BID Qty: 0 0RF
hydroxyurea 500 mg Capsule
1,000 mg PO BID Qty: 0 0RF
allopurinol 100 mg Tablet
100 mg PO DAILY Qty: 0 0RF
melatonin 5 mg Tablet
5 mg PO HSPRN PRN (Reason: sleep) Qty: 0 0RF
Continued
sertraline 50 MG tablet
50 mg PO DAILY
metoprolol succinate 25 MG tablet extended release 24 hr
25 mg PO DAILY
Rx Instructions:
with 50mg =75mg
ferrous sulfate [Iron (ferrous sulfate)] 325 mg (65 mg iron) Tablet
325 mg PO DAILY
furosemide 20 MG tablet
40 mg PO DAILY
atorvastatin 40 mg tablet
80 mg PO HS
dapagliflozin propanediol [Farxiga] 10 mg tablet
10 mg PO DAILY
Systane (PF) 0.4-0.3 % Dropperette
1 drp BOTH EYES TID
multivit with min-folic acid [Multivitamin Gummies] 200 mcg Tablet,Chewable
400 tab PO DAILY
levothyroxine 150 mcg Tablet
150 mcg PO MoTuWeThFrSa@0630 30 Days Qty: 26 0RF
aspirin 81 mg Tablet,Delayed Release (Dr/Ec)
81 mg PO DAILY
acetaminophen 650 mg Tablet Extended Release
1,300 mg PO [id number] PRN (Reason: mild pain)
cholecalciferol (vitamin D3) [Vitamin D3] 25 mcg (1,000 unit) Tablet,Chewable
25 mcg PO DAILY
pantoprazole 40 MG tablet,delayed release (DR/EC)
40 mg PO DAILY
insulin lispro protamin-lispro [Humalog Mix 75-25 KwikPen] 100 unit/mL (75-25) insulin pen
10 unit SC BID
Rx Instructions:
per daughter; she states patient had recent visit to endocrine and they decreased dose
Held
valsartan 160 mg Tablet
160 mg PO DAILY
Hold Instructions: Hold until repeat blood work and until seen by nephrology
potassium chloride 10 mEq tablet extended release
10 meq PO DAILY
Hold Instructions: Hold until repeat blood work and until seen by nephrology
Discontinued
metoprolol succinate 50 MG tablet extended release 24 hr
50 mg PO BID
Rx Instructions:
with 25mg =75mg
Discharge Orders:
Discharge Patient (As Directed); Ordered 08/14/24
Ordered By: Jaret Alfred
Discharge Date and Time
Print Language: PERSIAN
[2024-08-14 16:55] LABS: Glucose - Point of Care 248 mg/dl (70-99)
[2024-08-14] MEDS: REFRESH EYE DROPS (PF) BOTH EYES (16:59)
== END 2024-08-14 18:31 | DRG 834 ==
LOC: 4 WEST ACU 14:45
PROVIDERS: Hospitalist; Internal Medicine; Internal Medicine Hematology & Oncology; Nurse Practitioner Acute Care; Nurse Practitioner Gerontology; Physician Assistant; Radiology Vascular & Interventional Radiology; Registered Nurse; Specialist; ADMITTING PHYSICIAN Internal Medicine; ATTENDING PHYSICIAN General Practice; CONSULT PHYSICIAN Internal Medicine Critical Care Medicine; CONSULT PHYSICIAN Internal Medicine Hematology & Oncology; CONSULT PHYSICIAN Psychiatry & Neurology Neurology; EMERGENCY PHYSICIAN Student in an Organized Health Care Education/Training Program; FAMILY PHYSICIAN Family Medicine; OTHER PHYSICIAN Internal Medicine Infectious Disease; OTHER PHYSICIAN Internal Medicine Nephrology; OTHER PHYSICIAN Ophthalmology
PROC: 5A1D70Z Performance of Urinary Filtration, Intermittent, Less than 6 Hours Per Day (ICD-10-PCS; 2024-08-05)
PROC: 02H633Z Insertion of Infusion Device into Right Atrium, Percutaneous Approach (ICD-10-PCS; 2024-08-05)
PROC: B5181ZA Fluoroscopy of Superior Vena Cava using Low Osmolar Contrast, Guidance (ICD-10-PCS; 2024-08-05)
PROC: 30233N1 Transfusion of Nonautologous Red Blood Cells into Peripheral Vein, Percutaneous Approach (ICD-10-PCS; 2024-08-13)
PROC: 07DR3ZX Extraction of Iliac Bone Marrow, Percutaneous Approach, Diagnostic (ICD-10-PCS; 2024-08-14)
PROC: 079T3ZX Drainage of Bone Marrow, Percutaneous Approach, Diagnostic (ICD-10-PCS; 2024-08-14)
DX: C92.00 Acute myeloblastic leukemia, not having achieved remission (principal); A41.9 Sepsis, unspecified organism; E88.3 Tumor lysis syndrome; G93.41 Metabolic encephalopathy; J18.9 Pneumonia, unspecified organism; J69.0 Pneumonitis due to inhalation of food and vomit; I50.32 Chronic diastolic (congestive) heart failure; I13.0 Hypertensive heart and chronic kidney disease with heart failure and stage 1 through stage 4 chronic kidney disease, or unspecified chronic kidney disease; J44.0 Chronic obstructive pulmonary disease with (acute) lower respiratory infection; N13.6 Pyonephrosis; I48.21 Permanent atrial fibrillation; J98.11 Atelectasis; N17.8 Other acute kidney failure; D61.818 Other pancytopenia; E11.649 Type 2 diabetes mellitus with hypoglycemia without coma; E11.65 Type 2 diabetes mellitus with hyperglycemia; E11.22 Type 2 diabetes mellitus with diabetic chronic kidney disease; E66.01 Morbid (severe) obesity due to excess calories; D69.6 Thrombocytopenia, unspecified; I95.9 Hypotension, unspecified; R63.0 Anorexia; E87.5 Hyperkalemia; N14.11 Contrast-induced nephropathy; E88.09 Other disorders of plasma-protein metabolism, not elsewhere classified; N18.32 Chronic kidney disease, stage 3b; I45.10 Unspecified right bundle-branch block; K76.0 Fatty (change of) liver, not elsewhere classified; H91.90 Unspecified hearing loss, unspecified ear; I27.20 Pulmonary hypertension, unspecified; H40.9 Unspecified glaucoma; M19.90 Unspecified osteoarthritis, unspecified site; M35.3 Polymyalgia rheumatica; E77.8 Other disorders of glycoprotein metabolism; K44.9 Diaphragmatic hernia without obstruction or gangrene; K64.8 Other hemorrhoids; B96.1 Klebsiella pneumoniae [K. pneumoniae] as the cause of diseases classified elsewhere; B96.89 Other specified bacterial agents as the cause of diseases classified elsewhere; R09.02 Hypoxemia; R06.89 Other abnormalities of breathing; E78.00 Pure hypercholesterolemia, unspecified; K80.20 Calculus of gallbladder without cholecystitis without obstruction; E03.9 Hypothyroidism, unspecified; Z96.641 Presence of right artificial hip joint; Z74.01 Bed confinement status; Z98.1 Arthrodesis status; Z86.0100 Personal history of colon polyps, unspecified; Z87.01 Personal history of pneumonia (recurrent); Z87.11 Personal history of peptic ulcer disease; Z87.891 Personal history of nicotine dependence; Z79.890 Hormone replacement therapy; Z79.82 Long term (current) use of aspirin; Z79.4 Long term (current) use of insulin; Z86.79 Personal history of other diseases of the circulatory system; Z85.828 Personal history of other malignant neoplasm of skin; Z79.01 Long term (current) use of anticoagulants; Z68.34 Body mass index [BMI] 34.0-34.9, adult
CPT/HCPCS: 88305; 88311; 88312; 36556; 38221; 70450; 71045; 71046; 74177; 76775; 76937; 77001; 77012; 80048; 80053; 81003; 81015; 81099; 82607; 82728; 82746; 82784; 82805; 82962; 83036; 83516; 83521; 83540; 83550; 83605; 83690; 83735; 84100; 84145; 84155; 84165; 84300; 84484; 84550; 85025; 85027; 85384; 85610; 85652; 85730; 86038; 86140; 86160; 86334; 86706; 86803; 86850; 86900; 86901; 86920; 87040; 87077; 87086; 87186; 87324; 87340; 87449; 87798; 88313; 92526; 92610; 93005; 96365; 96375; 97116; 97163; 97167; 97530; 97535; 99285; C1752; G0257; J2783; P9016; P9047; Q5106; Q9967

== ENCOUNTER → 2024-08-16 15:38 | Outpatient (REF) | payer OTHER, MEDICARE, SELFPAY ==
[2024-08-16 16:26] LABS: Blood Urea Nitrogen 30 mg/dl (7-17); Carbon Dioxide 28 mmol/L (22-30); Chloride 103 mmol/L (98-107); Glucose 218 mg/dl (70-99); Potassium 5.6 mmol/L (3.5-5.1); Sodium 145 mmol/L (135-145); eGFR 36.64
[2024-08-16 16:55] LABS: % Basophils 0.5 % (0-2); % Immature Granulocytes 10.2 % (0-0.5); % Lymphocytes 5.7 % (20.5-51.1); % Monocytes 11.2 % (1.7-9.3); % Neutrophils 72.4 % (42.2-75.2); Absolute Basophils 0.1 10^3/uL (0-0.2); Absolute Immature Granulocytes 2.8 10^3/uL (0-0.05); Absolute Lymphocytes 1.6 10^3/uL (1.2-3.4); Absolute Monocytes 3.1 10^3/uL (0.1-0.6); Absolute Neutrophils 20.2 10^3/uL (1.4-6.5); Hematocrit 27.2 % (37.0-47.0); Hemoglobin 8.8 g/dL (12.0-16.0); Mean Corp Hgb Conc. 32.4 g/dL (33.0-37.0); Mean Corpuscular Hgb 28.1 pg (27.0-31.0); Mean Corpuscular Volume 86.9 fL (81.0-99.0); Mean Platelet Volume 9.3 fL (7.4-10.4); Nucleated Red Blood Cells % 0.1 %; Platelet Count 109 10^3/uL (130-400); Red Blood Cell Count 3.13 10^6/uL (4.20-5.40); Red Cell Dist. Width 19.6 % (11.5-14.5); White Blood Cell Count 27.8 10^3/uL (4.8-10.8)
== END ==
LOC: OLABP 15:38
PROVIDERS: ATTENDING PHYSICIAN Family Medicine
DX: G92.8 Other toxic encephalopathy (principal); J98.4 Other disorders of lung; E11.9 Type 2 diabetes mellitus without complications; I10 Essential (primary) hypertension; I50.32 Chronic diastolic (congestive) heart failure; E03.9 Hypothyroidism, unspecified; M48.00 Spinal stenosis, site unspecified; I48.21 Permanent atrial fibrillation; N17.9 Acute kidney failure, unspecified; D63.1 Anemia in chronic kidney disease
CPT/HCPCS: 36415; 80048; 85025

== ENCOUNTER 2024-08-21 13:23 | Emergency (ER) | payer MEDICARE, SELFPAY ==
[2024-08-21] VITALS (19 sets, daily range): BP systolic 100–184; BP diastolic 58–89; BMI 33.0
--- NOTE | 2024-08-21 14:13 | ED.GENMED ---
History of Present Illness
General
Chief Complaint: Abnormal Lab Value
Source: patient
Exam Limitations: none
Time Seen by Provider: 08/21/24 13:56
Nursing documentation reviewed up to this point in time: agreed with
History of Present Illness
History of Present Illness:
84-year-old female with a past medical history of COPD, hypertension, hyperlipidemia, CHF, atrial fibrillation on Xarelto, diabetes, history of GI bleeding, hypothyroidism, chronic anemia who presents to the emergency department from [facility]; she
presents after being found to have abnormal hemoglobin on outpatient lab work. Patient unfortunately had complicated admission 07/30/2024 until 08/14/2024�was admitted for nausea, vomiting and abdominal pain and unfortunately developed renal failure
requiring dialysis; fortunately renal function recovered and dialysis catheter was removed. She also had acute on chronic anemia during her hospitalization required 1 unit of PRBCs. It was suspected that she had pancytopenia related to AML versus
CMML. She was to follow-up with hematology as an outpatient after discharge. She had repeat labs drawn this morning which showed that her hemoglobin was once again lower�6.7 this morning compared to discharge value of 8.8. Patient says that she
feels very weak. She has some nausea but no vomiting. She denies abdominal pain. She has not had any diarrhea in fact has been mildly constipated. She has not noted any blood in her stools when she goes. She has chronic dyspnea related to COPD
says it is no worse than usual. She says she is still on Xarelto reports last dose was yesterday.
Past History
Past History
ED Past Medical History: Arrthythmia (afib), COPD, HTN, IDDM, Renal failure, Psychiatric and Other (Thyroid disease, osteoarthritis, spinal stenosis status post cervical fusion, diabetes, PMR, pneumonia, polyps, stomach ulcers, frequent urination,
arthritis, lumbar spondylosis, glaucoma, appeared vision)
ED Past Surgical History: Orthopedic (Spinal fusion, right total hip replacement) and Other (Colonoscopy)
Patient has exhibited threatening behavior?: No
Social History
Tobacco: Former smoker
Alcohol: None
Drug: None
Personal:
Living: with family
Employment: Retired
Family History
Family History: Other (noncontributory)
Review of Systems
Review of Systems
All Other Systems: ROS reviewed and negative except as documented in HPI and ROS
Constitutional: Reports fatigue; Denies fever or chills
Respiratory: Reports trouble breathing (Chronic)
Cardiac: Denies chest pain, palpitations or syncope
ABD/GI: Reports nausea and constipated; Denies abdominal pain, vomiting, diarrhea, bloody stools or black stools
: Denies flank pain
Musculoskeletal: Denies neck pain or back pain
Neurological: Denies dizzy or headache
Phy Exam
Physical Exam
Physical Exam:
General: Awake, alert, chronically ill-appearing but not in acute distress
Head: Normocephalic, atraumatic
Eyes: Conjunctiva normal, sclera anicteric
Throat: Airway intact, handling secretions
Neck: Trachea midline, supple without meningismus
Lungs: Clear to auscultation bilaterally, no wheezing, rales, rhonchi
Heart: Regular rate and rhythm, no murmurs, gallops, or rubs
Abd: Soft, non distended, nontender
Rectal: Brown stool Hemoccult negative
Neuro: No gross deficits
Skin: Somewhat pale, no rash
Extremities: Warm and well-perfused
Scores
Heart Failure Risk
Heart Failure Risk Score: Not Applicable
Heart Score for Chest Pain Patients
STEMI patient?: Not applicable
Withdrawal Assessment of Alcohol
Withdrawal Assessment Completed?: Not applicable
Course
Orders/Labs/Results
Orders:
Orders
08/21/24 13:26
Electrocardiogram (*1) Urgent
Reason for Study: Shortness of Breath
EKG- Treatment ONCE
08/21/24 13:31
Type And Crossmatch [Type+Screen] Urgent
08/21/24 14:11
* Blood Bank Products Urgent
Blood Bank Products: *Packed RBC Leuko(PRBC's)
Quantity: 2
Transfuse Today: Yes
Reason: Anemia
08/21/24 14:25
Complete Blood Count/With Diff Urgent
Comprehensive Metabolic Panel Urgent
Abnormal Lab Results
08/21/24 08/21/24
13:31 14:25
WBC 19.0 H 10^3/uL
(4.8-10.8)
RBC 2.70 L 10^6/uL
(4.20-5.40)
Hgb 7.6 L g/dL
(12.0-16.0)
Hct 23.9 L %
(37.0-47.0)
MCHC 31.8 L g/dL
(33.0-37.0)
RDW 20.2 H %
(11.5-14.5)
Plt Count 74 L 10^3/uL
(130-400)
Abs Immat Gran (auto) 0.6 H 10^3/uL
(0-0.05)
Absolute Neuts (auto) 14.9 H 10^3/uL
(1.4-6.5)
Absolute Lymphs (auto) 0.8 L 10^3/uL
(1.2-3.4)
Absolute Monos (auto) 2.6 H 10^3/uL
(0.1-0.6)
Immature Gran % 3.2 H %
(0-0.5)
Neutrophils % 78.5 H %
(42.2-75.2)
Lymphocytes % 4.4 L %
(20.5-51.1)
Monocytes % 13.5 H %
(1.7-9.3)
Carbon Dioxide 32 H mmol/L
(22-30)
BUN 33 H mg/dl
(7-17)
Creatinine 1.2 H mg/dL
(0.6-1.0)
Glucose 146 H mg/dl
(70-99)
AST 13 L U/L
(14-36)
Total Protein 5.9 L g/dl
(6.3-8.2)
Albumin 3.2 L g/dl
(3.5-5.0)
Crossmatch IS Only See Detail
08/21/24 14:25
08/21/24 14:25
Vital Signs
Initial and Last Documented VS:
Initial Vital Signs
Temp Pulse Resp BP Pulse Ox
36.7 C 77 20 148/84 95
08/21/24 13:33 08/21/24 13:33 08/21/24 13:33 08/21/24 13:33 08/21/24 13:33
Last Documented Vital Signs
Temp Pulse Resp BP Pulse Ox
36.6 C 80 24 141/68 96
08/21/24 16:13 08/21/24 16:13 08/21/24 16:13 08/21/24 16:13 08/21/24 16:13
MDM/Problems Addressed
Differential Diagnosis Includes:
Anemia: GI bleeding, AML/MDS/hematologic cancer, anemia of chronic disease
MDM/Problems Addressed:
84-year-old female presents with acute on chronic anemia on follow-up lab work after recent complicated admission as described above. She has been mildly symptomatic. She is normotensive, heart rate in the 70s. She is on Xarelto but has not noted
any bleeding and is Hemoccult negative here. Will plan to repeat labs, type and screen. Transfused 2 units of PRBCs. Reassess after the above.
Repeat labs show hemoglobin is 7.6 actually increased from earlier today. Will still proceed with blood transfusion as she has some symptoms. I spoke to her daughter who was not the bedside and sounds like she had a recent bone marrow biopsy�I did
review the results and it appears to be consistent with AML. Suspect this is the etiology of her anemia. She is not bleeding, stable vital signs. I think she can be transfused and discharged to follow-up as an outpatient with oncology. Daughter
and patient are very comfortable with this. Will monitor pending transfusion.
Chronic conditions affecting care:
Chronic anemia, chronic kidney disease, atrial fibrillation, COPD
*Pulse Oximetry
Patient hypoxic: no
*EKG
Interpreted by ED Provider?: Yes
Heart Rate: 93
Rate: normal
Rhythm: a-fib
[place]: normal axis
Interval: normal interval
QRS Pattern: right bundle branch block
Ischemia: non-specific ST changes
*Critical Care Note
Total Time (30-74mins, 75-104mins- exclusive of procedures): Not Applicable
Data Reviewed
Review of Other/Old Records Reveals: Labs and Records
Source: patient, records and ambulance crew
ED Attending Note
-
Portions of this chart may have been created with voice recognition software.� Occasional wrong word or��sound alike� substitutions may have occurred due to the inherent limitations of voice recognition software.
Discharge Plan
Departure
Patient with high blood pressure during this ER visit?: Yes
Discharge Problem:
Acute on chronic anemia
Instructions: Anemia overview
Prescriptions:
No Action
sertraline 50 MG tablet
50 mg PO DAILY
metoprolol succinate 25 MG tablet extended release 24 hr
25 mg PO DAILY
Rx Instructions:
with 50mg =75mg
ferrous sulfate [Iron (ferrous sulfate)] 325 mg (65 mg iron) Tablet
325 mg PO DAILY
valsartan 160 mg Tablet
160 mg PO DAILY
furosemide 20 MG tablet
40 mg PO DAILY
atorvastatin 40 mg tablet
80 mg PO HS
potassium chloride 10 mEq tablet extended release
10 meq PO DAILY
dapagliflozin propanediol [Farxiga] 10 mg tablet
10 mg PO DAILY
Systane (PF) 0.4-0.3 % Dropperette
1 drp BOTH EYES TID
multivit with min-folic acid [Multivitamin Gummies] 200 mcg Tablet,Chewable
400 tab PO DAILY
levothyroxine 150 mcg Tablet
150 mcg PO MoTuWeThFrSa@0630 30 Days Qty: 26 0RF
aspirin 81 mg Tablet,Delayed Release (Dr/Ec)
81 mg PO DAILY
acetaminophen 650 mg Tablet Extended Release
1,300 mg PO [id number] PRN (Reason: mild pain)
cholecalciferol (vitamin D3) [Vitamin D3] 25 mcg (1,000 unit) Tablet,Chewable
25 mcg PO DAILY
pantoprazole 40 MG tablet,delayed release (DR/EC)
40 mg PO DAILY
insulin lispro protamin-lispro [Humalog Mix 75-25 KwikPen] 100 unit/mL (75-25) insulin pen
10 unit SC BID
Rx Instructions:
per daughter; she states patient had recent visit to endocrine and they decreased dose
miconazole nitrate [Miconazorb AF] 2 % Powder
1 applic topical BID Qty: 0 0RF
hydroxyurea 500 mg Capsule
1,000 mg PO BID Qty: 0 0RF
allopurinol 100 mg Tablet
100 mg PO DAILY Qty: 0 0RF
melatonin 5 mg Tablet
5 mg PO HSPRN PRN (Reason: sleep) Qty: 0 0RF
Referrals:
Mona Ibrahim MD [Active] - Call in 1-3 days for appt (Hematology/oncology)
Gela Vela DO [Family Provider] -
Activity Restrictions/Additional Instructions:
Thank you for visiting the Emergency Department at [facility].
1. Please schedule a follow up appointment as directed. Call first thing tomorrow morning to make an appointment.
2. If indicated, please take your medications as instructed and indicated on discharge paperwork.
3. If any of your symptoms do not improve, or persist, or become more severe within 6-12 hours, please return to the emergency department for further care.
4. Please return to the emergency department if you develop a headache, neck pain/stiffness, fever greater than 100.4F, chest pain, shortness of breath, persistent nausea, vomiting, slurred speech, difficulty walking, numbness/tingling, weakness,
signs of infection or any other symptoms that are worrisome to you.
Please call [phone] if you have any questions.
Interventions
Interventions:
*Risk Screen - Suicide Last Done: 08/21/24 13:33
*General Assessment Last Done: 08/21/24 13:33
*Neglect/Abuse Screening Last Done: 08/21/24 14:34
*ED COVID-19 Vaccine History Last Done: 08/21/24 13:39
Discharge Date and Time
Print Language: MALAY
[2024-08-21 14:44] LABS: % Basophils 0.3 % (0-2); % Eosinophils 0.1 % (0-6); % Immature Granulocytes 3.2 % (0-0.5); % Lymphocytes 4.4 % (20.5-51.1); % Monocytes 13.5 % (1.7-9.3); % Neutrophils 78.5 % (42.2-75.2); Absolute Basophils 0.1 10^3/uL (0-0.2); Absolute Immature Granulocytes 0.6 10^3/uL (0-0.05); Absolute Lymphocytes 0.8 10^3/uL (1.2-3.4); Absolute Monocytes 2.6 10^3/uL (0.1-0.6); Absolute Neutrophils 14.9 10^3/uL (1.4-6.5); Hematocrit 23.9 % (37.0-47.0); Hemoglobin 7.6 g/dL (12.0-16.0); Mean Corp Hgb Conc. 31.8 g/dL (33.0-37.0); Mean Corpuscular Hgb 28.1 pg (27.0-31.0); Mean Corpuscular Volume 88.5 fL (81.0-99.0); Mean Platelet Volume 9.2 fL (7.4-10.4); Nucleated Red Blood Cells % 0 %; Platelet Count 74 10^3/uL (130-400); Red Cell Dist. Width 20.2 % (11.5-14.5)
[2024-08-21 15:21] LABS: ALT (SGPT) < 10 U/L (0-35); AST (SGOT) 13 U/L (14-36); Albumin 3.2 g/dl (3.5-5.0); Alkaline Phosphatase 68 U/L (38-126); Blood Urea Nitrogen 33 mg/dl (7-17); Calcium 8.9 mg/dl (8.4-10.2); Carbon Dioxide 32 mmol/L (22-30); Chloride 102 mmol/L (98-107); Estimated Creatinine Clearance 29 ml/min; Glucose 146 mg/dl (70-99); Potassium 4.5 mmol/L (3.5-5.1); Sodium 142 mmol/L (135-145); Total Bilirubin 0.7 mg/dl (0.2-1.3); Total Protein 5.9 g/dl (6.3-8.2); eGFR 44.08
== END 2024-08-22 00:05 | disposition home or self-care (01) ==
LOC: EMR 13:23
PROVIDERS: EMERGENCY PHYSICIAN Emergency Medicine; FAMILY PHYSICIAN Family Medicine
DX: E11.22 Type 2 diabetes mellitus with diabetic chronic kidney disease (principal); D63.1 Anemia in chronic kidney disease; I13.2 Hypertensive heart and chronic kidney disease with heart failure and with stage 5 chronic kidney disease, or end stage renal disease; I50.9 Heart failure, unspecified; N18.6 End stage renal disease; Z99.2 Dependence on renal dialysis; E03.9 Hypothyroidism, unspecified; E78.5 Hyperlipidemia, unspecified; I48.91 Unspecified atrial fibrillation; J44.9 Chronic obstructive pulmonary disease, unspecified; I45.10 Unspecified right bundle-branch block; Z79.01 Long term (current) use of anticoagulants; Z79.4 Long term (current) use of insulin; Z87.891 Personal history of nicotine dependence
CPT/HCPCS: 36430; 99285; 36415; 80048; 80053; 85025; 85027; 86850; 86900; 86901; 86920; 93005; P9016

== ENCOUNTER → 2024-08-22 11:01 | Outpatient (REF) | payer OTHER, MEDICARE, SELFPAY ==
[2024-08-22 11:40] LABS: % Basophils 0.4 % (0-2); % Eosinophils 0.1 % (0-6); % Lymphocytes 3.7 % (20.5-51.1); % Monocytes 13.3 % (1.7-9.3); % Neutrophils 79.5 % (42.2-75.2); Absolute Basophils 0.1 10^3/uL (0-0.2); Absolute Immature Granulocytes 0.6 10^3/uL (0-0.05); Absolute Lymphocytes 0.7 10^3/uL (1.2-3.4); Absolute Monocytes 2.6 10^3/uL (0.1-0.6); Absolute Neutrophils 15.4 10^3/uL (1.4-6.5); Hematocrit 31.1 % (37.0-47.0); Mean Corp Hgb Conc. 32.2 g/dL (33.0-37.0); Mean Corpuscular Hgb 28.3 pg (27.0-31.0); Mean Corpuscular Volume 88.1 fL (81.0-99.0); Mean Platelet Volume 10.7 fL (7.4-10.4); Nucleated Red Blood Cells % 0.2 %; Platelet Count 74 10^3/uL (130-400); Red Blood Cell Count 3.53 10^6/uL (4.20-5.40); Red Cell Dist. Width 19.1 % (11.5-14.5); White Blood Cell Count 19.4 10^3/uL (4.8-10.8)
[2024-08-22 12:03] LABS: Blood Urea Nitrogen 29 mg/dl (7-17); Calcium 8.8 mg/dl (8.4-10.2); Carbon Dioxide 34 mmol/L (22-30); Chloride 102 mmol/L (98-107); Glucose 135 mg/dl (70-99); Potassium 4.2 mmol/L (3.5-5.1); Sodium 143 mmol/L (135-145); eGFR 48.94
== END ==
LOC: OLABP 11:01
PROVIDERS: ATTENDING PHYSICIAN Family Medicine
DX: G92.8 Other toxic encephalopathy (principal); J98.4 Other disorders of lung; E11.9 Type 2 diabetes mellitus without complications; I50.32 Chronic diastolic (congestive) heart failure; E03.9 Hypothyroidism, unspecified; M48.00 Spinal stenosis, site unspecified; I48.21 Permanent atrial fibrillation; N17.9 Acute kidney failure, unspecified; D63.1 Anemia in chronic kidney disease
CPT/HCPCS: 36415; 80048; 85025

== ENCOUNTER → 2024-08-26 10:23 | Outpatient (REF) | payer OTHER, MEDICARE, SELFPAY ==
[2024-08-26 11:34] LABS: Hematocrit 25.1 % (37.0-47.0); Hemoglobin 7.9 g/dL (12.0-16.0); Mean Corp Hgb Conc. 31.5 g/dL (33.0-37.0); Mean Corpuscular Volume 92.3 fL (81.0-99.0); Mean Platelet Volume 10.8 fL (7.4-10.4); Platelet Count 52 10^3/uL (130-400); Red Blood Cell Count 2.72 10^6/uL (4.20-5.40); Red Cell Dist. Width 20.3 % (11.5-14.5); White Blood Cell Count 7.8 10^3/uL (4.8-10.8)
[2024-08-26 13:57] LABS: Absolute Neutrophils -Man Diff 4.4 10^3/uL (1.4-6.5); Band Neutrophils 0 % (0-3); Lymphocytes 6 % (20-51); Monocytes 37 % (2-9); Normal RBC Morphology No; Nucleated Red Blood Cells 1 (-); Platelets Checked Yes; Segmented Neutrophils 57 % (42-75)
[2024-08-26 13:58] LABS: Anisocytosis 1+; Hypochromasia 1+; Polychromasia 1+; Total Cells Counted 100
== END ==
LOC: OLABP 10:23
PROVIDERS: ATTENDING PHYSICIAN Family Medicine
DX: G92.8 Other toxic encephalopathy (principal); J98.4 Other disorders of lung; I20.0 Unstable angina; I50.32 Chronic diastolic (congestive) heart failure; E03.9 Hypothyroidism, unspecified; M48.00 Spinal stenosis, site unspecified; I48.21 Permanent atrial fibrillation; N17.9 Acute kidney failure, unspecified; D63.1 Anemia in chronic kidney disease
CPT/HCPCS: 36415; 85025

== ENCOUNTER → 2024-08-27 09:08 | Outpatient (REF) | payer OTHER, MEDICARE, SELFPAY ==
[2024-08-27 09:40] LABS: Hematocrit 24.2 % (37.0-47.0); Hemoglobin 7.5 g/dL (12.0-16.0); Mean Corpuscular Volume 93.4 fL (81.0-99.0); Mean Platelet Volume 10.3 fL (7.4-10.4); Platelet Count 53 10^3/uL (130-400); Red Blood Cell Count 2.59 10^6/uL (4.20-5.40); Red Cell Dist. Width 20.7 % (11.5-14.5); White Blood Cell Count 7.6 10^3/uL (4.8-10.8)
[2024-08-27 11:43] LABS: Absolute Neutrophils -Man Diff 5.3 10^3/uL (1.4-6.5); Band Neutrophils 0 % (0-3); Lymphocytes 3 % (20-51); Monocytes 24 % (2-9); Segmented Neutrophils 70 % (42-75)
[2024-08-27 11:44] LABS: Anisocytosis 1+; Atypical Lymphocytes 2 %; Eosinophils 1 % (0-6); Hypersegmented Neutrophil 1+; Hypochromasia 1+; Macrocytosis 1+; Normal RBC Morphology No; Platelets Checked Yes; Total Cells Counted 100
== END ==
LOC: OLABP 09:08
PROVIDERS: ATTENDING PHYSICIAN Family Medicine
DX: G92.8 Other toxic encephalopathy (principal); J98.4 Other disorders of lung; E11.9 Type 2 diabetes mellitus without complications; I10 Essential (primary) hypertension; I50.32 Chronic diastolic (congestive) heart failure; E03.9 Hypothyroidism, unspecified; M48.00 Spinal stenosis, site unspecified; I48.21 Permanent atrial fibrillation; N17.9 Acute kidney failure, unspecified; D63.1 Anemia in chronic kidney disease
CPT/HCPCS: 36415; 85025

== ENCOUNTER → 2024-08-29 10:33 | Outpatient (REF) | payer OTHER, MEDICARE, SELFPAY ==
[2024-08-29 11:51] LABS: Hematocrit 22.9 % (37.0-47.0); Hemoglobin 7.1 g/dL (12.0-16.0); Mean Corpuscular Hgb 28.7 pg (27.0-31.0); Mean Corpuscular Volume 92.7 fL (81.0-99.0); Mean Platelet Volume 11.4 fL (7.4-10.4); Platelet Count 48 10^3/uL (130-400); Red Blood Cell Count 2.47 10^6/uL (4.20-5.40); White Blood Cell Count 5.3 10^3/uL (4.8-10.8)
[2024-08-29 11:52] LABS: Blood Urea Nitrogen 42 mg/dl (7-17); Carbon Dioxide 32 mmol/L (22-30); Chloride 105 mmol/L (98-107); Glucose 73 mg/dl (70-99); Potassium 4.4 mmol/L (3.5-5.1); Sodium 140 mmol/L (135-145); eGFR 33.73
[2024-08-29 12:54] LABS: Absolute Neutrophils -Man Diff 2.9 10^3/uL (1.4-6.5); Anisocytosis Slight; Band Neutrophils 0 % (0-3); Hypochromasia Slight; Lymphocytes 13 % (20-51); Microcytosis Slight; Monocytes 31 % (2-9); Normal RBC Morphology No; Platelets Checked Yes; Segmented Neutrophils 56 % (42-75); Total Cells Counted 100
== END ==
LOC: OLABP 10:33
PROVIDERS: ATTENDING PHYSICIAN Family Medicine
DX: J98.4 Other disorders of lung (principal); E11.9 Type 2 diabetes mellitus without complications; I50.32 Chronic diastolic (congestive) heart failure; E03.9 Hypothyroidism, unspecified; M48.00 Spinal stenosis, site unspecified; I48.21 Permanent atrial fibrillation; N17.9 Acute kidney failure, unspecified; D63.1 Anemia in chronic kidney disease
CPT/HCPCS: 36415; 80048; 85025

== ENCOUNTER → 2024-08-30 11:46 | Outpatient (REF) | payer OTHER, MEDICARE, SELFPAY ==
[2024-08-30 12:52] LABS: Hematocrit 24.2 % (37.0-47.0); Hemoglobin 7.6 g/dL (12.0-16.0); Mean Corp Hgb Conc. 31.4 g/dL (33.0-37.0); Mean Corpuscular Hgb 28.9 pg (27.0-31.0); Mean Platelet Volume 10.7 fL (7.4-10.4); Platelet Count 51 10^3/uL (130-400); Red Blood Cell Count 2.63 10^6/uL (4.20-5.40); Red Cell Dist. Width 21.3 % (11.5-14.5); White Blood Cell Count 5.2 10^3/uL (4.8-10.8)
[2024-08-30 13:57] LABS: Absolute Neutrophils -Man Diff 2.1 10^3/uL (1.4-6.5); Band Neutrophils 0 % (0-3); Eosinophils 2 % (0-6); Lymphocytes 8 % (20-51); Monocytes 48 % (2-9); Platelets Checked Yes; Segmented Neutrophils 42 % (42-75)
[2024-08-30 13:58] LABS: Anisocytosis 1+; Hypochromasia 1+; Normal RBC Morphology No; Ovalocytes 1+; Polychromasia 1+; Total Cells Counted 100
== END ==
LOC: OLABP 11:46
PROVIDERS: ATTENDING PHYSICIAN Family Medicine
DX: J98.4 Other disorders of lung (principal); E11.9 Type 2 diabetes mellitus without complications; I50.32 Chronic diastolic (congestive) heart failure; E03.9 Hypothyroidism, unspecified; M48.00 Spinal stenosis, site unspecified; I48.21 Permanent atrial fibrillation; N17.9 Acute kidney failure, unspecified; D63.1 Anemia in chronic kidney disease
CPT/HCPCS: 36415; 85025

== ENCOUNTER → 2024-09-03 12:26 | Outpatient (REF) | payer OTHER, MEDICARE, SELFPAY ==
[2024-09-03 13:08] LABS: Hematocrit 22.2 % (37.0-47.0); Hemoglobin 6.9 g/dL (12.0-16.0); Mean Corp Hgb Conc. 31.1 g/dL (33.0-37.0); Mean Corpuscular Hgb 29.4 pg (27.0-31.0); Mean Corpuscular Volume 94.5 fL (81.0-99.0); Mean Platelet Volume 11.3 fL (7.4-10.4); Platelet Count 43 10^3/uL (130-400); Red Blood Cell Count 2.35 10^6/uL (4.20-5.40); Red Cell Dist. Width 22.5 % (11.5-14.5); White Blood Cell Count 4.5 10^3/uL (4.8-10.8)
[2024-09-03 14:02] LABS: Absolute Neutrophils -Man Diff 1.8 10^3/uL (1.4-6.5); Band Neutrophils 0 % (0-3); Lymphocytes 7 % (20-51); Monocytes 52 % (2-9); Segmented Neutrophils 41 % (42-75)
[2024-09-03 14:03] LABS: Anisocytosis 1+; Hypochromasia Slight; Normal RBC Morphology No; Platelets Checked Yes; Polychromasia 1+; Total Cells Counted 100
== END ==
LOC: OLABP 12:26
PROVIDERS: ATTENDING PHYSICIAN Family Medicine
DX: G92.8 Other toxic encephalopathy (principal); J98.4 Other disorders of lung; E11.9 Type 2 diabetes mellitus without complications; I10 Essential (primary) hypertension; I50.32 Chronic diastolic (congestive) heart failure; E03.9 Hypothyroidism, unspecified; M48.00 Spinal stenosis, site unspecified; I48.21 Permanent atrial fibrillation; N17.9 Acute kidney failure, unspecified; D63.1 Anemia in chronic kidney disease
CPT/HCPCS: 36415; 85025

== ENCOUNTER → 2024-09-04 09:52 | Outpatient (REF) | payer OTHER, MEDICARE, SELFPAY ==
[2024-09-04 12:47] LABS: Hematocrit 25.6 % (37.0-47.0); Mean Corp Hgb Conc. 31.3 g/dL (33.0-37.0); Mean Corpuscular Hgb 29.6 pg (27.0-31.0); Mean Corpuscular Volume 94.8 fL (81.0-99.0); Mean Platelet Volume 10.7 fL (7.4-10.4); Platelet Count 49 10^3/uL (130-400); Red Cell Dist. Width 23.4 % (11.5-14.5); White Blood Cell Count 5.8 10^3/uL (4.8-10.8)
== END ==
LOC: OLABP 09:52
PROVIDERS: ATTENDING PHYSICIAN Family Medicine
DX: J98.4 Other disorders of lung (principal); E11.9 Type 2 diabetes mellitus without complications; I50.32 Chronic diastolic (congestive) heart failure; E03.9 Hypothyroidism, unspecified; M48.00 Spinal stenosis, site unspecified; I48.21 Permanent atrial fibrillation; N17.9 Acute kidney failure, unspecified; D63.1 Anemia in chronic kidney disease
CPT/HCPCS: 36415; 85027

== ENCOUNTER → 2024-09-06 09:59 | Outpatient (REF) | payer OTHER, MEDICARE, SELFPAY ==
[2024-09-06 11:30] LABS: Hematocrit 22.4 % (37.0-47.0); Hemoglobin 7.1 g/dL (12.0-16.0); Mean Corp Hgb Conc. 31.7 g/dL (33.0-37.0); Mean Corpuscular Volume 94.5 fL (81.0-99.0); Mean Platelet Volume 10.5 fL (7.4-10.4); Platelet Count 54 10^3/uL (130-400); Red Blood Cell Count 2.37 10^6/uL (4.20-5.40); Red Cell Dist. Width 23.5 % (11.5-14.5)
== END ==
LOC: OLABP 09:59
PROVIDERS: ATTENDING PHYSICIAN Family Medicine
DX: G92.8 Other toxic encephalopathy (principal); J98.4 Other disorders of lung; E11.9 Type 2 diabetes mellitus without complications; I10 Essential (primary) hypertension; I50.32 Chronic diastolic (congestive) heart failure; E03.9 Hypothyroidism, unspecified; M48.00 Spinal stenosis, site unspecified; I48.21 Permanent atrial fibrillation; N17.9 Acute kidney failure, unspecified; D63.1 Anemia in chronic kidney disease
CPT/HCPCS: 36415; 85027

== ENCOUNTER → 2024-09-07 09:45 | Outpatient (REF) | payer MEDICARE, SELFPAY | LOC: REG 09:45 | PROVIDERS: ATTENDING PHYSICIAN Internal Medicine Hematology & Oncology; FAMILY PHYSICIAN Family Medicine | DX: D50.9 Iron deficiency anemia, unspecified (principal); C93.10 Chronic myelomonocytic leukemia not having achieved remission; D63.0 Anemia in neoplastic disease | CPT/HCPCS: 36415; 86850; 86900; 86901; 86920 ==

== ENCOUNTER 2024-09-10 10:39 | Outpatient (RCR) | payer MEDICARE, SELFPAY ==
[2024-09-10] MEDS: TYLENOL 650 MG PO (11:29)
[2024-09-10 11:34] VITALS: BP 120/47
[2024-09-10 11:39] VITALS: BP 120/47
[2024-09-10 12:03] VITALS: BP 119/40
[2024-09-10 14:50] VITALS: BP 132/37
== END 2024-09-14 23:59 | disposition home or self-care (01) ==
LOC: OID 10:39
PROVIDERS: ATTENDING PHYSICIAN Internal Medicine Hematology & Oncology; FAMILY PHYSICIAN Family Medicine
DX: C93.10 Chronic myelomonocytic leukemia not having achieved remission (principal); D50.9 Iron deficiency anemia, unspecified; D63.0 Anemia in neoplastic disease
CPT/HCPCS: 36415; 36430; 86850; 86900; 86901; 86920; P9016

== ENCOUNTER → 2024-09-10 13:16 | Outpatient (REF) | payer OTHER, MEDICARE, SELFPAY ==
[2024-09-10 14:06] LABS: Hematocrit 20.8 % (37.0-47.0); Hemoglobin 6.5 g/dL (12.0-16.0); Mean Corp Hgb Conc. 31.3 g/dL (33.0-37.0); Mean Corpuscular Volume 95.9 fL (81.0-99.0); Platelet Count 61 10^3/uL (130-400); Red Blood Cell Count 2.17 10^6/uL (4.20-5.40); Red Cell Dist. Width 23.9 % (11.5-14.5); White Blood Cell Count 8.5 10^3/uL (4.8-10.8)
[2024-09-10 17:09] LABS: Absolute Neutrophils -Man Diff 4.5 10^3/uL (1.4-6.5); Band Neutrophils 0 % (0-3); Lymphocytes 13 % (20-51); Monocytes 33 % (2-9); Myelocytes 1 % (-); Segmented Neutrophils 53 % (42-75)
[2024-09-10 17:10] LABS: Anisocytosis 2+; Microcytosis 1+; Normal RBC Morphology No; Platelets Checked Yes
[2024-09-10 17:11] LABS: Hypersegmented Neutrophil 3+; Hypochromasia 1+; Macrocytosis 1+; Total Cells Counted 100
== END ==
LOC: OLABP 13:16
PROVIDERS: ATTENDING PHYSICIAN Family Medicine
DX: G92.8 Other toxic encephalopathy (principal); J98.4 Other disorders of lung; E11.9 Type 2 diabetes mellitus without complications; I50.32 Chronic diastolic (congestive) heart failure; E03.9 Hypothyroidism, unspecified; M48.00 Spinal stenosis, site unspecified; I48.21 Permanent atrial fibrillation; N17.9 Acute kidney failure, unspecified; I95.9 Hypotension, unspecified; D63.1 Anemia in chronic kidney disease; C92.00 Acute myeloblastic leukemia, not having achieved remission; J18.9 Pneumonia, unspecified organism; E27.8 Other specified disorders of adrenal gland; E78.2 Mixed hyperlipidemia; F33.9 Major depressive disorder, recurrent, unspecified; R26.2 Difficulty in walking, not elsewhere classified; K21.9 Gastro-esophageal reflux disease without esophagitis
CPT/HCPCS: 36415; 85025

== ENCOUNTER → 2024-09-17 14:49 | Outpatient (REF) | payer OTHER, MEDICARE, SELFPAY ==
[2024-09-17 16:42] LABS: Hemoglobin 7.6 g/dL (12.0-16.0); Mean Corp Hgb Conc. 30.4 g/dL (33.0-37.0); Mean Corpuscular Hgb 29.9 pg (27.0-31.0); Mean Corpuscular Volume 98.4 fL (81.0-99.0); Mean Platelet Volume 10.8 fL (7.4-10.4); Platelet Count 60 10^3/uL (130-400); Red Blood Cell Count 2.54 10^6/uL (4.20-5.40); Red Cell Dist. Width 22.9 % (11.5-14.5); White Blood Cell Count 23.1 10^3/uL (4.8-10.8)
[2024-09-17 16:49] LABS: Blood Urea Nitrogen 31 mg/dl (7-17); Carbon Dioxide 27 mmol/L (22-30); Chloride 108 mmol/L (98-107); Glucose 100 mg/dl (70-99); Potassium 4.1 mmol/L (3.5-5.1); Sodium 142 mmol/L (135-145); eGFR 48.94
[2024-09-17 17:09] LABS: Anisocytosis 2+; Microcytosis 1+; Normal RBC Morphology No; Platelets Checked Yes
[2024-09-17 17:10] LABS: Hypochromasia 1+; Macrocytosis 3+
[2024-09-17 17:11] LABS: Absolute Neutrophils -Man Diff 7.1 10^3/uL (1.4-6.5); Band Neutrophils 0 % (0-3); Lymphocytes 12 % (20-51); Metamyelocytes 2 % (-); Monocytes 54 % (2-9); Segmented Neutrophils 31 % (42-75); Total Cells Counted 100
== END ==
LOC: OLABP 14:49
PROVIDERS: ATTENDING PHYSICIAN Family Medicine
DX: G92.8 Other toxic encephalopathy (principal); J98.4 Other disorders of lung; E11.9 Type 2 diabetes mellitus without complications; I50.32 Chronic diastolic (congestive) heart failure; E03.9 Hypothyroidism, unspecified; M48.00 Spinal stenosis, site unspecified; I48.21 Permanent atrial fibrillation; N17.9 Acute kidney failure, unspecified; I95.9 Hypotension, unspecified
CPT/HCPCS: 36415; 80048; 85025

== ENCOUNTER → 2024-09-24 15:17 | Outpatient (REF) | payer OTHER, MEDICARE, SELFPAY | LOC: REG 15:17 | PROVIDERS: ATTENDING PHYSICIAN Internal Medicine Hematology & Oncology; FAMILY PHYSICIAN Family Medicine | DX: D50.9 Iron deficiency anemia, unspecified (principal); C93.10 Chronic myelomonocytic leukemia not having achieved remission; D63.0 Anemia in neoplastic disease | CPT/HCPCS: 36415; 82565; 84520; 85025; 86850; 86900; 86901 ==

== ENCOUNTER 2024-10-11 09:02 | Outpatient (RCR) | payer MEDICARE, SELFPAY ==
[2024-09-24 16:15] LABS: Blood Urea Nitrogen 28 mg/dl (7-17)
[2024-09-24 16:36] LABS: Absolute Neutrophils -Man Diff 15.4 10^3/uL (1.4-6.5); Band Neutrophils 0 % (0-3); Hematocrit 21.9 % (37.0-47.0); Hemoglobin 7.2 g/dL (12.0-16.0); Lymphocytes 5 % (20-51); Mean Corp Hgb Conc. 32.9 g/dL (33.0-37.0); Mean Corpuscular Hgb 30.8 pg (27.0-31.0); Mean Corpuscular Volume 93.6 fL (81.0-99.0); Mean Platelet Volume 9.9 fL (7.4-10.4); Platelet Count 56 10^3/uL (130-400); Red Blood Cell Count 2.34 10^6/uL (4.20-5.40); Red Cell Dist. Width 23.9 % (11.5-14.5); Segmented Neutrophils 59 % (42-75); White Blood Cell Count 26.2 10^3/uL (4.8-10.8)
[2024-09-24 16:37] LABS: Anisocytosis 2+; Macrocytosis 3+; Monocytes 36 % (2-9); Normal RBC Morphology No; Platelets Checked Yes; Polychromasia Occasional; Tear Drop Red Blood Cells 1+; Total Cells Counted 100
[2024-09-27 11:20] VITALS: BP 147/43
[2024-09-27 11:38] VITALS: BP 108/68
[2024-09-27 13:41] VITALS: BP 166/58
[2024-09-27] MEDS: LASIX 10 MG IV (14:07)
[2024-09-27 14:50] VITALS: BP 141/50
[2024-10-01 13:09] LABS: Hematocrit 24.6 % (37.0-47.0); Mean Corp Hgb Conc. 32.5 g/dL (33.0-37.0); Mean Corpuscular Hgb 30.9 pg (27.0-31.0); Mean Platelet Volume 11.3 fL (7.4-10.4); Platelet Count 51 10^3/uL (130-400); Red Blood Cell Count 2.59 10^6/uL (4.20-5.40); Red Cell Dist. Width 24.4 % (11.5-14.5)
[2024-10-01 18:36] LABS: Segmented Neutrophils 58 % (42-75)
[2024-10-01 18:37] LABS: Absolute Neutrophils -Man Diff 12.1 10^3/uL (1.4-6.5); Band Neutrophils 0 % (0-3); Eosinophils 3 % (0-6); Hypersegmented Neutrophil 4+; Lymphocytes 7 % (20-51); Monocytes 32 % (2-9); Normal RBC Morphology No; Platelets Checked Yes
[2024-10-01 18:38] LABS: Total Cells Counted 100; Vacuolated Segs 1+
[2024-10-01 18:40] LABS: Poikilocytosis Slight
[2024-10-10 14:56] LABS: Hematocrit 21.7 % (37.0-47.0); Hemoglobin 6.9 g/dL (12.0-16.0); Mean Corp Hgb Conc. 31.8 g/dL (33.0-37.0); Mean Corpuscular Hgb 31.8 pg (27.0-31.0); Mean Platelet Volume 11.2 fL (7.4-10.4); Platelet Count 26 10^3/uL (130-400); Red Blood Cell Count 2.17 10^6/uL (4.20-5.40); Red Cell Dist. Width 28.9 % (11.5-14.5); White Blood Cell Count 29.4 10^3/uL (4.8-10.8)
[2024-10-10 15:13] LABS: ALT (SGPT) 25 U/L (0-35); AST (SGOT) 21 U/L (14-36); Albumin 2.9 g/dl (3.5-5.0); Alkaline Phosphatase 77 U/L (38-126); Blood Urea Nitrogen 37 mg/dl (7-17); Calcium 8.3 mg/dl (8.4-10.2); Carbon Dioxide 24 mmol/L (22-30); Chloride 110 mmol/L (98-107); Glucose 157 mg/dl (70-99); Potassium 4.4 mmol/L (3.5-5.1); Sodium 141 mmol/L (135-145); Total Bilirubin 0.8 mg/dl (0.2-1.3); Total Protein 5.7 g/dl (6.3-8.2); eGFR 40.05
[2024-10-10 15:42] LABS: TSH 1.42 uIU/ml (0.47-4.68)
[2024-10-10 16:01] LABS: Absolute Neutrophils -Man Diff 14.4 10^3/uL (1.4-6.5); Anisocytosis 3+; Band Neutrophils 0 % (0-3); Lymphocytes 4 % (20-51); Macrocytosis 3+; Microcytosis Occasional; Monocytes 47 % (2-9); Normal RBC Morphology No; Platelets Checked Yes; Polychromasia 1+; Segmented Neutrophils 49 % (42-75); Stomatocytes 1+
[2024-10-10 16:02] LABS: Tear Drop Red Blood Cells 1+; Total Cells Counted 100
[2024-10-11 09:15] VITALS: BP 110/49
[2024-10-11 10:08] VITALS: BP 110/49
[2024-10-11 10:25] VITALS: BP 115/35
--- NOTE | 2024-10-11 12:35 | PTCARENOTE ---
924: Pt arrived to unit c/o 'not feeling well, I've been having a lot of diarrhea.' Pt assisted back to room via wheelchair, and into chair in room. Pt very short of breath from transfer which was one step to chair. vs taken were: 94% ra pox,
97.1, 24, 89, 110/49 left upper arm. Pt w/no c/o pain at present. Also stating decreased appetite despite wanting to try and eat foods. Pt then assisted to commode, voided x 1 small amount and had 1 liquid brown bm, again very short of breath,
and assisted back to chair. will continue to follow.
[2024-10-11] MEDS: LASIX 20 MG IV (12:44)
[2024-10-11 12:50] VITALS: BP 123/43
--- NOTE | 2024-10-11 14:23 | PTCARENOTE ---
Addendum entered by Kelly Jones RN 10/11/24 14:50:
note should state, tiger texted Dr. Ibrahim made aware and in agreement to give 2nd unit of blood next week.
Original Note:
1310: late entry: one unit prbc's done infusing vs: 97.6, 20, 123/43, 80, ra pox 95%, pt was given 20mg iv lasix, and had taken 40mg po lasix this morning. Pt voided x 1 approximately 100-150ml urine on bedside commode. pt offers no complaints,
will give second unit of blood on Monday, appointment made for 0830 am. Pt and daughter made aware.
[2024-10-13 04:36] LABS: Fructosamine 394 umol/L (205-285)
== END 2024-10-14 23:59 | disposition home or self-care (01) ==
LOC: OID 09:02
PROVIDERS: ATTENDING PHYSICIAN Internal Medicine Hematology & Oncology; FAMILY PHYSICIAN Family Medicine
DX: D50.9 Iron deficiency anemia, unspecified (principal); C93.10 Chronic myelomonocytic leukemia not having achieved remission; D63.0 Anemia in neoplastic disease
CPT/HCPCS: 96374; 36430; 36415; 80053; 82565; 82985; 84443; 84520; 85025; 86850; 86900; 86901; 86920; P9016

== ENCOUNTER 2024-10-13 21:09 | Inpatient (IN) | payer MEDICARE, SELFPAY ==
[2024-10-13] VITALS (15 sets, daily range): BP systolic 79–114; BP diastolic 40–70; BMI 36.8
--- NOTE | 2024-10-13 18:44 | ED.GENMED ---
History of Present Illness
General
Chief Complaint: Weakness
Time Seen by Provider: 10/13/24 18:38
History of Present Illness
History of Present Illness:
Patient is an 84-year-old female with a past medical history of COPD hypertension hyperlipidemia CHF atrial fibrillation on Xarelto, diabetes, prior GI bleeding and chronic anemia who presents to the emergency department with diarrhea and general
weakness. Symptoms have been ongoing for the past 2 to 3 days. She denies any vomiting or nausea. Denies any fevers or abdominal pain. Notes that she has chronic anemia and is scheduled to have a blood transfusion tomorrow.
Past History
Past History
ED Past Medical History: Arrthythmia (afib), COPD, HTN, IDDM, Renal failure, Psychiatric and Other (Thyroid disease, osteoarthritis, spinal stenosis status post cervical fusion, diabetes, PMR, pneumonia, polyps, stomach ulcers, frequent urination,
arthritis, lumbar spondylosis, glaucoma, appeared vision)
ED Past Surgical History: Orthopedic (Spinal fusion, right total hip replacement) and Other (Colonoscopy)
Patient has exhibited threatening behavior?: No
Social History
Tobacco: Former smoker
Alcohol: None
Drug: None
Personal:
Living: with family
Employment: Retired
Family History
Family History: Other (noncontributory)
Phy Exam
Physical Exam
Physical Exam:
GENERAL APPEARANCE: Chronically ill-appearing
EYES lids/conjunctiva normal
EARS/NOSE/THROAT Mucous membranes moist, uvula midline without oral pharyngeal erythema, exudate or swelling
HEAD/NECK normocephalic atraumatic, neck is supple.
RESPIRATORY diminished at bases
CARDIAC normal rate and irregularly irregular rhythm
ABDOMINAL Soft, ND/NT. Stool greenish in color, mildly positive on Hemoccult
MUSCLES/EXTREMITIES symmetric pitting edema to bilateral lower extremities
SKIN Warm, pink and dry. No rashes
NEUROLOGICAL Speech is clear and appropriate. Normal level of consciousness. 5/5 strength in all extremities.
PSYCH Normal mood and affect. Judgement/competence is appropriate
Sepsis
Sepsis Screening
Sepsis Assessment: Severe Sepsis
Sepsis Screening: Hypotension
Sepsis Screen
Sepsis Screen: Severe Sepsis
Date: 10/14/24
Time: 01:06
Course
Orders/Labs/Results
Orders:
Orders
10/13/24 Dinner
Clear Liquid
At Your Request: Full Participation
10/13/24 18:35
EKG [Electrocardiogram (*1)] Urgent
Reason for Study: Chest Pain
EKG- Treatment ONCE
10/13/24 18:42
C DIFF [C difficile Antigen & Toxins] Urgent
TRACIE Source: Feces/Stool
Specimen Description:
Stool Culture Urgent
TRACIE Source: Feces/Stool
Specimen Description:
10/13/24 18:48
Electrocardiogram (*1) Urgent
Reason for Study: Atrial Fibrillation
10/13/24 18:58
Type+Screen Urgent
Complete Blood Count/With Diff Urgent
Comprehensive Metabolic Panel Urgent
Lipase Urgent
Manual Differential Urgent
PTT Urgent
Prothrombin Time Urgent
10/13/24 19:03
* Blood Bank Products Urgent
Dr's Orders: 1u pRBC
Blood Bank Products: *Packed RBC Leuko(PRBC's)
Quantity: 1
Transfuse Today: Yes
Reason: Anemia
10/13/24 19:04
Pantoprazole [Protonix IV] 40 mg IV NOW STA
10/13/24 19:06
Lactate Level [Lactic Acid] Urgent
Blood Culture Q30M
TRACIE Source: Blood/Venous
Specimen Description:
10/13/24 19:59
CefTRIAXone [Rocephin] 1,000 mg IV NOW STA
MetroNIDAZOLE 500 MG/100 ML [Flagyl 500 mg] 100 ml IV ONCE
10/13/24 20:44
Sterile Water [Sterile Water For Injection] 10 ml .ROUTE .STK-MED ONE
10/13/24 20:54
Admit/Transfer Patient As Directed
Co-Sign Provider:
Level of Care: Inpatient admission
Assign to:: Telemetry
Physician / Group: dioni
Diagnosis: diarrhea
Reason for Telemetry: Arrhythmia
Date to Stop Telemetry: 10/16/24
Time to Stop Telemetry: 11:00
Reason for Hospitalization: diarrhea
Expected length of stay greater than two midnights?: Yes
ELOS- Estimated Length of Stay in days: 2
I certify the patient meets the requirements for IP care: Yes
10/13/24 20:55
Code Status As Directed
Resuscitation Status: Do not resuscitate
Reached after discussion with pt or family/Healthcare POA: Yes
DNR Bracelet Application ONCE
PRN Pain Medication Management As Directed
May give lesser potent ordered pain med per pt: Yes
preference::
Protocol:: Medication orders for pain may be administered in a
manner that supports deferring to patient preference
when the pt is:
- Requesting an ordered lesser potent pain medication.
Least to most potent pain medications are defined
as: acetaminophen < NSAID < tramadol < opioids
(morphine, oxycodone, hydromorphone).
- Requesting a lesser dose of the same medication IF
ORDERED.
- Requesting a less intrusive route of administration
if both routes are prescribed by the provider (PO <
IV).
10/13/24 21:15
0.9% Sodium Chloride 1000 ml [Nss] 1,000 ml IV 70 mls/hr
10/13/24 22:18
Blood Culture Q30M
TRACIE Source: Blood/Venous
Specimen Description:
10/13/24 22:44
Acetaminophen [Tylenol] 650 mg PO Q4HPRN PRN
Artificial Tears (Pf) [Refresh Eye Drops (Pf)] 1 drops BOTH EYES TID
Atorvastatin [Lipitor] 80 mg PO HS
Dextrose 50%-Water [Dextrose 50% Syringe] 12.5 grams IV [id number] PRN
Glucagon [GlucaGen] 1 mg IM PRN PRN
Ondansetron Injectable [Zofran] 4 mg IV Q6HPRN PRN
10/13/24 22:44
Activity As Directed
Activity Level: As Tolerated
Bedside Glucose Monitoring As Directed
Frequency: AC&HS
Additional Instructions:: Change to q6h if pt on TPN, tube feeding or not eating
Pneumatic Compression Sleeves As Directed
Type: Knee high
Vital Signs As Directed
Frequency: Per unit guidelines
DX Deep Vein Thrombosis Video Routine
10/14/24 06:00
Complete Blood Count/With Diff IN AM
Comprehensive Metabolic Panel IN AM
Glycohemoglobin (HgbA1c) IN AM
MetroNIDAZOLE 500 MG/100 ML [Flagyl 500 mg] 100 ml IV Q8H
10/14/24 06:30
Levothyroxine [Synthroid] 150 mcg PO MoTuWeThFrSa@0630
10/14/24 07:30
Insulin Aspart Corrective Low [Novolog Flexpen-Low Resistance] See Protocol SC AC
10/14/24 08:00
Allopurinol [Zyloprim] 100 mg PO DAILY
Aspirin Low Dose EC [Aspir Low (Enteric Coated)] 81 mg PO DAILY
Cholecalciferol (Vitamin D3) [VITAMIN D3 (cholecalciferol)] 50 mcg PO DAILY
Ferrous Sulfate [Feosol] 325 mg PO DAILY
Hydroxyurea [Hydrea] 1,000 mg PO BID
Multivitamin [Theragran] 1 tablet PO DAILY
Pantoprazole [Protonix] 40 mg PO DAILY
Potassium Chloride [KCl] 10 meq PO DAILY
Sertraline HCl [Zoloft] 50 mg PO DAILY
10/14/24 20:00
CefTRIAXone [Rocephin] 1,000 mg IV Q24H
10/16/24 11:00
DC Protocol for Telemetry ONCE
Abnormal Lab Results
10/13/24
18:58
WBC 50.9 H* 10^3/uL
(4.8-10.8)
RBC 2.65 L 10^6/uL
(4.20-5.40)
Hgb 8.3 L D g/dL
(12.0-16.0)
Hct 25.9 L %
(37.0-47.0)
MCH 31.3 H pg
(27.0-31.0)
MCHC 32.0 L g/dL
(33.0-37.0)
RDW 26.7 H %
(11.5-14.5)
Plt Count 34 L D 10^3/uL
(130-400)
MPV 11.3 H fL
(7.4-10.4)
Abs Neuts (Manual) 23.9 H 10^3/uL
(1.4-6.5)
Lymphocytes (Manual) 4 L %
(20-51)
Monocytes (Manual) 46 H %
(2-9)
PT 16.9 H Sec
(11.4-14.6)
Chloride 109 H mmol/L
(98-107)
BUN 55 H mg/dl
(7-17)
Creatinine 1.8 H mg/dL
(0.6-1.0)
Glucose 138 H mg/dl
(70-99)
Calcium 8.2 L mg/dl
(8.4-10.2)
ALT 44 H U/L
(0-35)
Total Protein 5.7 L g/dl
(6.3-8.2)
Albumin 2.8 L g/dl
(3.5-5.0)
Crossmatch IS Only See Detail
10/13/24 18:58
10/13/24 18:58
Vital Signs
Initial and Last Documented VS:
Initial Vital Signs
Pulse Resp
75 16
10/13/24 18:28 10/13/24 18:28
Last Documented Vital Signs
Temp Pulse Resp BP Pulse Ox
97.8 F 96 22 115/59 94
10/14/24 00:14 10/14/24 00:14 10/14/24 00:14 10/14/24 00:14 10/14/24 00:14
*Pulse Oximetry
Patient hypoxic: no
*Critical Care Note
Total Time (30-74mins, 75-104mins- exclusive of procedures): Not Applicable
Update Note
Update Note:
Patient's daughter arrived to the emergency department at this time. Patient lives with her daughter. Her daughter notes that over the past week she has been having copious amounts of watery diarrhea. Everything she eats comes right out. She has
had a couple episodes of small-volume emesis. The daughter denies any gross blood in the stools or vomit or any black tarry stools. She notes that the patient has been generally very weak and fatigued.
ED Attending Note
ED Attending Note
ED Attending Note:
hx of MDS with chronic cytopenias/leukocytosis, gets frequent blood transfusions, prior GI bleed, chronic afib (off Xarelto since most recent GI bleed), HFpEF, COPD
she presents with watery diarrhea and poor PO intake with severe fatigue for the past week
daughter notes copious amounts of diarrhea
was scheduled to have blood transfusion tomorrow for chronic anemia felt to be related to her MDS
most recently hemoglobin was 6.9 on 10/10. Today it is 8.3
on arrival she was slightly hypotensive with initial bp 90/68, now increased to 110s/40s. In rate controlled afib in the 70s
she had green stool on rectal exam with trace hemeoccult positivity
her WBC today is 50.9 which is an increase from her most recent levels in the 20s
given her initial hypotension and leukocytosis I am covering her with Ceftriaxone and flagyl (for possible Cdiff) Stool studies are still pending
also given 1u pRBC for symptomatic anemia in this cardiac/oncology patient -- holding off IVF at this time to avoid hemodilution and she has significant lower extremity edema with hx of CHF
chemistry with slight MISBAH BUN 55, creat is 1.8
given a dose of protonix IV as well for GI bleeding though this appears to be pretty slow/minimal at this time
-
Portions of this chart may have been created with voice recognition software.� Occasional wrong word or��sound alike� substitutions may have occurred due to the inherent limitations of voice recognition software.
Discharge Plan
Departure
Patient Disposition: Admit
Date of Disposition: 10/13/24
Time of Disposition: 20:10
Presentation/result/management discussed w/ accepting MD/DO: Hospitalist
Discharge Problem:
Symptomatic anemia, Diarrhea, MISBAH (acute kidney injury), GI (gastrointestinal bleed)
Interventions
Interventions:
*Risk Screen - Suicide Last Done: 10/13/24 22:52
*General Assessment Last Done: 10/13/24 22:52
*Neglect/Abuse Screening Last Done: 10/13/24 22:52
*ED- Fall Risk Assessment Last Done: 10/13/24 22:52
*ED COVID-19 Vaccine History Last Done: 10/13/24 23:34
*Nursing Disposition Last Done: 10/13/24 22:52
ED- Cardiac Assessment Last Done: 10/13/24 19:50
ED- Neurological Assessment Last Done: 10/13/24 19:50
ED- Pulmonary Assessment Last Done: 10/13/24 19:50
Discharge Date and Time
Discharge Date/Time: 10/13/24 22:54
[2024-10-13 19:25] LABS: Hematocrit 25.9 % (37.0-47.0); Hemoglobin 8.3 g/dL (12.0-16.0); INR 1.35; Mean Corp Hgb Conc. 32.0 g/dL (33.0-37.0); Mean Corpuscular Volume 97.7 fL (81.0-99.0); PT 16.9 Sec (11.4-14.6); Red Cell Dist. Width 26.7 % (11.5-14.5)
[2024-10-13 19:26] LABS: ALT (SGPT) 44 U/L (0-35); APTT 33.6 Sec (23.4-35.0); AST (SGOT) 32 U/L (14-36); Albumin 2.8 g/dl (3.5-5.0); Alkaline Phosphatase 89 U/L (38-126); Blood Urea Nitrogen 55 mg/dl (7-17); Calcium 8.2 mg/dl (8.4-10.2); Carbon Dioxide 22 mmol/L (22-30); Chloride 109 mmol/L (98-107); Glucose 138 mg/dl (70-99); Lipase 30 U/L (23-300); Potassium 4.7 mmol/L (3.5-5.1); Sodium 137 mmol/L (135-145); Total Protein 5.7 g/dl (6.3-8.2); eGFR 27.10
[2024-10-13] MEDS: PROTONIX IV 40 MG IV (19:26)
[2024-10-13 19:43] LABS: Platelet Count 34 10^3/uL (130-400)
[2024-10-13 19:50] LABS: Absolute Neutrophils -Man Diff 23.9 10^3/uL (1.4-6.5)
[2024-10-13 19:51] LABS: Anisocytosis 2+; Basophilic Stippling Slight; Hypochromasia 1+; Macrocytosis 3+; Microcytosis 1+; Normal RBC Morphology No; Platelets Checked Yes; Polychromasia Slight; Stomatocytes 1+; Total Cells Counted 100
[2024-10-13] MEDS: FLAGYL 500 MG 100 IV (20:47)
[2024-10-13] MEDS: ROCEPHIN 1000 MG IV (20:48)
--- NOTE | 2024-10-13 20:58 | HPS.HSE ---
Addendum entered and electronically signed by Barbara Gputa MD 10/13/24 21:21:
GI consulted.
Addendum entered and electronically signed by Barbara Gupta MD 10/13/24 21:08:
Held lisinopril and metoprolol due to hypotension and MISBAH.
Addendum entered and electronically signed by Barbara Gupta MD 10/13/24 21:06:
Did decide to start IV fluids due to repeat blood pressure 79/42. Patient also with MISBAH on CKD 3B with creatinine of 1.8 previously 1.3.
Original Note:
Family Physician
-
Family Physician: Pratibha Wasserman
Chief Complaint
-
diarrhea
History of Present Illness
84-year-old female past medical history of chronic myelomonocytic leukemia, COPD, diabetes, hypertension, former smoker, chronic HFpEF, hypothyroidism, spinal stenosis status post fusion, atrial fibrillation on Xarelto, GI bleeding, chronic anemia,
presenting for watery brown diarrhea for the past week. She has had 2-3 episodes of diarrhea per day. No blood in the stool or black stool although daughter notes that her rectal region is raw has noticed some blood externally.. Has some nausea
and intolerance to p.o. diet. Denies vomiting. No fevers or chills. She has generalized weakness. No abdominal pain.
She has also recently been shortness of breath attributed to anemia.
She was hospitalized in July for abdominal pain and intractable vomiting. She had worsening kidney function requiring temporary dialysis. 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
Medical History
Past Medical History
Past Medical History: Reports Other ( chronic myelomonocytic leukemia, COPD, diabetes, hypertension, former smoker, chronic HFpEF, hypothyroidism, spinal stenosis status post fusion, atrial fibrillation on Xarelto, GI bleeding, chronic anemia)
Past Surgical History: Reports Other ((Spinal fusion, right total hip replacement) and Other (Colonoscopy))
Social History
Tobacco: Non-smoker
Alcohol: None
Drug: None
Family History
Family History: Not pertinent
Allergies / Home Medications
Allergies reflects when Allergies were last updated in [facility].
Home Medications with original date entered in [facility]
Allergy/Medication List:
Allergies
Allergy/AdvReac Type Severity Reaction Status Date / Time
No Known Allergies Allergy Verified 10/11/24 09:52
Home Medications
sertraline 50 mg tablet 50 mg PO DAILY Depression 10/12/17
metoprolol succinate 25 mg tablet,extended release 24 hr 75 mg PO DAILY Blood pressure 12/13/19
atorvastatin 40 mg tablet 80 mg PO HS High cholesterol 09/01/22
ferrous sulfate 325 mg (65 mg iron) tablet (Iron (ferrous sulfate)) 325 mg PO DAILY Supplement 09/01/22
furosemide 20 mg tablet 40 mg PO DAILY Fluid retention/Swelling 09/01/22
dapagliflozin propanediol 10 mg tablet (Farxiga) 10 mg PO DAILY Diabetes 03/04/23
multivitamin with minerals-folic acid 200 mcg chewable tablet (Multivitamin Gummies) 400 tab PO DAILY Supplement 03/19/23
peg 400-propylene glycol (PF) 0.4 %-0.3 % eye drops in a dropperette (Systane (PF)) 1 drp BOTH EYES TID Eye Condition 03/19/23
levothyroxine 150 mcg tablet 150 mcg PO MoTuWeThFrSa@0630 30 days #26 tabs 03/29/23
acetaminophen 650 mg tablet,extended release 1,300 mg PO HSPRN PRN mild pain 07/30/24
aspirin 81 mg tablet,delayed release 81 mg PO DAILY Blood Clot Prevention/Tx 07/30/24
cholecalciferol (vitamin D3) 25 mcg (1,000 unit) chewable tablet (Vitamin D3) 50 mcg PO DAILY Supplement 07/30/24
insulin lispro protamine-lispro 100 unit/mL (75-25) subcutaneous pen (Humalog Mix 75-25 KwikPen) 6 unit SC BID Diabetes 07/30/24
pantoprazole 40 mg tablet,delayed release 40 mg PO DAILY Gastrointestinal issue 07/30/24
allopurinol 100 mg tablet 100 mg PO DAILY #0 tabs 08/14/24
hydroxyurea 500 mg capsule 1,000 mg PO BID 09/10/24
lisinopril 5 mg tablet 5 mg PO QPM 09/10/24
potassium chloride 10 mEq tablet,extended release 10 meq PO DAILY 10/13/24
Review of Systems
-
History Source: Patient
A 12 point ROS was completed and negative except as noted: Yes
Constitutional: Reports No Symptoms
EENT: Reports No Symptoms
Respiratory: Reports No Symptoms
Cardiac: Reports No Symptoms
Abdomen/GI: Reports See HPI
: Reports No Symptoms
Musculoskeletal: Reports No Symptoms
Skin: Reports No Symptoms
Neurological: Reports No Symptoms
Endocrine: Reports No Symptoms
Hematologic/Lymphatic: Reports No Symptoms
Psych: Reports No Symptoms
Physical Exam
Vital Signs
Vital Signs
Pulse Resp BP Pulse Ox
84 16 114/40 93
10/13/24 20:15 10/13/24 20:15 10/13/24 20:00 10/13/24 20:00
Physical Exam
General: Well Developed, Well Nourished and No Apparent Distress
HEENT: NormoCephalic, Moist mucous membranes and Atraumatic
Respiratory: Clear
Cardiac: S1/S2 and Regular Rhythm; No Murmur or Rub
GI: Soft, Non Distended, Normal Bowel Sounds and Tender (RLQ ); No Organomegaly
Rectal: Deferred by Provider
Musculoskeletal: No Clubbing, No Cyanosis and No Edema
Skin: No Rash
Neuro: Nonfocal/grossly intact
Laboratory Results
-
10/13/24 18:58
10/13/24 18:58
Laboratory Results
PT 16.9 Sec (11.4-14.6) H 10/13/24 18:58
INR 1.35 10/13/24 18:58
APTT 33.6 Sec (23.4-35.0) 10/13/24 18:58
Lactic Acid 1.0 mmol/L (0.7-2.0) 10/13/24 19:06
Total Bilirubin 0.8 mg/dl (0.2-1.3) 10/13/24 18:58
AST 32 U/L (14-36) 10/13/24 18:58
ALT 44 U/L (0-35) H 10/13/24 18:58
Alkaline Phosphatase 89 U/L (38-126) 10/13/24 18:58
Lipase 30 U/L (23-300) 10/13/24 18:58
Data Reviewed
-
Lab Data: Labs Reviewed by me
Old Records: Reviewed
Impression/Plan
-
IMPRESSION:
PLAN:
# Acute watery diarrhea secondary to likely viral gastroenteritis/colitis in immunocompromised patient
-Leukocytosis likely reactive
-Stool mildly heme positive but no florencio bleeding
- Blood cultures pending
- Norovirus, C. difficile, negative
- Stool culture pending
-Ceftriaxone/Flagyl
-Probiotic
- Clear liquid diet, advance as tolerated
-Hold off IV fluids due to CHF history, edema
- Could also be secondary to CMML involvement of GI tract rather than infection
-oncology did not feel this is related to hydrea
-consider GI if no improvement
# Chronic symptomatic anemia secondary to chronic myelomonocytic leukemia/iron deficiency anemia
- Hemoglobin 8.3
- 1 unit of blood transfusion
- Continue iron supplement
- Being treated with Aranesp injection
- No florencio bleeding and would not be candidate for EGD or colonoscopy anyway due to thrombocytopenia
-Oncology consulted
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
- Platelets of 34, have trended down since July
CMML
- Continue hydroxyurea
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
- Continue allopurinol
History of GI bleeding
- Continue Protonix
- Had GI bleeding 2 years ago and was seen by GI and recommended small bowel enteroscopy
COPD
Type 2 diabetes
- Insulin sliding scale
- Hold dapagliflozin
Essential hypertension
- Continue lisinopril
Chronic HFpEF
- Hold Lasix
- Continue aspirin
Atrial fibrillation
- Continue metoprolol
-not on anticoagulation, refused Watchmen previously
Former smoker
Fibrosis status post fusion
Right eye chronic vision loss
History of pneumonitis
History of Enterobacter UTI
Anxiety/depression
- Continue sertraline
Hypothyroidism
- Continue levothyroxine
Hypercholesterolemia
- Continue statin
DNR/DNI
DVT prophylaxis�SCDs
Clear liquid diet
--- NOTE | 2024-10-13 22:45 | PTCARENOTE ---
Pt arrived onto floor @2245. Pt AAOx3 and a wire puller to the bed. Pt with no complaints of pain or SOB at this time. Pt oriented to room and call pro; will continue to monitor
[2024-10-13] MEDS: LIPITOR 80 MG PO (23:49)
[2024-10-13] MEDS: REFRESH EYE DROPS (PF) 1 DROPS BOTH EYES (23:49)
[2024-10-13] MEDS: TYLENOL 650 MG PO (23:51)
[2024-10-14] VITALS (7 sets, daily range): BP systolic 103–122; BP diastolic 41–64; BMI 33.6
[2024-10-14] MEDS: NSS 1000 IV (00:03)
[2024-10-14] MEDS: FLAGYL 500 MG 100 IV ×3 (05:26→21:13)
[2024-10-14] MEDS: SYNTHROID 150 MCG PO (05:27)
--- NOTE | 2024-10-14 07:28 | CON.ONC ---
Consultation
-
Date Consultation Requested: 10/13/24
Date Consultation Performed: 10/14/24
Requesting Provider: Dr. Jimenez
Performing Provider: Mona Jara
Reason for Consultation: CMML
Impression
Impression
Intractable diarrhea
CMML-2
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
COPD
Diabetes
Hypertension
CHF
Hypothyroidism
Afib on Xarelto
Hx GIB
Spinal stenosis s/p fusion
Plan
Plan
Pt needs to continue Hydrea if possible due to known CMML. She previously tolerated the current dose during hospitalization and initially after hospital d/c with near-normalization of kidney function.
Etiology of renal failure was unclear during hospitalization, initially looked like contrast nephropathy. Some labs were consistent with tumor lysis and pt got rasburicase and dialysis, but kidney function then continued to improved on Hydrea.
Uric acid, phos, LDH now.
She is on Aranesp as outpt for anemia in MDS.
Now admitted with diarrhea and intolerance of PO's.
Ordered stool cultures.
Agree with GI consult.
Pulse ox 92%, ordered PA & lateral CXR.
Please consult Renal for renal insufficiency.
Cardiology consult for known CHF
Thank you for consult, will follow along with you.
Patient History
History of Present Illness
84-year-old patient well-known to me from the outpatient setting for diagnosis of CMML complicated by renal failure suspected to have been due to lysozyme-associated nephropathy +/- IV contrast. Bone marrow biopsy performed August 14 showed CMML-2.
She was started on Hydrea 1000 mg twice a day and initially did well with normalization of counts and kidney function. When seen in the office on September 06, white count was normal at 4.5, but hemoglobin was 6.9, platelets 43K. Cr was 1.1. She was
started on Aranesp and Hydrea was decreased to 500 mg in the morning and 1000 mg in the evening. She was seen in the office on October 10 with complaints of malaise and weakness. She was found to have Cr 1.3, WBC 29.4, Hgb 6.9, and platelets of 26K.
Hydrea was increased back to her 1000 mg twice daily, And she was transfused 1 unit of packed red blood cells on . She has a history of CHF and was not felt to be able to tolerate a second unit that day. Rescheduled for transfusion of a second
unit on 10/14. Over the weekend she developed nausea, intolerance of p.o.'s, and severe diarrhea. Case was discussed with patient's daughter and she was directed to the ED.
Labs in the ER were notable for WBC 50.9, Hgb 8.3, PLT 34, monocytes 46%. Creatinine was 1.8. She does not have circulating blasts. Goals of care were discussed at length during previous hospitalization with patient and family opting for
treatment. She got another unit of blood in the ED overnight. Pulse ox 92% today in setting of known CHF. Cr up to 2.1 this morning.
Past-Medical/Surgical History
PMHx:
chronic myelomonocytic leukemia-2, COPD, diabetes, hypertension, former smoker, chronic HFpEF, hypothyroidism, spinal stenosis status post fusion, atrial fibrillation on Xarelto, GI bleeding, chronic anemia
PSHx:
Spinal fusion, right total hip replacement, bone marrow biopsy
Social History
Tobacco: Non-smoker
Alcohol: None
Drug: None
Social: Currently in rehab
Family History
Family History: Not pertinent
Patient Medication
�Medication �Instructions �Recorded �Confirmed �Last Taken �Type
sertraline 50 mg tablet 50 mg PO DAILY Depression 10/12/17 10/13/24 10/13/24 History
metoprolol succinate 25 mg 75 mg PO DAILY Blood pressure 12/13/19 10/13/24 10/13/24 History
tablet,extended release 24 hr
atorvastatin 40 mg tablet 80 mg PO HS High cholesterol 09/01/22 10/13/24 10/12/24 History
ferrous sulfate 325 mg (65 mg 325 mg PO DAILY Supplement 09/01/22 10/13/24 10/13/24 History
iron) tablet (Iron (ferrous
sulfate))
furosemide 20 mg tablet 40 mg PO DAILY Fluid 09/01/22 10/13/24 10/13/24 History
retention/Swelling
dapagliflozin propanediol 10 mg 10 mg PO DAILY Diabetes 03/04/23 10/13/24 10/13/24 History
tablet (Farxiga)
multivitamin with minerals-folic 400 tab PO DAILY Supplement 03/19/23 10/13/24 10/13/24 History
acid 200 mcg chewable tablet
(Multivitamin Gummies)
peg 400-propylene glycol (PF) 0.4 1 drp BOTH EYES TID Eye Condition 03/19/23 10/13/24 10/13/24 History
%-0.3 % eye drops in a dropperette
(Systane (PF))
levothyroxine 150 mcg tablet 150 mcg PO MoTuWeThFrSa@0630 30 03/29/23 10/13/24 10/12/24 Rx
days #26 tabs
acetaminophen 650 mg 1,300 mg PO HSPRN PRN mild pain 07/30/24 10/13/24 10/12/24 History
tablet,extended release
aspirin 81 mg tablet,delayed 81 mg PO DAILY Blood Clot 07/30/24 10/13/24 10/13/24 History
release Prevention/Tx
cholecalciferol (vitamin D3) 25 50 mcg PO DAILY Supplement 07/30/24 10/13/24 10/13/24 History
mcg (1,000 unit) chewable tablet
(Vitamin D3)
insulin lispro protamine-lispro 6 unit SC BID Diabetes 07/30/24 10/13/24 10/10/24 History
100 unit/mL (75-25) subcutaneous
pen (Humalog Mix 75-25 KwikPen)
pantoprazole 40 mg tablet,delayed 40 mg PO DAILY Gastrointestinal 07/30/24 10/13/24 10/13/24 History
release issue
allopurinol 100 mg tablet 100 mg PO DAILY #0 tabs 08/14/24 10/13/24 10/13/24 Rx
hydroxyurea 500 mg capsule 1,000 mg PO BID 09/10/24 10/13/24 10/12/24 History
lisinopril 5 mg tablet 5 mg PO QPM 09/10/24 10/13/24 10/12/24 History
potassium chloride 10 mEq 10 meq PO DAILY 10/13/24 10/13/24 10/13/24 History
tablet,extended release
Active Medications
Generic Name Dose Route Start Last Admin
Trade Name Freq PRN Reason Stop Dose Admin
Acetaminophen 650 mg 10/13/24 22:44 10/13/24 23:51
Acetaminophen 325 Mg Tablet PO 11/10/24 22:43 650 mg
Q4HPRN PRN Administration
mild pain/CARLOS/temp> 100.4F
Allopurinol 100 mg 10/14/24 08:00
Allopurinol 100 Mg Tablet PO 11/11/24 07:59
DAILY DEVIN
Artificial Tears 1 drops 10/13/24 22:44 10/13/24 23:49
Artificial Tears Pf (Refresh) 10 Drop Droperette BOTH EYES 11/10/24 22:43 1 drops
TID DEVIN Administration
Aspirin 81 mg 10/14/24 08:00
Aspirin 81 Mg (Enteric Coated) Tablet PO 11/11/24 07:59
DAILY DEVIN
Atorvastatin Calcium 80 mg 10/13/24 22:44 10/13/24 23:49
Atorvastatin (Lipitor) 40 Mg Tablet PO 11/10/24 22:43 80 mg
HS DEVIN Administration
Ceftriaxone Sodium 1,000 mg 10/14/24 20:00
Ceftriaxone 1000 Mg / 10 Ml Vial IV
Q24H DEVIN
Cholecalciferol 50 mcg 10/14/24 08:00
Cholecalciferol (Vitamin D3) 25 Mcg Tablet (1,000 Units) PO 11/11/24 07:59
DAILY DEVIN
Dextrose 12.5 grams 10/13/24 22:44
Dextrose 50% (0.5 Grams/Ml) 50 Ml Syringe IV 11/10/24 22:43
[id number] PRN
hypoglycemia
Protocol
Ferrous Sulfate 325 mg 10/14/24 08:00
Ferrous Sulfate 325 Mg Tablet PO 11/11/24 07:59
DAILY DEVIN
Glucagon 1 mg 10/13/24 22:44
Glucagon 1 Mg Vial IM 11/10/24 22:43
PRN PRN
hypoglycemia
Protocol
Hydroxyurea 1,000 mg 10/14/24 08:00
Hydroxyurea 500 Mg Capsule PO 11/11/24 07:59
BID DEVIN
Sodium Chloride 1,000 mls @ 70 mls/hr 10/13/24 21:15 10/14/24 00:03
Nss IV 1,000 mls
.[id number] DEVIN Administration
Metronidazole 100 mls @ 100 mls/hr 10/14/24 06:00 10/14/24 05:26
Flagyl 500 Mg IV 100 mls
Q8H DEVIN Administration
Insulin Aspart 0 units 10/14/24 07:30
Insulin Aspart Low Resistance 300 Units/3 Ml Pen.Injctr SC 11/11/24 07:29
AC DEVIN
Protocol
Lactobacillus/Bifidobacterium 1 cap 10/14/24 08:00
Lactobac/Bifidobac (Visbiome) PO 11/11/24 07:59
DAILY DEVIN
Levothyroxine Sodium 150 mcg 10/14/24 06:30 10/14/24 05:27
Levothyroxine 150 Mcg Tablet PO 11/11/24 06:29 150 mcg
MoTuWeThFrSa@0630 DEVIN Administration
Multivitamins Therapeutic 1 tablet 10/14/24 08:00
Multivitamin Tablet PO 11/11/24 07:59
DAILY DEVIN
Ondansetron HCl 4 mg 10/13/24 22:44
Ondansetron 4 Mg/2 Ml Vial IV 11/10/24 22:43
Q6HPRN PRN
nausea and vomiting
Pantoprazole Sodium 40 mg 10/14/24 08:00
Pantoprazole 40 Mg Delayed Release Tablet PO 11/11/24 07:59
DAILY DEVIN
Potassium Chloride 10 meq 10/14/24 08:00
Potassium Chloride 10 Meq Extended Release Tablet PO 11/11/24 07:59
DAILY DEVIN
Sertraline HCl 50 mg 10/14/24 08:00
Sertraline 50 Mg Tablet PO 11/11/24 07:59
DAILY DEVIN
Sodium Chloride 0 flush 10/13/24 22:00
Sodium Chloride 0.9% (Flush) Syringe IV 11/10/24 21:59
PER PROTOCOL DEVIN
Review of Systems
-
History Source: Patient and Family
All Other Systems: Reviewed and Negative
Constitutional: Reports Weight Gain, No Appetite and Fatigue
Respiratory: Reports Trouble Breathing; Denies Cough or Hemoptysis
Cardiac: Denies Chest Pain
GI: Reports Nausea and Diarrhea
Musculoskeletal: Reports No Symptoms
Skin: Reports No Symptoms
Neuro: Reports No Symptoms
Endocrine: Reports No Symptoms
Hematologic/Lymphatic: Reports No Symptoms
Allergy / Immunology: Reports No Symptoms
Psych: Reports Anxious
Physical Exam
-
General: Well Developed, Well Nourished and Other (pale)
HEENT: Moist Mucous Membranes; Negative Jaundice
Cardiology: Normal Sinus Rhythm, S1 and S2
Pulmonary: Other (decreased anteriorly)
GI: Soft and Normal Bowel Sounds
Musculoskeletal: No Clubbing, No Cyanosis and No Edema
Extremities: No C/C/E
Neurology: Non Focal
Skin: Warm and Dry
Hematologic / Lymphatic: No Lymphadenopathy
Psych: Anxious
Labs
Lab Results
WBC 50.9 10^3/uL (4.8-10.8) H* 10/13/24 18:58
RBC 2.65 10^6/uL (4.20-5.40) L 10/13/24 18:58
Hgb 8.3 g/dL (12.0-16.0) L D 10/13/24 18:58
Hct 25.9 % (37.0-47.0) L 10/13/24 18:58
MCV 97.7 fL (81.0-99.0) 10/13/24 18:58
MCH 31.3 pg (27.0-31.0) H 10/13/24 18:58
MCHC 32.0 g/dL (33.0-37.0) L 10/13/24 18:58
RDW 26.7 % (11.5-14.5) H 10/13/24 18:58
Plt Count 34 10^3/uL (130-400) L D 10/13/24 18:58
MPV 11.3 fL (7.4-10.4) H 10/13/24 18:58
Creatinine 1.8 mg/dL (0.6-1.0) H 10/13/24 18:58
Vital Signs
Vital Signs
Temp Pulse Resp BP Pulse Ox
97.8 F 87 18 103/64 92
10/14/24 02:47 10/14/24 02:47 10/14/24 02:47 10/14/24 02:47 10/14/24 02:47
[2024-10-14 08:11] LABS: Glucose - Point of Care 95 mg/dl (70-99)
[2024-10-14 08:31] LABS: Hematocrit 26.9 % (37.0-47.0); Hemoglobin 8.7 g/dL (12.0-16.0); Mean Corp Hgb Conc. 32.3 g/dL (33.0-37.0); Mean Corpuscular Volume 95.7 fL (81.0-99.0); Red Cell Dist. Width 24.6 % (11.5-14.5)
[2024-10-14 08:40] LABS: Glycohemoglobin (HgbA1c) 5.8 % (4.0-5.6)
[2024-10-14 09:07] LABS: ALT (SGPT) 38 U/L (0-35); AST (SGOT) 26 U/L (14-36); Albumin 2.3 g/dl (3.5-5.0); Alkaline Phosphatase 76 U/L (38-126); Blood Urea Nitrogen 53 mg/dl (7-17); Calcium 7.7 mg/dl (8.4-10.2); Carbon Dioxide 20 mmol/L (22-30); Chloride 111 mmol/L (98-107); Estimated Creatinine Clearance 17 ml/min; Glucose 80 mg/dl (70-99); Potassium 4.4 mmol/L (3.5-5.1); Sodium 137 mmol/L (135-145); Total Protein 4.9 g/dl (6.3-8.2); eGFR 22.52
[2024-10-14 09:12] LABS: LDH 253 U/L (120-246); Uric Acid 8.6 mg/dl (2.5-6.2)
--- NOTE | 2024-10-14 09:16 | VNURNOTE ---
Chart reviewed. Patient is current with VN. Will continue to follow hospital course and DC plans.
[2024-10-14 09:25] LABS: Absolute Neutrophils -Man Diff 20.7 10^3/uL (1.4-6.5); Normal RBC Morphology No; Platelet Count 28 10^3/uL (130-400); Platelets Checked Yes
[2024-10-14 09:26] LABS: Anisocytosis 1+; Hypersegmented Neutrophil 2+; Ovalocytes 1+; Tear Drop Red Blood Cells 1+
[2024-10-14 09:27] LABS: Total Cells Counted 100
--- NOTE | 2024-10-14 09:46 | PTCARENOTE ---
Patient waiting for breakfast tray that was ordered by PCT. Patient expresses that she wishes to wait to take oral medication with breakfast.
[2024-10-14 11:33] LABS: Glucose - Point of Care 89 mg/dl (70-99)
--- NOTE | 2024-10-14 12:33 | WOUNDNOTE ---
R UPPER BUTTOCK NEAR SACRUM
--- NOTE | 2024-10-14 12:34 | CON.GI ---
Addendum entered and electronically signed by Clarke Fam MD 10/14/24 15:27:
Patient seen and examined, agree with nurse practitioner note. The patient is an 84-year-old female with complicated past medical history as noted who presents with decreased appetite and diarrhea. She was recently diagnosed , CMML-2, started on
hydroxyurea in the last several months with with also recent acute kidney injury. She was also started on allopurinol, and for the past 4 days has noted watery diarrhea. She denies any significant associated bloody diarrhea, abdominal pain,
vomiting. Her appetite is admittedly low. Since being in the hospital she has received IV fluids and antibiotics and feels much better overall. She has had no significant diarrhea since being in the hospital. Stool studies currently negative.
On exam she has no significant abdominal tenderness.
1. Diarrhea: Acute, likely multifactorial, possibly medication related as can be seen with allopurinol, though also likely related to recent acute kidney injury, uremia. Stool studies currently negative, and encouraging that she has not had any
significant diarrhea further today, and her exam is benign. At this point will await further stool studies as ordered, continue supportive care. Okay for Imodium given C. difficile negative. She is overall feeling better, with more energy and
better appetite since IV fluids.
Original Note:
Consultation
-
Date/Time Consultation Requested: 10/13/24 0174
Date/Time Consultation Performed: 10/14/24 1235
Requesting Provider: Dr. Gupta
Performing Provider: Dr. Celis/Poonam Pritchett
Reason for Consultation: diarrhea/CML
Medical History
Chief Complaint / HPI
Chief Complaint: weakness
History of Present Illness:
84 year-old female with history of A-fib, COPD, hypertension, hyperlipidemia, HFpEF, hypothyroidism, Chronic anemia with prior history of GI bleeding (with significant workup in the past including EGD, colonoscopy and video capsule endoscopy. Last
video capsule 2018 incomplete because he got stuck in duodenal diverticulum.), diabetes, admitted in July with abdominal pain and intractable vomiting. 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
associated nephropathy plus or minus IV contrast. 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 Treated with Aranesp and transfusions as an
outpatient. The patient has had recent poor p.o. intake then began having multiple episodes of loose stool/diarrhea with weakness prompting her to come to the emergency room for further evaluation. We are asked to evaluate for the same. The
daughter states that other than Hydrea the only other medication that which she was started on that is recent is allopurinol. She states that her bowel movements have been good up until approximately 4 days ago when she started having multiple
bowel movements a day. She that she started having approximately 2 bowel movements and then a was multiple bowel movements a day that were loose/diarrhea. Approximately 4 times daily. She has had poor p.o. intake for a couple weeks. Decreased
appetite. The past couple days anytime she would put anything into her mouth she would have immediate onset of diarrhea without any abdominal discomfort. She denies any spoiled food. No sick contacts. Currently WBC 35.2 down from 50.9,
hemoglobin 8.7, hematocrit 26.9, platelets 28, PT 16.9, INR 1.35, sodium 137, potassium 4.4, chloride 111, CO2 20, BUN 53, creatinine 2.1, glucose 80, total bilirubin 0.6, AST 26, ALT 38, alk phos 76, LDH 253, albumin 2.3, lipase 30. C. difficile
negative. Norovirus negative. Stool culture pending.
Past Medical History
Past Medical History: Other (Atrial fibrillation, hypertension, diabetes, spinal stenosis, hyperlipidemia, HFpEF, chronic anemia, MISBAH with need for temporary dialysis, CMML, COPD,, hypothyroidism)
Past Surgical History: Other (Spinal fusion, right total hip replacement, thyroid surgery, bone marrow biopsy)
Social History
Tobacco: Former Smoker
Alcohol: None
Drug: None
Living: With Family
Employment: Retired
Family History
Family History: Reviewed & Not Pertinent
Allergies / Home Medications
Allergy/AdvReac Type Severity Reaction Status Date / Time
No Known Allergies Allergy Verified 10/11/24 09:52
�Medication �Instructions �Recorded
sertraline 50 mg tablet 50 mg PO DAILY Depression 10/12/17
metoprolol succinate 25 mg 75 mg PO DAILY Blood pressure 12/13/19
tablet,extended release 24 hr
atorvastatin 40 mg tablet 80 mg PO HS High cholesterol 09/01/22
ferrous sulfate 325 mg (65 mg 325 mg PO DAILY Supplement 09/01/22
iron) tablet (Iron (ferrous
sulfate))
furosemide 20 mg tablet 40 mg PO DAILY Fluid 09/01/22
retention/Swelling
dapagliflozin propanediol 10 mg 10 mg PO DAILY Diabetes 03/04/23
tablet (Farxiga)
multivitamin with minerals-folic 400 tab PO DAILY Supplement 03/19/23
acid 200 mcg chewable tablet
(Multivitamin Gummies)
peg 400-propylene glycol (PF) 0.4 1 drp BOTH EYES TID Eye Condition 03/19/23
%-0.3 % eye drops in a dropperette
(Systane (PF))
levothyroxine 150 mcg tablet 150 mcg PO MoTuWeThFrSa@0630 30 03/29/23
days #26 tabs
acetaminophen 650 mg 1,300 mg PO HSPRN PRN mild pain 07/30/24
tablet,extended release
aspirin 81 mg tablet,delayed 81 mg PO DAILY Blood Clot 07/30/24
release Prevention/Tx
cholecalciferol (vitamin D3) 25 50 mcg PO DAILY Supplement 07/30/24
mcg (1,000 unit) chewable tablet
(Vitamin D3)
insulin lispro protamine-lispro 6 unit SC BID Diabetes 07/30/24
100 unit/mL (75-25) subcutaneous
pen (Humalog Mix 75-25 KwikPen)
pantoprazole 40 mg tablet,delayed 40 mg PO DAILY Gastrointestinal 07/30/24
release issue
allopurinol 100 mg tablet 100 mg PO DAILY #0 tabs 08/14/24
hydroxyurea 500 mg capsule 1,000 mg PO BID Autoimmune Disorder 09/10/24
lisinopril 5 mg tablet 5 mg PO QPM Blood Pressure 09/10/24
potassium chloride 10 mEq 10 meq PO DAILY Supplement 10/13/24
tablet,extended release
Review of Systems
-
All other systems: A 12 pt ROS was Negative except as stated above in HPI
Vital Signs
Temp Pulse Resp BP Pulse Ox
98.4 F 95 18 120/54 92
10/14/24 11:36 10/14/24 11:36 10/14/24 11:36 10/14/24 11:36 10/14/24 11:36
Physical Exam
Exam
General: Other (Appears chronically ill)
HEENT: Anicteric
Respiratory: Clear (Anterior)
Cardiac: Regular Rhythm
GI: Soft, Non Tender, Non Distended and Normal Bowel Sounds
Skin: Warm and Dry
Neuro: AO x 3
Psych: Calm
Results
WBC 35.2 10^3/uL (4.8-10.8) H 10/14/24 06:59
Hgb 8.7 g/dL (12.0-16.0) L 10/14/24 06:59
Hct 26.9 % (37.0-47.0) L 10/14/24 06:59
MCV 95.7 fL (81.0-99.0) 10/14/24 06:59
Plt Count 28 10^3/uL (130-400) L* 10/14/24 06:59
PT 16.9 Sec (11.4-14.6) H 10/13/24 18:58
INR 1.35 10/13/24 18:58
APTT 33.6 Sec (23.4-35.0) 10/13/24 18:58
Sodium 137 mmol/L (135-145) 10/14/24 06:59
Potassium 4.4 mmol/L (3.5-5.1) 10/14/24 06:59
Chloride 111 mmol/L (98-107) H 10/14/24 06:59
Carbon Dioxide 20 mmol/L (22-30) L 10/14/24 06:59
BUN 53 mg/dl (7-17) H 10/14/24 06:59
Creatinine 2.1 mg/dL (0.6-1.0) H 10/14/24 06:59
Calcium 7.7 mg/dl (8.4-10.2) L 10/14/24 06:59
Total Bilirubin 0.6 mg/dl (0.2-1.3) 10/14/24 06:59
AST 26 U/L (14-36) 10/14/24 06:59
ALT 38 U/L (0-35) H 10/14/24 06:59
Alkaline Phosphatase 76 U/L (38-126) 10/14/24 06:59
Lipase 30 U/L (23-300) 10/13/24 18:58
Diagnostic Image Results:
None this admission
Prior GI Procedures:
Prior GI Procedures:
most recent workup for GIB 02/2023
----EGD 03/05 Sharon:-hiatal hernia.� No other lesion
----colonoscopy 03/06 with
- Five 2 to 8 mm polyps in the transverse colon, removed with a cold snare and removed with a cold biopsy forceps.� Resected and retrieved.� Clip was placed.
- Two 4 to 6 mm polyps in the descending colon, removed with a cold snare.� Resected and retrieved.� Clip was placed.
- Erythematous mucosa in the recto-sigmoid colon and in the sigmoid colon.� Biopsied.
- Diverticulosis in the sigmoid colon and in the descending colon.
- Internal hemorrhoids.
w/u in 2019
-12/16/19;EGD by Dr. Ruano;normal esophagus, medium size hiatal hernia, mild antral gastritis, normal duodenum, nonbleeding jejunal diverticulum.
�--12/17/19; colonoscopy by Dr. Ruano;revealed nonbleeding internal hemorrhoids, more and descending colon diverticulosis,
�������4 mm polyp in the sigmoid colon-no significant pathology
�������5 mm polyp in the mid ascending colon,biopsy revealed no significant pathology-no significant pathology
�������6 mm polyp in the descending colon-hyperplastic polyp
�������2 polyps in the mid sigmoid.biopsy revealed fragments of tubular adenoma and hyperplastic polyp
work up in 2018
EGD:� 09/2017 Dr Sharon [facility], Zline variable, erythematous gastric body and antrum s/p biopsy and clip placed
Colonoscopy:� 10/2017 Several tubular adenomas throughout the colon, TI normal, several erythematous polyps in left colon that was thought to likely be the cause of lower GI bleeding s/p phot snare.� left sided diverticulosis
Video capsule: incomplete due to stuck in duodenal diverticulum.
Assessment / Plan
-
84 year-old female with history of A-fib, COPD, hypertension, hyperlipidemia, HFpEF, hypothyroidism, Chronic anemia with prior history of GI bleeding (with significant workup in the past including EGD, colonoscopy and video capsule endoscopy. Last
video capsule 2018 incomplete because he got stuck in duodenal diverticulum.), diabetes, admitted in July with abdominal pain and intractable vomiting. 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
associated nephropathy plus or minus IV contrast. 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 Treated with Aranesp and transfusions as an
outpatient. The patient has had recent poor p.o. intake then began having multiple episodes of loose stool/diarrhea with weakness prompting her to come to the emergency room for further evaluation. We are asked to evaluate for the same.
Impression:
Diarrhea
Chronic anemia
CMML
MISBAH on CKD
Other Dx:
A-fib
COPD
Hypertension
HFpEF
Hypothyroidism
Diabetes
Plan:
- Await stool cultures
- Most recent TSH within normal limits
- Added following stool studies ova and parasites, Giardia, crypto, vibrio, Yersinia
-possible medication related? allopurinol?
-trend labs
-Continue PPI
-Further recommendations to be forthcoming
-
-
Thank you for consultation and allowing me to participate in the patient's care. Please call the language and literature division chair GI physician during the after hours with any questions or concerns.
--- NOTE | 2024-10-14 12:35 | WOUNDNOTE ---
[facility] RN note: Patient admitted with
See H&P for complete history.
PMH:ED Past Medical History: Arrthythmia (afib), COPD, HTN, IDDM, Renal failure, Psychiatric and Other (Thyroid disease, osteoarthritis, spinal stenosis status post cervical fusion, diabetes, PMR, pneumonia, polyps, stomach ulcers, frequent
urination, arthritis, lumbar spondylosis, glaucoma, appeared vision)
ED Past Surgical History: Orthopedic (Spinal fusion, right total hip replacement) and Other (Colonoscopy)
Wound Location and type/assessment: Patient admitted with: L hip DTI dark maroon discolored skin, patient confirmed she sleeps on L side. R buttock with stage 2 PI vs shearing, few open areas, buttocks blanchable. Patient is incontinent frequently
of diarrhea she states, unable to eat due to nausea. Heels blanchable and boggy.
Appetite: clears, encouraged protein in diet when able.
Pressure redistribution devices in place: On [facility] care air bed, air chair cushion brought in placed on pillow under calves. Can use air cushion when sitting.
Plan: Foam dressings changed, offloading. Pressure ulcer prevention measures reviewed with patient, states she understands. Will confirm orders with hospitalist and updated nurse Jeanne who assisted with care.
Updated care plan and will follow as needed.
Note to case management of equipment requested for discharge: Air mattress
Recommend follow up at wound care center upon discharge.
[2024-10-14] MEDS: HYDREA 1000 MG PO ×2 (12:39→19:59)
[2024-10-14] MEDS: REFRESH EYE DROPS (PF) 1 DROPS BOTH EYES ×3 (12:42→21:12)
[2024-10-14] MEDS: KCL 10 MEQ PO (12:43)
[2024-10-14] MEDS: ZYLOPRIM 100 MG PO (12:43)
[2024-10-14] MEDS: ZOLOFT 50 MG PO (12:44)
[2024-10-14] MEDS: THERAGRAN 1 TABLET PO (12:44)
[2024-10-14] MEDS: PROTONIX 40 MG PO (12:44)
[2024-10-14] MEDS: FEOSOL 325 MG PO (12:44)
[2024-10-14] MEDS: VITAMIN D3 (cholecalciferol) 50 MCG PO (12:45)
[2024-10-14] MEDS: ASPIR LOW (ENTERIC COATED) 81 MG PO (12:45)
[2024-10-14] MEDS: VISBIOME 1 CAP PO (12:46)
--- NOTE | 2024-10-14 13:25 | W.PN.HOSP.TC ---
Today's Communication/Plan
-
Assessment / Plan
Assessment / Plan
NAD
Scleral Anicteric
MMM
No JVD
CTABL
RRR, S1/S2
Soft, NT, ND, BS+
Warm, Dry
AAOx3
Calm
MISBAH on CKD likely secondary to cardiorenal syndrome. Initially suspected secondary to prerenal etiology in the setting of diarrhea requiring IV fluids. However after being on IV fluids for approximately 24 hours renal function has not improved in
fact got worse. Did receive 1 unit of PRBCs on previous admission while in the ER and did not receive diuretics. She has not been diuresing well. Therefore suspect cardiorenal syndrome
IV diuresis
Avoid other nephrotoxins
If not improving will consult nephrology
Will check urine electrolytes
Will check renal bladder ultrasound
? Heart failure/HFpEF with known EF of 50 to 55% from 2D echocardiogram in January 2020 for
2D echocardiogram
IV diuretics
Follow renal function
Monitor on telemetry
CML
Continue hydroxy
Hematology/oncology following
Anticipated Discharge: > 48 hours
Subjective/Interval History
-
Date of Service: October 14, 2024
seen an dexmained. no enw compalints. no acute ovenright events
Objective Data
-
Labs:
Laboratory Results
10/14/24
06:59
WBC 35.2 H
Hgb 8.7 L
Hct 26.9 L
Plt Count 28 L*
Sodium 137
Potassium 4.4
Chloride 111 H
Carbon Dioxide 20 L
BUN 53 H
Creatinine 2.1 H
Glucose 80
Calcium 7.7 L
Total Bilirubin 0.6
AST 26
ALT 38 H
Alkaline Phosphatase 76
Vital Signs:
Vital Signs
Temp Pulse Resp BP Pulse Ox
98.4 F 95 18 120/54 92
10/14/24 11:36 10/14/24 11:36 10/14/24 11:36 10/14/24 11:36 10/14/24 11:36
I&O
10/13/24 10/14/24 10/15/24
06:59 06:59 06:59
Intake Total 890 / 890
Balance 890 / 890
[2024-10-14] MEDS: ZOFRAN 4 MG IV (13:53)
[2024-10-14] MEDS: FLUSH (NSS) 1 FLUSH IV (14:52)
[2024-10-14] MEDS: LASIX 80 MG IV (14:52)
--- NOTE | 2024-10-14 16:20 | CM ---
CM attempted bedside visit with pt but off unit
Chart review completed with recent admission
Pt resides wit her dtr and grandtr in a 2 story condo with ramp entrance and first floor set up
Pt is indep with use of WW
Able to make meals while dtr at work
She has a glucometer/insulin which she self manages
Hx at [place] and [facility]
PCP-Pratibha Wasserman
Rx- [facility] [place]
Pt will benefit from PT/OT once appropriate
Discharge Disposition- home with [facility] , watch for higher needs
[2024-10-14 17:11] LABS: Glucose - Point of Care 125 mg/dl (70-99)
[2024-10-14] MEDS: STERILE WATER FOR INJECTION 10 ML IV (20:09)
[2024-10-14] MEDS: ROCEPHIN 1000 MG IV (20:10)
[2024-10-14] MEDS: LIPITOR 80 MG PO (21:12)
[2024-10-14] MEDS: NSS IV (21:23)
[2024-10-14 21:45] LABS: Glucose - Point of Care 122 mg/dl (70-99)
[2024-10-15 03:00] VITALS: BP 132/53
[2024-10-15 04:38] VITALS: BMI 35.0
[2024-10-15] MEDS: SYNTHROID 150 MCG PO (05:39)
[2024-10-15] MEDS: FLAGYL 500 MG 100 IV ×3 (05:40→21:31)
[2024-10-15 07:51] VITALS: BP 134/54
[2024-10-15 08:14] LABS: Glucose - Point of Care 99 mg/dl (70-99)
[2024-10-15] MEDS: VISBIOME 1 CAP PO (08:23)
[2024-10-15] MEDS: ZYLOPRIM 100 MG PO (08:24)
[2024-10-15] MEDS: FEOSOL 325 MG PO (08:24)
[2024-10-15] MEDS: KCL 10 MEQ PO (08:24)
[2024-10-15] MEDS: ZOLOFT 50 MG PO (08:24)
[2024-10-15] MEDS: HYDREA 1000 MG PO ×2 (08:25→19:45)
[2024-10-15] MEDS: LASIX 80 MG IV (08:25)
[2024-10-15] MEDS: VITAMIN D3 (cholecalciferol) 50 MCG PO (08:25)
[2024-10-15] MEDS: REFRESH EYE DROPS (PF) 1 DROPS BOTH EYES ×3 (08:25→21:32)
[2024-10-15] MEDS: ASPIR LOW (ENTERIC COATED) 81 MG PO (08:26)
[2024-10-15] MEDS: PROTONIX 40 MG PO (08:26)
[2024-10-15] MEDS: THERAGRAN 1 TABLET PO (08:26)
[2024-10-15 09:44] LABS: Hematocrit 28.5 % (37.0-47.0); Hemoglobin 9.0 g/dL (12.0-16.0); Mean Corp Hgb Conc. 31.6 g/dL (33.0-37.0); Mean Corpuscular Volume 98.6 fL (81.0-99.0); Red Cell Dist. Width 25.3 % (11.5-14.5)
[2024-10-15 09:45] LABS: Platelet Count 30 10^3/uL (130-400)
[2024-10-15 10:15] LABS: Blood Urea Nitrogen 58 mg/dl (7-17); Calcium 7.6 mg/dl (8.4-10.2); Carbon Dioxide 23 mmol/L (22-30); Chloride 111 mmol/L (98-107); Estimated Creatinine Clearance 17 ml/min; Glucose 101 mg/dl (70-99); Potassium 4.8 mmol/L (3.5-5.1); Sodium 138 mmol/L (135-145); eGFR 21.30
--- NOTE | 2024-10-15 10:31 | W.PN.GI.CBS2 ---
Addendum entered and electronically signed by Kasandra Donato MD 10/15/24 13:10:
I saw and examined the patient.
The SURGICAL CLINICAL REVIEWER or PA's note was reviewed and I agree with the note.
Comment:
Pt with no further diarrhea. wants to eat
abd: soft
impression
diarrhea: resolved
advance diet
if diarrhea recurs check stool studies
will sign off call with questions
Original Note:
Today's Communication / Plan
-
advance diet
If with stools then check stool studies
Assessment / Plan
-
84 year-old female with history of A-fib, COPD, hypertension, hyperlipidemia, HFpEF, hypothyroidism, Chronic anemia with prior history of GI bleeding (with significant workup in the past including EGD, colonoscopy and video capsule endoscopy. Last
video capsule 2018 incomplete because he got stuck in duodenal diverticulum.), diabetes, admitted in July with abdominal pain and intractable vomiting. 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
associated nephropathy plus or minus IV contrast. 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 Treated with Aranesp and transfusions as an
outpatient. The patient has had recent poor p.o. intake then began having multiple episodes of loose stool/diarrhea with weakness prompting her to come to the emergency room for further evaluation. We are asked to evaluate for the same.
Impression:
Diarrhea
Chronic anemia
CMML
MISBAH on CKD
Other Dx:
A-fib
COPD
Hypertension
HFpEF
Hypothyroidism
Diabetes
Plan:
- Await stool cultures, patient with no BM since ED.
-Advance diet to low residue/low lactose
- Most recent TSH within normal limits
- Added following stool studies ova and parasites, Giardia, crypto, vibrio, Yersinia
-possible medication related? allopurinol?
-trend labs
-Continue PPI
Subjective
Subjective
Date of Service: October 15, 2024
Patient with no bowel movements. Therefore no stool studies to check except for additional norovirus and C. difficile that were both negative. She is tolerating clear liquid diet however states that she cannot tolerate anymore and wishes to have
some solid food. She feels like she is getting somewhat of an appetite and would like to try some solid foods such as mashed potatoes or eggs. Will advance diet to low lactose/low residue. Denies any abdominal pain.
Objective
Data Reviewed
Laboratory Data:
Laboratory Results
10/15/24 09:15
10/15/24 09:15
Laboratory Results
PT 16.9 Sec (11.4-14.6) H 10/13/24 18:58
INR 1.35 10/13/24 18:58
APTT 33.6 Sec (23.4-35.0) 10/13/24 18:58
Phosphorus 3.9 mg/dl (2.5-4.5) 10/14/24 06:59
Total Bilirubin 0.6 mg/dl (0.2-1.3) 10/14/24 06:59
AST 26 U/L (14-36) 10/14/24 06:59
ALT 38 U/L (0-35) H 10/14/24 06:59
Alkaline Phosphatase 76 U/L (38-126) 10/14/24 06:59
Lipase 30 U/L (23-300) 10/13/24 18:58
Vital Signs and I&O:
Vital Signs
Temp Pulse Resp BP Pulse Ox
98.0 F 92 18 134/54 96
10/15/24 07:51 10/15/24 07:51 10/15/24 07:51 10/15/24 07:51 10/15/24 08:25
I&O
10/14/24 10/15/24 10/16/24
06:59 06:59 06:59
Intake Total 890 / 890 600 / 600
Balance 890 / 890 600 / 600
Physical Exam
Physical Exam
HEENT: Anicteric
Cardiology: Irregular Rate/Rhythm
Pulmonary: Clear (anterior)
GI: Soft, Non Distended, Non Tender and Normal Bowel Sounds
Neuro: Non Focal
[2024-10-15 11:29] VITALS: BP 139/69
[2024-10-15 12:04] LABS: Glucose - Point of Care 110 mg/dl (70-99)
[2024-10-15 15:15] VITALS: BP 127/49
--- NOTE | 2024-10-15 15:20 | W.PN.ONC ---
Today's Communication / Plan
-
Will give another dose of rasburicase, with elevated uric acid, and rising creatinine
Continue Hydrea
Monitor CBC daily
Advance diet
Prognosis is guarded, will need to discuss goals of care, especially if kidney function continues to worsen
Impression
Impression
Intractable diarrhea
CMML-2
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
hyperuricemia
COPD
Diabetes
Hypertension
CHF
Hypothyroidism
Afib on Xarelto
Hx GIB
Spinal stenosis s/p fusion
Plan
Plan
Will give another dose of rasburicase, with elevated uric acid, and rising creatinine
Continue Hydrea
Monitor CBC daily
Advance diet
Prognosis is guarded, will need to discuss goals of care, especially if kidney function continues to worsen
Subjective/Objective
Subjective/Objective
wants to eat but not sure what she wants to eat
Vital Signs:
Vital Signs
Temp Pulse Resp BP Pulse Ox
97.9 F 93 18 127/49 99
10/15/24 15:15 10/15/24 15:15 10/15/24 15:15 10/15/24 15:15 10/15/24 15:15
Lab Results:
Laboratory Data
WBC 38.6 10^3/uL (4.8-10.8) H 10/15/24 09:15
Hgb 9.0 g/dL (12.0-16.0) L 10/15/24 09:15
Plt Count 30 10^3/uL (130-400) L 10/15/24 09:15
PT 16.9 Sec (11.4-14.6) H 10/13/24 18:58
INR 1.35 10/13/24 18:58
APTT 33.6 Sec (23.4-35.0) 10/13/24 18:58
eGFR 21.30 10/15/24 09:15
Orders
Orders
Orders From Last 24 Hours
10/15/24 15:18
Rasburicase 6 mg IVPB ONCE Rasburicase [Elitek] 6 mg 0.9% Sodium Chloride 50 ml [Nss] 46 ml IV ONCE
10/15/24 20:19
Uric Acid - Rasburicase Urgent
--- NOTE | 2024-10-15 15:34 | CM ---
Guarded prognosis considering kidney values, Increased diet, goals of care to be discussed. Patient requires a transport wheelchair within home to complete her daily activities. She is unable to self propel. Patient has a caregiver to propel her.
Documentation forwarded to [employer] to determine if chair is covered under Medicare B. Awaiting response. Discharge POC: Awaiting therapy evaluation and recommendation.
--- NOTE | 2024-10-15 15:54 | VNURNOTE ---
Chart reviewed. Spoke to patient's daughter Alicia, who confirmed she would like to resume [facility] if appropriate at [place]. She is aware DC date is unknown at this time. Daughter requested a transport to help w/ getting out of the house to Dr
appointments. She is also aware that [facility] recommended an air mattress and air chair cushion for home. This author contacted nurse Savannah and requested to provide at [place].
Clinicals, rx sent to [facility] Santi, , confirmed wc would be covered by pt's insurance. He is aware to contact daughter to arrange delivery.
[facility] resumption referral accepted in [facility]. [facility] remains available.
--- NOTE | 2024-10-15 15:57 | W.PN.HOSP.TC ---
Addendum entered and electronically signed by Nico Schulz MD 10/15/24 16:31:
requires a transport wheelchair within her home to complete daily activities. unable to self propel. has a caregiver to propel them
Original Note:
Today's Communication/Plan
-
I was able to speak with Alicia and Russ over the phone. Provided full extensive update which included diarrhea resolving, worsening renal function after being on IV fluids. Potential renal vein congestion and cardiorenal syndrome
requiring/trialing Lasix. Nephrology consult.
Poor appetite not eating well potentially related to CML. May benefit from appetite stimulant. Will discuss with oncology.
Additionally informed them that if there is no improvement and if there is concern that this is related to progression of CML then may need to consider going towards goals of care discussions
Assessment / Plan
Assessment / Plan
NAD, edematous through out, weak, chronically ill
Scleral Anicteric
MMM
No JVD
CTABL
RRR, S1/S2
Soft, NT, ND, BS+
Warm, Dry
AAOx3
Calm
MISBAH on CKD likely secondary to cardiorenal syndrome. Initially suspected secondary to prerenal etiology in the setting of diarrhea requiring IV fluids. However after being on IV fluids for approximately 24 hours renal function has not improved in
fact got worse. Did receive 1 unit of PRBCs on previous admission while in the ER and did not receive diuretics. She has not been diuresing well. Therefore suspect cardiorenal syndrome
IV diuresis
Avoid other nephrotoxins
If not improving will consult nephrology
Will check urine electrolytes
Will check renal bladder ultrasound
?Heart failure/HFpEF with known EF of 50 to 55% from 2D echocardiogram in January 2020
2D echocardiogram
IV diuretics
Follow renal function
Monitor on telemetry
Diarrhea
Resolved, unable to obtain stool studies
Continue Ctx/Flagyl
Hypoalbuminemia
Provide ensure TID
Third spacing
CML
Continue hydroxy
Hematology/oncology following
Thrombocytopenia
If plt <40k with bleeding then will need plt transfusion
If plt <10k without bleeding then will need plt transfusion
Anticipated Discharge: > 48 hours
Subjective/Interval History
-
Date of Service: October 15, 2024
Seen and examined. No new complaints. No acute overnight events.
Feeling better
Objective Data
-
Labs:
Laboratory Results
10/15/24
09:15
WBC 38.6 H
Hgb 9.0 L
Hct 28.5 L
Plt Count 30 L
Sodium 138
Potassium 4.8
Chloride 111 H
Carbon Dioxide 23
BUN 58 H
Creatinine 2.2 H
Glucose 101 H
Calcium 7.6 L
Vital Signs:
Vital Signs
Temp Pulse Resp BP Pulse Ox
97.9 F 93 18 127/49 99
10/15/24 15:15 10/15/24 15:15 10/15/24 15:15 10/15/24 15:15 10/15/24 15:15
I&O
10/14/24 10/15/24 10/16/24
06:59 06:59 06:59
Intake Total 890 / 890 600 / 600
Balance 890 / 890 600 / 600
[2024-10-15] MEDS: NSS 15 ML IV ×2 (16:35→17:01)
[2024-10-15] MEDS: ELITEK 50 MG IV (16:40)
[2024-10-15 16:58] LABS: Glucose - Point of Care 149 mg/dl (70-99)
--- NOTE | 2024-10-15 17:32 | W.CON.NEPH ---
Consultation
-
Date/Time Consultation Requested: 10/15/2024 2 PM
Date/Time Consultation Performed: 10/15/2024 5 PM
Requesting Provider: Dr. Schulz
Performing Provider: Dr. Youssef
Reason for Consultation: MISBAH
Medical History
-
Chief Complaint: Acute kidney injury
History of Present Illness:
84-year-old patient with CMML complicated by renal failure suspected to have been due to lysozyme-associated nephropathy +/- IV contrast. Bone marrow biopsy performed August 14 showed CMML-2. She was started on Hydrea 1000 mg twice a day and
initially did well with normalization of counts and kidney function. She was then started on Aranesp and she was transfused 1 unit of packed red blood cells on 10/11. She has a history of CHF and was not felt to be able to tolerate a second unit
that day. Rescheduled for transfusion of a second unit on 10/14. Over the weekend she developed nausea, intolerance of p.o.'s, and severe diarrhea. She came to the ER and was admitted. She received rasburicase for elevated uric acid level. Her
creatinine, baseline typically 1.3 has risen up to 2.2 representing acute kidney injury.
Past Medical History
CMML-2
COPD
DM2
HTN
HFpEF
Hypothyroidism
Spinal Stenosis s/p fusion
Rt THR
PAfib
CKD3b
GIB
Social History
Tobacco: Former Smoker
Alcohol: None
Family History
Family History: Not Pertinent
Allergies / Home Medications
Allergy/AdvReac Type Severity Reaction Status Date / Time
No Known Allergies Allergy Verified 10/11/24 09:52
�Medication �Instructions �Recorded �Confirmed �Type
sertraline 50 mg tablet 50 mg PO DAILY Depression 10/12/17 10/13/24 History
metoprolol succinate 25 mg 75 mg PO DAILY Blood pressure 12/13/19 10/13/24 History
tablet,extended release 24 hr
atorvastatin 40 mg tablet 80 mg PO HS High cholesterol 09/01/22 10/13/24 History
ferrous sulfate 325 mg (65 mg 325 mg PO DAILY Supplement 09/01/22 10/13/24 History
iron) tablet (Iron (ferrous
sulfate))
furosemide 20 mg tablet 40 mg PO DAILY Fluid 09/01/22 10/13/24 History
retention/Swelling
dapagliflozin propanediol 10 mg 10 mg PO DAILY Diabetes 03/04/23 10/13/24 History
tablet (Farxiga)
multivitamin with minerals-folic 400 tab PO DAILY Supplement 03/19/23 10/13/24 History
acid 200 mcg chewable tablet
(Multivitamin Gummies)
peg 400-propylene glycol (PF) 0.4 1 drp BOTH EYES TID Eye Condition 03/19/23 10/13/24 History
%-0.3 % eye drops in a dropperette
(Systane (PF))
levothyroxine 150 mcg tablet 150 mcg PO [id number]@0630 30 03/29/23 10/13/24 Rx
days #26 tabs
acetaminophen 650 mg 1,300 mg PO HSPRN PRN mild pain 07/30/24 10/13/24 History
tablet,extended release
aspirin 81 mg tablet,delayed 81 mg PO DAILY Blood Clot 07/30/24 10/13/24 History
release Prevention/Tx
cholecalciferol (vitamin D3) 25 50 mcg PO DAILY Supplement 07/30/24 10/13/24 History
mcg (1,000 unit) chewable tablet
(Vitamin D3)
insulin lispro protamine-lispro 6 unit SC BID Diabetes 07/30/24 10/13/24 History
100 unit/mL (75-25) subcutaneous
pen (Humalog Mix 75-25 KwikPen)
pantoprazole 40 mg tablet,delayed 40 mg PO DAILY Gastrointestinal 07/30/24 10/13/24 History
release issue
allopurinol 100 mg tablet 100 mg PO DAILY #0 tabs 08/14/24 10/13/24 Rx
hydroxyurea 500 mg capsule 1,000 mg PO BID Autoimmune Disorder 09/10/24 10/13/24 History
lisinopril 5 mg tablet 5 mg PO QPM Blood Pressure 09/10/24 10/13/24 History
potassium chloride 10 mEq 10 meq PO DAILY Supplement 10/13/24 10/13/24 History
tablet,extended release
Physical Exam
Vital Signs
Vital Signs
Temp Pulse Resp BP Pulse Ox
97.9 F 93 18 127/49 99
10/15/24 15:15 10/15/24 15:15 10/15/24 15:15 10/15/24 15:15 10/15/24 15:15
Lab Results
WBC 38.6 10^3/uL (4.8-10.8) H 10/15/24 09:15
RBC 2.89 10^6/uL (4.20-5.40) L 10/15/24 09:15
Hgb 9.0 g/dL (12.0-16.0) L 10/15/24 09:15
Hct 28.5 % (37.0-47.0) L 10/15/24 09:15
Plt Count 30 10^3/uL (130-400) L 10/15/24 09:15
Sodium 138 mmol/L (135-145) 10/15/24 09:15
Potassium 4.8 mmol/L (3.5-5.1) 10/15/24 09:15
Chloride 111 mmol/L (98-107) H 10/15/24 09:15
Carbon Dioxide 23 mmol/L (22-30) 10/15/24 09:15
BUN 58 mg/dl (7-17) H 10/15/24 09:15
Creatinine 2.2 mg/dL (0.6-1.0) H 10/15/24 09:15
eGFR 21.30 10/15/24 09:15
Glucose 101 mg/dl (70-99) H 10/15/24 09:15
Calcium 7.6 mg/dl (8.4-10.2) L 10/15/24 09:15
Phosphorus 3.9 mg/dl (2.5-4.5) 10/14/24 06:59
Kgm-I-Mdvpuyurvuz Pept 56495 pg/ml 10/14/24 06:59
Albumin 2.3 g/dl (3.5-5.0) L 10/14/24 06:59
Laboratory Tests
10/10/24 10/14/24
13:50 06:59
Creatinine 1.3 H
Tho-Z-Ioqkuznwulc Pept 35845
Albumin 2.9 L 2.3 L
Bladder scan 233 mL 10/15/2024
Data Reviewed
-
Radiology: Image Personally Visualized and interpreted (Chest x-ray 10/14/2024 by my reading diffusion)
Medical Tests (Nuc Med, Echo etc): Image Personally Visualized and interpreted (EKG 10/13/2024 every atrial fibrillation right bundle branch block septal q) and Report Reviewed by me (Echocardiogram 10/14/2024 ejection fraction 60% mild MR moderate TR)
Labs: Labs Reviewed by me
Old Records: Reviewed
Assessment/Plan
-
Impression.
MISBAH
CMML-2
Diabetes mellitus type 2
Hyperuricemia
Paroxysmal atrial fibrillation
Diarrhea
Heart failure preserved ejection fraction
Hypocalcemia
Plan.
Fortunately no obvious tumor lysis syndrome
Check urine studies
Check urine protein creatinine ratio
Her MISBAH may be more mediated by diarrhea which has only recently stopped
Hold Lasix for now, will plan to restart in the next 48 hours if possible.
follow BMP
Holding lisinopril, Farxiga
Hold potassium
Void residual 233 cc
[2024-10-15] MEDS: TYLENOL 650 MG PO ×2 (18:20→22:25)
[2024-10-15] MEDS: STERILE WATER FOR INJECTION 10 ML IV (19:43)
[2024-10-15] MEDS: ROCEPHIN 1000 MG IV (19:43)
[2024-10-15 19:53] VITALS: BP 114/43
[2024-10-15] MEDS: LIPITOR 80 MG PO (21:31)
[2024-10-15 23:29] VITALS: BP 105/39
[2024-10-16 03:32] VITALS: BP 131/58
[2024-10-16] MEDS: SYNTHROID 150 MCG PO (05:16)
[2024-10-16] MEDS: FLAGYL 500 MG 100 IV ×3 (05:17→21:07)
[2024-10-16 06:00] VITALS: BMI 33.0
[2024-10-16] MEDS: VITAMIN D3 (cholecalciferol) 50 MCG PO (07:41)
[2024-10-16] MEDS: FEOSOL 325 MG PO (07:42)
[2024-10-16] MEDS: PROTONIX 40 MG PO (07:42)
[2024-10-16] MEDS: ZOLOFT 50 MG PO (07:42)
[2024-10-16] MEDS: HYDREA 1000 MG PO ×2 (07:42→19:43)
[2024-10-16] MEDS: THERAGRAN 1 TABLET PO (07:42)
[2024-10-16] MEDS: ASPIR LOW (ENTERIC COATED) 81 MG PO (07:42)
[2024-10-16] MEDS: VISBIOME 1 CAP PO (07:42)
[2024-10-16] MEDS: REFRESH EYE DROPS (PF) 1 DROPS BOTH EYES ×3 (07:42→21:07)
[2024-10-16 08:11] LABS: Glucose - Point of Care 94 mg/dl (70-99)
[2024-10-16 09:03] LABS: Hematocrit 28.4 % (37.0-47.0); Hemoglobin 8.8 g/dL (12.0-16.0); Mean Corp Hgb Conc. 31.0 g/dL (33.0-37.0); Mean Corpuscular Volume 97.9 fL (81.0-99.0); Red Cell Dist. Width 25.2 % (11.5-14.5)
[2024-10-16 09:05] LABS: Platelet Count 29 10^3/uL (130-400)
[2024-10-16 10:12] LABS: Blood Urea Nitrogen 64 mg/dl (7-17); Calcium 8.1 mg/dl (8.4-10.2); Carbon Dioxide 14 mmol/L (22-30); Chloride 114 mmol/L (98-107); Estimated Creatinine Clearance 16 ml/min; Glucose 100 mg/dl (70-99); Potassium 5.2 mmol/L (3.5-5.1); Sodium 136 mmol/L (135-145); eGFR 21.30
--- NOTE | 2024-10-16 10:16 | PN.CDI ---
CDI
- -
CDI:
Physician Documentation Request
Admit Date: 10/13/24 21:09
Dear Doctor,
Please review the following and provide your response in the progress notes.
Clinical Indicators:
Pt admitted with MISBAH on CKD likely secondary to cardiorenal syndrome.
10/14 WOC RN Note: ' ...R buttock with stage 2 PI vs shearing, few open areas, buttocks blanchable. Patient is incontinent frequently of diarrhea she states, unable to eat due to nausea. Heels blanchable and boggy.'
10/15 RN also note in wound panel bilateral heels stage 1 pressure injury.
Physician documentation of the type and location of wounds is required for compliant documentation. Based on the above clinical findings and your assessment, please provide the following in your progress note:
1. Location of the ulcer/wound, including laterality.
2. Type (etiology) of ulcer/wound:
Right buttock and bilateral heels pressure injury POA
Right buttock and bilateral heels non-pressure injury POA
Other
Use of terms such as suspected, likely, concern for, or probable (associated with a specific diagnosis that is being evaluated, monitored, or treated as if it exists) are acceptable and can be coded in the inpatient setting, when documented at the
time of discharge.
Thank you,
Tyesha Whaley RN BSN
CDI Specialist
[employer]
Please use your independent medical judgment in providing your response.
*Source: National Pressure Ulcer Advisory Panel (NPUAP)
--- NOTE | 2024-10-16 12:15 | W.PN.NEPH.PH ---
Today's Communication / Plan
-
Albumin and Lasix
Assessment/Plan
-
Impression.
MISBAH
CMML-2
Diabetes mellitus type 2
Hyperuricemia
Paroxysmal atrial fibrillation
Diarrhea
Heart failure preserved ejection fraction
Hypocalcemia
Plan.
No evidence of tumor lysis
Check urine studies pending
Check urine protein creatinine ratio pending
Rasburicase per oncology
Holding lisinopril, Farxiga
Poor effective arterial blood volume with a albumin of 2.3 and third space creatinine stable although with developing a metabolic acidosis
EGFR 14 mL/min concerning that she may need dialysis.
Will give albumin with diuretics.
Discussed with Dr. Schulz
-
-
Date of Service: October 16, 2024
CC / HPI / ROS
-
Chief Complaint:
MISBAH with diarrhea
History of Present Illness:
MISBAH on CKD with history of CMML on current treatment
Review of Systems:
No chest pain or shortness of breath
Edema
Labs
-
Labs:
WBC 26.4 10^3/uL (4.8-10.8) H 10/16/24 08:32
RBC 2.90 10^6/uL (4.20-5.40) L 10/16/24 08:32
Hgb 8.8 g/dL (12.0-16.0) L 10/16/24 08:32
Hct 28.4 % (37.0-47.0) L 10/16/24 08:32
Plt Count 29 10^3/uL (130-400) L* 10/16/24 08:32
Sodium 136 mmol/L (135-145) 10/16/24 08:32
Potassium 5.2 mmol/L (3.5-5.1) H 10/16/24 08:32
Chloride 114 mmol/L (98-107) H 10/16/24 08:32
Carbon Dioxide 14 mmol/L (22-30) L* 10/16/24 08:32
BUN 64 mg/dl (7-17) H 10/16/24 08:32
Creatinine 2.2 mg/dL (0.6-1.0) H 10/16/24 08:32
eGFR 21.30 10/16/24 08:32
Glucose 100 mg/dl (70-99) H 10/16/24 08:32
Calcium 8.1 mg/dl (8.4-10.2) L 10/16/24 08:32
Phosphorus 3.9 mg/dl (2.5-4.5) 10/14/24 06:59
Dag-Z-Owwxcsvmshy Pept 67269 pg/ml 10/14/24 06:59
Albumin 2.3 g/dl (3.5-5.0) L 10/14/24 06:59
Physical Exam
-
Vital Signs:
Vital Signs
Temp Pulse Resp BP Pulse Ox
97.7 F 103 20 131/58 98
10/16/24 03:32 10/16/24 03:32 10/16/24 03:32 10/16/24 03:32 10/16/24 07:50
Cardiovascular:: Regular rate and rhythm
Respiratory:: Bilateral: CTA and Bilateral: Coarse
Lung Excursion:: Normal
Abdomen:: Nontender and Soft
Bowel Sounds:: Normal
Extremity Edema:: +2: Bilateral:
[2024-10-16 12:35] LABS: Glucose - Point of Care 121 mg/dl (70-99)
[2024-10-16] MEDS: FLEXBUMIN 50 IV ×2 (13:04→22:20)
--- NOTE | 2024-10-16 13:40 | W.PN.HOSP.TC ---
Today's Communication/Plan
-
Assessment / Plan
Assessment / Plan
NAD, edematous through out, weak, chronically ill
Scleral Anicteric
MMM
No JVD
CTABL
RRR, S1/S2
Soft, NT, ND, BS+
Warm, Dry, thrid spacign, non pitting edema
AAOx3
Calm
MISBAH on CKD likely secondary to cardiorenal syndrome. Initially suspected secondary to prerenal etiology in the setting of diarrhea requiring IV fluids. However after being on IV fluids for approximately 24 hours renal function has not improved in
fact got worse. Did receive 1 unit of PRBCs on previous admission while in the ER and did not receive diuretics. She has not been diuresing well. Therefore suspect cardiorenal syndrome. Without evidence of TLS.
IV diuresis + Albumin per neph
Avoid other nephrotoxins
Nephrology following
Will check urine electrolytes
Will check renal bladder ultrasound
Metabolic acidosis
Will repeat labs per Neph recs
If HCO3 still low then will give 2amps of bicarb
?Heart failure/HFpEF with known EF of 50 to 55% from 2D echocardiogram in January 2020
2D echocardiogram
IV diuretics
Follow renal function
Monitor on telemetry
Diarrhea
Resolved, unable to obtain stool studies
Continue Ctx/Flagyl
Hypoalbuminemia
Provide ensure TID
Third spacing
CML
Continue hydroxy
Hematology/oncology following
Thrombocytopenia
If plt <40k with bleeding then will need plt transfusion
If plt <10k without bleeding then will need plt transfusion
Anticipated Discharge: > 48 hours
Subjective/Interval History
-
Date of Service: October 16, 2024
seen and examined. no new complaints. no acute ovenright evetns
Objective Data
-
Labs:
Laboratory Results
10/16/24
08:32
WBC 26.4 H
Hgb 8.8 L
Hct 28.4 L
Plt Count 29 L*
Sodium 136
Potassium 5.2 H
Chloride 114 H
Carbon Dioxide 14 L*
BUN 64 H
Creatinine 2.2 H
Glucose 100 H
Calcium 8.1 L
Vital Signs:
Vital Signs
Temp Pulse Resp BP Pulse Ox
97.7 F 103 20 131/58 98
10/16/24 03:32 10/16/24 03:32 10/16/24 03:32 10/16/24 03:32 10/16/24 07:50
I&O
10/15/24 10/16/24 10/17/24
06:59 06:59 06:59
Intake Total 600 / 600 580 / 580
Balance 600 / 600 580 / 580
--- NOTE | 2024-10-16 13:50 | W.PN.ONC2 ---
Today's Communication / Plan
-
continue GOC, hydrea, allopurinol, daily CBC, daily uric acid, LDH
Impression
Impression
Intractable diarrhea
CMML-2
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 S/P rasburicase 10/15
hyperuricemia
COPD
Diabetes
Hypertension
CHF
Hypothyroidism
Afib on Xarelto
Hx GIB
Spinal stenosis s/p fusion
Plan
Plan
Discussed GOC with pt and daughter at bedside. They understand guarded prognosis. We reviewed palliative care with best supportive care with hydrea and continued transfusion support and recurrent/prolonged hospitalizations vs comfort focused care.
Pt and daughter would like to continue current palliative care while they continue to think about her options.
Continue Hydrea
Continue allopurinol (renal dosing)
Monitor CBC daily.
transfuse Hgb <7 or as needed for sxs anemia.
transfuse platelets <20,000, <50,000 if bleeding
abx per primary service
Subjective/Objective
Subjective
SOB at rest
tearful
denies bleeding
continue to void
Vital Signs:
Vital Signs
Temp Pulse Resp BP Pulse Ox
97.7 F 103 20 131/58 98
10/16/24 03:32 10/16/24 03:32 10/16/24 03:32 10/16/24 03:32 10/16/24 07:50
Lab Results:
Laboratory Data
WBC 26.4 10^3/uL (4.8-10.8) H 10/16/24 08:32
Hgb 8.8 g/dL (12.0-16.0) L 10/16/24 08:32
Plt Count 29 10^3/uL (130-400) L* 10/16/24 08:32
PT 16.9 Sec (11.4-14.6) H 10/13/24 18:58
INR 1.35 10/13/24 18:58
APTT 33.6 Sec (23.4-35.0) 10/13/24 18:58
eGFR 21.30 10/16/24 08:32
Physical Exam
HEENT: Moist Mucous Membranes; No Jaundice
Pulmonary: Other (diminshed)
GI: Soft
Extremities: Pulses Present and Edema (anasarca)
Neuro: Non Focal
--- NOTE | 2024-10-16 13:59 | PN.CDI ---
CDI
- -
CDI:
Physician Documentation Request
Admit Date: 10/13/24 21:09
Dear Doctor,
Please review the following and provide your response in the progress notes.
Clinical Indicators:
Pt admitted with MISBAH on CKD likely secondary to cardiorenal syndrome.
10/13 ER: ' -- holding off IVF at this time to avoid hemodilution and she has significant lower extremity edema with hx of CHF..'
10/14 BNP- 77481
10/14 CXR : IMPRESSION:
Small left pleural effusion. New
10/14 Progress note: ' However after being on IV fluids for approximately 24 hours renal function has not improved in fact got worse. Did receive 1 unit of PRBCs on previous admission while in the ER and did not receive diuretics. She has not been
diuresing well. Therefore suspect cardiorenal syndrome
IV diuresis... Heart failure/HFpEF with known EF of 50 to 55% from 2D echocardiogram in January 2020
10/14 ECHO: CONCLUSIONS
Normal left ventricular size, wall thickness and systolic function. No regional
wall motion abnormalities are seen. LV ejection fraction is 60-65% by Scott's
method of discs. Diastolic function indeterminate due to atrial fibrillation....Since echo January 2024, there is no significant change.
Pt home dose Lasix 40mg PO daily
Pt received 80mg IV Lasix x2
Based on the above, could you clarify in the progress notes, the appropriate diagnosis, if significant, that supports the above IV lasix use and additional evaluation, monitoring and/or treatment rendered:
Acute on chronic HFpEF
Chronic HFpEF only
Volume overload
Other
Use of terms such as suspected, likely, concern for, or probable (associated with a specific diagnosis that is being evaluated, monitored, or treated as if it exists) are acceptable and can be coded in the inpatient setting, when documented at the
time of discharge.
Thank you,
Tyesha Whaley RN. BSN
CDI Specialist
[employer]
Please use your independent medical judgment in providing your response.
[2024-10-16 16:00] VITALS: BP 122/89
[2024-10-16 16:30] LABS: Glucose - Point of Care 203 mg/dl (70-99)
[2024-10-16] MEDS: ROCEPHIN 1000 MG IV (19:44)
[2024-10-16] MEDS: TYLENOL 650 MG PO (19:44)
[2024-10-16] MEDS: STERILE WATER FOR INJECTION 10 ML IV (19:45)
[2024-10-16] MEDS: LIPITOR 80 MG PO (21:07)
[2024-10-16 21:25] LABS: Glucose - Point of Care 175 mg/dl (70-99)
[2024-10-16 23:33] VITALS: BP 114/54
[2024-10-17] MEDS: TYLENOL 650 MG PO ×3 (00:25→13:47)
[2024-10-17] MEDS: FLEXBUMIN 50 IV (04:17)
[2024-10-17] MEDS: FLAGYL 500 MG 100 IV ×2 (05:26→22:08)
[2024-10-17 05:32] VITALS: BMI 33.2
[2024-10-17] MEDS: SYNTHROID 150 MCG PO (05:35)
[2024-10-17 07:04] LABS: Glucose - Point of Care 119 mg/dl (70-99)
[2024-10-17 07:51] VITALS: BP 120/55
[2024-10-17 08:00] VITALS: BMI 33.2
--- NOTE | 2024-10-17 08:00 | PTCARENOTE ---
7/- Patient is more agitated and anxious today, tearful, crying out for 'Russ' and 'Keyana.' She refuses all meds including lasix and insulin. She states, 'I just want God to take me. I want to . I don't want to do this anymore.' Therapeutic
conversation, able to de-escalate patient with calming validating conversation. Advised whichever treatment decision she makes, including Hospice, is her own decision. She verbalized understanding and remained calm. But she was still tearful and
still refuses all medications at this time. See Nursing Assessment for full details.
[2024-10-17] MEDS: ASPIR LOW (ENTERIC COATED) PO (08:04)
[2024-10-17] MEDS: THERAGRAN PO (08:04)
[2024-10-17] MEDS: PROTONIX PO (08:04)
[2024-10-17] MEDS: VISBIOME PO (08:04)
[2024-10-17] MEDS: ZOLOFT PO (08:04)
[2024-10-17] MEDS: HYDREA PO ×2 (08:04→22:06)
[2024-10-17] MEDS: VITAMIN D3 (cholecalciferol) PO (08:04)
[2024-10-17] MEDS: LASIX IV (08:05)
[2024-10-17] MEDS: REFRESH EYE DROPS (PF) BOTH EYES ×2 (08:05→15:31)
[2024-10-17 08:13] LABS: Hematocrit 25.0 % (37.0-47.0); Hemoglobin 7.9 g/dL (12.0-16.0); Mean Corp Hgb Conc. 31.6 g/dL (33.0-37.0); Mean Corpuscular Volume 98.4 fL (81.0-99.0); Platelet Count 24 10^3/uL (130-400); Red Cell Dist. Width 25.1 % (11.5-14.5)
[2024-10-17 08:57] LABS: Blood Urea Nitrogen 65 mg/dl (7-17); Calcium 8.2 mg/dl (8.4-10.2); Carbon Dioxide 16 mmol/L (22-30); Chloride 113 mmol/L (98-107); Estimated Creatinine Clearance 15 ml/min; Glucose 115 mg/dl (70-99); LDH 180 U/L (120-246); Potassium 5.0 mmol/L (3.5-5.1); Sodium 137 mmol/L (135-145); Uric Acid 2.6 mg/dl (2.5-6.2); eGFR 19.19
[2024-10-17 11:08] LABS: Glucose - Point of Care 113 mg/dl (70-99)
[2024-10-17] MEDS: FLAGYL 500 MG IV (12:50)
--- NOTE | 2024-10-17 14:42 | PTCARENOTE ---
7/3- Patient continues to be anxious, confused and tearful. Not crying out any more. However she complains of 10/10 systemic pain unrelieved by tylenol. She still is refusing medications besides tylenol at this time. VSS. Full Bed Bath
completed with change of clothes and repositioning. Notified Physician of pain level and patient's mental status again.
[2024-10-17 15:16] VITALS: BP 139/66
--- NOTE | 2024-10-17 15:35 | W.PN.ONC ---
Today's Communication / Plan
-
30-minute discussion with family regarding prognosis of elderly patients with leukemia
Patient having bony expansion pain
Reviewed prognosis
Family requesting hospice
Impression
Impression
Intractable diarrhea
CMML-2
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 S/P rasburicase 10/15
hyperuricemia
COPD
Diabetes
Hypertension
CHF
Hypothyroidism
Afib on Xarelto
Hx GIB
Spinal stenosis s/p fusion
Subjective/Objective
Subjective/Objective
Patient having significant bony pain likely secondary to marrow expansion. Patient requesting to .
Vital Signs:
Vital Signs
Temp Pulse Resp BP Pulse Ox
97.7 F 121 18 139/66 97
10/17/24 15:16 10/17/24 15:16 10/17/24 15:16 10/17/24 15:16 10/17/24 15:16
physical exam unchanged
Lab Results:
Laboratory Data
WBC 16.9 10^3/uL (4.8-10.8) H 10/17/24 07:48
Hgb 7.9 g/dL (12.0-16.0) L 10/17/24 07:48
Plt Count 24 10^3/uL (130-400) L* 10/17/24 07:48
PT 16.9 Sec (11.4-14.6) H 10/13/24 18:58
INR 1.35 10/13/24 18:58
APTT 33.6 Sec (23.4-35.0) 10/13/24 18:58
eGFR 19.19 10/17/24 07:48
--- NOTE | 2024-10-17 16:05 | PTCARENOTE ---
10/17- Patient continues to cry out in 01/24 pain. Asked Physician for pain management. No new orders at this time. Will continue to use alternative methods to relieve pain- e.g. turning, repositioning, warm blanket etc.
--- NOTE | 2024-10-17 16:32 | W.PN.NEPH.PH ---
Today's Communication / Plan
-
Supportive care/hospice consult
Assessment/Plan
-
Impression.
MISBAH
CMML-2
Diabetes mellitus type 2
Hyperuricemia
Paroxysmal atrial fibrillation
Diarrhea
Heart failure preserved ejection fraction
Hypocalcemia
Plan.
No evidence of tumor lysis
Check urine studies pending
Check urine protein creatinine ratio pending
Rasburicase per oncology
Holding lisinopril, Farxiga
Poor effective arterial blood volume with a albumin of 2.3 and third space creatinine stable although with developing a metabolic acidosis
Lengthy conversation with patient's son Russ Pappas about a prognosis from a renal standpoint and overall medical standpoint. Explained to him that she has very poor nutritional status based on her chronic disease state and progressive renal
disease which will require hemodialysis on a chronic basis in the next coming days.
With that said I explained to them that she is not a candidate for this modality this is not a primary cause of her decline.
I suggested hospice care and he understands my explanation all questions were answered to his liking and will proceed with a palliative care consult.
The patient unresponsive to albumin with diuretic from a renal standpoint. She still remains edematous
And discussed with hospital medicine as well
-
-
Date of Service: October 17, 2024
CC / HPI / ROS
-
Chief Complaint:
MISBAH with diarrhea
History of Present Illness:
MISBAH on CKD with history of CMML on current treatment
Review of Systems:
Patient in distress uncomfortable generalized pain
Shortness of breath chest pain
Labs
-
Labs:
WBC 16.9 10^3/uL (4.8-10.8) H 10/17/24 07:48
RBC 2.54 10^6/uL (4.20-5.40) L 10/17/24 07:48
Hgb 7.9 g/dL (12.0-16.0) L 10/17/24 07:48
Hct 25.0 % (37.0-47.0) L 10/17/24 07:48
Plt Count 24 10^3/uL (130-400) L* 10/17/24 07:48
Sodium 137 mmol/L (135-145) 10/17/24 07:48
Potassium 5.0 mmol/L (3.5-5.1) 10/17/24 07:48
Chloride 113 mmol/L (98-107) H 10/17/24 07:48
Carbon Dioxide 16 mmol/L (22-30) L 10/17/24 07:48
BUN 65 mg/dl (7-17) H 10/17/24 07:48
Creatinine 2.4 mg/dL (0.6-1.0) H 10/17/24 07:48
eGFR 19.19 10/17/24 07:48
Glucose 115 mg/dl (70-99) H 10/17/24 07:48
Calcium 8.2 mg/dl (8.4-10.2) L 10/17/24 07:48
Phosphorus 3.9 mg/dl (2.5-4.5) 10/14/24 06:59
Eqd-I-Gqbvlktdpde Pept 61114 pg/ml 10/14/24 06:59
Albumin 2.3 g/dl (3.5-5.0) L 10/14/24 06:59
Physical Exam
-
Vital Signs:
Vital Signs
Temp Pulse Resp BP Pulse Ox
97.7 F 121 18 139/66 97
10/17/24 15:16 10/17/24 15:16 10/17/24 15:16 10/17/24 15:16 10/17/24 15:16
Cardiovascular:: Regular rate and rhythm
Respiratory:: Bilateral: CTA and Bilateral: Coarse
Lung Excursion:: Normal
Abdomen:: Nontender and Soft
Bowel Sounds:: Normal
Extremity Edema:: +2: Bilateral:
--- NOTE | 2024-10-17 17:11 | CM ---
Pt lives with dgt.
[facility] accepted.
Watch for Hospice consult.
PLAN Home with [facility]
[2024-10-17] MEDS: MORPHINE SULFATE 1 MG IV ×2 (18:02→22:05)
[2024-10-17] MEDS: STERILE WATER FOR INJECTION 10 ML IV (21:40)
[2024-10-17] MEDS: ROCEPHIN 1000 MG IV (21:40)
[2024-10-17 21:42] LABS: Glucose - Point of Care 104 mg/dl (70-99)
--- NOTE | 2024-10-17 22:06 | W.PN.HOSP.TC ---
Today's Communication/Plan
-
hospice.
Assessment / Plan
Assessment / Plan
NAD, edematous through out, weak, chronically ill
Scleral Anicteric
MMM
No JVD
CTABL
RRR, S1/S2
Soft, NT, ND, BS+
Warm, Dry, thrid spacign, non pitting edema
AAOx3
Calm
MISBAH on CKD likely secondary to cardiorenal syndrome. Initially suspected secondary to prerenal etiology in the setting of diarrhea requiring IV fluids. However after being on IV fluids for approximately 24 hours renal function has not improved in
fact got worse. Did receive 1 unit of PRBCs on previous admission while in the ER and did not receive diuretics. She has not been diuresing well. Therefore suspect cardiorenal syndrome. Without evidence of TLS.
IV diuresis + Albumin per neph
Avoid other nephrotoxins
Nephrology following
Will check urine electrolytes
Will check renal bladder ultrasound
S/p rasburicase per Onc for hyperuricemia. Fortunately, not TLS
Metabolic acidosis
Slightly better. THough, neph expects going towards HD. Unfortunately, per neph not a candidate for HD at this point. Recommend to go towards hospice
?Heart failure/HFpEF with known EF of 50 to 55% from 2D echocardiogram in January 2020
2D echocardiogram
IV diuretics
Follow renal function
Monitor on telemetry
Diarrhea
Resolved, unable to obtain stool studies
Continue Ctx/Flagyl
Hypoalbuminemia
Provide ensure TID
Third spacing
CML
Continue hydroxy
Hematology/oncology following
Oncology discussed with family today after I evaled
-REc hospice and at this time agreeable.
-- 'family regarding prognosis of elderly patients with leukemia
Patient having bony expansion pain
Reviewed prognosis
Family requesting hospice'
Thrombocytopenia
If plt <40k with bleeding then will need plt transfusion
If plt <10k without bleeding then will need plt transfusion
Anticipated Discharge: > 48 hours
Subjective/Interval History
-
Date of Service: October 17, 2024
seen and examined. c/o of diffuse body pain, this is new. no diarrhea, has not had a bm in 2days
spoke with daughter at bedside. began of [facility]. She asked if she could speak to Oncology further as the conversation yesterday was very vague
we also discussed renal function. states she would likely not want mom to be on HD.
Ms. Pappas states she is in pain and wants her family to let her go
Objective Data
-
Vital Signs:
Vital Signs
Temp Pulse Resp BP Pulse Ox
97.7 F 121 18 139/66 97
10/17/24 15:16 10/17/24 15:16 10/17/24 15:16 10/17/24 15:16 10/17/24 15:16
I&O
10/16/24 10/17/24 10/18/24
06:59 06:59 06:59
Intake Total 580 / 580 660 / 660
Balance 580 / 580 660 / 660
[2024-10-17] MEDS: REFRESH EYE DROPS (PF) 1 DROPS BOTH EYES (22:09)
[2024-10-17] MEDS: LIPITOR PO (22:09)
[2024-10-17 23:00] VITALS: BP 135/67
[2024-10-18] MEDS: FLAGYL 500 MG 100 IV (05:26)
[2024-10-18 06:00] VITALS: BMI 33.0
[2024-10-18 06:14] LABS: Blood Urea Nitrogen 67 mg/dl (7-17); Calcium 8.4 mg/dl (8.4-10.2); Carbon Dioxide 18 mmol/L (22-30); Chloride 113 mmol/L (98-107); Estimated Creatinine Clearance 18 ml/min; Glucose 88 mg/dl (70-99); Potassium 5.2 mmol/L (3.5-5.1); Sodium 139 mmol/L (135-145); eGFR 23.88
[2024-10-18 06:15] LABS: Hematocrit 26.5 % (37.0-47.0); Hemoglobin 8.3 g/dL (12.0-16.0); Mean Corp Hgb Conc. 31.3 g/dL (33.0-37.0); Mean Corpuscular Volume 99.6 fL (81.0-99.0); Platelet Count 23 10^3/uL (130-400); Red Cell Dist. Width 25.5 % (11.5-14.5)
[2024-10-18] MEDS: SYNTHROID PO (06:41)
[2024-10-18 07:53] VITALS: BP 137/62
[2024-10-18 07:53] LABS: Glucose - Point of Care 89 mg/dl (70-99)
--- NOTE | 2024-10-18 08:18 | VATNOTE ---
During routine assessment, it is noted that pt has +3 dependent edema to the R hand and forearm, which is significantly greater than the left. Bruising noted to R forearm. Discussed with PCN who states pt may be moving towards comfort/hospice care.
Recommended peripheral vascular ultrasound of R arm if the plan of care does not become comfort/hospice.
[2024-10-18] MEDS: ASPIR LOW (ENTERIC COATED) PO (08:26)
[2024-10-18] MEDS: LASIX IV (08:27)
[2024-10-18] MEDS: REFRESH EYE DROPS (PF) BOTH EYES (08:27)
[2024-10-18] MEDS: HYDREA PO (08:27)
[2024-10-18] MEDS: PROTONIX PO (08:27)
[2024-10-18] MEDS: VITAMIN D3 (cholecalciferol) PO (08:28)
[2024-10-18] MEDS: ZOLOFT PO (08:28)
[2024-10-18] MEDS: VISBIOME PO (08:28)
[2024-10-18] MEDS: THERAGRAN PO (08:28)
[2024-10-18] MEDS: MORPHINE SULFATE 1 MG IV ×5 (09:10→23:29)
--- NOTE | 2024-10-18 10:46 | CM ---
CM following re: d/c planning.
Hospice c/s acknowledged.
CM spoke with daughter Alicia, who is agreeable to ref to Hospice.
She states she is hoping for a meeting today with a runstitching machine operator.
CM sent ref to hospice and TT to RN information technology security analyst, will await meeting and plan.
Goal: hospice, await arrangements.
[2024-10-18 11:02] LABS: Glucose - Point of Care 93 mg/dl (70-99)
--- NOTE | 2024-10-18 12:18 | HOSPNOTE ---
Referral recieved. Assessed patient and reviewed with [facility] MEYERS. Patient is not GIP appropriate at this time. Patient is being placed on comfort measures today and bed requested on . Will assess patient for GIP appropriate tomorrow
morning and if appropriate will admit inpatient hospice. Update given to daughter Alicia via the phone and she is in agreement. Hospice nurse Liat will make a in person visit to speak to Alicia and Andrés and answer any questions they have moving
forward. I will speak to Alicia tomorrow morning as well. CM and Attending updated.
--- NOTE | 2024-10-18 14:51 | W.PN.NEPH.PH ---
Today's Communication / Plan
-
hospice
Assessment/Plan
-
Impression.
MISBAH
CMML-2
Diabetes mellitus type 2
Hyperuricemia
Paroxysmal atrial fibrillation
Diarrhea
Heart failure preserved ejection fraction
Hypocalcemia
Plan.
d/w daughter
for hospice
-
-
Date of Service: October 18, 2024
CC / HPI / ROS
-
Chief Complaint:
MISBAH with diarrhea
History of Present Illness:
MISBAH on CKD with history of CMML on current treatment
MISBAH/Cr stable 2.0
K slightly high 5.0
BPs stable
Review of Systems:
no SOB/CP
Labs
-
Labs:
WBC 16.6 10^3/uL (4.8-10.8) H 10/18/24 05:27
RBC 2.66 10^6/uL (4.20-5.40) L 10/18/24 05:27
Hgb 8.3 g/dL (12.0-16.0) L 10/18/24 05:27
Hct 26.5 % (37.0-47.0) L 10/18/24 05:27
Plt Count 23 10^3/uL (130-400) L* 10/18/24 05:27
Sodium 139 mmol/L (135-145) 10/18/24 05:27
Potassium 5.2 mmol/L (3.5-5.1) H 10/18/24 05:27
Chloride 113 mmol/L (98-107) H 10/18/24 05:27
Carbon Dioxide 18 mmol/L (22-30) L 10/18/24 05:27
BUN 67 mg/dl (7-17) H 10/18/24 05:27
Creatinine 2.0 mg/dL (0.6-1.0) H 10/18/24 05:27
eGFR 23.88 10/18/24 05:27
Glucose 88 mg/dl (70-99) 10/18/24 05:27
Calcium 8.4 mg/dl (8.4-10.2) 10/18/24 05:27
Phosphorus 3.9 mg/dl (2.5-4.5) 10/14/24 06:59
Vqz-Q-Jnrdskdsoty Pept 15025 pg/ml 10/14/24 06:59
Albumin 2.3 g/dl (3.5-5.0) L 10/14/24 06:59
Physical Exam
-
Vital Signs:
Vital Signs
Temp Pulse Resp BP Pulse Ox
98.1 F 109 21 137/62 97
10/18/24 07:53 10/18/24 07:53 10/18/24 07:53 10/18/24 07:53 10/18/24 07:53
Cardiovascular:: Regular rate and rhythm
Respiratory:: Bilateral: Coarse
Lung Excursion:: Normal
Abdomen:: Nontender and Soft
Bowel Sounds:: Normal
Extremity Edema:: +1: Bilateral:
--- NOTE | 2024-10-18 15:37 | W.PN.HOSP.TC ---
Today's Communication/Plan
-
Assessment / Plan
Assessment / Plan
NAD, edematous through out, weak, chronically ill
Scleral Anicteric
MMM
No JVD
CTABL
RRR, S1/S2
Soft, NT, ND, BS+
Warm, Dry, thrid spacign, non pitting edema
AAOx3
Calm
MISBAH on CKD likely secondary to cardiorenal syndrome. Initially suspected secondary to prerenal etiology in the setting of diarrhea requiring IV fluids. However after being on IV fluids for approximately 24 hours renal function has not improved in
fact got worse. Did receive 1 unit of PRBCs on previous admission while in the ER and did not receive diuretics. She has not been diuresing well. Therefore suspect cardiorenal syndrome. Without evidence of TLS.
IV diuresis + Albumin per neph
Avoid other nephrotoxins
Nephrology following
Will check urine electrolytes
Will check renal bladder ultrasound
S/p rasburicase per Onc for hyperuricemia. Fortunately, not TLS
Metabolic acidosis
Slightly better. THough, neph expects going towards HD. Unfortunately, per neph not a candidate for HD at this point. Recommend to go towards hospice
?Heart failure/HFpEF with known EF of 50 to 55% from 2D echocardiogram in January 2020
2D echocardiogram
IV diuretics
Follow renal function
Monitor on telemetry
Diarrhea
Resolved, unable to obtain stool studies
Continue Ctx/Flagyl
Hypoalbuminemia
Provide ensure TID
Third spacing
CML
Continue hydroxy
Hematology/oncology following
Oncology discussed with family today after I evaled
-REc hospice and at this time agreeable.
-- 'family regarding prognosis of elderly patients with leukemia
Patient having bony expansion pain
Reviewed prognosis
Family requesting hospice'
Thrombocytopenia
If plt <40k with bleeding then will need plt transfusion
If plt <10k without bleeding then will need plt transfusion
Comfort care
Morphine and Ativan glycopyrrolate
Provide dignity and hygiene
Hospice consulted
Anticipated Discharge: > 48 hours
Subjective/Interval History
-
Date of Service: October 18, 2024
Seen and examined. No acute overnight events.
Moaning in pain
Objective Data
-
Labs:
Laboratory Results
10/18/24
05:27
WBC 16.6 H
Hgb 8.3 L
Hct 26.5 L
Plt Count 23 L*
Sodium 139
Potassium 5.2 H
Chloride 113 H
Carbon Dioxide 18 L
BUN 67 H
Creatinine 2.0 H
Glucose 88
Calcium 8.4
Vital Signs:
Vital Signs
Temp Pulse Resp BP Pulse Ox
98.1 F 109 21 137/62 97
10/18/24 07:53 10/18/24 07:53 10/18/24 07:53 10/18/24 07:53 10/18/24 07:53
I&O
10/17/24 10/18/24 10/19/24
06:59 06:59 06:59
Intake Total 660 / 660
Balance 660 / 660
[2024-10-18 16:00] VITALS: BP 137/58
[2024-10-18] MEDS: ROBINUL 0.2 MG IV (19:21)
[2024-10-18 19:52] VITALS: BP 77/49
[2024-10-18] MEDS: FLUSH (NSS) 2 FLUSH IV (23:30)
[2024-10-19] MEDS: ATIVAN 1 MG SL (01:24)
[2024-10-19] MEDS: MORPHINE SULFATE 1 MG IV ×3 (03:39→11:30)
[2024-10-19] MEDS: FLUSH (NSS) 2 FLUSH IV ×3 (03:40→11:30)
[2024-10-19 07:37] VITALS: BP 109/61
--- NOTE | 2024-10-19 11:06 | W.PN.HOSP.TC ---
Addendum entered and electronically signed by Nico Schulz MD 10/19/24 12:46:
Right buttock and bilateral heels pressure injury POA
Acute on chronic HFpEF
Original Note:
Today's Communication/Plan
-
Assessment / Plan
Assessment / Plan
NAD, edematous through out, weak, chronically ill
Scleral Anicteric
MMM
No JVD
CTABL
RRR, S1/S2
Soft, NT, ND, BS+
Warm, Dry, thrid spacign, non pitting edema
AAOx3
Calm
MISBAH on CKD likely secondary to cardiorenal syndrome. Initially suspected secondary to prerenal etiology in the setting of diarrhea requiring IV fluids. However after being on IV fluids for approximately 24 hours renal function has not improved in
fact got worse. Did receive 1 unit of PRBCs on previous admission while in the ER and did not receive diuretics. She has not been diuresing well. Therefore suspect cardiorenal syndrome. Without evidence of TLS.
IV diuresis + Albumin per neph
Avoid other nephrotoxins
Nephrology following
Will check urine electrolytes
Will check renal bladder ultrasound
S/p rasburicase per Onc for hyperuricemia. Fortunately, not TLS
Metabolic acidosis
Slightly better. THough, neph expects going towards HD. Unfortunately, per neph not a candidate for HD at this point. Recommend to go towards hospice
?Heart failure/HFpEF with known EF of 50 to 55% from 2D echocardiogram in January 2020
2D echocardiogram
IV diuretics
Follow renal function
Monitor on telemetry
Diarrhea
Resolved, unable to obtain stool studies
Continue Ctx/Flagyl
Hypoalbuminemia
Provide ensure TID
Third spacing
CML
Continue hydroxy
Hematology/oncology following
Oncology discussed with family today after I evaled
-REc hospice and at this time agreeable.
-- 'family regarding prognosis of elderly patients with leukemia
Patient having bony expansion pain
Reviewed prognosis
Family requesting hospice'
Thrombocytopenia
If plt <40k with bleeding then will need plt transfusion
If plt <10k without bleeding then will need plt transfusion
Comfort care/Hospice
Morphine and Ativan glycopyrrolate
Provide dignity and hygiene
Hospice consulted
Anticipated Discharge: > 48 hours
Subjective/Interval History
-
Date of Service: October 19, 2024
seen and exmained
recievd couple of doses of morphine overnight
Objective Data
-
Vital Signs:
Vital Signs
Temp Pulse Resp BP Pulse Ox
97.7 F 110 17 109/61 94
10/19/24 07:37 10/19/24 07:37 10/18/24 19:52 10/19/24 07:37 10/19/24 07:37
I&O
10/18/24 10/19/24 10/20/24
06:59 06:59 06:59
Intake Total 240 / 240
Balance 240 / 240
--- NOTE | 2024-10-19 12:37 | W.DCSUMMARY ---
Discharge Summary
Discharge Data
Date of Admission: 10/13/24
Date of Discharge: 10/19/24
-
Pending Results: No
Hospital Course
84-year-old female past medical history of chronic myelomonocytic leukemia, COPD, diabetes, hypertension, former smoker, chronic HFpEF, hypothyroidism, spinal stenosis status post fusion, atrial fibrillation on Xarelto, GI bleeding, chronic anemia,
presenting for watery brown diarrhea for the past week. She has had 2-3 episodes of diarrhea per day. No blood in the stool or black stool although daughter notes that her rectal region is raw has noticed some blood externally.. Has some nausea
and intolerance to p.o. diet.
Diarrhea resolved however kidney function started getting worse developed full body pain. Concerned this was progression of CML. Evaluated by oncology nephrology. Nephrology closely she will require hemodialysis in the coming days did not believe
she would tolerate hemodialysis DT age and comorbid conditions therefore recommended hospice. Oncology evaluated and believe this was progression of CML and recommended hospice at this point in time. Family in agreement and therefore hospice was
consulted
Discharge Plan
-
Patient Disposition: Hospice - Inpatient
Discharge Diagnosis/Procedures: cml progression
Diet: Breast Milk
Activity Restrictions/Additional Instructions:
Wound Care Instructions
L hip and R buttock: clean with saline, silicone foam change q 2 days and prn soilage.
Can use barrier cream on buttocks if foam keeps getting soiled.
Air mattress
turning schedule
increase protein in diet
air chair cushion, can take upon discharge.
Follow up at wound care center call for an appointment.
Referrals:
Pratibha Wasserman MD [Family Provider, Family Practice]
Prescriptions:
Discontinued
sertraline 50 MG tablet
50 mg PO DAILY
metoprolol succinate 25 MG tablet extended release 24 hr
75 mg PO DAILY
ferrous sulfate [Iron (ferrous sulfate)] 325 mg (65 mg iron) Tablet
325 mg PO DAILY
furosemide 20 MG tablet
40 mg PO DAILY
atorvastatin 40 mg tablet
80 mg PO HS
dapagliflozin propanediol [Farxiga] 10 mg tablet
10 mg PO DAILY
Systane (PF) 0.4-0.3 % Dropperette
1 drp BOTH EYES TID
multivit with min-folic acid [Multivitamin Gummies] 200 mcg Tablet,Chewable
400 tab PO DAILY
levothyroxine 150 mcg Tablet
150 mcg PO [id number]@0630 30 Days Qty: 26 0RF
aspirin 81 mg Tablet,Delayed Release (Dr/Ec)
81 mg PO DAILY
acetaminophen 650 mg Tablet Extended Release
1,300 mg PO HSPRN PRN (Reason: mild pain)
cholecalciferol (vitamin D3) [Vitamin D3] 25 mcg (1,000 unit) Tablet,Chewable
50 mcg PO DAILY
pantoprazole 40 MG tablet,delayed release (DR/EC)
40 mg PO DAILY
insulin lispro protamin-lispro [Humalog Mix 75-25 KwikPen] 100 unit/mL (75-25) insulin pen
6 unit SC BID
allopurinol 100 mg Tablet
100 mg PO DAILY Qty: 0 0RF
lisinopril 5 mg Tablet
5 mg PO QPM
hydroxyurea 500 mg capsule
1,000 mg PO BID
potassium chloride 10 mEq Tablet Extended Release
10 meq PO DAILY
Discharge Orders:
Discharge Patient (As Directed); Ordered 10/19/24
Ordered By: Nico Schulz
Discharge Date and Time
Print Language: GREEK
--- NOTE | 2024-10-19 12:41 | HPS.HSE ---
Family Physician
-
Family Physician: Pratibha Wasserman
Chief Complaint
-
hospice
History of Present Illness
84-year-old female past medical history of chronic myelomonocytic leukemia, COPD, diabetes, hypertension, former smoker, chronic HFpEF, hypothyroidism, spinal stenosis status post fusion, atrial fibrillation on Xarelto, GI bleeding, chronic anemia,
presenting for watery brown diarrhea for the past week. She has had 2-3 episodes of diarrhea per day. No blood in the stool or black stool although daughter notes that her rectal region is raw has noticed some blood externally.. Has some nausea
and intolerance to p.o. diet.
Diarrhea resolved however kidney function started getting worse developed full body pain. Concerned this was progression of CML. Evaluated by oncology nephrology. Nephrology closely she will require hemodialysis in the coming days did not believe
she would tolerate hemodialysis DT age and comorbid conditions therefore recommended hospice. Oncology evaluated and believe this was progression of CML and recommended hospice at this point in time. Family in agreement and therefore hospice was
consulted
Medical History
Past Medical History
Past Medical History: Reports Cancer
Past Surgical History: Reports Other
Social History
Unable to obtain full social history at this time due to: Acuity
Family History
Family History: Not pertinent
Allergies / Home Medications
Allergies reflects when Allergies were last updated in [facility].
Home Medications with original date entered in [facility]
Allergy/Medication List:
Allergies
Allergy/AdvReac Type Severity Reaction Status Date / Time
No Known Allergies Allergy Verified 10/11/24 09:52
Review of Systems
-
Unable to obtain full review of systems at this time due to: Acuity
Physical Exam
Vital Signs
Vital Signs
Temp Pulse Resp BP Pulse Ox
97.7 F 110 17 109/61 94
10/19/24 07:37 10/19/24 07:37 10/18/24 19:52 10/19/24 07:37 10/19/24 07:37
Physical Exam
General: Appears in Distress and Appears Chronically Ill
HEENT: No Moist mucous membranes
Respiratory: Non Labored Respirations
Cardiac: S1/S2 and Tachycardia
Breast: Deferred by me
GI: Tender
Musculoskeletal: No Clubbing and No Cyanosis
Skin: Warm
Laboratory Results
-
10/18/24 05:27
10/18/24 05:27
Laboratory Results
PT 16.9 Sec (11.4-14.6) H 10/13/24 18:58
INR 1.35 10/13/24 18:58
APTT 33.6 Sec (23.4-35.0) 10/13/24 18:58
Lactic Acid 1.0 mmol/L (0.7-2.0) 10/13/24 19:06
Total Bilirubin 0.6 mg/dl (0.2-1.3) 10/14/24 06:59
AST 26 U/L (14-36) 10/14/24 06:59
ALT 38 U/L (0-35) H 10/14/24 06:59
Alkaline Phosphatase 76 U/L (38-126) 10/14/24 06:59
Lipase 30 U/L (23-300) 10/13/24 18:58
Impression/Plan
-
MISBAH on CKD likely secondary to cardiorenal syndrome. Initially suspected secondary to prerenal etiology in the setting of diarrhea requiring IV fluids. However after being on IV fluids for approximately 24 hours renal function has not improved in
fact got worse. Did receive 1 unit of PRBCs on previous admission while in the ER and did not receive diuretics. She has not been diuresing well. Therefore suspect cardiorenal syndrome. Without evidence of TLS.
IV diuresis + Albumin per neph
Avoid other nephrotoxins
Nephrology following
Will check urine electrolytes
Will check renal bladder ultrasound
S/p rasburicase per Onc for hyperuricemia. Fortunately, not TLS
Metabolic acidosis
Slightly better. THough, neph expects going towards HD. Unfortunately, per neph not a candidate for HD at this point. Recommend to go towards hospice
?Heart failure/HFpEF with known EF of 50 to 55% from 2D echocardiogram in January 2020
2D echocardiogram
IV diuretics
Follow renal function
Monitor on telemetry
Diarrhea
Resolved, unable to obtain stool studies
Continue Ctx/Flagyl
Hypoalbuminemia
Provide ensure TID
Third spacing
CML
Continue hydroxy
Hematology/oncology following
Oncology discussed with family today after I evaled
-REc hospice and at this time agreeable.
-- 'family regarding prognosis of elderly patients with leukemia
Patient having bony expansion pain
Reviewed prognosis
Family requesting hospice'
Thrombocytopenia
If plt <40k with bleeding then will need plt transfusion
If plt <10k without bleeding then will need plt transfusion
Comfort care/Hospice
Morphine and Ativan glycopyrrolate
Provide dignity and hygiene
Hospice consulted
== END 2024-10-19 12:48 | disposition hospice, inpatient (51) | DRG 291 ==
LOC: 2 NORTH 21:09
PROVIDERS: ADMITTING PHYSICIAN Hospitalist; ATTENDING PHYSICIAN Hospitalist; CONSULT PHYSICIAN Specialist; EMERGENCY PHYSICIAN Emergency Medicine; FAMILY PHYSICIAN Family Medicine; OTHER PHYSICIAN Internal Medicine Gastroenterology; OTHER PHYSICIAN Internal Medicine Hematology & Oncology
PROC: 30233N1 Transfusion of Nonautologous Red Blood Cells into Peripheral Vein, Percutaneous Approach (ICD-10-PCS; 2024-10-13)
DX: I13.0 Hypertensive heart and chronic kidney disease with heart failure and stage 1 through stage 4 chronic kidney disease, or unspecified chronic kidney disease (principal); I50.33 Acute on chronic diastolic (congestive) heart failure; C93.10 Chronic myelomonocytic leukemia not having achieved remission; E87.20 Acidosis, unspecified; N17.9 Acute kidney failure, unspecified; D84.9 Immunodeficiency, unspecified; Z79.890 Hormone replacement therapy; N18.32 Chronic kidney disease, stage 3b; E11.22 Type 2 diabetes mellitus with diabetic chronic kidney disease; E88.09 Other disorders of plasma-protein metabolism, not elsewhere classified; L89.312 Pressure ulcer of right buttock, stage 2; L89.611 Pressure ulcer of right heel, stage 1; L89.621 Pressure ulcer of left heel, stage 1; E03.9 Hypothyroidism, unspecified; J44.9 Chronic obstructive pulmonary disease, unspecified; I48.0 Paroxysmal atrial fibrillation; E83.51 Hypocalcemia; Z98.1 Arthrodesis status; Z96.641 Presence of right artificial hip joint; Z87.891 Personal history of nicotine dependence; D50.9 Iron deficiency anemia, unspecified; D69.59 Other secondary thrombocytopenia; E11.21 Type 2 diabetes mellitus with diabetic nephropathy; E78.00 Pure hypercholesterolemia, unspecified; F32.A Depression, unspecified; F41.9 Anxiety disorder, unspecified; H54.7 Unspecified visual loss; Z66 Do not resuscitate; Z79.01 Long term (current) use of anticoagulants; Z79.4 Long term (current) use of insulin; Z79.82 Long term (current) use of aspirin; Z79.899 Other long term (current) drug therapy
CPT/HCPCS: 36415; 36430; 71045; 71046; 80048; 80053; 82962; 82985; 83036; 83605; 83615; 83690; 83880; 84100; 84443; 84550; 85025; 85027; 85610; 85730; 86850; 86900; 86901; 86920; 87040; 93005; 93306; 96365; 96374; 96375; 99285; J2783; P9016; P9047

== ENCOUNTER 2024-10-19 12:57 | Inpatient (IN) | payer OTHER, SELFPAY ==
--- NOTE | 2024-10-19 13:04 | HOSPNOTE ---
Patient admitted to [facility] for management of pain. Prior to initiating comfort measures/ hospice patient was reportedly screaming out ' God please take me' due to uncontrolled generalized body pain. Patient has remained in severe pain
and now moderate dyspnea with 94% 3 l nc. She has required 7 doses of morphine in past 24 hours. She is on 3 l of oxygen which will be weaned down also requiring iv morphine and Ativan for management of continued dyspnea and anxiety. Patient also
has required Ativan for anxiety. patient is also exhibiting excessive secretions that she is unable to manage herself and is requiring iv Robinul for secretions. Family at bedside and in agreement with hospice and Dr Schulz also in agreement.
[2024-10-19] MEDS: MORPHINE 100 IV (13:19)
--- NOTE | 2024-10-19 13:42 | CM ---
Reviewed the chart notes. CM continues to be available to patient/family.
Plan: Transitioned onto [facility].
[2024-10-19] MEDS: MORPHINE SULFATE 2 MG IV (16:38)
[2024-10-19 19:27] VITALS: BP 129/62
[2024-10-20] MEDS: MORPHINE SULFATE 2 MG IV ×2 (06:19→09:13)
[2024-10-20 07:35] VITALS: BP 113/93
--- NOTE | 2024-10-20 10:55 | CHAP ---
Kera was sleeping comfortably, non-responsive. No family was present. Personal Care Attendant offered words of comfort and prayer; emotional and spiritual support provided. Will continue support through weekly visits. Fr. Zazueta of [facility] provided
Sacrament of the Sick on 10.19.24.
--- NOTE | 2024-10-20 11:13 | HOSPNOTE ---
Patient currently well managed with morphine gtt at 1mg/hr. Actively dying, minimally responsive, periods of apnea, nail beds cyanotic. Continue to require GIP LOC for proper management of of pain and respiratory issues. Coordinated care with
hospital nurse and physician, no new care needs required at this time.
--- NOTE | 2024-10-20 13:57 | W.PN.HOSP.TC ---
Today's Communication/Plan
-
Assessment / Plan
Assessment / Plan
End stage condition
-CML
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
Metabolic acidosis
Severe protein calorie malnutrition
Hypoalbuminemia
Pancytopenia with severe thrombocytopenia
Comfort care/Hospice
Morphine and Ativan glycopyrrolate
Provide dignity and hygiene
Hospice consulted
Anticipated Discharge: > 48 hours
Subjective/Interval History
-
Date of Service: October 20, 2024
seen and exmained. no overnight events
Objective Data
-
Vital Signs:
Vital Signs
Temp Pulse Resp BP Pulse Ox
97 F 110 16 113/93 90
10/20/24 07:35 10/20/24 07:35 10/20/24 07:35 10/20/24 07:35 10/20/24 08:00
Physical Exam
-
General: Comfortable and Other (at time apneic, unresponsive ); Negative Conversant
GI: Soft and Nontender
Neuro: Negative Awake or Alert
Psych: Other
[2024-10-20 20:49] VITALS: BP 102/54
--- NOTE | 2024-10-21 01:03 | W.PN.DEATH ---
Pronouncement of
-
Called to see patient to pronounce.
No spontaneous heart tones or respirations noted.
Patient not responsive to verbal stimuli.
Patient is pronounced .
Time of : 00:34
Date of : 10/21/24
Cause of : CML, MISBAH, Immunodeficiency
Family Notified: Yes (daughter aware and will come in. )
--- NOTE | 2024-10-21 04:17 | PTCARENOTE ---
Pt . House DIRECTOR SHIP up to pronounce and family called and came in. [facility] notified. Belongings sent home with daughter. IV removed. Morphine gtt wasted with another RN. Post mortem care done and pt taken to [facility].
== END 2024-10-21 00:34 | disposition expired | DRG 951 ==
LOC: 2 NORTH 12:57
PROVIDERS: ADMITTING PHYSICIAN Hospitalist; ATTENDING PHYSICIAN Hospitalist; FAMILY PHYSICIAN Family Medicine
DX: Z51.5 Encounter for palliative care (principal); E43 Unspecified severe protein-calorie malnutrition; C92.10 Chronic myeloid leukemia, BCR/ABL-positive, not having achieved remission; N17.9 Acute kidney failure, unspecified; N18.4 Chronic kidney disease, stage 4 (severe); E87.20 Acidosis, unspecified; D61.818 Other pancytopenia; D84.9 Immunodeficiency, unspecified; E88.09 Other disorders of plasma-protein metabolism, not elsewhere classified; D69.6 Thrombocytopenia, unspecified